=== PATIENT | female | born 1955 | race Caucasian/White ===

== ENCOUNTER → 2018-01-28 10:42 | Outpatient (CLI) | payer OTHER, MEDICAID, SELFPAY ==
--- NOTE | 2018-01-28 | DI.RAD.S_ITS ---
PROCEDURE: XR CHEST 2V INDICATIONS: COUGH TECHNIQUE: 2 views of the chest were acquired. COMPARISON: [facility], , CHEST 2 VIEW, 10/30/2016, 10:32. FINDINGS: Surgical changes and devices: None. Lungs and pleura: No pleural effusions or pneumothorax. Lungs are clear. Mediastinum: Mediastinal contours are normal. Heart size is normal. Bones and chest wall: No suspicious bony abnormalities. Soft tissues appear unremarkable. IMPRESSION: No acute disease. Dictated by: Joshua Bishop M.D. on 01/28/2018 at 13:16 Approved by: Joshua Bishop M.D. on 01/28/2018 at 13:17
== END ==
PROVIDERS: Family Provider Family Medicine; PCP Family Medicine; Visit Provider Family Medicine
DX: R05 Cough (principal)
CPT/HCPCS: 71046

== ENCOUNTER 2018-03-04 12:00 | Outpatient (RCR) | payer OTHER, MEDICAID, SELFPAY ==
--- NOTE | 2018-02-03 17:47 | PT.OIE ---
Current Diagnoses Spinal stenosis, lumbar region with neurogenic claudication (02/03/18) Other intervertebral disc degeneration, lumbar region (02/03/18) Muscle weakness (generalized) (02/03/18) Strain of muscle, fascia and tendon of lower back, subsequent encounter (02/03/18) Provider Visit Care Team Role Provider Type Alek Mejia MD Family Provider Physician Primary Care Provider Specialty: Family Practice Address: [address] [place] [address], [id number] Email: Wilder Lehman MD Attending Provider Physician Specialty: Orthopedic Surgery Address: [address] [place] [address], [id number] Email: [email or web address] Physical [facility] Initial Evaluation PT-OP-A Visit Information Start: 02/03/18 17:04 Freq: Status: Active Protocol: Document 02/03/18 12:45 RCC (Rec: 02/03/18 17:25 RCC [email or web address]) Out-Patient Physical Therapy Visit Information Visit Information Visit Type Initial Evaluation Visit Note PMH: DM type II, neck surgery x2, OA, back pain, neck pain, SOB with activity, current every day smoker, HTN. Visit Start Time 12:00 Visit Stop Time 12:45 Total Visit Minutes 45 Visit Number 1 Number of BEHAVIORAL SPECIALIST Visits 0 Evaluation Information Evaluation Date 02/03/18 PT-OP-B Current Condition Start: 02/03/18 17:04 Freq: Status: Active Protocol: Document 02/03/18 12:45 RCC (Rec: 02/03/18 17:25 RCC [email or web address]) Current Condition History of Current Condition Onset Date December 2016 Current Complaints L buttock and low back pain History of Current Condition Pt is a 62 y/o female presenting to skilled outpatient physical therapy with a c/o ongoing L sided low back and L buttock pain. Onset of injury pt reports was in December of 2016 went she just bent over one day to pick something up and had sharp, shooting pain down the LLE into the lower leg. Pain now is into the buttock and low back, but not extending down past the L knee. 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 Radiographs in 2017 showed osteophytes at L2- 3 and 5 mm listhesis in flexion of the lumbar spine with resolution on extension. MRI of the lumbar spine on 12/22 showed mild central stenosis @ L2-3, mild to moderate central, moderate bilateral foraminal stenosis at L3-4. L4-5 moderate central , moderate bilatearl foraminal narrowing. L5-S1 is open. Pt is referred to therapy for evaluation and treatment, HEP, ROM, and strengthening exercises. Plan is for pt to attempt PT and if necessary, injection performed on the L L4-[address] Lehman. Prior Treatments and Tests lumbar radiograph and MRI Future Testing and Treatments Planned possible L L4-5 injection. Prior Functional Status Baseline Function- Work/School No pain with lifting, work- related tasks. PT-OP-C Subjective Start: 02/03/18 17:04 Freq: Status: Active Protocol: Document 02/03/18 12:45 RCC (Rec: 02/03/18 17:25 RCC [email or web address]) OP-PT Subjective Patient Comments Patient Comments Pt notes that pain is not getting any better over the past couple of months, actually getting more intense and pain in L buttock more severe than low back. She is only working 4 hrs per day compared to 6-8 hrs per day ( normal shift). Patient Reported Progress Worse Patient Questionnaires Oswestry Low Back Index Oswestry Score 32% Oswestry Impairment 20 to 39% Impaired (Score 20- 39) OP-PT Pain Assessment Pain Assessment Grid Paper Pain Assessment Grid Completed Yes Location Left Buttock Pain Location Details 8 Scale Used Numeric (1 - 10) Description Sharp Shooting Stabbing Frequency Frequent PT-OP-D Balance Start: 02/03/18 17:04 Freq: Status: Active Protocol: Document 02/03/18 12:45 RCC (Rec: 02/03/18 17:33 RCC [email or web address]) Balance Tests Single Limb Standing Single Limb- Right 15 sec Single Limb- Left 10 sec with increased sway and fatigue. PT-OP-F Manual Assessment Start: 02/03/18 17:04 Freq: Status: Active Protocol: Document 02/03/18 12:45 RCC (Rec: 02/03/18 17:33 RCC [email or web address]) Manual Assessments Soft Tissue Assessment Soft Tissue Mobility Assessment Tenderness to palpation: ES, multifidi of the L lower lumbar spine, L piriformis, gluteals, IT band. PT-OP-G Mobility & Gait Start: 02/03/18 17:04 Freq: Status: Active Protocol: Document 02/03/18 12:45 RCC (Rec: 02/03/18 17:34 RCC [email or web address]) OP Gait Assessment Comments Gait Comments Antalgic gait with excessive LLE ER throughout gait, decreased step length mildly on the R. PT-OP-H Neuro Start: 02/03/18 17:04 Freq: Status: Active Protocol: Document 02/03/18 12:45 RCC (Rec: 02/03/18 17:33 RCC [email or web address]) Sensation Evaluation Gross Sensation Gross Sensation WNL Deep Tendon Reflex & Clonus Assessment Deep Tendon Reflex Bilateral Achilles Deep Tendon Reflex 2+ Normal Bilateral Patellar Deep Tendon Reflex 2+ Normal Ankle Clonus Bilateral Clonus Assessment Absent PT-OP-K Range of Motion Start: 02/03/18 17:04 Freq: Status: Active Protocol: Document 02/03/18 12:45 RCC (Rec: 02/03/18 17:33 RCC [email or web address]) Lumbar Spine Range of Motion Lumbar Spine Active Degrees Testing Position standing Flexion 70 Extension 14 ROM Limitations Pain Comments Pain down L leg with extension of lumbar spine. 75% lumbar spine side-bending with pain in the L back with SB L. PT-OP-L Special Tests Start: 02/03/18 17:04 Freq: Status: Active Protocol: Document 02/03/18 12:45 RCC (Rec: 02/03/18 17:33 RCC [email or web address]) Special Tests Lumbar Spine Special Tests Vertical Spine Loading Test Results negative Slump Test Results positive bilaterally Manual Traction Test Results negative bilaterally Straight Leg Raise Test Results negative bilaterally PT-OP-M Strength Start: 02/03/18 17:04 Freq: Status: Active Protocol: Document 02/03/18 12:45 RCC (Rec: 02/03/18 17:33 RCC [email or web address]) Hip Strength Hip Manual Muscle Testing Right Flexion (L2) 4+ Good+ Left Flexion (L2) 3+ Fair+ Knee Strength Knee Manual Muscle Testing Right Flexion (S2) 5 Normal Extension (L3) 5 Normal Left Flexion (S2) 4 Good Extension (L3) 4+ Good+ Ankle/Foot Strength Ankle and Foot Manual Muscle Testing Right Dorsiflexion (L4) 5 Normal Left Dorsiflexion (L4) 5 Normal Toe Strength Toe Manual Muscle Testing Right Great Toe Extension 5 Normal Left Great Toe Extension 5 Normal PT-OP-Q Treatments Start: 02/03/18 17:04 Freq: Status: Active Protocol: Document 02/03/18 12:45 RCC (Rec: 02/03/18 17:36 RCC [email or web address]) Therapeutic Exercises Supine Exercises 2 Supine Exercise Name Lower trunk rotation Side bilateral 1 Supine Exercise Name Piriformis stretch Side left Sitting Exercises 1 Sitting Exercise Name HS stretch Side left Comments VC for lumbar spine alignment Self-Care/Home Management Treatment Education Patient Education Body Mechanics Home Exercise Program Posture Other Education HS and piriformis stretch, LTR , education of LLE positioning , posture PT-OP-T Assessment and Plan Start: 02/03/18 17:04 Freq: Status: Active Protocol: Document 02/03/18 12:45 RCC (Rec: 02/03/18 17:46 RCC [email or web address]) Physical Therapy Assessment Rehab Potential Rehabilitation Potential Good Evaluation Complexity Number of Personal Factors/Comorbidities 3 or More Number of Body Systems Impaired 4 or More Clinical Presentation at Evaluation Unstable Impairments Impairments Activity Tolerance Balance Functional Activities Functional Mobility Gait Pain Posture ROM Soft Tissue Mobility Strength Goals Six Impairment Work tolerance (lifting) Residential Goal (LTG) Pt will report return to work for at least 6 hrs with no increased L buttock pain with lifting towels prior to d/c. LTG Duration 10 weeks. Five Impairment LLE alignment in standing and gait Residential Goal (LTG) Neutral LLE alignment in standing and throughout gait ( equal to RLE) prior to d/c. LTG Duration 10 weeks. Four Impairment Pain in L buttock and lumbar spine Short Term Goal (STG) 6/10 STG Duration 5 weeks Local Area Network Administrator Goal (LTG) 3/10 or less LTG Duration 10 weeks Three Impairment Modified Oswestry Score Short Term Goal (STG) <25% STG Duration 5 weeks Local Area Network Administrator Goal (LTG) <20% LTG Duration 10 weeks Two Impairment ROM of lumbar spine Short Term Goal (STG) 20 deg. of lumbar extension without pain STG Duration 5 weeks Residential Goal (LTG) 25 deg of lumbar extension without pain LTG Duration 10 weeks One Impairment L LE weakness Short Term Goal (STG) Hip flexion 4/5 Knee extension 5/5, flexion 4+ /5 *with MMT STG Duration 5 weeks Residential Goal (LTG) Hip flexion, knee extension and flexion to 5/5 with MMT. LTG Duration 10 weeks Assessment Summary Assessment Pt with (+) slump testing bilaterally, with L more severe than the R. Traction does not appear to decerase pt 's symptoms at this time. Tenderness in the L buttock, particularly in the L piriformis also indicating involvement of the sciatic nerve, along with MRI results. Pt stands with LLE in excessive ER, possibly due to compensatory body mechanics to decrease stress on L sciatic nerve. Pt would greatly benefit from skilled physical therapy intervention to progress her LE strength, posture, lumbar spine ROM, decrease pain, and return to work related tasks (standing and lifting) without increased symptoms. Physical Therapy Plan Frequency and Duration Frequency of Treatment 2x/Week Duration of Treatment 10 weeks Plan of Care Start Date 02/03/18 Plan of Care End Date 04/14/18 Therapeutic Interventions Therapeutic Interventions Aquatic Therapy Balance Training Gait Training Home Exercise Program Joint Mobilizations Manual Therapy Neuromuscular Re-education Patient/Caregiver Education Self-Care/Home Management Soft Tissue Mobilization Taping Therapeutic Activities Therapeutic Exercises Modalities Cold Pack/Ice Massage Electric Stimulation Hot Packs Ultrasound Next Visit Focus/Plan Next Note Type Treatment Note Next Visit Plan check prone instability test, core strengthening as tolerated, sciatic nerve glides if able to perform appropriately.
--- NOTE | 2018-02-03 17:47 | PT.OPPOC ---
Current Diagnoses Spinal stenosis, lumbar region with neurogenic claudication (02/03/18) Other intervertebral disc degeneration, lumbar region (02/03/18) Muscle weakness (generalized) (02/03/18) Strain of muscle, fascia and tendon of lower back, subsequent encounter (02/03/18) Provider Visit Care Team Role Provider Type Alek Mejia MD Family Provider Physician Primary Care Provider Specialty: Family Practice Address: [address] [place] [address], [address] Email: Wilder Lehman MD Attending Provider Physician Specialty: Orthopedic Surgery Address: [address] [place] [address], [id number] Email: [email or web address] Plan Of Care PT-OP-T Assessment and Plan Start: 02/03/18 17:04 Freq: Status: Active Protocol: Document 02/03/18 12:45 RCC (Rec: 02/03/18 17:46 RCC [email or web address]) Physical Therapy Assessment Rehab Potential Rehabilitation Potential Good Evaluation Complexity Number of Personal Factors/Comorbidities 3 or More Number of Body Systems Impaired 4 or More Clinical Presentation at Evaluation Unstable Impairments Impairments Activity Tolerance Balance Functional Activities Functional Mobility Gait Pain Posture ROM Soft Tissue Mobility Strength Goals Six Impairment Work tolerance (lifting) Director Of Archives Goal (LTG) Pt will report return to work for at least 6 hrs with no increased L buttock pain with lifting towels prior to d/c. LTG Duration 10 weeks. Five Impairment LLE alignment in standing and gait Halfway Goal (LTG) Neutral LLE alignment in standing and throughout gait ( equal to RLE) prior to d/c. LTG Duration 10 weeks. Four Impairment Pain in L buttock and lumbar spine Short Term Goal (STG) 6/10 STG Duration 5 weeks Halfway Goal (LTG) 3/10 or less LTG Duration 10 weeks Three Impairment Modified Oswestry Score Short Term Goal (STG) <25% STG Duration 5 weeks Director Of Archives Goal (LTG) <20% LTG Duration 10 weeks Two Impairment ROM of lumbar spine Short Term Goal (STG) 20 deg. of lumbar extension without pain STG Duration 5 weeks Director Of Archives Goal (LTG) 25 deg of lumbar extension without pain LTG Duration 10 weeks One Impairment L LE weakness Short Term Goal (STG) Hip flexion 4/5 Knee extension 5/5, flexion 4+ /5 *with MMT STG Duration 5 weeks Director Of Archives Goal (LTG) Hip flexion, knee extension and flexion to 5/5 with MMT. LTG Duration 10 weeks Assessment Summary Assessment Pt with (+) slump testing bilaterally, with L more severe than the R. Traction does not appear to decerase pt 's symptoms at this time. Tenderness in the L buttock, particularly in the L piriformis also indicating involvement of the sciatic nerve, along with MRI results. Pt stands with LLE in excessive ER, possibly due to compensatory body mechanics to decrease stress on L sciatic nerve. Pt would greatly benefit from skilled physical therapy intervention to progress her LE strength, posture, lumbar spine ROM, decrease pain, and return to work related tasks (standing and lifting) without increased symptoms. Physical Therapy Plan Frequency and Duration Frequency of Treatment 2x/Week Duration of Treatment 10 weeks Plan of Care Start Date 02/03/18 Plan of Care End Date 04/14/18 Therapeutic Interventions Therapeutic Interventions Aquatic Therapy Balance Training Gait Training Home Exercise Program Joint Mobilizations Manual Therapy Neuromuscular Re-education Patient/Caregiver Education Self-Care/Home Management Soft Tissue Mobilization Taping Therapeutic Activities Therapeutic Exercises Modalities Cold Pack/Ice Massage Electric Stimulation Hot Packs Ultrasound Next Visit Focus/Plan Next Note Type Treatment Note Next Visit Plan check prone instability test, core strengthening as tolerated, sciatic nerve glides if able to perform appropriately. Plan of Care Dates Plan of Care Start Date 02/03/18 Plan of Care End Date 04/14/18 Please Sign and Return: I have reviewed this Plan of Care and certify that the skilled therapy services above are required to meet the patient?s needs. Physician Signature Date Printed Name and Credentials Clinical Instructor Signature Printed Name and Credentials
--- NOTE | 2018-02-11 12:00 | PT.OTN ---
Current Diagnoses Spinal stenosis, lumbar region with neurogenic claudication (02/11/18) Other intervertebral disc degeneration, lumbar region (02/11/18) Muscle weakness (generalized) (02/11/18) Strain of muscle, fascia and tendon of lower back, subsequent encounter (02/11/18) Physical Therapy Treatment Note PT-OP-A Visit Information Start: 02/03/18 17:04 Freq: Status: Active Protocol: Document 02/11/18 12:00 RCC (Rec: 02/11/18 15:12 RCC [email or web address]) Out-Patient Physical Therapy Visit Information Visit Information Visit Type Treatment Note Visit Start Time 11:15 Visit Stop Time 12:05 Total Visit Minutes 50 Visit Number 2 Number of CONCRETE PRECAST MOULDER Visits 0 Evaluation Information Evaluation Date 02/03/18 PT-OP-B Current Condition Start: 02/03/18 17:04 Freq: Status: Active Protocol: Document 02/03/18 12:45 RCC (Rec: 02/03/18 17:25 RCC [email or web address]) Current Condition History of Current Condition Onset Date December 2016 Current Complaints L buttock and low back pain History of Current Condition Pt is a 62 y/o female presenting to skilled outpatient physical therapy with a c/o ongoing L sided low back and L buttock pain. Onset of injury pt reports was in December of 2016 went she just bent over one day to pick something up and had sharp, shooting pain down the LLE into the lower leg. Pain now is into the buttock and low back, but not extending down past the L knee. 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 Radiographs in 2017 showed osteophytes at L2- 3 and 5 mm listhesis in flexion of the lumbar spine with resolution on extension. MRI of the lumbar spine on 12/22 showed mild central stenosis @ L2-3, mild to moderate central, moderate bilateral foraminal stenosis at L3-4. L4-5 moderate central , moderate bilatearl foraminal narrowing. L5-S1 is open. Pt is referred to therapy for evaluation and treatment, HEP, ROM, and strengthening exercises. Plan is for pt to attempt PT and if necessary, injection performed on the L L4-[address] Lehman. Prior Treatments and Tests lumbar radiograph and MRI Future Testing and Treatments Planned possible L L4-5 injection. Prior Functional Status Baseline Function- Work/School No pain with lifting, work- related tasks. PT-OP-C Subjective Start: 02/03/18 17:04 Freq: Status: Active Protocol: Document 02/11/18 12:00 RCC (Rec: 02/11/18 15:12 RCC [email or web address]) OP-PT Subjective Patient Comments Patient Comments Pt notes that L buttock pain is about the same. She is doing her stretching, still having pain with picking up towels off of the ground. Patient Reported Progress Same PT-OP-D Balance Start: 02/03/18 17:04 Freq: Status: Active Protocol: Document 02/03/18 12:45 RCC (Rec: 02/03/18 17:33 RCC [email or web address]) Balance Tests Single Limb Standing Single Limb- Right 15 sec Single Limb- Left 10 sec with increased sway and fatigue. PT-OP-F Manual Assessment Start: 02/03/18 17:04 Freq: Status: Active Protocol: Document 02/03/18 12:45 RCC (Rec: 02/03/18 17:33 RCC [email or web address]) Manual Assessments Soft Tissue Assessment Soft Tissue Mobility Assessment Tenderness to palpation: ES, multifidi of the L lower lumbar spine, L piriformis, gluteals, IT band. PT-OP-G Mobility & Gait Start: 02/03/18 17:04 Freq: Status: Active Protocol: Document 02/03/18 12:45 RCC (Rec: 02/03/18 17:34 RCC [email or web address]) OP Gait Assessment Comments Gait Comments Antalgic gait with excessive LLE ER throughout gait, decreased step length mildly on the R. PT-OP-H Neuro Start: 02/03/18 17:04 Freq: Status: Active Protocol: Document 02/03/18 12:45 RCC (Rec: 02/03/18 17:33 RCC [email or web address]) Sensation Evaluation Gross Sensation Gross Sensation WNL Deep Tendon Reflex & Clonus Assessment Deep Tendon Reflex Bilateral Achilles Deep Tendon Reflex 2+ Normal Bilateral Patellar Deep Tendon Reflex 2+ Normal Ankle Clonus Bilateral Clonus Assessment Absent PT-OP-K Range of Motion Start: 02/03/18 17:04 Freq: Status: Active Protocol: Document 02/03/18 12:45 RCC (Rec: 02/03/18 17:33 RCC [email or web address]) Lumbar Spine Range of Motion Lumbar Spine Active Degrees Testing Position standing Flexion 70 Extension 14 ROM Limitations Pain Comments Pain down L leg with extension of lumbar spine. 75% lumbar spine side-bending with pain in the L back with SB L. PT-OP-L Special Tests Start: 02/03/18 17:04 Freq: Status: Active Protocol: Document 02/11/18 12:00 RCC (Rec: 02/11/18 15:12 RCC [email or web address]) Special Tests Lumbar Spine Special Tests Prone Instability Test Test Results Positive @ L1, L2, L5 PT-OP-M Strength Start: 02/03/18 17:04 Freq: Status: Active Protocol: Document 02/03/18 12:45 RCC (Rec: 02/03/18 17:33 RCC [email or web address]) Hip Strength Hip Manual Muscle Testing Right Flexion (L2) 4+ Good+ Left Flexion (L2) 3+ Fair+ Knee Strength Knee Manual Muscle Testing Right Flexion (S2) 5 Normal Extension (L3) 5 Normal Left Flexion (S2) 4 Good Extension (L3) 4+ Good+ Ankle/Foot Strength Ankle and Foot Manual Muscle Testing Right Dorsiflexion (L4) 5 Normal Left Dorsiflexion (L4) 5 Normal Toe Strength Toe Manual Muscle Testing Right Great Toe Extension 5 Normal Left Great Toe Extension 5 Normal PT-OP-Q Treatments Start: 02/03/18 17:04 Freq: Status: Active Protocol: Document 02/11/18 12:00 RCC (Rec: 02/11/18 15:12 RCC [email or web address]) Therapeutic Exercises Supine Exercises 3 Supine Exercise Name transverse abdominal activation Side bilateral Comments tactile cuing 2 Supine Exercise Name Lower trunk rotation Side bilateral 1 Supine Exercise Name Piriformis stretch Side left Sidelying Exercises 1 Sidelying Exercise Name clamshells Side bilateral Reps/Minutes 1x12 Other Exercises 1 Other Exercise Name Quadruped alternating LE extension Side bilateral Reps/Minutes 1x5 each Manual Therapy Treatment Soft Tissue Mobilization 2 Body Location lumbar paraspinals Mobilization Type Strumming Intensity/Depth Moderate Body Position Sidelying Comments bilateral; 10 min 1 Body Location piriformis Mobilization Type Strumming Intensity/Depth Moderate Body Position Sidelying Comments bilateral; 9 min Manual Traction Lumbar Details long axis (gentle) Body Position Supine Reps/Duration 2 min. Other Other Manual Treatments prone instability testing- 4 min. PT-OP-R Modalities Start: 02/03/18 17:04 Freq: Status: Active Protocol: Document 02/11/18 12:00 RCC (Rec: 02/11/18 15:12 RCC [email or web address]) Hot Pack/Cold Pack Treatment Hot Pack Location lumbar, buttock Patient Position Supine Treatment Duration (minutes) 10 Patient Tolerance Good Comments conster PT-OP-T Assessment and Plan Start: 02/03/18 17:04 Freq: Status: Active Protocol: Document 02/11/18 12:00 RCC (Rec: 02/11/18 15:12 [facility] [email or web address]) Physical Therapy Assessment Assessment Summary Assessment Pt with (+) prone instability test at multiple levels, indicating that pt would benefit from core stabilization training. Pt tolerated quadruped alternating LE lifts without pain. She requires tactile cuing for transverse abdominal activation, and VC to perform this with other activities. Physical Therapy Plan Frequency and Duration Frequency of Treatment 2x/Week Duration of Treatment 10 weeks Plan of Care Start Date 02/03/18 Plan of Care End Date 04/14/18 Next Visit Focus/Plan Next Note Type Treatment Note Next Visit Plan core stability, sciatic nerve glides in able to perform appropriately.
--- NOTE | 2018-02-16 14:25 | PT.OTN ---
Current Diagnoses Spinal stenosis, lumbar region with neurogenic claudication (02/16/18) Other intervertebral disc degeneration, lumbar region (02/16/18) Muscle weakness (generalized) (02/16/18) Strain of muscle, fascia and tendon of lower back, subsequent encounter (02/16/18) Physical Therapy Treatment Note PT-OP-A Visit Information Start: 02/03/18 17:04 Freq: Status: Active Protocol: Document 02/16/18 13:45 DCW (Rec: 02/16/18 14:25 DCW [id number]) Out-Patient Physical Therapy Visit Information Visit Information Visit Type Treatment Note Visit Start Time 13:45 Visit Stop Time 14:35 Total Visit Minutes 50 Visit Number 3 Number of COREMAKER MACHINE Visits 0 Evaluation Information Evaluation Date 02/03/18 PT-OP-B Current Condition Start: 02/03/18 17:04 Freq: Status: Active Protocol: Document 02/03/18 12:45 RCC (Rec: 02/03/18 17:25 RCC [email or web address]) Current Condition History of Current Condition Onset Date December 2016 Current Complaints L buttock and low back pain History of Current Condition Pt is a 62 y/o female presenting to skilled outpatient physical therapy with a c/o ongoing L sided low back and L buttock pain. Onset of injury pt reports was in December of 2016 went she just bent over one day to pick something up and had sharp, shooting pain down the LLE into the lower leg. Pain now is into the buttock and low back, but not extending down past the L knee. 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 Radiographs in 2017 showed osteophytes at L2- 3 and 5 mm listhesis in flexion of the lumbar spine with resolution on extension. MRI of the lumbar spine on 12/22 showed mild central stenosis @ L2-3, mild to moderate central, moderate bilateral foraminal stenosis at L3-4. L4-5 moderate central , moderate bilatearl foraminal narrowing. L5-S1 is open. Pt is referred to therapy for evaluation and treatment, HEP, ROM, and strengthening exercises. Plan is for pt to attempt PT and if necessary, injection performed on the L L4-[address] Lehman. Prior Treatments and Tests lumbar radiograph and MRI Future Testing and Treatments Planned possible L L4-5 injection. Prior Functional Status Baseline Function- Work/School No pain with lifting, work- related tasks. PT-OP-C Subjective Start: 02/03/18 17:04 Freq: Status: Active Protocol: Document 02/16/18 13:45 DCW (Rec: 02/16/18 14:25 DCW [id number]) OP-PT Subjective Patient Comments Patient Comments Pt reports her back has been a little sore, still mainly when bending forward at work. Patient Reported Progress Same PT-OP-D Balance Start: 02/03/18 17:04 Freq: Status: Active Protocol: Document 02/03/18 12:45 RCC (Rec: 02/03/18 17:33 RCC [email or web address]) Balance Tests Single Limb Standing Single Limb- Right 15 sec Single Limb- Left 10 sec with increased sway and fatigue. PT-OP-F Manual Assessment Start: 02/03/18 17:04 Freq: Status: Active Protocol: Document 02/03/18 12:45 RCC (Rec: 02/03/18 17:33 RCC [email or web address]) Manual Assessments Soft Tissue Assessment Soft Tissue Mobility Assessment Tenderness to palpation: ES, multifidi of the L lower lumbar spine, L piriformis, gluteals, IT band. PT-OP-G Mobility & Gait Start: 02/03/18 17:04 Freq: Status: Active Protocol: Document 02/03/18 12:45 RCC (Rec: 02/03/18 17:34 RCC [email or web address]) OP Gait Assessment Comments Gait Comments Antalgic gait with excessive LLE ER throughout gait, decreased step length mildly on the R. PT-OP-H Neuro Start: 02/03/18 17:04 Freq: Status: Active Protocol: Document 02/03/18 12:45 RCC (Rec: 02/03/18 17:33 RCC [email or web address]) Sensation Evaluation Gross Sensation Gross Sensation WNL Deep Tendon Reflex & Clonus Assessment Deep Tendon Reflex Bilateral Achilles Deep Tendon Reflex 2+ Normal Bilateral Patellar Deep Tendon Reflex 2+ Normal Ankle Clonus Bilateral Clonus Assessment Absent PT-OP-K Range of Motion Start: 02/03/18 17:04 Freq: Status: Active Protocol: Document 02/03/18 12:45 RCC (Rec: 02/03/18 17:33 RCC [email or web address]) Lumbar Spine Range of Motion Lumbar Spine Active Degrees Testing Position standing Flexion 70 Extension 14 ROM Limitations Pain Comments Pain down L leg with extension of lumbar spine. 75% lumbar spine side-bending with pain in the L back with SB L. PT-OP-L Special Tests Start: 02/03/18 17:04 Freq: Status: Active Protocol: Document 02/11/18 12:00 RCC (Rec: 02/11/18 15:12 RCC [email or web address]) Special Tests Lumbar Spine Special Tests Prone Instability Test Test Results Positive @ L1, L2, L5 PT-OP-M Strength Start: 02/03/18 17:04 Freq: Status: Active Protocol: Document 02/03/18 12:45 RCC (Rec: 02/03/18 17:33 RCC [email or web address]) Hip Strength Hip Manual Muscle Testing Right Flexion (L2) 4+ Good+ Left Flexion (L2) 3+ Fair+ Knee Strength Knee Manual Muscle Testing Right Flexion (S2) 5 Normal Extension (L3) 5 Normal Left Flexion (S2) 4 Good Extension (L3) 4+ Good+ Ankle/Foot Strength Ankle and Foot Manual Muscle Testing Right Dorsiflexion (L4) 5 Normal Left Dorsiflexion (L4) 5 Normal Toe Strength Toe Manual Muscle Testing Right Great Toe Extension 5 Normal Left Great Toe Extension 5 Normal PT-OP-Q Treatments Start: 02/03/18 17:04 Freq: Status: Active Protocol: Document 02/16/18 13:45 DCW (Rec: 02/16/18 14:25 DCW [id number]) Gym Equipment Therapeutic Ball 1 Exercise Details Trunk rotation vs lv 2 T-band resistance Ball Size/Color Red - 55 cm Body Position Sitting Therapeutic Exercises Supine Exercises 7 Supine Exercise Name Hamstring stretch Side bilateral 6 Supine Exercise Name PPT /c TrA activation - Air bicycle Side bilateral 5 Supine Exercise Name PPT /c TrA activation - Alternating SLR Side bilateral 4 Supine Exercise Name PPT /c TrA activation - Marching Side bilateral 3 Supine Exercise Name transverse abdominal activation Side bilateral 2 Supine Exercise Name Lower trunk rotation Side bilateral 1 Supine Exercise Name Piriformis stretch Side left Manual Therapy Treatment Soft Tissue Mobilization 2 Body Location lumbar paraspinals Mobilization Type Strumming Intensity/Depth Moderate Body Position Sidelying Comments bilateral; 10 min 1 Body Location piriformis Mobilization Type Strumming Intensity/Depth Moderate Body Position Sidelying Comments bilateral; 9 min Manual Traction Lumbar Details long axis (gentle) Body Position Supine Reps/Duration 2 min. PT-OP-R Modalities Start: 02/03/18 17:04 Freq: Status: Active Protocol: Document 02/16/18 13:45 DCW (Rec: 02/16/18 14:25 DCW [id number]) Hot Pack/Cold Pack Treatment Hot Pack Location lumbar, buttock Patient Position Supine Treatment Duration (minutes) 10 Patient Tolerance Good Comments conster PT-OP-T Assessment and Plan Start: 02/03/18 17:04 Freq: Status: Active Protocol: Document 02/16/18 13:45 DCW (Rec: 02/16/18 14:25 DCW [id number]) Physical Therapy Assessment Impairments Impairments Activity Tolerance Balance Functional Activities Functional Mobility Gait Pain Posture ROM Soft Tissue Mobility Strength Goals Six Impairment Work tolerance (lifting) Snf Goal (LTG) Pt will report return to work for at least 6 hrs with no increased L buttock pain with lifting towels prior to d/c. LTG Duration 10 weeks. Five Impairment LLE alignment in standing and gait Snf Goal (LTG) Neutral LLE alignment in standing and throughout gait ( equal to RLE) prior to d/c. LTG Duration 10 weeks. Four Impairment Pain in L buttock and lumbar spine Short Term Goal (STG) 6/10 STG Duration 5 weeks Contour Sander Goal (LTG) 3/10 or less LTG Duration 10 weeks Three Impairment Modified Oswestry Score Short Term Goal (STG) <25% STG Duration 5 weeks Contour Sander Goal (LTG) <20% LTG Duration 10 weeks Two Impairment ROM of lumbar spine Short Term Goal (STG) 20 deg. of lumbar extension without pain STG Duration 5 weeks Snf Goal (LTG) 25 deg of lumbar extension without pain LTG Duration 10 weeks One Impairment L LE weakness Short Term Goal (STG) Hip flexion 4/5 Knee extension 5/5, flexion 4+ /5 *with MMT STG Duration 5 weeks Contour Sander Goal (LTG) Hip flexion, knee extension and flexion to 5/5 with MMT. LTG Duration 10 weeks Assessment Summary Assessment Pt responded well to increased core strengthening TherEx Physical Therapy Plan Frequency and Duration Frequency of Treatment 2x/Week Duration of Treatment 10 weeks Plan of Care Start Date 02/03/18 Plan of Care End Date 04/14/18 Therapeutic Interventions Therapeutic Interventions Aquatic Therapy Balance Training Gait Training Home Exercise Program Joint Mobilizations Manual Therapy Neuromuscular Re-education Patient/Caregiver Education Self-Care/Home Management Soft Tissue Mobilization Taping Therapeutic Activities Therapeutic Exercises Modalities Cold Pack/Ice Massage Electric Stimulation Hot Packs Ultrasound Next Visit Focus/Plan Next Note Type Treatment Note Next Visit Plan core stability, sciatic nerve glides in able to perform appropriately.
--- NOTE | 2018-02-23 12:00 | PT.OTN ---
Current Diagnoses Spinal stenosis, lumbar region with neurogenic claudication (02/23/18) Other intervertebral disc degeneration, lumbar region (02/23/18) Muscle weakness (generalized) (02/23/18) Strain of muscle, fascia and tendon of lower back, subsequent encounter (02/23/18) Physical Therapy Treatment Note PT-OP-A Visit Information Start: 02/03/18 17:04 Freq: Status: Active Protocol: Document 02/23/18 11:15 DCW (Rec: 02/23/18 12:00 DCW [id number]) Out-Patient Physical Therapy Visit Information Visit Information Visit Type Treatment Note Visit Start Time 11:15 Visit Stop Time 12:05 Total Visit Minutes 50 Visit Number 4 Number of FOOD TECHNOLOGY TEACHER Visits 0 Evaluation Information Evaluation Date 02/03/18 PT-OP-B Current Condition Start: 02/03/18 17:04 Freq: Status: Active Protocol: Document 02/03/18 12:45 RCC (Rec: 02/03/18 17:25 RCC [email or web address]) Current Condition History of Current Condition Onset Date December 2016 Current Complaints L buttock and low back pain History of Current Condition Pt is a 62 y/o female presenting to skilled outpatient physical therapy with a c/o ongoing L sided low back and L buttock pain. Onset of injury pt reports was in December of 2016 went she just bent over one day to pick something up and had sharp, shooting pain down the LLE into the lower leg. Pain now is into the buttock and low back, but not extending down past the L knee. 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 Radiographs in 2017 showed osteophytes at L2- 3 and 5 mm listhesis in flexion of the lumbar spine with resolution on extension. MRI of the lumbar spine on 12/22 showed mild central stenosis @ L2-3, mild to moderate central, moderate bilateral foraminal stenosis at L3-4. L4-5 moderate central , moderate bilatearl foraminal narrowing. L5-S1 is open. Pt is referred to therapy for evaluation and treatment, HEP, ROM, and strengthening exercises. Plan is for pt to attempt PT and if necessary, injection performed on the L L4-[address] Lehman. Prior Treatments and Tests lumbar radiograph and MRI Future Testing and Treatments Planned possible L L4-5 injection. Prior Functional Status Baseline Function- Work/School No pain with lifting, work- related tasks. PT-OP-C Subjective Start: 02/03/18 17:04 Freq: Status: Active Protocol: Document 02/23/18 11:15 DCW (Rec: 02/23/18 12:00 DCW [id number]) OP-PT Subjective Patient Comments Patient Comments Pt reports she was a little sore following her last visit, but that's normally how it is, the more I work it, the more it hurts. PT-OP-D Balance Start: 02/03/18 17:04 Freq: Status: Active Protocol: Document 02/03/18 12:45 RCC (Rec: 02/03/18 17:33 RCC [email or web address]) Balance Tests Single Limb Standing Single Limb- Right 15 sec Single Limb- Left 10 sec with increased sway and fatigue. PT-OP-F Manual Assessment Start: 02/03/18 17:04 Freq: Status: Active Protocol: Document 02/03/18 12:45 RCC (Rec: 02/03/18 17:33 RCC [email or web address]) Manual Assessments Soft Tissue Assessment Soft Tissue Mobility Assessment Tenderness to palpation: ES, multifidi of the L lower lumbar spine, L piriformis, gluteals, IT band. PT-OP-G Mobility & Gait Start: 02/03/18 17:04 Freq: Status: Active Protocol: Document 02/03/18 12:45 RCC (Rec: 02/03/18 17:34 RCC [email or web address]) OP Gait Assessment Comments Gait Comments Antalgic gait with excessive LLE ER throughout gait, decreased step length mildly on the R. PT-OP-H Neuro Start: 02/03/18 17:04 Freq: Status: Active Protocol: Document 02/03/18 12:45 RCC (Rec: 02/03/18 17:33 RCC [email or web address]) Sensation Evaluation Gross Sensation Gross Sensation WNL Deep Tendon Reflex & Clonus Assessment Deep Tendon Reflex Bilateral Achilles Deep Tendon Reflex 2+ Normal Bilateral Patellar Deep Tendon Reflex 2+ Normal Ankle Clonus Bilateral Clonus Assessment Absent PT-OP-K Range of Motion Start: 02/03/18 17:04 Freq: Status: Active Protocol: Document 02/03/18 12:45 RCC (Rec: 02/03/18 17:33 RCC [email or web address]) Lumbar Spine Range of Motion Lumbar Spine Active Degrees Testing Position standing Flexion 70 Extension 14 ROM Limitations Pain Comments Pain down L leg with extension of lumbar spine. 75% lumbar spine side-bending with pain in the L back with SB L. PT-OP-L Special Tests Start: 02/03/18 17:04 Freq: Status: Active Protocol: Document 02/11/18 12:00 RCC (Rec: 02/11/18 15:12 RCC [email or web address]) Special Tests Lumbar Spine Special Tests Prone Instability Test Test Results Positive @ L1, L2, L5 PT-OP-M Strength Start: 02/03/18 17:04 Freq: Status: Active Protocol: Document 02/03/18 12:45 RCC (Rec: 02/03/18 17:33 RCC [email or web address]) Hip Strength Hip Manual Muscle Testing Right Flexion (L2) 4+ Good+ Left Flexion (L2) 3+ Fair+ Knee Strength Knee Manual Muscle Testing Right Flexion (S2) 5 Normal Extension (L3) 5 Normal Left Flexion (S2) 4 Good Extension (L3) 4+ Good+ Ankle/Foot Strength Ankle and Foot Manual Muscle Testing Right Dorsiflexion (L4) 5 Normal Left Dorsiflexion (L4) 5 Normal Toe Strength Toe Manual Muscle Testing Right Great Toe Extension 5 Normal Left Great Toe Extension 5 Normal PT-OP-Q Treatments Start: 02/03/18 17:04 Freq: Status: Active Protocol: Document 02/23/18 11:15 DCW (Rec: 02/23/18 12:00 DCW [id number]) Gym Equipment Therapeutic Ball 1 Exercise Details Trunk rotation vs lv 2 T-band resistance Ball Size/Color Red - 55 cm Body Position Sitting Therapeutic Exercises Supine Exercises 7 Supine Exercise Name Hamstring stretch Side bilateral 6 Supine Exercise Name PPT /c TrA activation - Air bicycle Side bilateral 5 Supine Exercise Name PPT /c TrA activation - Alternating SLR Side bilateral 4 Supine Exercise Name PPT /c TrA activation - Marching Side bilateral 2 Supine Exercise Name Lower trunk rotation Side bilateral 1 Supine Exercise Name Piriformis stretch Side left Manual Therapy Treatment Soft Tissue Mobilization 2 Body Location lumbar paraspinals Mobilization Type Strumming Intensity/Depth Moderate Body Position Sidelying Comments bilateral; 10 min 1 Body Location piriformis Mobilization Type Strumming Intensity/Depth Moderate Body Position Sidelying Comments bilateral; 9 min Manual Traction Lumbar Details long axis (gentle) Body Position Supine Reps/Duration 2 min. PT-OP-R Modalities Start: 02/03/18 17:04 Freq: Status: Active Protocol: Document 02/23/18 11:15 DCW (Rec: 02/23/18 12:00 DCW [id number]) Hot Pack/Cold Pack Treatment Hot Pack Location lumbar, buttock Patient Position Supine Treatment Duration (minutes) 10 Patient Tolerance Good Comments conster PT-OP-T Assessment and Plan Start: 02/03/18 17:04 Freq: Status: Active Protocol: Document 02/23/18 11:15 DCW (Rec: 02/23/18 12:00 DCW [id number]) Physical Therapy Assessment Impairments Impairments Activity Tolerance Balance Functional Activities Functional Mobility Gait Pain Posture ROM Soft Tissue Mobility Strength Goals Six Impairment Work tolerance (lifting) Air Pollution Analyst Goal (LTG) Pt will report return to work for at least 6 hrs with no increased L buttock pain with lifting towels prior to d/c. LTG Duration 10 weeks. Five Impairment LLE alignment in standing and gait Air Pollution Analyst Goal (LTG) Neutral LLE alignment in standing and throughout gait ( equal to RLE) prior to d/c. LTG Duration 10 weeks. Four Impairment Pain in L buttock and lumbar spine Short Term Goal (STG) 6/10 STG Duration 5 weeks Air Pollution Analyst Goal (LTG) 3/10 or less LTG Duration 10 weeks Three Impairment Modified Oswestry Score Short Term Goal (STG) <25% STG Duration 5 weeks Air Pollution Analyst Goal (LTG) <20% LTG Duration 10 weeks Two Impairment ROM of lumbar spine Short Term Goal (STG) 20 deg. of lumbar extension without pain STG Duration 5 weeks Air Pollution Analyst Goal (LTG) 25 deg of lumbar extension without pain LTG Duration 10 weeks One Impairment L LE weakness Short Term Goal (STG) Hip flexion 4/5 Knee extension 5/5, flexion 4+ /5 *with MMT STG Duration 5 weeks Jail Goal (LTG) Hip flexion, knee extension and flexion to 5/5 with MMT. LTG Duration 10 weeks Assessment Summary Assessment Pt complained of mild increase in pain with manual therapy, but felt better following time on hot pack. Physical Therapy Plan Frequency and Duration Frequency of Treatment 2x/Week Duration of Treatment 10 weeks Plan of Care Start Date 02/03/18 Plan of Care End Date 04/14/18 Therapeutic Interventions Therapeutic Interventions Aquatic Therapy Balance Training Gait Training Home Exercise Program Joint Mobilizations Manual Therapy Neuromuscular Re-education Patient/Caregiver Education Self-Care/Home Management Soft Tissue Mobilization Taping Therapeutic Activities Therapeutic Exercises Modalities Cold Pack/Ice Massage Electric Stimulation Hot Packs Ultrasound Next Visit Focus/Plan Next Note Type Treatment Note Next Visit Plan core stability, sciatic nerve glides in able to perform appropriately.
--- NOTE | 2018-02-25 14:46 | PT.OTN ---
Current Diagnoses Spinal stenosis, lumbar region with neurogenic claudication (02/25/18) Other intervertebral disc degeneration, lumbar region (02/25/18) Muscle weakness (generalized) (02/25/18) Strain of muscle, fascia and tendon of lower back, subsequent encounter (02/25/18) Physical Therapy Treatment Note PT-OP-A Visit Information Start: 02/03/18 17:04 Freq: Status: Active Protocol: Document 02/25/18 13:49 SAK (Rec: 02/25/18 14:30 SAK [id number]) Out-Patient Physical Therapy Visit Information Visit Information Visit Type Treatment Note Visit Start Time 13:45 Visit Stop Time 14:30 Total Visit Minutes 55 Visit Number 5 Number of COPYRIGHT MANAGER Visits 0 Evaluation Information Evaluation Date 02/03/18 PT-OP-B Current Condition Start: 02/03/18 17:04 Freq: Status: Active Protocol: Document 02/03/18 12:45 RCC (Rec: 02/03/18 17:25 RCC [email or web address]) Current Condition History of Current Condition Onset Date December 2016 Current Complaints L buttock and low back pain History of Current Condition Pt is a 62 y/o female presenting to skilled outpatient physical therapy with a c/o ongoing L sided low back and L buttock pain. Onset of injury pt reports was in December of 2016 went she just bent over one day to pick something up and had sharp, shooting pain down the LLE into the lower leg. Pain now is into the buttock and low back, but not extending down past the L knee. 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 Radiographs in 2017 showed osteophytes at L2- 3 and 5 mm listhesis in flexion of the lumbar spine with resolution on extension. MRI of the lumbar spine on 12/22 showed mild central stenosis @ L2-3, mild to moderate central, moderate bilateral foraminal stenosis at L3-4. L4-5 moderate central , moderate bilatearl foraminal narrowing. L5-S1 is open. Pt is referred to therapy for evaluation and treatment, HEP, ROM, and strengthening exercises. Plan is for pt to attempt PT and if necessary, injection performed on the L L4-[address] Lehman. Prior Treatments and Tests lumbar radiograph and MRI Future Testing and Treatments Planned possible L L4-5 injection. Prior Functional Status Baseline Function- Work/School No pain with lifting, work- related tasks. PT-OP-C Subjective Start: 02/03/18 17:04 Freq: Status: Active Protocol: Document 02/25/18 14:43 SAK (Rec: 02/25/18 14:46 SAK [id number]) OP-PT Subjective Patient Comments Patient Comments Reports more sore after PT, though does report slight improvement in standing tolerance. one more PT visit , then I will get a shot. PT-OP-D Balance Start: 02/03/18 17:04 Freq: Status: Active Protocol: Document 02/03/18 12:45 RCC (Rec: 02/03/18 17:33 RCC [email or web address]) Balance Tests Single Limb Standing Single Limb- Right 15 sec Single Limb- Left 10 sec with increased sway and fatigue. PT-OP-F Manual Assessment Start: 02/03/18 17:04 Freq: Status: Active Protocol: Document 02/03/18 12:45 RCC (Rec: 02/03/18 17:33 RCC [email or web address]) Manual Assessments Soft Tissue Assessment Soft Tissue Mobility Assessment Tenderness to palpation: ES, multifidi of the L lower lumbar spine, L piriformis, gluteals, IT band. PT-OP-G Mobility & Gait Start: 02/03/18 17:04 Freq: Status: Active Protocol: Document 02/03/18 12:45 RCC (Rec: 02/03/18 17:34 RCC [email or web address]) OP Gait Assessment Comments Gait Comments Antalgic gait with excessive LLE ER throughout gait, decreased step length mildly on the R. PT-OP-H Neuro Start: 02/03/18 17:04 Freq: Status: Active Protocol: Document 02/03/18 12:45 RCC (Rec: 02/03/18 17:33 RCC [email or web address]) Sensation Evaluation Gross Sensation Gross Sensation WNL Deep Tendon Reflex & Clonus Assessment Deep Tendon Reflex Bilateral Achilles Deep Tendon Reflex 2+ Normal Bilateral Patellar Deep Tendon Reflex 2+ Normal Ankle Clonus Bilateral Clonus Assessment Absent PT-OP-K Range of Motion Start: 02/03/18 17:04 Freq: Status: Active Protocol: Document 02/03/18 12:45 RCC (Rec: 02/03/18 17:33 RCC [email or web address]) Lumbar Spine Range of Motion Lumbar Spine Active Degrees Testing Position standing Flexion 70 Extension 14 ROM Limitations Pain Comments Pain down L leg with extension of lumbar spine. 75% lumbar spine side-bending with pain in the L back with SB L. PT-OP-L Special Tests Start: 02/03/18 17:04 Freq: Status: Active Protocol: Document 02/11/18 12:00 RCC (Rec: 02/11/18 15:12 RCC [email or web address]) Special Tests Lumbar Spine Special Tests Prone Instability Test Test Results Positive @ L1, L2, L5 PT-OP-M Strength Start: 02/03/18 17:04 Freq: Status: Active Protocol: Document 02/03/18 12:45 RCC (Rec: 02/03/18 17:33 RCC [email or web address]) Hip Strength Hip Manual Muscle Testing Right Flexion (L2) 4+ Good+ Left Flexion (L2) 3+ Fair+ Knee Strength Knee Manual Muscle Testing Right Flexion (S2) 5 Normal Extension (L3) 5 Normal Left Flexion (S2) 4 Good Extension (L3) 4+ Good+ Ankle/Foot Strength Ankle and Foot Manual Muscle Testing Right Dorsiflexion (L4) 5 Normal Left Dorsiflexion (L4) 5 Normal Toe Strength Toe Manual Muscle Testing Right Great Toe Extension 5 Normal Left Great Toe Extension 5 Normal PT-OP-Q Treatments Start: 02/03/18 17:04 Freq: Status: Active Protocol: Document 02/25/18 13:49 SAK (Rec: 02/25/18 14:30 SAK [id number]) Gym Equipment Therapeutic Ball 1 Exercise Details Trunk rotation vs lv 2 T-band resistance Ball Size/Color green-65 cm Body Position Sitting Therapeutic Exercises Supine Exercises 7 Supine Exercise Name Hamstring stretch Side bilateral 5 Supine Exercise Name PPT /c TrA activation - Alternating SLR Side bilateral 4 Supine Exercise Name PPT /c TrA activation - Marching Side bilateral 3 Supine Exercise Name transverse abdominal activation Side bilateral 1 Supine Exercise Name Piriformis stretch Side left Sidelying Exercises 1 Sidelying Exercise Name clamshells Side bilateral Reps/Minutes 1x12 Sitting Exercises 2 Sitting Exercise Name trunk rotation Resistance L2 TB Standing Exercises 2 Standing Exercise Name wall posture Reps/Minutes 5x 1 Standing Exercise Name row, shld ext Resistance L2 TB Reps/Minutes 10x Comments emphasis on core activation Manual Therapy Treatment Soft Tissue Mobilization 2 Body Location lumbar paraspinals Mobilization Type Strumming Intensity/Depth Moderate Body Position Sidelying Comments bilateral; 8 min 1 Body Location piriformis Mobilization Type Strumming Intensity/Depth Moderate Body Position Sidelying Comments bilateral; 5 min Manual Techniques 1 Type long axis distraction left LE to correct ant rotated innominate Reps/Duration 3 min Self-Care/Home Management Treatment Education Patient Education Body Mechanics Home Exercise Program Posture Other Education core activation prior to movement, especially with work activities PT-OP-R Modalities Start: 02/03/18 17:04 Freq: Status: Active Protocol: Document 02/25/18 14:43 [facility] (Rec: 02/25/18 14:46 [facility] [id number]) Hot Pack/Cold Pack Treatment Hot Pack Location lumbar, buttock Patient Position Supine Treatment Duration (minutes) 15 Patient Tolerance Good Comments conster PT-OP-T Assessment and Plan Start: 02/03/18 17:04 Freq: Status: Active Protocol: Document 02/25/18 14:43 [facility] (Rec: 02/25/18 14:46 [facility] [id number]) Physical Therapy Assessment Impairments Impairments Activity Tolerance Balance Functional Activities Functional Mobility Gait Pain Posture ROM Soft Tissue Mobility Strength Goals Six Impairment Work tolerance (lifting) [employer] Goal (LTG) Pt will report return to work for at least 6 hrs with no increased L buttock pain with lifting towels prior to d/c. LTG Duration 10 weeks. Five Impairment LLE alignment in standing and gait Correction Goal (LTG) Neutral LLE alignment in standing and throughout gait ( equal to RLE) prior to d/c. LTG Duration 10 weeks. Four Impairment Pain in L buttock and lumbar spine Short Term Goal (STG) 6/10 STG Duration 5 weeks Correction Goal (LTG) 3/10 or less LTG Duration 10 weeks Three Impairment Modified Oswestry Score Short Term Goal (STG) <25% STG Duration 5 weeks Correction Goal (LTG) <20% LTG Duration 10 weeks Two Impairment ROM of lumbar spine Short Term Goal (STG) 20 deg. of lumbar extension without pain STG Duration 5 weeks [employer] Goal (LTG) 25 deg of lumbar extension without pain LTG Duration 10 weeks One Impairment L LE weakness Short Term Goal (STG) Hip flexion 4/5 Knee extension 5/5, flexion 4+ /5 *with MMT STG Duration 5 weeks Correction Goal (LTG) Hip flexion, knee extension and flexion to 5/5 with MMT. LTG Duration 10 weeks Assessment Summary Assessment Good correction of pelvic asymmetry with manual treatment. Patient requires cues for core activation with all ther ex and activities Physical Therapy Plan Frequency and Duration Frequency of Treatment 2x/Week Duration of Treatment 10 weeks Plan of Care Start Date 02/03/18 Plan of Care End Date 04/14/18 Therapeutic Interventions Therapeutic Interventions Aquatic Therapy Balance Training Gait Training Home Exercise Program Joint Mobilizations Manual Therapy Neuromuscular Re-education Patient/Caregiver Education Self-Care/Home Management Soft Tissue Mobilization Taping Therapeutic Activities Therapeutic Exercises Modalities Cold Pack/Ice Massage Electric Stimulation Hot Packs Ultrasound Next Visit Focus/Plan Next Note Type Treatment Note Next Visit Plan Progression of ther ex, core stabilization, HEP, manual techniques as indicated.
--- NOTE | 2018-03-04 12:45 | PT.OTN ---
Current Diagnoses Spinal stenosis, lumbar region with neurogenic claudication (03/04/18) Other intervertebral disc degeneration, lumbar region (03/04/18) Muscle weakness (generalized) (03/04/18) Strain of muscle, fascia and tendon of lower back, subsequent encounter (03/04/18) Physical Therapy Treatment Note PT-OP-A Visit Information Start: 02/03/18 17:04 Freq: Status: Active Protocol: Document 03/04/18 12:45 RCC (Rec: 03/04/18 15:56 RCC [email or web address]) Out-Patient Physical Therapy Visit Information Visit Information Visit Type Treatment Note Visit Start Time 12:05 Visit Stop Time 12:45 Total Visit Minutes 40 Visit Number 6 Number of DOCUMENT PREPARATION SPECIALIST Visits 0 Evaluation Information Evaluation Date 02/03/18 PT-OP-B Current Condition Start: 02/03/18 17:04 Freq: Status: Active Protocol: Document 02/03/18 12:45 RCC (Rec: 02/03/18 17:25 RCC [email or web address]) Current Condition History of Current Condition Onset Date December 2016 Current Complaints L buttock and low back pain History of Current Condition Pt is a 62 y/o female presenting to skilled outpatient physical therapy with a c/o ongoing L sided low back and L buttock pain. Onset of injury pt reports was in December of 2016 went she just bent over one day to pick something up and had sharp, shooting pain down the LLE into the lower leg. Pain now is into the buttock and low back, but not extending down past the L knee. 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 Radiographs in 2017 showed osteophytes at L2- 3 and 5 mm listhesis in flexion of the lumbar spine with resolution on extension. MRI of the lumbar spine on 12/22 showed mild central stenosis @ L2-3, mild to moderate central, moderate bilateral foraminal stenosis at L3-4. L4-5 moderate central , moderate bilatearl foraminal narrowing. L5-S1 is open. Pt is referred to therapy for evaluation and treatment, HEP, ROM, and strengthening exercises. Plan is for pt to attempt PT and if necessary, injection performed on the L L4-[address] Lehman. Prior Treatments and Tests lumbar radiograph and MRI Future Testing and Treatments Planned possible L L4-5 injection. Prior Functional Status Baseline Function- Work/School No pain with lifting, work- related tasks. PT-OP-C Subjective Start: 02/03/18 17:04 Freq: Status: Active Protocol: Document 03/04/18 12:45 RCC (Rec: 03/04/18 15:56 RCC [email or web address]) OP-PT Subjective Patient Comments Patient Comments Pt notes that pain has remained about the same. She wants to look into an injection with Dr. Lehman. Patient Questionnaires Oswestry Low Back Index Oswestry Score 32 OP-PT Pain Assessment Location Left Buttock Intensity 8 Scale Used Numeric (1 - 10) PT-OP-D Balance Start: 02/03/18 17:04 Freq: Status: Active Protocol: Document 02/03/18 12:45 RCC (Rec: 02/03/18 17:33 RCC [email or web address]) Balance Tests Single Limb Standing Single Limb- Right 15 sec Single Limb- Left 10 sec with increased sway and fatigue. PT-OP-F Manual Assessment Start: 02/03/18 17:04 Freq: Status: Active Protocol: Document 02/03/18 12:45 RCC (Rec: 02/03/18 17:33 RCC [email or web address]) Manual Assessments Soft Tissue Assessment Soft Tissue Mobility Assessment Tenderness to palpation: ES, multifidi of the L lower lumbar spine, L piriformis, gluteals, IT band. PT-OP-G Mobility & Gait Start: 02/03/18 17:04 Freq: Status: Active Protocol: Document 02/03/18 12:45 RCC (Rec: 02/03/18 17:34 RCC [email or web address]) OP Gait Assessment Comments Gait Comments Antalgic gait with excessive LLE ER throughout gait, decreased step length mildly on the R. PT-OP-H Neuro Start: 02/03/18 17:04 Freq: Status: Active Protocol: Document 02/03/18 12:45 RCC (Rec: 02/03/18 17:33 RCC [email or web address]) Sensation Evaluation Gross Sensation Gross Sensation WNL Deep Tendon Reflex & Clonus Assessment Deep Tendon Reflex Bilateral Achilles Deep Tendon Reflex 2+ Normal Bilateral Patellar Deep Tendon Reflex 2+ Normal Ankle Clonus Bilateral Clonus Assessment Absent PT-OP-K Range of Motion Start: 02/03/18 17:04 Freq: Status: Active Protocol: Document 03/04/18 12:45 RCC (Rec: 03/04/18 15:56 [facility] [email or web address]) Lumbar Spine Range of Motion Lumbar Spine Active Degrees Testing Position standing Flexion 75 Extension 25 Comments no pain with extension. Pain with R SB > than L SB (pain on the L side and buttock). PT-OP-L Special Tests Start: 02/03/18 17:04 Freq: Status: Active Protocol: Document 02/11/18 12:00 RCC (Rec: 02/11/18 15:12 RCC [email or web address]) Special Tests Lumbar Spine Special Tests Prone Instability Test Test Results Positive @ L1, L2, L5 PT-OP-M Strength Start: 02/03/18 17:04 Freq: Status: Active Protocol: Document 03/04/18 12:45 RCC (Rec: 03/04/18 15:56 [facility] [email or web address]) Hip Strength Hip Manual Muscle Testing Right Flexion (L2) 4+ Good+ Left Flexion (L2) 3+ Fair+ Knee Strength Knee Manual Muscle Testing Right Flexion (S2) 5 Normal Extension (L3) 5 Normal Left Flexion (S2) 4 Good Extension (L3) 4+ Good+ PT-OP-Q Treatments Start: 02/03/18 17:04 Freq: Status: Active Protocol: Document 03/04/18 12:45 RCC (Rec: 03/04/18 15:56 [facility] [email or web address]) Manual Therapy Treatment Soft Tissue Mobilization 2 Body Location lumbar paraspinals Mobilization Type Strumming Intensity/Depth Moderate Body Position Sidelying Comments bilateral; 6 min 1 Body Location piriformis Mobilization Type Strumming Intensity/Depth Moderate Body Position Sidelying Comments bilateral; 6 min Manual Techniques 1 Type long axis distraction left LE to correct ant rotated innominate Reps/Duration 2 min Other Other Manual Treatments 6 min- LE MMT, l/s ROM Self-Care/Home Management Treatment Education Patient Education Body Mechanics Joint Protection Pain Management Posture Safety Other Education core stabilization with standing activities, body mechanics with lifting (two- handed vs one-handed, staggered vs. neutral foot positioning), picking things up from the ground. PT-OP-R Modalities Start: 02/03/18 17:04 Freq: Status: Active Protocol: Document 03/04/18 12:45 RCC (Rec: 03/04/18 15:56 [facility] [email or web address]) Hot Pack/Cold Pack Treatment Hot Pack Location lumbar, buttock Patient Position Supine Treatment Duration (minutes) 10 Patient Tolerance Good Comments isael PT-OP-T Assessment and Plan Start: 02/03/18 17:04 Freq: Status: Active Protocol: Document 03/04/18 12:45 RCC (Rec: 03/04/18 15:56 RCC [email or web address]) Physical Therapy Assessment Goals Six Impairment Work tolerance (lifting) Route Relief Driver Goal (LTG) Pt will report return to work for at least 6 hrs with no increased L buttock pain with lifting towels prior to d/c. *working 4-5 hrs 03/04/18 LTG Duration 10 weeks. Five Impairment LLE alignment in standing and gait Route Relief Driver Goal (LTG) Neutral LLE alignment in standing and throughout gait ( equal to RLE) prior to d/c. *some improvement 03/04/18 LTG Duration 10 weeks. Four Impairment Pain in L buttock and lumbar spine Short Term Goal (STG) 6/10 *no change in pain 03/04/18 STG Duration 5 weeks Route Relief Driver Goal (LTG) 3/10 or less LTG Duration 10 weeks Three Impairment Modified Oswestry Score Short Term Goal (STG) <25% *32% on 03/04/18 STG Duration 5 weeks Fdc Goal (LTG) <20% LTG Duration 10 weeks Two Impairment ROM of lumbar spine Short Term Goal (STG) 20 deg. of lumbar extension without pain * achieved 03/04/18 STG Duration 5 weeks Route Relief Driver Goal (LTG) 25 deg of lumbar extension without pain * achieved 03/04/18 LTG Duration 10 weeks One Impairment L LE weakness Short Term Goal (STG) Hip flexion 4/5 Knee extension 5/5, flexion 4+ /5 with MMT * no change in strength STG Duration 5 weeks Fdc Goal (LTG) Hip flexion, knee extension and flexion to 5/5 with MMT. LTG Duration 10 weeks Progress Towards Goals Progress Comments achived: lumbar extension to 25 degrees without pain No changes in work tolerance, pain or strength. Assessment Summary Assessment Pt with improved lumbar spine extension without pain, but still painful with all work related activities. Pt's pain is rated about the same as initial evaluation 1 month ago , and no strength changes as of yet. Pt wants to have another consult from MD before possibly continuing outpatient physical therapy. Physical Therapy Plan Frequency and Duration Frequency of Treatment 2x/Week Duration of Treatment 10 weeks Plan of Care Start Date 02/03/18 Plan of Care End Date 04/14/18 Other Referrals/Consults Referrals/Consults Recommended consult with orthopedic MD. Next Visit Focus/Plan Next Note Type Treatment Note Next Visit Plan progress core stability, STR lumbar spine.
--- NOTE | 2018-07-29 10:23 | PT.OPDS ---
Current Diagnoses Spinal stenosis, lumbar region with neurogenic claudication (03/04/18) Other intervertebral disc degeneration, lumbar region (03/04/18) Muscle weakness (generalized) (03/04/18) Strain of muscle, fascia and tendon of lower back, subsequent encounter (03/04/18) Provider Visit Care Team Role Provider Type Alek Mejia MD Family Provider Physician Primary Care Provider Specialty: Family Practice Address: [address] [place] [address], [id number] Email: Wilder Lehman MD Attending Provider Physician Specialty: Orthopedic Surgery Address: [address] [place] [address], [id number] Email: [email or web address] Visit Number Visit Number 6 Discharge Summary PT-OP-B Current Condition Start: 02/03/18 17:04 Freq: Status: Active Protocol: Document 02/03/18 12:45 RCC (Rec: 02/03/18 17:25 RCC [id number]) Current Condition History of Current Condition Onset Date December 2016 Current Complaints L buttock and low back pain History of Current Condition Pt is a 62 y/o female presenting to skilled outpatient physical therapy with a c/o ongoing L sided low back and L buttock pain. Onset of injury pt reports was in December of 2016 went she just bent over one day to pick something up and had sharp, shooting pain down the LLE into the lower leg. Pain now is into the buttock and low back, but not extending down past the L knee. 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 Radiographs in 2017 showed osteophytes at L2- 3 and 5 mm listhesis in flexion of the lumbar spine with resolution on extension. MRI of the lumbar spine on 12/22 showed mild central stenosis @ L2-3, mild to moderate central, moderate bilateral foraminal stenosis at L3-4. L4-5 moderate central , moderate bilatearl foraminal narrowing. L5-S1 is open. Pt is referred to therapy for evaluation and treatment, HEP, ROM, and strengthening exercises. Plan is for pt to attempt PT and if necessary, injection performed on the L L4-[address] Lehman. Prior Treatments and Tests lumbar radiograph and MRI Future Testing and Treatments Planned possible L L4-5 injection. Prior Functional Status Baseline Function- Work/School No pain with lifting, work- related tasks. PT-OP-C Subjective Start: 02/03/18 17:04 Freq: Status: Active Protocol: Document 03/04/18 12:45 RCC (Rec: 03/04/18 15:56 RCC [email or web address]) OP-PT Subjective Patient Comments Patient Comments Pt notes that pain has remained about the same. She wants to look into an injection with Dr. Lehman. Patient Questionnaires Oswestry Low Back Index Oswestry Score 32 OP-PT Pain Assessment Location Left Buttock Intensity 8 Scale Used Numeric (1 - 10) PT-OP-D Balance Start: 02/03/18 17:04 Freq: Status: Active Protocol: Document 02/03/18 12:45 RCC (Rec: 02/03/18 17:33 RCC [id number]) Balance Tests Single Limb Standing Single Limb- Right 15 sec Single Limb- Left 10 sec with increased sway and fatigue. PT-OP-F Manual Assessment Start: 02/03/18 17:04 Freq: Status: Active Protocol: Document 02/03/18 12:45 RCC (Rec: 02/03/18 17:33 RCC [email or web address]) Manual Assessments Soft Tissue Assessment Soft Tissue Mobility Assessment Tenderness to palpation: ES, multifidi of the L lower lumbar spine, L piriformis, gluteals, IT band. PT-OP-G Mobility & Gait Start: 02/03/18 17:04 Freq: Status: Active Protocol: Document 02/03/18 12:45 RCC (Rec: 02/03/18 17:34 RCC [email or web address]) OP Gait Assessment Comments Gait Comments Antalgic gait with excessive LLE ER throughout gait, decreased step length mildly on the R. PT-OP-H Neuro Start: 02/03/18 17:04 Freq: Status: Active Protocol: Document 02/03/18 12:45 RCC (Rec: 02/03/18 17:33 RCC [id number]) Sensation Evaluation Gross Sensation Gross Sensation WNL Deep Tendon Reflex & Clonus Assessment Deep Tendon Reflex Bilateral Achilles Deep Tendon Reflex 2+ Normal Bilateral Patellar Deep Tendon Reflex 2+ Normal Ankle Clonus Bilateral Clonus Assessment Absent PT-OP-K Range of Motion Start: 02/03/18 17:04 Freq: Status: Active Protocol: Document 03/04/18 12:45 RCC (Rec: 03/04/18 15:56 RCC [email or web address]) Lumbar Spine Range of Motion Lumbar Spine Active Degrees Testing Position standing Flexion 75 Extension 25 Comments no pain with extension. Pain with R SB > than L SB (pain on the L side and buttock). PT-OP-L Special Tests Start: 02/03/18 17:04 Freq: Status: Active Protocol: Document 02/11/18 12:00 RCC (Rec: 02/11/18 15:12 RCC [email or web address]) Special Tests Lumbar Spine Special Tests Prone Instability Test Test Results Positive @ L1, L2, L5 PT-OP-M Strength Start: 02/03/18 17:04 Freq: Status: Active Protocol: Document 03/04/18 12:45 RCC (Rec: 03/04/18 15:56 RCC [email or web address]) Hip Strength Hip Manual Muscle Testing Right Flexion (L2) 4+ Good+ Left Flexion (L2) 3+ Fair+ Knee Strength Knee Manual Muscle Testing Right Flexion (S2) 5 Normal Extension (L3) 5 Normal Left Flexion (S2) 4 Good Extension (L3) 4+ Good+ PT-OP-T Assessment and Plan Start: 02/03/18 17:04 Freq: Status: Active Protocol: Document 07/29/18 10:20 RCC (Rec: 07/29/18 10:23 RCC [email or web address]) Physical Therapy Assessment Assessment Summary Assessment Per discussion with pt on 03/04, she wished to follow up with her PCP before returning to physical therapy. She did not schedule any further PT appointments, and has not attended physical therapy since that discussion on 2017. Pt was still having low back pain limiting her ability to work, she had improvements with lumbar extension ROM but still demonstrated LE weakness . At this time, the pt has not returned to physical therapy and per our discussion, will be d/c at this time due to inability to return/complete the most recent plan of care. Physical Therapy Plan Discharge Physical Therapy Discharge Reasons No Longer Attending PT Discharge Comments did not complete most recent POC.
== END 2018-07-30 13:36 ==
LOC: PHYS 12:00
PROVIDERS: Family Provider Family Medicine; PCP Family Medicine; Visit Provider Orthopaedic Surgery
DX: M48.062 Spinal stenosis, lumbar region with neurogenic claudication (principal); M51.36 Other intervertebral disc degeneration, lumbar region; S39.012D Strain of muscle, fascia and tendon of lower back, subsequent encounter
CPT/HCPCS: 97010; 97110; 97140; 97163; 97535

== ENCOUNTER → 2018-06-11 09:09 | Outpatient (CLI) | payer OTHER, MEDICAID, SELFPAY ==
--- NOTE | 2018-06-11 | DI.CT.S_ITS ---
PROCEDURE: CT SINUS SCREEN WO CON INDICATIONS: CHRONIC SINUSITIS TECHNIQUE: Noncontrast 3.0 mm axial images acquired from the frontal sinuses to the mid-sella, with coronal and sagittal reformats. For radiation dose reduction, the following was used: automated exposure control, adjustment of mA and/or kV according to patient size. COMPARISON: [facility], CT, SINUS SCREEN, 12/03/2009, 9:34. [facility], CT, SINUS SCREEN, 11/05/2010, 10:14. [facility], CT, SINUS SCREEN WO CONTRAST, 12/23/2013, 12:24. FINDINGS: Image quality: Excellent. Maxillary Sinuses: Postoperative changes are seen, with removal of portions of the medial goldman of the maxillary sinuses. Sinuses are clear. Ethmoid Air Cells: No bony remodeling or destruction. Sinuses are clear. Sphenoid Sinuses: No bony remodeling or destruction. Sinuses are clear. Frontal Sinuses: No bony remodeling or destruction. Sinuses are clear. Ostiomeatal Complexes: Removed. Miscellaneous: Visualized intra-orbital contents are normal. No jose d bullosa or paradoxical turbinate curvature. There is minimal rightward nasal septal deviation. IMPRESSION: No active paranasal sinus disease is seen. Prior postoperative change, with bilateral antrectomy. Dictated by: Bret Caceres M.D. on 06/11/2018 at 9:09 Approved by: Bret Caceres M.D. on 06/11/2018 at 9:11
== END ==
PROVIDERS: PCP Family Medicine; Visit Provider Otolaryngology
DX: J32.9 Chronic sinusitis, unspecified (principal)
CPT/HCPCS: 70486

== ENCOUNTER → 2018-07-31 10:07 | Outpatient (CLI) | payer OTHER, SELFPAY ==
[2018-07-31 11:16] LABS: Hemoglobin A1C% w Est Avg Glu 7.3 % (4.0-6.0)
== END ==
PROVIDERS: PCP Orthopaedic Surgery; Visit Provider Orthopaedic Surgery
DX: R73.9 Hyperglycemia, unspecified (principal)
CPT/HCPCS: 36415; 83036

== ENCOUNTER → 2018-10-12 10:01 | Outpatient (CLI) | payer OTHER, SELFPAY ==
--- NOTE | 2018-10-12 11:52 | DIET.PN ---
DIABETES Nutrition Initial Assessment:? ASSESS:??63? yof? referred for type 2 diabetes. 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 States she works a split shift and does not really eat meals. Generally nibbles throughout the work day on bananas, doritos, pepperoni and cheese sticks. Admitted to eating up to 3 bananas per day. Pt scheduled for surgery in 2 weeks. Recommend pt beginning monitoring BG as soon as possible. ? LABS: Per pt report:? a1c: 6.9 (down from 7.1); TC: 221; T; HDL: 47; LDL: 153 ? MEDS:?? metformin 875 BID ? DIET: Per 24-hour recall:? BF burritos, bananas, toast w/ PB, canned soup, microwave dinners, doritos, pepperoni and cheese sticks ? Weight: 127 Ht: 65 BMI: 21.13? Exercise:? 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 Altered Nutrition related labs related to impaired glucose metabolism, lack of previous exposure to accurate nutrition information as evidenced by pt report, dx of diabetes, previous diet high in refined carbohydrates.? INTERVENTION(s): 1. Discussed pathophysiology of diabetes. Reviewed A1c and its correlation to blood glucose numbers. Discussed recommended BG ranges. 2. Discussed importance of self-monitoring, how often, and when to check. Recommended patient get glucometer. 3. Reviewed hyper/hypoglycemia and treatment. 4. Reviewed safe disposal of equipment (strip/lancets/insulin needles). 5. Discussed impact of nutrition/diet on blood sugar control.? Discussed fed versus non-fed state.?? 6. Discussed the effect of carbohydrates/protein/fat on blood sugar control.? Stressed importance of consistent carbohydrate intake at each meal and provided instructions for recommended servings/portions of carbohydrates/protein per meal. Provided pt with educational material. 7. Reviewed carbohydrate counting and measuring carbohydrate content via servings sizes and reading nutrition labels.? Provided handouts.?? 8. Discussed the difference between simple versus complex carbohydrates and the effect of fiber on blood sugar control.? Discussed various methods to increase fiber content in diet. 9. Stressed importance of meal timing and not going >4-5 hours between meals. Encouraged adding protein to each snack to support glucose control. Patient agreeable. 10. Discussed healthy weight and importance of physical activity in controlling BG.? 11. Recommend pt begin monitoring FBG and alternating mealtime 2 hr PP. MONITOR/EVALUATE: Anticipate good compliance.? Nutrition follow-up scheduled for 1 month.
== END ==
PROVIDERS: PCP Orthopaedic Surgery; Visit Provider Family Medicine
DX: E11.9 Type 2 diabetes mellitus without complications (principal)
CPT/HCPCS: 97802

== ENCOUNTER 2018-10-26 06:09 | Day surgery (SDC) | payer OTHER, SELFPAY ==
[2018-10-21 09:22] VITALS: BMI 21.6
[2018-10-26] VITALS (24 sets, daily range): BP systolic 100–146; BP diastolic 54–94; PULSE 84–115; RESP 9–20; TEMP 36.1–36.8; O2SAT 88–100
--- NOTE | 2018-10-26 07:06 | PM.PREOP ---
Pre-operative Note Interval Note History & Physical reviewed/Exam performed by Physician: Yes Changes to H&P: No
[2018-10-26] MEDS: LACTATED RINGERS 1,000 ML 42 ML IV (07:18)
[2018-10-26] MEDS: CEFAZOLIN 2 GM/100 ML FROZ.PIGGY IV ×3 (07:49→23:32)
--- NOTE | 2018-10-26 08:29 | SUR.OPER ---
Prone on spine table, head in foam head support, padded chest and pelvic supports, gel pad at knees, lower legs supported by pillows; nipples, genitalia and toes free of pressure, arms secured on foam padded arm boards at <90 degrees abduction. Tape over blanket at thigh secured to table.
[2018-10-26] MEDS: SODIUM CHLORIDE 0.9% 1,000 ML, GENTAMICIN 80 MG IRR (08:39)
[2018-10-26] MEDS: BUPIVACAINE 0.25% (PF) 8 ML, fentaNYL 100 MCG INJ (08:39)
[2018-10-26] MEDS: VANCOMYCIN 1,000 MG VIAL 1000 MG TOP (08:42)
--- NOTE | 2018-10-26 08:47 | DI.RAD.S_ITS ---
PROCEDURE: XR LUMBAR SPINE 1V INDICATIONS: L3-4, L4-5 LAMINECTOMY TECHNIQUE: Single intraoperative fluoroscopic view of the lumbar spine were acquired. COMPARISON: None. FINDINGS: Intraoperative fluoroscopic images of lower lumbar spine shows surgical instrument placed posteriorly at L4-5 level. IMPRESSION: Fluoroscopy guidance was provided intraoperatively for lower lumbar spine surgical procedure. Dictated by: Doug Carranza M.D. on 10/26/2018 at 9:07 Approved by: Doug Carranaz M.D. on 10/26/2018 at 9:08
--- NOTE | 2018-10-26 09:21 | P.OP_ITS ---
Operative Date/Time/Diagnoses Date of procedure: 10/26/18 Time of procedure: 09:19 Pre-op diagnosis: Lumbar stenosis with radiculopathy Post-op diagnosis: same Procedure & Clinicians Procedure: L2-3 4, L4-5 laminectomy use of microscope placement of epidural Same procedure as scheduled: Yes Indications: 63 year old female with intractable pain from stenosis. They had failed conservative management and requested operative intervention. Risks and benefits of surgery were discussed and appropriate consents were obtained. Surgeon: Wilder Lehman Plumber Supervisor: Estella Hernandez Anesthesia Type: General Operative Notes Findings: none Closure Type: primary Specimen(s): none sent Estimated Blood Loss (mL): 10 Procedure in detail: Patient was brought to the operating room and intubated on the table. They were rolled over on the well-padded prone position on the Juan table. A time-out was performed. Preoperative antibiotics were given. The back was prepped and draped in standard sterile fashion. Using fluoroscopy for localization, a 5cm incision was made in the midline. We used Bovie to dissect through the lumbodorsal fascia and then subperiosteally dissect the paraspinal muscles off the left side. A marker was placed and x-ray was taken to confirm positioning. We then brought in the microscope. A left sided laminectomy was performed at L34 and L45. We carefully depressed the dura and reached across the midline to decompress the opposite side. The neural foramen were cleared out. At the end, we could reach with the ball probe cephalad and caudally across the midline and to the foramen and everything was opened. The wound was irrigated. An epidural catheter was prepared with 8 mL of 0.25% Marcaine and 100 mcg of fentanyl. The dura was carefully depressed and the catheter was advanced 6 cm cephalad underneath remaining lamina without resistance. The fascia was then closed in layers. The epidural catheter was injected without complications. Vancomycin powder was placed in the wound. The superficial and the skin were closed. Sterile dressing was placed. Patient was rolled over extubated brought to recovery room with no complications. Complications: none Condition: stable Disposition: PACU Plan for aftercare: Outpatient with bed overnight. Up with physical therapy.
[2018-10-26] MEDS: ALBUTEROL/IPRATROPIUM 3 ML AMPUL INH (10:08)
[2018-10-26] MEDS: HYDROMORPHONE 2 MG INJ IV ×2 (10:17→10:22)
--- NOTE | 2018-10-26 10:37 | SUR.PHASEI ---
Blood Glucose in PACU 149. Worklist not allowing documentation.
[2018-10-26] MEDS: LACTATED RINGERS 1,000 ML 125 ML IV ×2 (11:25→19:29)
--- NOTE | 2018-10-26 11:34 | PC.NURSE ---
Addendum entered by Nidhi Hart R.N. 10/26/18 15:19: Message left on Dr Alves cellphone at 1500 to call for clarification on patients insulin order. Original Note: Addendum entered by Nidhi Hart R.N. 10/26/18 15:02: Pt awake rates pain 8/10 to lower back, given two 5/325mg along with crackers and soup. Original Note: Addendum entered by Nidhi Hart R.N. 10/26/18 11:37: Patients combivent and ventolin inhalers sent to pharmacy. Original Note: Pt drowsy buut easily arousable, CMS+, dressignt o back CDI. SCD's on RA sats 88% Placed on 2L sats 94%.Denies nausea and shortness of breath. Oriented to room and call light. Bed alarm placed.
[2018-10-26] MEDS: ALBUTEROL/IPRATROPIUM MDI 1 PUFF INH ×3 (14:31→21:19)
[2018-10-26] MEDS: HYDROCODONE/ACET 5/325 TABLET 2 TAB PO ×3 (14:52→23:32)
--- NOTE | 2018-10-26 15:18 | PT.IIE ---
Current Diagnoses Spinal stenosis, lumbar region with neurogenic claudication (10/26/18) Other intervertebral disc degeneration, lumbar region (10/26/18) Surgery Performed Operation Date: 10/26/18 07:45 Actual Procedures p L3-4,L4-5 laminectomies - Wilder Lehman MD Surgical History (Last Updated 10/21/18 @ 09:39 by Mamie Hancock RN) S/P cervical spinal fusion (Acute) Medical History (Last Updated 10/21/18 @ 09:39 by Mamie Hancock RN) DDD (degenerative disc disease) (Acute) H/O: hysterectomy (Acute) Hyperlipidemia (Acute) Insomnia (Acute) Low back pain with sciatica (Acute) Pancreatitis (Acute) Pneumonia (Acute) Sinusitis (Acute) Smoker (Acute) Spinal stenosis (Acute) Physical Therapy Inpatient Evaluation/Re-Eval M1 PT/OT-IP Prior Functional Status Start: 10/26/18 17:12 Freq: NEEDED Status: Active Protocol: Document 10/26/18 15:18 AB (Rec: 10/26/18 17:32 AB [id number]) Medical Review Prior Functional Status Medical History Reviewed Yes Communication able to make needs known Mobility and Gait stated that she is independent with all mobilities and ambulation without AD but usually furniture cruises inside the house initially but able to manage without holding on to anything as the day goes. Social History Household Members other Living Arrangements Apartment/Condo Number of Floors (Floors) Two Floors Number of Stairs To Enter/Railing? pt stays on main level of the house without steps to enter Home Environment High Toilet Additional Social History Comment stated that she has roomates but her roommates goes to work during the day; she has [employer] that checked on her. has one step up into the shower M2 PT-IP Current Condition Start: 10/26/18 17:12 Freq: NEEDED Status: Active Protocol: Document 10/26/18 15:18 AB (Rec: 10/26/18 17:32 AB [id number]) Physical Therapy Current Condition Current Condition Evaluation Date 10/26/18 Treatment Diagnosis s/p L2-3, 3-4, 4-5 laminectomy ; difficulty in walking Onset Date 10/26/18 Precautions Lumbar Precautions Log Roll No Twisting Limit Bending Lifting Restriction of 10 lbs Gait Belt above Incisional Area Other Precautions falls M3 PT-IP Subjective Start: 10/26/18 17:12 Freq: NEEDED Status: Active Protocol: Document 10/26/18 15:18 AB (Rec: 10/26/18 17:32 AB [id number]) Subjective Physical Therapy Visit Type Type Initial Evaluation Visit Start Time 15:18 Visit Stop Time 16:06 Total Visit Minutes 48 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 Physical Therapy Visit Comments Patient Comments pt agreeable to do PT Therapy Pain Assessment Pain When Pain Assessed At Rest Pain Present Pain Present Pain Reported Location Head Intensity 5 Scale Used Numeric (1 - 10) M4 PT-IP Mobility and Gait Start: 10/26/18 17:12 Freq: NEEDED Status: Active Protocol: Document 10/26/18 15:18 AB (Rec: 10/26/18 17:32 AB [id number]) PT-Bed Mobility Assessment Rolling Type of Rolling Log Rolling Level of Assist Standby Assistance Supine to Sit Supine to Sit Standby Assistance 1 Person Assistance Sit to Supine Sit to Supine Standby Assistance 1 Person Assistance PT-Transfer Assessment Sit to and From Stand Sit to and from Stand Minimal Assistance 1 Person Assistance Use of Upper Extremities Equipment Transfer Assistive Device Gait Belt Front Wheeled Walker Orthotic/Prosthetic Devices or Brace: No Transfers Transfer Destination Bedside Commode Transfer Technique Stand Step Pivot Transfer Ability Level of Assist Minimal Assistance Use of Upper Extremities Comments Mobility Comments pt completed stand pivot transfer using FWW bed to bedside commode requiring min A and cues for back precautions and safety. pt was able to maintain standing using fww for support CGA while completing hygiene care. Gait Assessment Gait Gait Assistance Required: Minimum Assistance Distance (Feet) 20 Able to Maintain Weight Bearing Status Yes During Gait Assistive Devices Assistive Device Gait Belt Front Wheeled Walker Orthotic/Prosthetic Devices or Brace: No Gait Deviations General Gait Pattern Antalgic Decreased Stride Length Decreased Feet Clearance Factors Limiting Gait Function Factors Limiting Gait Function Decreased Activity Tolerance Decreased Strength Limited Range of Motion Pain Poor Balance PT-Balance Assessment Sitting Balance and Reactions Static Sitting Balance Ability Good Dynamic Sitting Balance Ability Good Standing Balance and Reactions Static Standing Balance Ability Fair Dynamic Standing Balance Ability Fair Device Used FWW M5 PT-IP Objective Assessments Start: 10/26/18 17:12 Freq: NEEDED Status: Active Protocol: Document 10/26/18 15:18 AB (Rec: 10/26/18 17:32 AB [id number]) Orientation Orientation/Cognition Level of Alertness Alert Orientation Name Place Situation Safety Awareness Understands Safety Issues Gross Range of Motion Lower Extremity ROM Assessment Within Functional Limits Strength Lower Extremity Strength Assessment Right Impaired Knee 3+/5 Coordination Assessment Gross Coordination Gross Coordination WNL Sensation Assessment Sensation Gross Sensation WNL Muscle Tone Muscle Tone WNL Yes M6 PT-IP Treatment Start: 10/26/18 17:12 Freq: NEEDED Status: Active Protocol: Document 10/26/18 15:18 AB (Rec: 10/26/18 17:32 AB [id number]) Physical Therapy Treatment Education Education Provided Precautions Weight Bearing Status Post-Op Packet Safety Other Treatments Other Treatment Performed informed pt regarding use of FWW for home use and stated that she will try to borrow from a friend. given options to borrow from [employer] or purchase one and pt understood . will f/u M7 PT-IP Assessment and Plan Start: 10/26/18 17:12 Freq: NEEDED Status: Active Protocol: Document 10/26/18 15:18 AB (Rec: 10/26/18 17:32 AB [id number]) PT Summary Assessment and Plan Potential Rehabilitation Potential Good Status of Condition at Evaluation Stable Summary Impairments Pain ROM Strength Balance Coordination Sensation Tone Cognition Bed Mobility Transfers Gait Activity Tolerance Assessment Summary pt requiring one person assist with mobility. d/c plan depending on progress but pt does not have any assistance at home. will continue to assess mobility and safety with d/c. Goals Bed Mobility Goal Independent Transfer Goal Independent Front Wheeled Walker Gait Goal Independent Front Wheel Walker Gait Distance 200 Days to Meet Goals 3 Frequency of Treatment Frequency Of Treatment Twice a Day Treatment Plan Physical Therapy Treatment Plan Bed Mobility Training Transfer Training Gait Training Therapeutic Exercise Balance Retraining Post Op Education Discharge Planning Hot or Cold Pack Neuromuscular Re-ed Coordination Retraining Manual Therapy Other Recommendations and Next Treatment ambulation, bed mobility Focus Recommendations To Nursing Amount of Assist Needed 1 Person Assist Discharge Recommendations PT Discharge Recommendations Home with Assistance Home Health SNF Rehab Other Discharge Recommendations SNF vs home with assistance and homehealth PT: depending on progress Equipment Needed for Home Before FWW Discharge
[2018-10-26] MEDS: METFORMIN HCL 500 MG TABLET PO (18:01)
--- NOTE | 2018-10-26 20:20 | PC.NURSE ---
Patient had blood glucose of 240 at about 1700. The insulin order was clarified by the primary RN, but the patient refused insulin injection and instead took metformin 500mg. The patient takes metformin at home. The patient's losartan was not given at primary RN discretion based on decreased blood pressure of 104/65.
[2018-10-26] MEDS: DOCUSATE 100 MG CAPSULE PO (22:35)
[2018-10-26] MEDS: SENNOSIDES 8.6 MG TABLET 17.2 MG PO (22:35)
--- NOTE | 2018-10-27 00:03 | PC.NURSE ---
Addendum entered by Kadi Jeffery R.N. 10/27/18 06:00: Medicated at 0414 with Vicodin for 7/10 pain and now states pain is gone. Has been refusing offer of ice pack. Hoping to discharge later today. Original Note: Patient is alert and oriented. Breath sounds diminished but CTA with RA sat of 93%. HRR. Denies nausea. BT present but denies flatus. Up to bathroom on evening shift and voided x 2 with no problems/concerns. Able to turn self in bed and uses walker with 1 assist when out of bed; denies weakness or unsteadiness. Dressing to back is CDI. Complains of 7/10 pain so medicated with Vicodin but declined ice pack. CMS intact. Wearing bilateral SCD's. Fall risk score is high and bed alarm is activated.
[2018-10-27 04:05] VITALS: BP 115/64; PULSE 82; RESP 24; TEMP 36.7; O2SAT 92
[2018-10-27] MEDS: HYDROCODONE/ACET 5/325 TABLET 2 TAB PO ×3 (04:14→13:43)
[2018-10-27 05:56] LABS: Hemoglobin 11.6 g/dL (12.0-16.0)
[2018-10-27] MEDS: PANTOPRAZOLE 20 MG TABLET PO (05:57)
[2018-10-27] MEDS: ALBUTEROL/IPRATROPIUM MDI 1 PUFF INH ×2 (07:24→11:07)
[2018-10-27 07:28] VITALS: PULSE 78; RESP 16; O2SAT 93
[2018-10-27 08:00] VITALS: BP 113/67; PULSE 88; RESP 16; TEMP 36.8; O2SAT 96
--- NOTE | 2018-10-27 08:07 | PM.PNPO.1 ---
Subjective Date Patient Seen: 10/27/18 Time Patient Seen: 08:07 Interval history: She is very sore, 7/10 pain. All in the back, no leg. Has been up with therapy. Exam Vital Signs (past 8 hours): - 10/27/18 04:05 10/27/18 07:28 Temperature 98.1 F Pulse Rate 82 78 Respiratory Rate 24 16 Blood Pressure 115/64 Pulse Oximetry 92 93 Fraction of Inspired Oxygen 21 Oxygen Delivery Method Room Air Oxygen Flow Rate 0 Const Orientation: alert and oriented x3 Back/Spine/Pelvis Other: CDI. 5/5 motor both lower extremities. Objective Labs Result Diagrams: 10/27/18 05:26 Labs: Laboratory Results - last 24 hr 10/27/18 05:26 Hgb 11.6 L Hct 35.0 L Assessment & Plan Post-op Postoperative Procedures Operation Date: 10/26/18 07:45 Actual Procedures Side Surgeon p L3-4,L4-5 laminectomies Wilder Lehman MD She is having pain control issues and we will try to work on this today. Continue to mobilize with physical therapy. If she settles down and is doing well could possibly go home this afternoon, if not tomorrow. It depends on pain control and how stable and safe she is with mobilization. Quality VTE Deep Vein Thrombosis/Pulmonary Embolism Present on Admission: No
[2018-10-27] MEDS: DOCUSATE 100 MG CAPSULE PO (09:33)
[2018-10-27] MEDS: hydroCHLOROthiazide 25 MG TABLET PO (09:33)
[2018-10-27] MEDS: METFORMIN HCL 500 MG TABLET PO (09:33)
[2018-10-27] MEDS: FLUTICASONE 120 SPRAY/16 GM SPRAY.SUSP NASAL (09:33)
[2018-10-27] MEDS: SODIUM CHLORIDE 0.9% FLUSH 10 ML IV (09:33)
[2018-10-27] MEDS: ONDANSETRON 4 MG/2 ML INJ IV (10:22)
--- NOTE | 2018-10-27 10:28 | OT.IP.EVAL ---
Current Diagnoses Spinal stenosis, lumbar region with neurogenic claudication (10/26/18) Other intervertebral disc degeneration, lumbar region (10/26/18) Surgery Performed Operation Date: 10/26/18 07:45 Actual Procedures p L3-4,L4-5 laminectomies - Wilder Lehman MD Past Medical History (Last Updated 10/21/18 @ 09:39 by Mamie Hancock RN) DDD (degenerative disc disease) (Acute) H/O: hysterectomy (Acute) Hyperlipidemia (Acute) Insomnia (Acute) Low back pain with sciatica (Acute) Pancreatitis (Acute) Pneumonia (Acute) Sinusitis (Acute) Smoker (Acute) Spinal stenosis (Acute) Surgical History (Last Updated 10/21/18 @ 09:39 by Mamie Hancock RN) S/P cervical spinal fusion (Acute) Occupational Therapy Inpatient Evaluation/Re-Eval M1 PT/OT-IP Prior Functional Status Start: 10/27/18 17:52 Freq: NEEDED Status: Active Protocol: Document 10/27/18 10:28 PJRoxy (Rec: 10/27/18 18:03 REECE [id number]) Medical Review Prior Functional Status Medical History Reviewed Yes Diet/Fluid Consistency Regular Communication WNL Mobility and Gait Pt stated that she is independent with all mobilities and ambulation without AD . Activities of Daily Living and IADL's Pt states she is independent with all self care and IADLS, drives. 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 Social History Household Members other Living Arrangements House Number of Floors (Floors) Two Floors Number of Stairs To Enter/Railing? pt stays on main level of the house without steps to enter Home Environment High Toilet Additional Social History Comment stated that she has 3 roommates who work during the day; she has friends and coworkers who can assist PRN during day with shopping, meal prep M2 OT-IP Current Condition Start: 10/27/18 17:52 Freq: Status: Active Protocol: Document 10/27/18 10:28 PJM (Rec: 10/27/18 18:03 PJRoxy [id number]) Occupational Therapy Current Condition Current Condition Evaluation Date 10/27/18 Treatment Diagnosis decreased self care, mobility s/p L3-4, L4-5 lamis Diagnosis Onset Date 10/26/18 Post Operative Precautions Lumbar Precautions Log Roll No Twisting Limit Bending Lifting Restriction of 10 lbs Gait Belt above Incisional Area M3 OT- IP Subjective and Pain Start: 10/27/18 17:52 Freq: Status: Active Protocol: Document 10/27/18 10:28 PJM (Rec: 10/27/18 18:03 PJ [id number]) OT- Subjective Occupational Therapy Visit Type Type Initial Evaluation Visit Start Time 09:59 Visit Stop Time 10:28 Total Visit Minutes 29 Notes Nausea limiting pt participation this session. RN in to administer anti nausea meds at end of session. Occupational Therapy Visit Comments Patient Comments I want to go home later today to see my cat. Patient/Caregiver Goals to go home today and return to work in 8 weeks OT Pain Assessment Pain When Pain Assessed After Treatment Pain Present Pain Present Pain Reported Location Back Intensity 8 Scale Used Numeric (1 - 10) Description Aching Acute Management Techniques Distraction Re-positioning Timing of Activity with Medications M4 OT- IP ADL's Start: 10/27/18 17:52 Freq: Status: Active Protocol: Document 10/27/18 10:28 PJM (Rec: 10/27/18 18:03 PJ [id number]) OT DRG-Oivk-Phzdrhc General Evaluation Self-Feeding Ability Independent Comments OT Self-Feeding Comments poor appetite due to nausea OT ADL-Grooming General Evaluation Grooming Ability Independent Comments OT Grooming Comments provided education re: body mechanics OT ADL-Oral Care General Eval Oral Care Ability Independent Comments Oral Care Comments provided education re: body mechanics OT ADL-Dressing General Eval Upper Body Dressing Ability Independent Lower Body Dressing Ability Independent Comments OT Dressing Comments provided education re: body mechanics and brokerage branch manager provided , pt does not need sock aid or long shoe horn. OT ADL-Toileting General Evaluation Toileting Ability Independent Comments OT Toileting Comments provided education re: body mechanics OT ADL-Bathing Bathing Type Bathing Type Shower Devices Bathing Equipment Long Handled Sponge or [place] Comments OT Bathing Comments provided education re: body mechanics, long bath sponge provided M5 OT- IP IADL's Start: 10/27/18 17:52 Freq: Status: Active Protocol: Document 10/27/18 10:28 PJM (Rec: 10/27/18 18:03 PJ [email or web address]) OT-Instrumental Activities of Daily Living Deficits IADL Deficits Identified Deficits Home Safety Awareness Awareness of Need for Assistance at Home Good Awareness Ability to Problem Solve Emergency Able to Problem Solve Situations Medication Management Medication Management No Deficits Identified Money Management Money Management No Deficits Identified Meal Preparation Meal Preparation Caregiver Provides Assist Meal Preparation Comments roommates and friends to assist PRN Corn Sheller Operator Corn Sheller Operator Caregiver Provides Assist Corn Sheller Operator Comments roommates and friends to assist PRN Driving Driving Caregiver Provides Assist Driving Comments roommates and friends to assist PRN M6 OT- IP Functional Cognition Start: 10/27/18 17:52 Freq: Status: Active Protocol: Document 10/27/18 10:28 PJM (Rec: 10/27/18 18:03 [facility] [id number]) Cognitive Factors Limiting Selfcare Function Cognitive Ability Level of Alertness Alert Patient Orientation Name Age Birthday Month Date Year Day of Week Place Situation Attention Span Ability Capable of Focused Attention Ability to Follow Commands Able to Follow One Step Commands Memory Description No Deficits Noted Safety Awareness No Deficits Noted Problem Solving Ability No deficits Noted Cognitive Comments Cognitive Assessment Comments WNL but distracted by nausea OT- Vision and Hearing OT- Hearing Assessment OT- Hearing Assessment WFL OT- Vision Assessment Visual Acuity WFL M7 OT- IP Mobility and Balance Start: 10/27/18 17:52 Freq: Status: Active Protocol: Document 10/27/18 10:28 PJM (Rec: 10/27/18 18:03 [facility] [id number]) OT- Bed Mobility Assessment Rolling Type of Rolling Roll to Left Level of Assistance Independent Supine to Sit Supine to Sit Assist Independent Sit to Supine Sit to Supine Assist Independent Scooting Scooting to Edge of Bed Independent OT-Transfer Assessment Sit to and From Stand Sit to and from Stand Independent Transfers Transfer Ability Independent Technique Transfer Destination Chair Devices Transfer Assistive Devices Front Wheeled Walker OT- Gait Assessment Gait Gait Assistance Required: Independent Distance (Feet) 6 Comments Gait Ability Comments 3 feet to chair and back to bed due to nausea OT- Balance Assessment Sitting Balance and Reactions Static Sitting Balance Ability Good Dynamic Sitting Balance Ability Good Standing Balance and Reactions Static Standing Balance Ability Good Dynamic Standing Balance Ability Good Comments Other Balance Tests/Deviations/Treatment with FWW : M8 OT- IP Objective Assessments Start: 10/27/18 17:52 Freq: Status: Active Protocol: Document 10/27/18 10:28 PJM (Rec: 10/27/18 18:03 [facility] [id number]) OT Gross Range of Motion Upper Extremity Range of Motion Assessment Within Functional Limits OT Strength Upper Extremity Strength Assessment Within Functional Limits Hand Gambling Floor Supervisor Strength Hand Dominance Right OT- Coordination Assessment Comments Coordination Comments BUE WNL OT-Muscle Tone Assessment Muscle Tone WNL Yes OT Sensation Assessment Comments Summary Comments BUE WNL Edema Edema Absent M9 OT- IP Assessment and Plan Start: 10/27/18 17:52 Freq: Status: Active Protocol: Document 10/27/18 10:28 PJM (Rec: 10/27/18 18:03 PJM [email or web address]) OT Summary Assessment and Plan Potential Rehabilitation Potential Excellent Analytic Complexity at Evaluation Low Summary Progress Towards Goals Goals Met Assessment Summary Low complexity OT assessment and all education completed today re: lumbar spine precautions, posture, body mechanics, adapted ADL techniques. Pt moving well but activity tolerance limited primarily by nausea this session. Pt hopes to discharge later today with assist from roommates and friends, if nausea resolves and she clears P.T. No further OT services needed. Frequency of Treatment Frequency Of Treatment Discharge Discharge Recommendations OT Discharge Recommendations Home with Assistance Home Equipment Needs provided brokerage branch manager and long bath sponge
--- NOTE | 2018-10-27 11:05 | PT.IPTN ---
Current Diagnoses Spinal stenosis, lumbar region with neurogenic claudication (10/26/18) Other intervertebral disc degeneration, lumbar region (10/26/18) Surgery Performed Operation Date: 10/26/18 07:45 Actual Procedures p L3-4,L4-5 laminectomies - Wilder Lehman MD Physical Therapy Treatment Note M2 PT-IP Current Condition Start: 10/26/18 17:12 Freq: NEEDED Status: Active Protocol: Document 10/26/18 15:18 AB (Rec: 10/26/18 17:32 AB [id number]) Physical Therapy Current Condition Current Condition Evaluation Date 10/26/18 Treatment Diagnosis s/p L2-3, 3-4, 4-5 laminectomy ; difficulty in walking Onset Date 10/26/18 Precautions Lumbar Precautions Log Roll No Twisting Limit Bending Lifting Restriction of 10 lbs Gait Belt above Incisional Area Other Precautions falls M3 PT-IP Subjective Start: 10/26/18 17:12 Freq: NEEDED Status: Active Protocol: Document 10/27/18 11:05 GGD (Rec: 10/27/18 12:27 GGD [email or web address]) Subjective Physical Therapy Visit Type Type Treatment Note Visit Start Time 10:40 Visit Stop Time 11:05 Total Visit Minutes 25 Number of STATE APPELLATE CLERK Visits 1 Physical Therapy Visit Comments Patient Comments Pt hopes to go home today. Therapy Pain Assessment Pain When Pain Assessed At Rest Pain Present Pain Present Pain Reported M4 PT-IP Mobility and Gait Start: 10/26/18 17:12 Freq: NEEDED Status: Active Protocol: Document 10/27/18 11:05 GGD (Rec: 10/27/18 12:27 GGD [email or web address]) PT-Bed Mobility Assessment Rolling Type of Rolling Log Rolling Level of Assist Standby Assistance Supine to Sit Supine to Sit Standby Assistance 1 Person Assistance Sit to Supine Sit to Supine Standby Assistance 1 Person Assistance PT-Transfer Assessment Sit to and From Stand Sit to and from Stand Standby Assistance Use of Upper Extremities Equipment Transfer Assistive Device Gait Belt Front Wheeled Walker Orthotic/Prosthetic Devices or Brace: No Transfers Transfer Destination Chair Transfer Ability Level of Assist Contact Guard Assistance Use of Upper Extremities Gait Assessment Gait Gait Assistance Required: Standby Assistance Contact Guard Assist Distance (Feet) 170 Able to Maintain Weight Bearing Status Yes During Gait Assistive Devices Assistive Device None Gait Belt Front Wheeled Walker Orthotic/Prosthetic Devices or Brace: No Gait Deviations General Gait Pattern Antalgic Decreased Stride Length Decreased Feet Clearance Factors Limiting Gait Function Factors Limiting Gait Function Decreased Activity Tolerance Decreased Strength Limited Range of Motion Pain Comments Gait Comments Pt ambulated 40 feet with FWW with SBA and then 130 feet without with CGA. M5 PT-IP Objective Assessments Start: 10/26/18 17:12 Freq: NEEDED Status: Active Protocol: Document 10/26/18 15:18 AB (Rec: 10/26/18 17:32 AB [id number]) Orientation Orientation/Cognition Level of Alertness Alert Orientation Name Place Situation Safety Awareness Understands Safety Issues Gross Range of Motion Lower Extremity ROM Assessment Within Functional Limits Strength Lower Extremity Strength Assessment Right Impaired Knee 3+/5 Coordination Assessment Gross Coordination Gross Coordination WNL Sensation Assessment Sensation Gross Sensation WNL Muscle Tone Muscle Tone WNL Yes M6 PT-IP Treatment Start: 10/26/18 17:12 Freq: NEEDED Status: Active Protocol: Document 10/27/18 11:05 GGD (Rec: 10/27/18 12:27 GGD [email or web address]) Physical Therapy Treatment Education Education Provided Precautions M7 PT-IP Assessment and Plan Start: 10/26/18 17:12 Freq: NEEDED Status: Active Protocol: Document 10/27/18 11:05 GGD (Rec: 10/27/18 12:27 GGD [email or web address]) PT Summary Assessment and Plan Summary Assessment Summary PT improving with mobility and safety. She was able to progress gait without AD. She was sable and had no LOB. She SBA for bed mobility. She safe for home D/C when medically stable. Frequency of Treatment Frequency Of Treatment Twice a Day Treatment Plan Physical Therapy Treatment Plan Bed Mobility Training Transfer Training Gait Training Therapeutic Exercise Balance Retraining Post Op Education Discharge Planning Hot or Cold Pack Neuromuscular Re-ed Coordination Retraining Manual Therapy Recommendations To Nursing Amount of Assist Needed 1 Person Assist Discharge Recommendations PT Discharge Recommendations Home with Assistance
[2018-10-27 11:07] VITALS: PULSE 74; RESP 16; O2SAT 97
[2018-10-27 12:15] VITALS: BP 114/70; PULSE 83; RESP 16; TEMP 36.9; O2SAT 96
--- NOTE | 2018-10-27 12:39 | PC.NURSE ---
Patient pleasant, talkative. VSS. C/o nausea when working with OT this morning, resolved with zofran as ordered and rest. Patient cleared by PT and ready for discharge to home, pending discharge order. Dr. Lehman not in office. Message sent x 2 to ELEONORA Triana, awaiting orders. Dressing CDI to back. +CMS. Pain well managed with norco as ordered. Call light within reach. continue to monitor and anticipate discharge to home later today.
--- NOTE | 2018-10-27 14:07 | PC.NURSE ---
Patient cleared by PT and pain well managed, patient wants to go home tonight. Discharge order to home received. IV dc'd intact. Discharge instrucitons and home care handout reviewed with patient, she states understanding and has no further questions or concerns at this time. Patient states she has follow up appointment already scheduled. Patient awaiting arrival from friend to pick her up and take her home.
== END 2018-10-27 14:26 | disposition home or self-care (01) ==
LOC: OR 06:10 → AC 06:11
PROVIDERS: PCP Orthopaedic Surgery; Visit Provider Orthopaedic Surgery
PROC: (CPT 63048; principal; 2018-10-26 07:45)
DX: M48.062 Spinal stenosis, lumbar region with neurogenic claudication (principal); M51.36 Other intervertebral disc degeneration, lumbar region; I10 Essential (primary) hypertension; E78.5 Hyperlipidemia, unspecified; E11.9 Type 2 diabetes mellitus without complications; J44.9 Chronic obstructive pulmonary disease, unspecified; Z79.84 Long term (current) use of oral hypoglycemic drugs; F17.210 Nicotine dependence, cigarettes, uncomplicated
CPT/HCPCS: 63048; 63047; 36415; 72020; 76000; 82962; 85014; 85018; 94640; 94760; 97116; 97161; 97165; 97530; 97535; J0690; J1100; J1170; J2250; J2405; J3010

== ENCOUNTER → 2021-05-07 09:39 | Outpatient (CLI) | payer OTHER, SELFPAY ==
--- NOTE | 2021-05-07 | DI.CT.S_ITS ---
PROCEDURE: CT SINUS SCREEN WO CON INDICATIONS: Chronic pansinusitis TECHNIQUE: Noncontrast 3.0 mm axial images acquired from the frontal sinuses to the mid-sella, with coronal and sagittal reformats. For radiation dose reduction, the following was used: automated exposure control, adjustment of mA and/or kV according to patient size. COMPARISON: [facility], CT, SINUS SCREEN WO CONTRAST, 12/23/2013, 12:24. [facility], CT, CT SINUS SCREEN WO CON, 06/11/2018, 9:17. FINDINGS: Image quality: Excellent. Maxillary Sinuses: No significant mucosal thickening can be seen. The medial goldman of the maxillary sinuses have been removed. Ethmoid Air Cells: No bony remodeling or destruction. Sinuses are clear. Sphenoid Sinuses: No bony remodeling or destruction. Sinuses are clear. Frontal Sinuses: No bony remodeling or destruction. There is minimal mucosal thickening within the inferomedial frontal sinuses. Ostiomeatal Complexes: Removed. Miscellaneous: Visualized intra-orbital contents are normal. No jose d bullosa or paradoxical turbinate curvature. There is minimal S shaped nasal septal deviation. IMPRESSION: Minimal mucosal thickening is seen within the frontal sinuses. Prior postoperative change, with bilateral antrectomy. Dictated by: Bret Caceres M.D. on 05/07/2021 at 8:56 Approved by: Bret Caceres M.D. on 05/07/2021 at 9:02
== END ==
PROVIDERS: PCP Family Medicine; Referring Provider Otolaryngology; Visit Provider Otolaryngology
DX: J32.4 Chronic pansinusitis (principal)
CPT/HCPCS: 70486

== ENCOUNTER → 2021-07-15 12:02 | Outpatient (CLI) | payer OTHER, SELFPAY ==
--- NOTE | 2021-07-15 12:08 | DI.RAD.S_ITS ---
PROCEDURE: XR RIBS RT MIN 3V W CXR 1V INDICATIONS: RIGHT ANTERIOR RIB PAIN/INJURY TECHNIQUE: 3 views of the right ribs were acquired, along with a single view chest. COMPARISON: [facility], XR CHEST 2V, 01/28/2018, 10:36. FINDINGS: Surgical changes and devices: None. Bones and chest wall: No fractures or dislocations. No suspicious bony lesions. Overlying soft tissues appear unremarkable. Lungs and pleura: No pleural effusions or pneumothorax. Lungs appear clear. Mediastinum: Mediastinal contours appear normal. Heart size is normal. IMPRESSION: No displaced right rib fractures. Dictated by: Hardy Sauceda RRA Interpreted: Soto Joya MD on 07/15/2021 at 12:39 Transcribed by: CHRIS on 07/15/2021 at 12:41 Approved by: Soto Joya M.D. on 07/15/2021 at 13:06
== END ==
PROVIDERS: PCP Family Medicine; Referring Provider Family Medicine; Visit Provider Family Medicine
DX: R07.81 Pleurodynia (principal)
CPT/HCPCS: 71101

== ENCOUNTER → 2022-06-10 08:14 | Outpatient (CLI) | payer OTHER, SELFPAY ==
--- NOTE | 2022-06-10 | DI.MG.S_ITS ---
BILATERAL DIGITAL SCREENING MAMMOGRAM 3D/2D WITH CAD: 06/10/2022 CLINICAL: Routine screening. Comparison is made to exams dated: 11/17/2017 mammogram, 09/27/2013 mammogram, and 09/12/2011 mammogram - [facility]. Both breasts are heterogeneously dense, which may obscure small masses (category c / 51-75% glandular tissue). Current study was also evaluated with a Computer Aided Detection (CAD) system. No significant masses, calcifications, or other findings are seen in either breast. There has been no significant interval change. IMPRESSION: NEGATIVE There is no mammographic evidence of malignancy. A 1 year screening mammogram is recommended. Based on the Tyrer Cuzick model (a risk assessment model) the patient's lifetime risk is 8.0% and her 10 year risk is 3.8%. According to the ACR, ACS, and NCCN guidelines, an annual breast MRI exam along with mammogram is recommended if the patient's lifetime risk is 20% or greater. This exam was interpreted at Station ID: [id number]. NOTE: For mammograms, a report in lay terms will be sent to the patient. Approximately 15% of breast malignancies will not be visualized mammographically. In the management of a palpable breast mass, a negative mammogram must not discourage biopsy of a clinically suspicious lesion. Electronically Signed By: Rudi culp/faustino:06/10/2022 09:05:24 letter sent: Normal Exam ACR BI-RADS Category 1: Negative [id number]
== END ==
PROVIDERS: PCP Family Medicine; Referring Provider Family Medicine; Visit Provider Family Medicine
DX: Z12.31 Encounter for screening mammogram for malignant neoplasm of breast (principal)
CPT/HCPCS: 77063; 77067

== ENCOUNTER → 2022-06-17 09:19 | Outpatient (CLI) | payer OTHER, SELFPAY ==
--- NOTE | 2022-06-17 | DI.RAD.S_ITS ---
PROCEDURE: FL BARIUM SWALLOW W SPEECH INDICATIONS: DYSPHAGIA/GLOBUS SENSATION COMPARISON: None. TECHNIQUE: Examination was conducted in conjunction with speech pathology per standard protocol. In the lateral projection, filming was performed of the patient swallowing. AP projection filming may also be performed with patient swallowing. COMPARISON: FINDINGS: Function: The oral preparatory phase appears normal, with proper containment. Penetration is noted during swallowing of thin liquid and possible nectar. No aspiration is seen. No pathologic vallecular pooling. Morphology: No cricopharyngeal bar is identified. No cervical esophageal webs. No Zenker's diverticulum. No strictures. IMPRESSION: Penetration noted during swallowing of thin liquid and nectar. No aspiration is seen. Please correlate with speech pathology report for additional details. Dictated by: Doug Carranza M.D. on 06/17/2022 at 10:55 Approved by: Doug Carranza M.D. on 06/17/2022 at 10:57
--- NOTE | 2022-06-18 15:32 | ST.SWALLOW ---
Visit Care Team Role Provider Type Tj Palma MD Primary Care Provider Physician Specialty: Family Practice [facility] [place], [address] Email: [email or web address] Aron Angeles MD Attending Provider Physician Referring Provider Specialty: Ear, Nose, Throat Address: [address] [place] [address] [place], [address] Email: [email or web address] Modified Barium Swallow Study MANAGER PAYER Modified Barium Swallow Study Start: 06/18/22 09:35 Freq: Status: Active Protocol: Document 06/18/22 14:57 LNK (Rec: 06/18/22 15:31 LNK [id number]) Modified Barium Swallow Study Total Time Visit Start Time 09:30 Visit Stop Time 10:00 Total Visit Minutes 30 Referral Referring Physician VALERIE Johnson Reason for Referral dysphagia Setting Setting Outpatient Care Patient Information Identification Type Name,Date of Patient History Pt presented for a Modified Barium Swallow Study (MBSS) at the referral of VALERIE Johnson. Pt reports a sense of globus near her sternal notch. This is followed by the hiccups. She reported that she swallows air at times; however, she denies coughing or choking. pt stated she had ACDF ~9 years ago and then again 5 years ago. Subjective Observations Pt was seated in the fluoroscopy chair and provided with the instructions and procedure. Pt agreed to proceed. Patient Positioning Position View Lat-A/P Imaging Lateral View Textures Administered Trials Presented Thin Liquid via Spoon,Thin Liquid via Cup,[place] Liquid via Spoon,[place] Liquid via Cup,Honey Liquid via Spoon, Pudding Thick Liquid via Spoon ,Regular Textures,Barium Tablet Oral Phase Source: MBSIMP (TM) (C) Bolus Specific Scoring Grid Lip Closure No Impairment (WNL) Tongue Control During Bolus Hold No Impairment (WNL) Bolus Prep/Mastication No Impairment (WNL) Bolus Transport/Lingual Motion No Impairment (WNL) A/P Lingual Propulsion Delay Yes Oral Residue No Impairment (WNL) Residue Clearing No Impairment (WNL) Nasal Regurgitation Yes Additional Oral Phase Observations OME was observed to be WNL Pt demonstrated good mastication with rotary chew. Dentition was upper/lower dentures with a good fit. Pharyngeal Phase Source: MBSIMP (TM) (C) Bolus Specific Scoring Grid Delayed Initiation of Pharyngeal Swallow Premature spillage of bolus head to the pyriform sinuses Soft Palate Elevation No Impairment (WNL) Tongue Base Strength/Range of Motion Mild Impairment Residue Along the Tongue Base No Laryngeal Elevation Minimal Impairment Anterior Hyoid Movement Mild Impairment Epiglottic Range of Motion Mild Impairment Vallecular Residue Yes Clearance of Vallecular Residue Mild Impairment Laryngeal Vestibular Closure Mild Impairment Pharyngeal Stripping Wave WFL Posterior Pharyngeal Wall Residue Yes Clearance of Posterior Pharyngeal Wall WFL Residue Upper Esophageal Sphincter Opening WFL Residue in the Pyriform Sinuses No Esophageal Clearance Upright Position Moderate Impairment Pharyngoesophageal Backflow Observed No Additional Pharyngeal Phase Observations Mild tongue base weakness was observed with adequate laryngeal elevation but reduced movement of the hyoid. This negatively impacted the inversion of the epiglottis and the laryngeal seal. Observed penetration into the laryngeal vestibule was noted x6 (PAS=3 - penetration with visible laryngeal residue). The epiglottis did not invert fully (was up or horizontal) for all trials with the exception of the pudding thick barium and the cookie with barium. The bulk of these 2 boluses aided in the epiglottic inversion. When there was some or no inversion penetration into the vestibule occurred with residue remaining in the larynx and the valeculla. A chin tuck was effective in reducing the laryngeal penetration. pharyngeal residue (valeculla, subepiglottic space and posterior pharyngeal wall) was observed to penetrate the larynx with subsequent swallows. A/P View A/P View Observations Esophageal Clearance Upright Position Moderate Impairment Additional Observations After repositioning the pt from sitting in the lateral view to standing in the AP view, esophageal retention from the sternum to the LES was observed. Water aided in the clearing of the esophagus. An 11 mm barium tablet was swallowed with several swallows of water to move the tablet. There was delayed entry into the LES/stomach of 5-10s. The esophageal retention is likely contributing to the pt's sense of globus. A referral to GI is recommended. Esophageal Observations Esophageal Function esophageal dysmotility Clinical Impressions Patient Appropriate for Therapy Yes Recommendations Diet Liquids Order Thin Diet Order Regular Medication Recommendation As Tolerated Aspiration Precautions Recommended Precautions Upright at 90 Degrees, Alternate Liquids/Solids,Small Bites/Sips Treatment Plan Therapy Recommendations Lingual Exercises,Base of Tongue Exercises,Compensatory Strategy Education Recommended Referrals GI Consult Compensatory Strategies Recommendations Sitting Upright (90 deg),Chin Tuck,[place]n Maneuver, Liquids from Cup,Small Bites and Sips,Alternate Liquids/ Solids
--- NOTE | 2022-06-27 14:54 | ST.SWALLOW ---
Visit Care Team Role Provider Type Tj Palma MD Primary Care Provider Physician Specialty: Family Practice [facility]: [facility] [place], [address] Email: [email or web address] Aron Angeles MD Attending Provider Physician Referring Provider Specialty: Ear, Nose, Throat Address: [address] [place] [address] [place], [address] Email: [email or web address] Modified Barium Swallow Study LANGUAGE ASSISTANT Modified Barium Swallow Study Start: 06/18/22 09:35 Freq: Status: Active Protocol: Document 06/17/22 14:57 LNK (Rec: 06/18/22 15:31 LNK [id number]) Modified Barium Swallow Study Total Time Visit Start Time 09:30 Visit Stop Time 10:00 Total Visit Minutes 30 Referral Referring Physician VALERIE Johnson Reason for Referral dysphagia Setting Setting Outpatient Care Patient Information Identification Type Name,Date of Patient History Pt presented for a Modified Barium Swallow Study (MBSS) at the referral of VALERIE Johnson. Pt reports a sense of globus near her sternal notch. This is followed by the hiccups. She reported that she swallows air at times; hoever, she denies coughing or choking. pt stated she had ACDF ~9 years ago and then again 5 years ago. Subjective Observations Pt was seated in the fluoroscopy chair and provided with the instructions and procedure. Pt agreed to proceed. Patient Positioning Position View Lat-A/P Imaging Lateral View Textures Administered Trials Presented Thin Liquid via Spoon,Thin Liquid via Cup,[place] Liquid via Spoon,[place] Liquid via Cup,Honey Liquid via Spoon, Pudding Thick Liquid via Spoon ,Regular Textures,Barium Tablet Oral Phase Source: MBSIMP (TM) (C) Bolus Specific Scoring Grid Lip Closure No Impairment (WNL) Tongue Control During Bolus Hold No Impairment (WNL) Bolus Prep/Mastication No Impairment (WNL) Bolus Transport/Lingual Motion No Impairment (WNL) A/P Lingual Propulsion Delay Yes Oral Residue No Impairment (WNL) Residue Clearing No Impairment (WNL) Nasal Regurgitation Yes Additional Oral Phase Observations OME was observed to be WNL Pt demonstrated good mastication with rotary chew. Dentition was upper/lower dentures with a good fit. Pharyngeal Phase Source: MBSIMP (TM) (C) Bolus Specific Scoring Grid Delayed Initiation of Pharyngeal Swallow Premature spillage of bolus head to the pyriform sinuses Soft Palate Elevation No Impairment (WNL) Tongue Base Strength/Range of Motion Mild Impairment Residue Along the Tongue Base No Laryngeal Elevation Minimal Impairment Anterior Hyoid Movement Mild Impairment Epiglottic Range of Motion Mild Impairment Vallecular Residue Yes Clearance of Vallecular Residue Mild Impairment Laryngeal Vestibular Closure Mild Impairment Pharyngeal Stripping Wave WFL Posterior Pharyngeal Wall Residue Yes Clearance of Posterior Pharyngeal Wall WFL Residue Upper Esophageal Sphincter Opening WFL Residue in the Pyriform Sinuses No Esophageal Clearance Upright Position Moderate Impairment Pharyngoesophageal Backflow Observed No Additional Pharyngeal Phase Observations Mild tongue base weakness was observed with adequatte laryngeal vladimir vation but reduced movement of the hyoid. This negatively impacted the inversion of the epiglottis and the laryngeal seal. Observed penetration into the laryngeal vestibule was noted x6 (PAS=3 - penetration with visible laryngeal residue). The epiglottis did not invert fully (was up or horizontal) for all trials with the exception of the pudding thick barium and the cookie with barium. The bulk of these 2 boluses aided in the epiglottic inversion. When there was some or no inversion penetration into the vestibule occurred with residue remaining in the larynx and the valeculla. A chin tuck was effective in reducing the laryngeal penetration. pharyngeal residue (valeculla, subepiglottic space and posterior pharyngeal wall) was observed to penetrate the larynx with subsequent swallows. A/P View Textures Administered Trials Presented Barium Tablet A/P View Observations Esophageal Clearance Upright Position Moderate Impairment Additional Observations After repositioning the pt from sitting in the lateral view to standing in the AP view, esophageal retention from the sternum to the LES was observed. Water aided in the clearing of the esophagus. An 11 mm barium tablet was swallowed with several swallows of water to move the tablet. There was delayed entry into the LES/stomach of 5-10s. The esophageal retention is likely contributing to the pt's sense of globus. A referral to GI is recommended. Esophageal Observations Esophageal Function esophageal dysmotility Clinical Impressions Patient Appropriate for Therapy Yes Recommendations Diet Liquids Order Thin Diet Order Regular Medication Recommendation As Tolerated Aspiration Precautions Recommended Precautions Upright at 90 Degrees, Alternate Liquids/Solids,Small Bites/Sips Treatment Plan Therapy Recommendations Lingual Exercises,Base of Tongue Exercises,Compensatory Strategy Education Recommended Referrals GI Consult Compensatory Strategies Recommendations Sitting Upright (90 deg),Chin Tuck,Mendelsonn Maneuver, Liquids from Cup,Small Bites and Sips,Alternate Liquids/ Solids
== END ==
PROVIDERS: PCP Family Medicine; Referring Provider Otolaryngology; Visit Provider Otolaryngology
DX: R13.10 Dysphagia, unspecified (principal); R09.89 Other specified symptoms and signs involving the circulatory and respiratory systems; R06.6 Hiccough
CPT/HCPCS: 74230; 92520; 92524; 92611

== ENCOUNTER → 2022-07-07 08:03 | Outpatient (CLI) | payer OTHER, SELFPAY ==
--- NOTE | 2022-07-07 | DI.RAD.S_ITS ---
PROCEDURE: FL UPPER GI SERIES INDICATIONS: DYSPHAGIA COMPARISON: [facility], , UPPER GI AIR CONTRAST WITH KUB, 12/12/2013, 8:43. FINDINGS: KUB: Preprocedural family services specialist film demonstrates a normal bowel gas pattern. No suspicious abdominal calcifications. Visualized solid organ contours appear normal. Bony structures appear unremarkable. Esophagus: Esophageal mucosa is normal on air-contrast views. On single-contrast views, there is overall normal esophageal peristalsis. However, some tertiary waves were noted. No strictures, extrinsic mass effects, or diverticula. There is a small hiatal hernia. There was ines gastroesophageal reflux in the prone position to the level of the thoracic inlet without provocative maneuvers. Stomach: The stomach is normally distensible, with normal rugal fold thickness. No mucosal masses or ulcers. Pylorus and duodenal bulb appear normal in morphology. Duodenal folds are normal in thickness as well. IMPRESSION: 1. Overall normal esophageal peristalsis with some tertiary waves noted. 2. Small hiatal hernia and reflux to the thoracic inlet when in the prone position. Dictated by: Salina Monteiro M.D. on 07/07/2022 at 10:03 Approved by: Salina Monteiro M.D. on 07/07/2022 at 10:05
== END ==
PROVIDERS: PCP Family Medicine; Referring Provider Family Medicine; Visit Provider Family Medicine
DX: K44.9 Diaphragmatic hernia without obstruction or gangrene (principal); K21.9 Gastro-esophageal reflux disease without esophagitis; R13.10 Dysphagia, unspecified
CPT/HCPCS: 74240

== ENCOUNTER 2022-08-19 07:01 | Day surgery (SDC) | payer OTHER, SELFPAY ==
[2022-08-19 07:36] VITALS: BP 123/83; PULSE 107; RESP 16; TEMP 36.8; O2SAT 96
[2022-08-19 07:38] VITALS: BMI 23.9
--- NOTE | 2022-08-19 07:44 | PM.HP.1 ---
History of Present Illness History of Present Illness Date Patient Seen: 08/19/22 Time Patient Seen: 07:45 Chief complaint: Colonoscopy Narrative: The patient presents for colorectal screening. Previous colonoscopy 7 years ago demonstrated benign polyps she was instructed to return within 2 years but was unable to do so. No personal or family history of colon cancer. On further history denies any recent gastrointestinal symptoms. No abdominal pain, loss of appetite, unexplained weight loss, change in bowel habits, constipation, melena, hematochezia, or bright red blood per rectum. Patient History Medical History DDD (degenerative disc disease) Hyperlipidemia Insomnia Low back pain with sciatica Pancreatitis Pneumonia Sinusitis Smoker Spinal stenosis Surgical History H/O: hysterectomy History of eyelid surgery S/P cervical spinal fusion Family & Social History Social History: household members other Tobacco & Substance use: Tobacco type cigarettes Smoking Status Current every day smoker alcohol intake never Substance Use Type does not use Meds Home Medications and Allergies Home Medications Medication Instructions Recorded Confirmed Type losartan 100 mg tablet (Cozaar) 100 mg PO QPM ##0 08/13/12 08/19/22 History metformin 500 mg tablet 500 mg PO BID ##0 08/13/12 10/26/18 History (Glucophage) albuterol sulfate 90 mcg/actuation 2 puff inhalation Q6H PRN 03/14/18 08/19/22 History aerosol inhaler (Ventolin HFA) Shortness Of Breath azelastine 137 mcg (0.1 %) nasal 2 spray intranasal BID PRN chronic 03/14/18 08/19/22 Rx spray aerosol sinusitis #30 mL fluticasone propionate 50 2 spray intranasal DAILY 03/14/18 08/19/22 History mcg/actuation nasal spray,suspension (Allergy Relief (fluticasone)) hydrochlorothiazide 25 mg tablet 25 mg PO QAM 03/14/18 08/19/22 History ipratropium 20 mcg-albuterol 100 1 puff inhalation QID 03/14/18 08/19/22 History mcg/actuation mist for inhalation (Combivent Respimat) omeprazole 20 mg capsule,delayed 20 mg PO DAILY 03/14/18 08/19/22 History release docusate sodium 100 mg capsule 100 mg PO BID PRN constipation #30 10/27/18 08/19/22 Rx caps hydroxyzine pamoate 25 mg capsule 25 mg PO Q4HR PRN spasms #20 caps 10/27/18 08/19/22 Rx Allergies Allergy/AdvReac Type Severity Reaction Status Date / Time peanut Allergy Verified 08/19/22 07:35 Sulfa (Sulfonamide AdvReac Unknown UNKNOWN Verified 08/19/22 07:35 Antibiotics) REACTION [SULFA (SULFONAMIDE PER PT ANTIBIOTICS)] Exam Vital Signs (past 8 hours): - 08/19/22 07:36 Temperature 98.3 F Pulse Rate 107 H Respiratory Rate 16 Blood Pressure 123/83 Pulse Oximetry 96 Oxygen Delivery Method Room Air Oxygen Delivery Method Room Air Narrative Exam Narrative: General adult woman alert oriented no acute distress Abdomen soft nontender nondistended Assessment & Plan Assessment & Plan narrative: The patient requires colorectal screening and colonoscopy is recommended. Technical details were discussed. Risks, benefits, alternatives explained. Risks including but not limited to myocardial infarction, aspiration, bleeding, pain, missed lesion, incomplete examination, need for further radiographic studies, colonic perforation, and need for major abdominal surgery were discussed. All questions were answered to their satisfaction, and they are in agreement with this plan. Time Spent With Patient Critical Care time: I spent a total of [] minutes of critical care time on this patient's care today; this time is exclusive of procedural time.
--- NOTE | 2022-08-19 07:48 | PM.OP.COLON ---
Operative Date/Time/Diagnoses Date of procedure: 08/19/22 Time of procedure: 07:48 Pre-op diagnosis: Personal history of colonic polyps Post-op diagnosis: same Procedure & Clinicians Study performed: Colonoscopy Same procedure as scheduled: Yes Indications: Personal history of colonic polyps Surgeon: Amos Hutson Procedure Notes Procedure in detail: The history and physical was performed/updated and the patient is ASA class is 2. The procedure was discussed in detail with the patient. Potential risks complications including infection, bleeding, missed diagnosis, perforation, need for surgery, and were explained. Their questions were answered and informed consent was obtained. Patient was brought to the procedure room and placed standard monitoring equipment. The patient's vital signs were monitored continuously throughout the entire procedure. Prior to starting time-out was performed. The patient was placed in the left lateral recumbent position. Procedural sedation was administered by anesthesia. Examination began with a thorough inspection of the perianal area there was no evidence of fissures, fistulae, external hemorrhoids or cutaneous malignancy. The colonoscopy scope was then placed into the anal canal and was advanced to the cecum, which was identified by the ileocecal valve, the appendiceal orifice and the confluence of the taenia. The scope was then slowly withdrawn examining colon thoroughly in all directions, irrigating it of any residual stool. FINDINGS 1. Extensive diverticulosis within the left colon 2. No masses or polyps The patient tolerated the procedure well. They will be discharged once criteria are met. The prep was of fair quality. The withdrawl time was 6 minutes. Specimen(s): none sent Impression: Diverticulosis Post-procedure Recommendations: Colonoscopy in 5 years and High fiber diet Disposition: same day surgery
[2022-08-19 07:51] LABS: COVID19 -Nasal RAPID Negative (Negative)
[2022-08-19 07:52] VITALS: BMI 23.9
[2022-08-19 08:24] VITALS: BP 128/72; PULSE 99; RESP 16; TEMP 36.3; O2SAT 97
[2022-08-19 08:29] VITALS: BP 146/76; PULSE 96; RESP 16; O2SAT 98
[2022-08-19 08:36] VITALS: BP 135/72; PULSE 99; RESP 16; TEMP 36.3; O2SAT 98
== END 2022-08-19 08:42 | disposition home or self-care (01) ==
PROVIDERS: PCP Family Medicine; Referring Provider Surgery; Visit Provider Surgery
PROC: 0DJD8ZZ Inspection of Lower Intestinal Tract, Via Natural or Artificial Opening Endoscopic (ICD-10-PCS; CPT 45378; principal; 2022-08-19 07:45)
DX: Z12.11 Encounter for screening for malignant neoplasm of colon (principal); Z86.010 Personal history of colon polyps; Z20.822 Contact with and (suspected) exposure to COVID-19; K57.30 Diverticulosis of large intestine without perforation or abscess without bleeding
CPT/HCPCS: 44388; 87635; C9803; J2704

== ENCOUNTER 2022-09-16 15:21 | Observation (INO) | payer OTHER, SELFPAY ==
[2022-09-16] VITALS (11 sets, daily range): BP systolic 120–179; BP diastolic 69–103; PULSE 84–101; RESP 16–20; TEMP 36.2–36.8; O2SAT 91–97; BMI 23.7
--- NOTE | 2022-09-16 15:38 | DI.CT.S_ITS ---
PROCEDURE: CT HEAD/BRAIN WO CON INDICATIONS: Right-sided weakness TECHNIQUE: Noncontrast 4.5 mm thick angled axial sections acquired from the foramen magnum to the vertex, with coronal and sagittal reformats. For radiation dose reduction, the following was used: automated exposure control, adjustment of mA and/or kV according to patient size. COMPARISON: None. FINDINGS: Image quality: Excellent CSF spaces: Basal cisterns are patent. Lateral ventricles are symmetric. Volume: Vascular calcifications. Periventricular white matter disease is commonly seen with chronic microangiopathy. Volume loss is present. These findings are mild Brain: No intracranial hemorrhage. Edwards-white differentiation is grossly maintained. Craniofacial structures: No displaced fracture. Sinuses are clear. Orbits are intact. IMPRESSION: No acute intracranial abnormality. If there is high concern for infarct, consider MRI. Dictated by: Rudi Coffey M.D. on 09/16/2022 at 16:04 Approved by: Rudi Coffey M.D. on 09/16/2022 at 16:06
--- NOTE | 2022-09-16 16:01 | ED_ITS ---
HPI - Neuro Symptoms/Deficit General Chief Complaint: Neuro Symptoms/Deficit Stated Complaint: high bp, rt sided weakness, sent by MD Time Seen by Provider: 09/16/22 15:35 Source: patient Mode of arrival: Ambulatory Limitations: no limitations History of Present Illness HPI Narrative: 67-year-old female who was sent to the emergency department for evaluation of right-sided weakness and high blood pressure. Patient has a history of high blood pressure. She states she woke up on Thursday morning which was 3 days ago with weakness in her right arm and right leg. She also states she had some coordination issues to her right hand. She would no other associated symptoms. She actually went to work. She feels now that her symptoms have actually improved somewhat but not completely resolved. No headache. No vision changes. No chest pain. No shortness of breath. Not on anticoagulation. She went to her primary doctor today who sent her to the emergency department for concern of CVA/TIA. On Anticoagulants: No Related Data Home Medications Medication Instructions Recorded Confirmed losartan 100 mg tablet (Cozaar) 100 mg PO QPM ##0 08/13/12 08/19/22 metformin 500 mg tablet 500 mg PO BID ##0 08/13/12 10/26/18 (Glucophage) albuterol sulfate 90 mcg/actuation 2 puff inhalation Q6H PRN 03/14/18 08/19/22 aerosol inhaler (Ventolin HFA) Shortness Of Breath fluticasone propionate 50 2 spray intranasal DAILY 03/14/18 08/19/22 mcg/actuation nasal spray,suspension (Allergy Relief (fluticasone)) hydrochlorothiazide 25 mg tablet 25 mg PO QAM 03/14/18 08/19/22 ipratropium 20 mcg-albuterol 100 1 puff inhalation QID 03/14/18 08/19/22 mcg/actuation mist for inhalation (Combivent Respimat) omeprazole 20 mg capsule,delayed 20 mg PO DAILY 03/14/18 08/19/22 release Previous Rx's Medication Instructions Recorded azelastine 137 mcg (0.1 %) nasal 2 spray intranasal BID PRN chronic 03/14/18 spray aerosol sinusitis #30 mL docusate sodium 100 mg capsule 100 mg PO BID PRN constipation #30 10/27/18 caps hydroxyzine pamoate 25 mg capsule 25 mg PO Q4HR PRN spasms #20 caps 10/27/18 Allergies Allergy/AdvReac Type Severity Reaction Status Date / Time Sulfa (Sulfonamide AdvReac Unknown UNKNOWN Verified 09/16/22 15:45 Antibiotics) REACTION [SULFA (SULFONAMIDE PER PT ANTIBIOTICS)] Review of Systems Review of Systems ROS Unobtainable: All systems reviewed & are unremarkable except as noted in HPI and below Hematologic/Lymphatic On Anticoagulants: No Patient History Medical History DDD (degenerative disc disease) Hyperlipidemia Insomnia Low back pain with sciatica Pancreatitis Pneumonia Sinusitis Smoker Spinal stenosis Surgical History H/O: hysterectomy History of eyelid surgery S/P cervical spinal fusion Social History household members: other Smoking Status: Current every day smoker Tobacco: How many years used: 37 alcohol intake: former Smoking Status: Current every day smoker Substance Use Type: does not use Exam Initial Vital Signs Initial Vital Signs: Vital Signs Temperature 98.2 F 09/16/22 15:26 Pulse Rate 96 H 09/16/22 15:26 Respiratory Rate 16 09/16/22 15:26 Blood Pressure 179/103 H 09/16/22 15:26 Pulse Oximetry 97 09/16/22 15:26 Oxygen Delivery Method 09/16/22 15:26 Const General: cooperative, comfortable and No ill appearing HENMT Head: normal to inspection and normocephalic Face and sinus: normal facial exam Mouth: oral mucosae normal Eyes General: Yes appearance normal, both eyes and all related structures Pupils: PERRL EOM: EOM intact bilaterally Resp Effort & Inspection: normal respiratory effort Auscultation: clear to auscultation bilaterally Cardio Rate: regular rate Rhythm: regular rhythm GI Inspection: normal to inspection Skin General: no rashes or lesions noted Neuro General: patient alert, patient awake, patient oriented x3 and moves all extremities Cranial Nerves: CN's II-XI intact bilaterally Cognition: normal cognition Speech: speech normal Gait: normal gait Extrem General: normal to inspection and capillary refill normal Psych Appearance: grossly normal and well kempt Scores GCS [place] coma scale eye opening: Spontaneous [place] coma scale verbal response: Orientated [place] coma scale motor response: Obey commands [place] coma scale total score: 15 NIH Stroke Scale Level of Conciousness: Alert, keenly responsive Ask month/age: Answers both questions correctly. Open/close eyes, close hand: Performs both tasks correctly Best gaze horizontal: Normal Visual casey: No visual loss Facial palsy: Normal symetrical movement Left arm drift: No drift for full 10 sec Right arm drift: No drift for full 10 sec Left leg drift: No drift for full 5 sec Right leg drift: No drift for full 5 sec Limb ataxia: Absent Sensory on face/arms/legs: Normal, no sensory loss Best language: No aphasia, normal Dysarthria: Normal Extinction or inattention: No abnormality Total NIH Stroke scale score: 0 Course Orders Ordered: ED Orders 09/16/22 15:38 CT head/brain wo con Stat EKG-12 Lead Stat 09/16/22 15:55 Complete Blood Count AUTO DIFF Stat Comprehensive Metabolic Panel Stat Lipase Stat Magnesium Stat Troponin & CK Cardiac Panel Stat 09/16/22 16:20 MR stroke Stat 09/16/22 19:01 US carotid doppler BI Stat 09/17/22 07:00 US carotid doppler BI Urgent Discontinued Medications Diazepam (Diazepam 5 Mg Tablet) 5 mg PO NOW ONE Stop: 09/16/22 16:33 Last Admin: 09/16/22 16:45 Dose: 5 mg Documented By: ALEKSANDR Vital Signs Vital signs: Vital Signs - 8 hr 09/16/22 15:26 09/16/22 15:34 09/16/22 15:35 Temperature 98.2 F Pulse Rate 96 H 95 H Respiratory Rate 16 Blood Pressure 179/103 H Pulse Oximetry 97 91 97 Oxygen Delivery Method Room Air Room Air 09/16/22 15:35 09/16/22 16:00 09/16/22 16:30 Temperature Pulse Rate 94 H 101 H Respiratory Rate 19 Blood Pressure 179/103 H Pulse Oximetry 95 96 Oxygen Delivery Method 09/16/22 16:51 09/16/22 16:51 09/16/22 17:00 Temperature Pulse Rate 89 Respiratory Rate 20 Blood Pressure 140/93 H 120/79 Pulse Oximetry 95 Oxygen Delivery Method 09/16/22 17:00 Temperature Pulse Rate 87 Respiratory Rate 16 Blood Pressure Pulse Oximetry 94 Oxygen Delivery Method MDM - Neuro Symptoms/Deficit Differential Diagnosis Differential diagnosis: Likely carpal tunnel syndrome, convulsions, subarachnoid hemorrhage, peripheral neuropathy, cerebrovascular accident and transient cereb ral ischemia Condition is:: Well Controlled Chronic Condition is having:: Mild excerbation (Hypertension) Lab Data 09/16/22 15:55 09/16/22 15:55 Labs: Lab Results 09/16/22 09/16/22 09/16/22 Range/Units 15:55 15:55 15:55 WBC 10.2 (4.5-11.0) X10^3/uL RBC 4.72 (4.0-5.2) X10^6/uL Hgb 13.7 (12.0-16.0) g/dL Hct 40.5 (36-46) % MCV 85.9 (80-100) fL MCH 29.0 (26-34) PG MCHC 33.8 (30-36) % RDW 14.7 (11.6-14.8) % Plt Count 610 H (150-400) X10^3/uL Neut % (Auto) 57.2 (50-75) % Lymph % (Auto) 28.5 (25-40) % [place] % (Auto) 8.1 (3-14) % Eos % (Auto) 5.1 H (2-4) % Baso % (Auto) 1.1 (0-2) % Neut # (Auto) 5800 (0713-3357) /uL Lymph # (Auto) 2900 (8122-7343) /uL [place] # (Auto) 800 (0-900) /uL Eos # (Auto) 500 H (0-450) /uL Baso # (Auto) 100 (0-100) /uL Sodium 135 L (137-145) mmol/L Potassium 3.9 (3.4-5.1) mmol/L Chloride 98 (98-107) mmol/L Carbon Dioxide 30 (22-32) mmol/L BUN 13 (7-17) mg/dL Creatinine 0.80 (0.52-1.04) mg/dL Estimated GFR > 60 (>60) mL/min BUN/Creatinine Ratio 16.3 (6-22) Glucose 130 H (80-110) mg/dL Calcium 9.0 (8.4-10.2) mg/dL Magnesium 1.7 (1.6-2.3) mg/dL Total Bilirubin 0.2 (0.2-1.3) mg/dL AST 22 (14-36) IU/L ALT 17 (<35) IU/L Alkaline Phosphatase 68 (38-126) U/L Total Creatine Kinase 62 (30-135) U/L CK-MB (CK-2) TNP CK-MB (CK-2) Rel Index TNP Troponin I < 0.012 (0.01-0.034) ng/mL Total Protein 7.7 (6.3-8.2) g/dL Albumin 4.6 (3.5-5.0) g/dL Globulin 3.1 (1.7-4.1) g/dL Albumin/Globulin Ratio 1.5 (1.0-2.8) Lipase 39 (23-300) U/L Imaging Data CT scan - head: Radiologist's Impression: [address] [address] [address] Scan Report Signed Patient: Elenita Alford MR#: [id number] : 1955 Acct:[id number] Age/Sex: 67 / F Date of Service: 09/16/22 Loc: ED Accession Number: [id number] ?? Procedure: CT head/brain wo con Ordering Provider: Alek Mistry D.O. PROCEDURE:? CT HEAD/BRAIN WO CON ? INDICATIONS:? Right-sided weakness ? TECHNIQUE:? Noncontrast 4.5 mm thick angled axial sections acquired from the foramen magnum to the vertex, with coronal and sagittal reformats.? For radiation dose reduction, the following was used:? automated exposure control, adjustment of mA and/or kV according to patient size.? ? COMPARISON:? None. ? FINDINGS:? Image quality: Excellent ? CSF spaces: Basal cisterns are patent. Lateral ventricles are symmetric. Volume:? Vascular calcifications. Periventricular white matter disease is commonly seen with chronic microangiopathy. Volume loss is present. These findings are mild ? Brain: No intracranial hemorrhage. Edwards-white differentiation is grossly maintained. ? Craniofacial structures: No displaced fracture. Sinuses are clear. Orbits are intact. ? IMPRESSION:? No acute intracranial abnormality.? If there is high concern for infarct, consider MRI. ? ? Dictated by: Rudi Coffey M.D. on 09/16/2022 at 16:04 ? ? Approved by: Rudi Coffey M.D. on 09/16/2022 at 16:06?? Brain MRI: Radiologist's Impression: [address] [address] Magnetic Resonance Report Signed Patient: Elenita Alford MR#: [id number] : 1955 Acct:[id number] Age/Sex: 67 / F Date of Service: 09/16/22 Loc: ED Accession Number: [id number] ?? Procedure: MR stroke Ordering Provider: Alek Mistry D.O. PROCEDURE:? MR STROKE Pre- and post-contrast brain MRI, non-contrast brain MR angiogram, pre- and postcontrast neck MR angiogram ? INDICATIONS:? Right sided weakness started 3 days ago ? TECHNIQUE:? Brain:? Noncontrast axial T1 spin echo, axial T2 fast spin echo, sagittal and axial FLAIR, coronal T2 fast spin echo, axial gradient echo, axial diffusion and ADC through the brain.? After the administration of contrast, axial 3D VIBE of the cranial vasculature and brain.? Brain MRA:? Non-contrast 3-D time of flight MR angiogram, with multiple euqoycl-bovbwzeaq-dwtimypnyp (MIP) reformats performed.? Neck MRA:? Axial and sagittal TruFISP through the neck.? Coronal dynamic MR angiogram during administration of contrast in the arterial and venous phases, with 3- dimenstional qhjkxhl-rvfzadgeq-qjxnkhwsyo (MIP) reformats constructed from subtraction images.? ? COMPARISON:? [facility], CT, CT HEAD/BRAIN WO CON, 09/16/2022, 15:44. ? FINDINGS:? Image quality:? Excellent.? ? BRAIN:? CSF spaces:? Ventricles are normal in size and shape.? Basal cisterns are patent.? No extra-axial fluid collections.? Brain:? There is a small focus of restricted diffusion in left thalamus, consistent with acute lacunar infarct.? No intracranial bleeds or mass effects.? Edwards-white matter interface is normal.? Mild cerebral volume loss and periventricular white matter chronic small vessel ischemic changes.? Brainstem appears normal.? Normal intravascular flow voids are present.? No abnormal intracranial enhancement.? Skull and face:? Calvarial marrow signal is normal.? Orbits appear normal.? Sinuses:? Sinuses and mastoids are clear.? ? BRAIN MR ANGIOGRAM:? Anterior circulation:? Intracranial internal carotid arteries are normal in size and enhancement.? The flow within the paired anterior cerebral arteries is normal and symmetric.? The flow within the middle cerebral arteries is normal and symmetric.? The anterior communicating artery is seen.? No stenoses, occlusions, or aneurysms.? Posterior circulation:? The visualized portions of the vertebral arteries demonstrate normal caliber, and join to form a normal appearing basilar artery.? The flow within the posterior cerebral arteries is normal and symmetric.? No stenoses, occlusions, or aneurysms.? ? NECK MR ANGIOGRAM:? Carotids:? Great vessels demonstrate a conventional anatomy as they arise from the aortic arch.? The origins of the common carotid arteries appear patent.? The calibers and courses of both common carotid arteries are normal.? The bifurcation regions appear patent bilaterally.? Mild stenosis at the carotid bifurcations bilaterally.? The internal carotid arteries demonstrate normal course and caliber.? Posterior circulation:? The origins of the vertebral arteries appear patent.? More superior portions of both vertebral arteries demonstrate normal course and caliber, and join to form a normal appearing basilar artery.? Miscellaneous:? Subclavian arteries appear patent.? Pre-contrast images through the neck show no soft tissue abnormalities.? ? IMPRESSION:? ? BRAIN MRI:? ? 1. Acute lacunar infarct involving the left thalamus. ? 2. Mild cerebral volume loss and chronic microvascular ischemic changes. ? ? BRAIN MR ANGIOGRAM:? ? No occlusion or hemodynamic significant stenosis in anterior or posterior circulations. ? NECK MR ANGIOGRAM:? ? No occlusion or hemodynamic significant stenosis in cervical carotid arteries or vertebral arteries bilaterally. ? ? ? Dictated by: Placido Pretty M.D. on 09/16/2022 at 18:06 ? ? Approved by: Placido Pretty M.D. on 09/16/2022 at 18:13?? ECG Data Attestation: I personally reviewed and interpreted this ECG as follows: Interpretation: Sinus rhythm Ventricular rate 95 Normal axis Normal QRS Normal QTC No ST T wave changes MDM Narrative Medical decision making narrative: Patient technically has an NIH score of 0 however she does seem to have more discomfort do cjlxmx-up-krmh with her right hand compared to her left. The strength in her lower extremity seems to be equal. She can hold her right hand up for the appropriate amount of time and is equal to the left however testing her wrist strength in her biceps strength she does seem to be somewhat weaker on the right compared to the left. Her head CT is unremarkable. The MRI does show what appears to be an acute left-sided lacunar infarct. Her symptoms started 3 days ago. She is not a candidate for tPA nor interventional. Patient was hypertensive upon arrival. This improved without specific intervention here in the ER. I did discuss all this with the patient. We did discuss the importance of being admitted to the hospital for further evaluation to include cardiac monitoring and echocardiogram. Patient agreed. Discussed the case with Dr. Perdue on-call for the patient's primary doctor who will admit for further evaluation and treatment. Discharge Plan Departure Patient Disposition: Admitted As Inpatient Clinical Impression: CVA (cerebral vascular accident), Hypertension
[2022-09-16 16:05] LABS: Add Manual Diff / Slide Review NO; Basophils Absolute Auto 100 /uL (0-100); Basophils Percent Auto 1.1 % (0-2); Eosinophils Absolute Auto 500 /uL (0-450); Eosinophils Percent Auto 5.1 % (2-4); Hematocrit 40.5 % (36-46); Hemoglobin 13.7 g/dL (12.0-16.0); Lymphocytes Absolute Auto 2900 /uL (1100-4500); Lymphocytes Percent Auto 28.5 % (25-40); Mean Corpuscular HGB Conc 33.8 % (30-36); Mean Corpuscular Volume 85.9 fL (80-100); Monocytes Absolute Auto 800 /uL (0-900); Monocytes Percent Auto 8.1 % (3-14); Neutrophils Absolute Auto 5800 /uL (1500-7000); Neutrophils Percent Auto 57.2 % (50-75); Platelet Count 610 X10^3/uL (150-400); Red Blood Cell Count 4.72 X10^6/uL (4.0-5.2); Red Cell Distribution Width 14.7 % (11.6-14.8); White Blood Cell Count 10.2 X10^3/uL (4.5-11.0)
--- NOTE | 2022-09-16 16:20 | DI.MRI.S_ITS ---
PROCEDURE: MR STROKE Pre- and post-contrast brain MRI, non-contrast brain MR angiogram, pre- and postcontrast neck MR angiogram INDICATIONS: Right sided weakness started 3 days ago TECHNIQUE: Brain: Noncontrast axial T1 spin echo, axial T2 fast spin echo, sagittal and axial FLAIR, coronal T2 fast spin echo, axial gradient echo, axial diffusion and ADC through the brain. After the administration of contrast, axial 3D VIBE of the cranial vasculature and brain. Brain MRA: Non-contrast 3-D time of flight MR angiogram, with multiple evksgls-elxhwsswa-uaaqzysnlg (MIP) reformats performed. Neck MRA: Axial and sagittal TruFISP through the neck. Coronal dynamic MR angiogram during administration of contrast in the arterial and venous phases, with 3-dimenstional dtxdmng-lwujliaqm-qayxpxgzqf (MIP) reformats constructed from subtraction images. COMPARISON: [facility], CT, CT HEAD/BRAIN WO CON, 09/16/2022, 15:44. FINDINGS: Image quality: Excellent. BRAIN: CSF spaces: Ventricles are normal in size and shape. Basal cisterns are patent. No extra-axial fluid collections. Brain: There is a small focus of restricted diffusion in left thalamus, consistent with acute lacunar infarct. No intracranial bleeds or mass effects. Edwards-white matter interface is normal. Mild cerebral volume loss and periventricular white matter chronic small vessel ischemic changes. Brainstem appears normal. Normal intravascular flow voids are present. No abnormal intracranial enhancement. Skull and face: Calvarial marrow signal is normal. Orbits appear normal. Sinuses: Sinuses and mastoids are clear. BRAIN MR ANGIOGRAM: Anterior circulation: Intracranial internal carotid arteries are normal in size and enhancement. The flow within the paired anterior cerebral arteries is normal and symmetric. The flow within the middle cerebral arteries is normal and symmetric. The anterior communicating artery is seen. No stenoses, occlusions, or aneurysms. Posterior circulation: The visualized portions of the vertebral arteries demonstrate normal caliber, and join to form a normal appearing basilar artery. The flow within the posterior cerebral arteries is normal and symmetric. No stenoses, occlusions, or aneurysms. NECK MR ANGIOGRAM: Carotids: Great vessels demonstrate a conventional anatomy as they arise from the aortic arch. The origins of the common carotid arteries appear patent. The calibers and courses of both common carotid arteries are normal. The bifurcation regions appear patent bilaterally. Mild stenosis at the carotid bifurcations bilaterally. The internal carotid arteries demonstrate normal course and caliber. Posterior circulation: The origins of the vertebral arteries appear patent. More superior portions of both vertebral arteries demonstrate normal course and caliber, and join to form a normal appearing basilar artery. Miscellaneous: Subclavian arteries appear patent. Pre-contrast images through the neck show no soft tissue abnormalities. IMPRESSION: BRAIN MRI: 1. Acute lacunar infarct involving the left thalamus. 2. Mild cerebral volume loss and chronic microvascular ischemic changes. BRAIN MR ANGIOGRAM: No occlusion or hemodynamic significant stenosis in anterior or posterior circulations. NECK MR ANGIOGRAM: No occlusion or hemodynamic significant stenosis in cervical carotid arteries or vertebral arteries bilaterally. Dictated by: Placido Pretty M.D. on 09/16/2022 at 18:06 Approved by: Placido Pretty M.D. on 09/16/2022 at 18:13
[2022-09-16 16:21] LABS: Alanine Aminotransferase 17 IU/L (<35); Albumin 4.6 g/dL (3.5-5.0); Albumin Globulin Ratio 1.5 (1.0-2.8); Alkaline Phosphatase 68 U/L (38-126); Aspartate Aminotransferase 22 IU/L (14-36); BUN Creatinine Ratio 16.3 (6-22); Bilirubin Total 0.2 mg/dL (0.2-1.3); Blood Urea Nitrogen 13 mg/dL (7-17); Carbon Dioxide 30 mmol/L (22-32); Chloride 98 mmol/L (98-107); Estimated Glomerular Filt Rate > 60 mL/min (>60); Globulin 3.1 g/dL (1.7-4.1); Glucose 130 mg/dL (80-110); HEMOLYSIS < 15 (0-50); Lipase 39 U/L (23-300); Potassium 3.9 mmol/L (3.4-5.1); Sodium 135 mmol/L (137-145); Total Protein 7.7 g/dL (6.3-8.2)
[2022-09-16 16:22] LABS: Creatine Kinase 62 U/L (30-135); Magnesium 1.7 mg/dL (1.6-2.3)
[2022-09-16 16:33] LABS: Troponin I < 0.012 ng/mL (0.01-0.034)
[2022-09-16] MEDS: diazePAM 5 MG TABLET PO (16:45)
[2022-09-16 20:21] LABS: COVID19 -Nasal RAPID Negative (Negative)
[2022-09-16] MEDS: ATORVASTATIN 20 MG TABLET PO (21:44)
[2022-09-16] MEDS: METFORMIN HCL 500 MG TABLET 1000 MG PO (21:44)
[2022-09-17] VITALS (10 sets, daily range): BP systolic 127–171; BP diastolic 68–96; PULSE 82–100; RESP 16–21; TEMP 36.1–36.6; O2SAT 91–94
[2022-09-17] MEDS: PANTOPRAZOLE DR 40 MG TABLET PO (07:00)
--- NOTE | 2022-09-17 07:00 | DI.US.S_ITS ---
PROCEDURE: US CAROTID DOPPLER BI INDICATIONS: CEREBRAL VASCULAR ACCIDENT TECHNIQUE: Color and pulse Doppler interrogation was performed of both carotid systems, with image documentation and velocity measurements. COMPARISON: [facility], MR, MR STROKE, 09/16/2022, 16:43. [facility], CT, CT HEAD/BRAIN WO CON, 09/16/2022, 15:44. FINDINGS: Stenosis calculations are based on SRU (Society of Radiologists in Ultrasound) criteria. Right side: Brachial blood pressure: 161/91 mm Hg. Common carotid artery peak systolic velocity: 95 cm/sec. Internal carotid artery peak systolic velocity: 83 cm/sec. Internal carotid artery end diastolic velocity: 27 cm/sec. External carotid artery peak systolic velocity: 137 cm/sec. ICA/CCA peak systolic ratio: 0.9 Edwards scale imaging description: Minimal plaque at the bifurcation Percent internal carotid artery stenosis: Less than 50% . Vertebral artery: Flow direction is antegrade. Left side: Brachial blood pressure: 149/82 mm Hg. Common carotid artery peak systolic velocity: 120 cm/sec. Internal carotid artery peak systolic velocity: 81 cm/sec. Internal carotid artery end diastolic velocity: 28 cm/sec. External carotid artery peak systolic velocity: 120 cm/sec. ICA/CCA peak systolic ratio: 0.7 . Edwards scale imaging description: Minimal plaque at the bifurcation Percent internal carotid artery stenosis: Less than 50% . Vertebral artery: Flow direction is antegrade. IMPRESSION: Less than 50% stenosis of the internal carotid arteries bilaterally. Dictated by: Nafisa Amaro M.D. on 09/17/2022 at 18:17 Approved by: Nafisa Amaro M.D. on 09/17/2022 at 18:18
--- NOTE | 2022-09-17 07:00 | DI.ECHO.S_ITS ---
[facility]---------+ [facility] +---------+ : : [address] : : : : [id number] : : : : Phone: [phone] Echocardiogram Report + + :Name: VIET ORTIZ Study Date: 09/17/2022 Height: 63 in : :[facility] ReadingLocation: Weight: 125 lb : : Gender: Female BSA: 1.6 m2 : :: 1955 Age: 67 yrs BP: 152/68 mmHg: :Reason For Study: CVA : :Ordering Physician: THO, : :BUTCH Gomes Performed By: Linda George : :Referring: BUTCH NETTLES : + + Interpretation Summary The ejection fraction is estimated to be 65-70%. Diastolic parameters suggest probable normal left ventricular diastolic function and normal filling pressures. The right ventricle is normal in size and function. Injection of contrast documented no interatrial shunt. No significant valvular abnormalities. Unable to estimate PASP. Procedure: A two-dimensional transthoracic echocardiogram with color flow and Doppler was performed. The study quality was technically adequate. There is no prior echocardiogram noted for this patient. A saline contrast injection was performed to assess for cardiac shunting. The injection was performed through an intravenous line in the right arm. The patient was in sinus rhythm with heart rates between 85-100 bpm during the exam. Left Ventricle: The left ventricle is normal in size and wall thickness. The ejection fraction is estimated to be 65-70%. Diastolic parameters suggest probable normal left ventricular diastolic function and normal filling pressures. Right Ventricle: The right ventricle is normal in size and function. Atria: The left atrial size is normal. Right atrial size is normal. There is no Doppler evidence for an interatrial shunt. Injection of contrast documented no interatrial shunt. Mitral Valve: The mitral valve is normal in structure and function. There is no mitral regurgitation noted. Aortic Valve: The aortic valve is not well visualized. The aortic valve opens well. There is no aortic valve stenosis. No aortic regurgitation is present. Tricuspid Valve: The tricuspid valve is normal in structure and function. There is trace tricuspid regurgitation. Pulmonary artery pressures cannot be estimated because of the lack of a measurable TR jet velocity. Pulmonic Valve: The pulmonic valve is not well seen, but is grossly normal. There is no pulmonic valvular regurgitation. Great Vessels: The aortic root is normal size. The dimensions of the ascending aorta are normal. The IVC is of normal diameter and collapses greater than 50% with a sniff. This suggests a low right atrial pressure of 3 mm Hg. Pericardium/ Pleura There is no pericardial effusion. There is no pleural effusion. MMode/2D Measurements & Calculations LVIDd: 4.1 cm LVOT diam: 1.8 cm LVIDs: 2.5 cm Ao root diam: 3.1 cm FS: 37.8 % asc Aorta Diam: 3.1 cm IVSd: 0.64 cm Ao Arch Diam (Prox Trans): 2.6 cm LVPWd: 0.69 cm LV muller. diameter/BSA (cm/m^2): 2.6 LV sys. diameter/BSA (cm/m^2): 1.6 LA A2 area: 14.5 cm2 RA long axis: 4.4 cm LA A4 area: 12.0 cm2 RA area: 10.9 cm2 LA length (vol): 4.2 cm RA vol: 23.3 ml LA vol: 35.2 ml RA : 14.7 ml/m2 LA vol index: 22.2 ml/m2 IVC diam: 1.1 cm RVD1 (basal): 3.2 cm TAPSE: 2.2 cm Doppler Measurements & Calculations Ao V2 max: 103.9 cm/sec LVOT Max Javier: 105.8 cm/sec Ao V2 mean: 75.7 cm/sec LV V1 max P.5 mmHg Ao max P.3 mmHg LV V1 VTI: 18.6 cm Ao mean P.5 mmHg YANICK(I,D): 2.3 cm2 Ao V2 VTI: 20.5 cm YANICK(V,D): 2.6 cm2 sev ratio: 0.91 YANICK indexed to BSA (cm^2/m^2): 1.5 MV E max javier: 77.4 cm/sec PA V2 max: 101.8 cm/sec MV A max javier: 95.3 cm/sec PA V2 mean: 73.6 cm/sec MV E/A: 0.81 PA mean P.4 mmHg Med Peak E' Javier: 8.6 cm/sec PA pr(Accel): 44.7 mmHg E/E' med: 9.0 Lat Peak E' Javier: 8.4 cm/sec E/E' lat: 9.2 E/e' average: 9.1 MV dec time: 0.22 sec [facility] 47.2 ml Reading Physician:10:51 AM
[2022-09-17] MEDS: SODIUM CHLORIDE 0.9% FLUSH 10 ML IV ×2 (08:41→21:02)
[2022-09-17] MEDS: hydroCHLOROthiazide 25 MG TABLET PO (08:45)
[2022-09-17] MEDS: ENOXAPARIN 40 MG/0.4 ML SYRINGE SUBCUT (08:45)
[2022-09-17] MEDS: ASPIRIN EC 81 MG TABLET PO (08:45)
[2022-09-17] MEDS: METFORMIN HCL 500 MG TABLET 1000 MG PO ×2 (08:57→16:52)
--- NOTE | 2022-09-17 09:45 | P.HP_ITS ---
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 Seen in PCP sent on to ER yesterday found on MRI to have acute lacunar embolic stroke feeling a bit better today RH feels less clumsy has not worked with PT yet today hasn't tried to get up but has been able to walk around and drive ok. appetite and sleep ok. Today will work with PT get echo and carotids look for discharge plan to emerge Patient History Medical History DDD (degenerative disc disease) Hyperlipidemia Insomnia Low back pain with sciatica Pancreatitis Pneumonia Sinusitis Smoker Spinal stenosis Surgical History H/O: hysterectomy History of eyelid surgery S/P cervical spinal fusion Family & Social History Social History: household members other Prior Living Arrangements Apartment/Condo Safety & Behavioral: Feels Safe in Current Yes Environment Been Physically Hurt or No Threatened By a Person Tobacco & Substance use: Tobacco type cigarettes Smoking Status Current every day smoker alcohol intake former Substance Use Type does not use Meds Home Medications and Allergies Home Medications Medication Instructions Recorded Confirmed Type losartan 100 mg tablet (Cozaar) 100 mg PO QPM ##0 08/13/12 09/16/22 History albuterol sulfate 90 mcg/actuation 2 puff inhalation Q6H PRN 03/14/18 09/16/22 History aerosol inhaler (Ventolin HFA) Shortness Of Breath hydrochlorothiazide 25 mg tablet 25 mg PO QAM 03/14/18 09/16/22 History docusate sodium 100 mg capsule 100 mg PO BID PRN constipation #30 10/27/18 09/16/22 Rx caps fluticasone 100 mcg-salmeterol 50 1 inh inhalation BID 09/16/22 09/16/22 History mcg/dose blistr powdr for inhalation (Wixela Inhub) hydroxyzine HCl 50 mg tablet 50 mg PO DAILY 09/16/22 09/16/22 History ipratropium bromide 42 mcg (0.06 1 spray intranasal DAILY 09/16/22 09/16/22 History %) nasal spray metformin 1,000 mg tablet 1,000 mg PO BID 09/16/22 09/16/22 History montelukast 10 mg tablet 10 mg PO DAILY 09/16/22 09/16/22 History pantoprazole 40 mg tablet,delayed 40 mg PO BID 09/16/22 09/16/22 History release Allergies Allergy/AdvReac Type Severity Reaction Status Date / Time Sulfa (Sulfonamide AdvReac Unknown UNKNOWN Verified 09/16/22 15:45 Antibiotics) REACTION [SULFA (SULFONAMIDE PER PT ANTIBIOTICS)] Review of Systems Review of Systems Narrative: all systems reviewed and negative except as otherwise documented in HPI Exam Vital Signs (past 8 hours): - 09/17/22 04:00 09/17/22 08:00 Temperature 97.8 F 97.8 F Pulse Rate 85 100 H Respiratory Rate 21 17 Blood Pressure 152/68 H 170/96 H Pulse Oximetry 92 91 Oxygen Flow Rate 0 0 Oxygen Delivery Method Room Air Oxygen Flow Rate 0 Narrative Exam Narrative: cheerful alert laying in bed Const Nutritional Appearance: well nourished [facility] Head: normocephalic and atraumatic Eyes General: appearance normal, both eyes and all related structures Resp Other: scattered wheezing moving air well Cardio Other: regular rate and rhythm S1/S2 GI Other: soft nontender nondistended normal bowel sounds Neuro General: patient alert, patient awake, patient oriented x3 and moves all extremities Other: RUE and RLE decreased dexterity, strength 5/5 Psych Speech and Movement: speech and movement normal Objective Labs 09/16/22 15:55 09/16/22 15:55 Labs: Laboratory Results - last 24 hr 09/16/22 09/16/22 09/16/22 15:55 15:55 15:55 WBC 10.2 RBC 4.72 Hgb 13.7 Hct 40.5 MCV 85.9 MCH 29.0 MCHC 33.8 RDW 14.7 Plt Count 610 H Neut % (Auto) 57.2 Lymph % (Auto) 28.5 [place] % (Auto) 8.1 Eos % (Auto) 5.1 H Baso % (Auto) 1.1 Neut # (Auto) 5800 Lymph # (Auto) 2900 [place] # (Auto) 800 Eos # (Auto) 500 H Baso # (Auto) 100 Sodium 135 L Potassium 3.9 Chloride 98 Carbon Dioxide 30 BUN 13 Creatinine 0.80 Estimated GFR > 60 BUN/Creatinine Ratio 16.3 Glucose 130 H Calcium 9.0 Magnesium 1.7 Total Bilirubin 0.2 AST 22 ALT 17 Alkaline Phosphatase 68 Total Creatine Kinase 62 CK-MB (CK-2) TNP CK-MB (CK-2) Rel Index TNP Troponin I < 0.012 Total Protein 7.7 Albumin 4.6 Globulin 3.1 Albumin/Globulin Ratio 1.5 Lipase 39 SARS-CoV-2 (PCR) 09/16/22 19:44 WBC RBC Hgb Hct MCV MCH MCHC RDW Plt Count Neut % (Auto) Lymph % (Auto) [place] % (Auto) Eos % (Auto) Baso % (Auto) Neut # (Auto) Lymph # (Auto) [place] # (Auto) Eos # (Auto) Baso # (Auto) Sodium Potassium Chloride Carbon Dioxide BUN Creatinine Estimated GFR BUN/Creatinine Ratio Glucose Calcium Magnesium Total Bilirubin AST ALT Alkaline Phosphatase Total Creatine Kinase CK-MB (CK-2) CK-MB (CK-2) Rel Index Troponin I Total Protein Albumin Globulin Albumin/Globulin Ratio Lipase SARS-CoV-2 (PCR) Negative Assessment & Plan Assessment & Plan narrative: #acute lacunar left thalamic infarct New R sided clumsiness c/w imaging findings. echo and carotid dopplers ordered. Hypertension continue home losartan 100 hctz 25 hydroxyzine at bedtime #NIDDM stable continue metformin with fingersticks and ssi #COPD #hx of smoking stable continue home meds prn nicotine patch #Hyperlipidemia increase to 20mg rosuvastatin with 81mg asa code: full dispo: pending PT/OT eval and stroke w/u MDM: Laura [phone] DVT: lovenox Time spent: 40 min today Time Spent With Patient Critical Care time: I spent a total of [] minutes of critical care time on this patient's care today; this time is exclusive of procedural time. Quality VTE Deep Vein Thrombosis/Pulmonary Embolism Present on Admission: No
--- NOTE | 2022-09-17 10:38 | ST.IPCSEOM ---
Visit Care Team Role Provider Type Alek Mistry DO Emergency Provider Physician Specialty: Emergency Medicine Address: [address] [place] [address], [address] Email: [email or web address] Tj Palma MD Attending Provider Physician Primary Care Provider Referring Provider Specialty: Family Practice Address: [facility] [place], [address] Email: [email or web address] Juan Alberto Perdue MD Admit Provider Physician Other Providers Specialty: Internal Medicine Address: [address] [place] [address], [address], [place], [address] Email: [email or web address] Past Medical History (Last Reviewed 09/16/22 @ 19:09 by lAek Mistry DO) DDD (degenerative disc disease) (Medical) Hyperlipidemia (Medical) Insomnia (Medical) Low back pain with sciatica (Medical) Pancreatitis (Medical) Pneumonia (Medical) Sinusitis (Medical) Smoker (Social Hx) Spinal stenosis (Medical) Speech-Language Pathology Swallow Evaluation TECHNICAL PROFESSIONAL Clinical Swallow Evaluation Start: 09/17/22 10:01 Freq: Status: Active Protocol: Document 09/17/22 10:01 CARLO (Rec: 09/17/22 10:32 ZS [id number]) Clinical Swallow Evaluation Session Time Visit Start Time 09:00 Visit Stop Time 09:30 Total Visit Minutes 30 Visit Information Visit Number Initial Evaluation Setting Assessment Location Acute Care Visit Type Note Type Initial evaluation Next Note Type Next Note Type Treatment Note Patient Information Identification Type Name History Per H&P: 67-year-old female who was sent to the emergency department for evaluation of right-sided weakness and high blood pressure. Patient has a history of high blood pressure. She states she woke up on Thursday morning which was 3 days ago with weakness in her right arm and right leg . She also states she had some coordination issues to her right hand. She would no other associated symptoms. She actually went to work. She feels now that her symptoms have actually improved somewhat but not completely resolved. MRI indicated an acute lacunar infarct of left thalamus. Pt had a modified barium swallow study on 06/27/22. At [facility], pt indicated she had ACDF surgery ~9 years ago and again 5 years ago. She had upper and lower dentures for the MBS. Results of the MBS showed penetration into the laryngeal vestibule x6 (PAS=3 - penetration with visible laryngeal residue) and the epiglottis did not invert fully (was up or horizontal) for all trials with the exception of the pudding thick barium and the cookie with barium. The bulk of these 2 boluses aided in the epiglottic inversion. Additionally, pt exhibited base of tongue weakness and laryngeal residue following swallows. Chin tucks were found to be effective in reducing the laryngeal penetration. Esophageal portion of swallow was screened and later evaluated on 07/07/22 with GI. Results of GI assessment found a small hiatal hernia and reflux. Pt reported she has another evaluation involving a scope ( was unclear what was being scoped, only that it was related to swallowing) on 10/08. Subjective Observations Pt was reclined in bed placing lunch order when TECHNICAL PROFESSIONAL arrived. Pt ordered food effectively and stated she only has her top dentures available here and cannot chew hard things like hard cooked vegetables. She answered questions appropriately while ordering. Reported by Patient Current Diet Regular,Thin liquids Baseline Feeding Method Independent in self-feeding Objective Assessment Mental Status Alert,Responsive,Cooperative Oral Integrity WFL Dentition Missing teeth,Dentures or partials present,Upper dentures/partials Lip Function Mild impairment Observation of Lips at Rest Symmetrical Pucker Within normal limits Lip Retraction Reduced range of motion Alternating Pucker/Lip Retraction Reduced range of motion Tongue Function Within normal limits Observations of Tongue at Rest Within normal limits Tongue Protrusion Within normal limits Tongue Retraction Within normal limits Tongue Lateralization Within normal limits Jaw Function Mild impairment Observations of Jaw at Rest Within normal limits Jaw Opening Reduced strength Jaw Closing Reduced strength Hard/Soft Palate Function Within normal limits Observations of Hard/Soft Palate Within normal limits Nasality Within normal limits Phonation Harsh,Strained/Strangled Respiratory Sufficiency Within normal limits Comment Pt presented with a harsh, strained vocal quality consistent with status as current daily smoker. Pt repored she has upper dentures but no lower dentures at this time. Structures were symmetrical at rest and in motion, though reduced strength noted in jaw and reduced ROM noted in lip retraction. Pt exhibited excellent tongue strength and ROM. Jaw ROM was WNL and strength was mildly reduced with opening and closing. Labial strength was WNL and pucker was WNL, however, smile had mildly reduced ROM. Structures appear WFL for the purposes of speech and swallowing. Food and Liquid Trials Position During Assessment Upright (90 degrees),In bed Liquids Trialed Thin Administration Type Cup single sip,Straw,Self- feeding Oral Impairment Within normal limits Oral Phase Comments No anterior loss of bolus. No residue observed following swallow. Pharyngeal Impairment Within normal limits Pharyngeal Phase Comments No overt signs or symptoms of aspiration noted, however unable to rule out silent aspiration with clinical swallow assessment and pt has a history of penetration observed on MBS completed on 06/27/22. Fatigue/Endurance Endurance WNL Findings Comment The pt presents with no overt signs or symptoms of aspiration, however, results of MBS completed on 06/27/22 indicate moderate pharygoesophageal dysphagia and recommendations included lingual and base of tongue exercises as well as compensatory strategy education. Recommend speech therapy to provide exercises and education regarding swallow safety and compensatory strategies to improve swallow safety. Impact on Safety and Functioning Risk for aspiration Recommendations Instrumental Assessment No Swallowing Treatment Yes Recommended Solids Regular Recommended Liquids Thin Safety Precautions/Swallowing Feed only when alert,Reduce Recommendations distractions,Remain upright ( 90 degrees) during all oral intake,Upright position at least 30 minutes after meals, Small bites and sips when eating,Slow rate; swallow between bites Medication Recommendations As Tolerated Discharge Recommendations Home Education Patient/Caregiver Education Described results of evaluation,Patient expressed understanding of evaluation, Patient expressed agreement with goals & treatment plans, Patient requires further education/training Goals Short-term Goals 1. The pt will perform safe swallow strategies with oral intake independently to reduce risk of aspiration. 2. The pt will perform exercises to increase strength , coordination, and ROM of swallow musculature independently to reduce risk of aspiration and increase comfort with oral intake. Long-term Goals The pt will safely tolerate least restrictive diet to meet her nutrition and hydration needs.
--- NOTE | 2022-09-17 10:39 | CM.DANOTE ---
Patient is a 67 yo female who was admitted on 09/16/22 for CVA vs TIA. Pt has [facility] for insurance and her PCP is Dr. Tj Palma. EMR was reviewed. Per MD, pt with high bp and rt side weakness and admitted for workup to r/o CVA vs TIA. Per imaging, shows infarct and to have further tests and PT/OT/ST prior to discharge. Per ST, pt has no swallow or speech needs at this time. PT/OT ordered and pending. SW met bedside with pt and explained role and pt confirms she lives in [place] alone but in a 4-plex with friendly supportive neighbors and denies any local family but has good friend support. Pt states she is independent with ADL's, still works and drives, and does not use DME for ambulation. Pt confirms that she has DPOA pwk at home but has not completed yet and plans to likely have her friend/boss and her out of town niece. Pt declined DPOA pwk here at the hospital and wants to wait until she is home. SW discussed the purpose and benefit of formal DPOA and pt acknowledged understanding. Pt states she feels like most of her symptoms have resolved but appreciative of PT/OT eval today to determine any deficits or recommendations. Pt preference is home when stable and does not anticipate any needs and states if needed her friend could provide transport but she also has her vehicle in the parking lot. Pt denies any hx of HH or SNF. Plan: SW to follow for PT/OT eval to confirm safe plan of home when medically stable and r/o and HH needs. STEVE Black Discharge Planning/Care Management CM Discharge Assessment Start: 09/17/22 10:35 Freq: Status: Active Protocol: Document 09/17/22 10:36 BF (Rec: 09/17/22 10:39 BF [id number]) Discharge Planning Assessment Assigned Ship Construction Teacher STEVE Mancia DPOA/Assigned Designee Name none, has pwk but still needs to fill out Advance Directives? Yes Advance Directives on File No: states full code History Provided By Patient,Medical Record Has Patient been admitted in last 30 No days? Prior Living Arrangements Apartment/Condo Household Members none Type of transporation used prior to Drives own vehicle admit Independent with ADL's Yes Is patient alert and oriented? Yes Caregiver for Another No Barriers to Discharge No Discharge Plan Home Transportation Arrangement Likely neighbor or friend to transport, has vehicle in parking lot Referrals Initiated None needed Additional Comment Pending PT/OT eval and recommendations Whiteboard Updated in Patient Room with Yes name and ext. # of Ship Construction Teacher Review Status In Process Please Provide Date Initial DC 09/17/22 Assessment Was Performed Next Review Type Continued Stay Review
--- NOTE | 2022-09-17 11:07 | OT.IP.TRT ---
Occupational Therapy Treatment Note M2 OT-IP Current Condition Start: 09/17/22 14:10 Freq: Status: Active Protocol: Document 09/17/22 10:23 [facility] (Rec: 09/17/22 14:37 [facility] [id number]) Occupational Therapy Current Condition Current Condition Evaluation Date 09/17/22 Treatment Diagnosis Acute lacunar infarct involving left thalamus Diagnosis Onset Date 09/16/22 M3 OT- IP Subjective and Pain Start: 09/17/22 14:10 Freq: Status: Active Protocol: Document 09/17/22 10:23 [facility] (Rec: 09/17/22 14:37 [facility] [id number]) OT- Subjective Occupational Therapy Visit Type Type Initial Evaluation Visit Start Time 10:23 Visit Stop Time 11:07 Total Visit Minutes 44 Occupational Therapy Visit Comments Patient Comments Pt agreed to get up. Patient/Caregiver Goals TO go home. OT Pain Assessment Pain When Pain Assessed At Rest Pain Present Pain Present Pain Reported Location Head Intensity 6 Scale Used Numeric (0 - 10) M4 OT- IP ADL's Start: 09/17/22 14:10 Freq: Status: Active Protocol: Document 09/17/22 10:23 [facility] (Rec: 09/17/22 14:37 [facility] [id number]) OT [id number] Comments OT Self-Feeding Comments NOt at meal time. OT ADL-Grooming General Evaluation Grooming Ability Independent Comments OT Grooming Comments Pt able to do while standing at the sink. OT ADL-Oral Care General Eval Oral Care Ability Independent Comments Oral Care Comments Pt able to do while standing at the sink. OT ADL-Dressing General Eval Lower Body Dressing Ability Independent Comments OT Dressing Comments Pt able to ede/doff her socks and put on tie shoes. OT ADL-Toileting Comments OT Toileting Comments Pt states has been using the toilet on her own. OT ADL-Bathing Comments OT Bathing Comments To try shower tomorrow, pt would benefit from a shower chair. M5 OT- IP IADL's Start: 09/17/22 14:10 Freq: Status: Active Protocol: Document 09/17/22 10:23 [facility] (Rec: 09/17/22 14:37 [facility] [id number]) OT-Instrumental Activities of Daily Living Home Safety Awareness Ability to Problem Solve Emergency Able to Problem Solve Situations Home Safety Comments Pt may need assist for IADL needs due to decreased dynamic balance at this time. Medication Management Medication Management Comments Pt states does her own. Money Management Money Management Comments Concerns for completeness and pt having difficulty with calculations today. Pt would benefit from assist. Meal Preparation Meal Preparation Comments Pt would benefit from assist. Wood Casket Maker Wood Casket Maker Comments Pt would benefit from assist. Driving Driving Comments At this time best to talk to her physician regarding driving. M6 OT- IP Functional Cognition Start: 09/17/22 14:10 Freq: Status: Active Protocol: Document 09/17/22 10:23 [facility] (Rec: 09/17/22 14:37 [facility] [id number]) Cognitive Factors Limiting Selfcare Function Cognitive Ability Level of Alertness Alert Patient Orientation Name,Place,Situation Attention Span Ability Capable of Focused Attention, Capable of Sustained Attention Ability to Follow Commands Able to Follow One Step Commands Memory Description Working Impaired Problem Solving Ability Needs Assist to Identify Solutions Cognitive Comments Cognitive Assessment Comments Pt scored 30% for her age for [place] Making Part B which implies mild impairments for task switching, speed of processing, executive functioning, visual attention, and mental flexibility. Pt having difficulty to convert time of 1 minute and 24 seconds into seconds. Suggested pt have assist for finances and be best to practice executive functioning skills. OT- Vision and Hearing OT- Hearing Assessment OT- Hearing Assessment WFL OT- Vision Assessment Visual Attentiveness WFL Occular Pursuits WFL Visual Convergence WFL Visual Nash WFL M7 OT- IP Mobility and Balance Start: 09/17/22 14:10 Freq: Status: Active Protocol: Document 09/17/22 10:23 [facility] (Rec: 09/17/22 14:37 [facility] [id number]) OT- Bed Mobility Assessment Supine to Sit Supine to Sit Assist Independent Sit to Supine Sit to Supine Assist Independent OT-Transfer Assessment Sit to and From Stand Sit to and from Stand Standby Assistance Transfers Transfer Ability Standby Assistance Technique Transfer Destination Bed,Chair Transfer Technique Stand Step Pivot Devices Transfer Assistive Devices None,Gait Belt Comments Mobility Comments Pt SBA without a device and having some LOB and leaning to the right at times. Pt able to get down to the floor with needing a hand on the bench to help get down and up from with close SBA. OT- Balance Assessment Sitting Balance and Reactions Static Sitting Balance Ability Normal Dynamic Sitting Balance Ability Normal Standing Balance and Reactions Static Standing Balance Ability Good Dynamic Standing Balance Ability Fair M8 OT- IP Objective Assessments Start: 09/17/22 14:10 Freq: Status: Active Protocol: Document 09/17/22 10:23 [facility] (Rec: 09/17/22 14:37 [facility] [id number]) OT Gross Range of Motion Upper Extremity Range of Motion Assessment Within Functional Limits OT Strength Comments Strength Comments Right hand slight decreased strength 4/5 OT- Coordination Assessment Upper Extremity Finger to Nose Test Within Functional Limits Finger Tapping Test Right UE Impaired Comments Coordination Comments Slightly increased time for RUE. Rughth hand 33 seconds 9 hole peg test which scored pt below 10% for her age and left hand at 90% at 21 seconds. Pt states her right thumb has been swollen and having cracked skin also affecting her ability to picker items. OT-Muscle Tone Assessment Muscle Tone WNL Yes OT Sensation Assessment Comments Summary Comments Intact for light touch M9 OT- IP Assessment and Plan Start: 09/17/22 14:10 Freq: Status: Active Protocol: Document 09/17/22 10:23 [facility] (Rec: 09/17/22 14:37 [facility] [id number]) OT Summary Assessment and Plan Potential Rehabilitation Potential Good Analytic Complexity at Evaluation Moderate Summary OT Impairments Strength,Balance,Coordination, Functional Cognition, Functional Mobility,Bathing Progress Towards Goals Progressing Toward Goals Assessment Summary Pt MOD complexity and main barriers are steps, decreased coordination and high level cognitive functioning at this time. Pt would benefit from assist at home with finance and IADl needs, but pt lives alone. Pt will also benefit form outpt therapy services to work on her dynamic balance, coordination with right hand and executive functioning especially with math calculations. Goals Bathing Goal Independent Toilet Transfer Goal Independent Shower Transfer Goal Independent OT-Other Goals Pt to be independent to work on FMS activities on her own. Days to Meet Goals 1 Frequency of Treatment Frequency Of Treatment Once a Day Treatment Plan OT Treatment Plan ADL Training,Functional Cognition Training,Functional Mobility,Patient/Family Education,Discharge Planning Other Treatment Recommendations and Next shower, FMS Treatment Focus Discharge Recommendations OT Discharge Recommendations Home with Assistance, Outpatient PT Home Equipment Needs shower chair Transportation Needs at Discharge Private Vehicle
[2022-09-17] MEDS: ACETAMINOPHEN 325 MG TABLET 650 MG PO (11:15)
--- NOTE | 2022-09-17 11:20 | PT.IIE ---
Surgical History (Last Reviewed 08/19/22 @ 07:45 by Amos Hutson MD) H/O: hysterectomy History of eyelid surgery S/P cervical spinal fusion Medical History (Last Reviewed 09/16/22 @ 19:09 by Alek Mistry DO) DDD (degenerative disc disease) Hyperlipidemia Insomnia Low back pain with sciatica Pancreatitis Pneumonia Sinusitis Smoker Spinal stenosis Physical Therapy Inpatient Evaluation/Re-Eval M1 PT/OT-IP Prior Functional Status Start: 09/17/22 12:47 Freq: NEEDED Status: Active Protocol: Document 09/17/22 11:20 AB (Rec: 09/17/22 13:02 AB [id number]) Medical Review Prior Functional Status Medical History Reviewed Yes Communication able to make needs known Mobility and Gait pt stated that she is independent with all mobilities and ambulation without AD Social History Household Members none Living Arrangements Apartment/Condo Number of Floors (Floors) Two Floors Number of Stairs To Enter/Railing? 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 PT-IP Current Condition Start: 09/17/22 12:47 Freq: NEEDED Status: Active Protocol: Document 09/17/22 11:20 AB (Rec: 09/17/22 13:02 AB [id number]) Physical Therapy Current Condition Current Condition Evaluation Date 09/17/22 Treatment Diagnosis L CVA; difficulty in walking Onset Date 09/16/22 M3 PT-IP Subjective Start: 09/17/22 12:47 Freq: NEEDED Status: Active Protocol: Document 09/17/22 11:20 AB (Rec: 09/17/22 13:02 AB [id number]) Subjective Physical Therapy Visit Type Type Initial Evaluation Visit Start Time 11:20 Visit Stop Time 11:37 Total Visit Minutes 17 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 Physical Therapy Visit Comments Patient Comments agreeable to do PT Therapy Pain Assessment Pain When Pain Assessed At Rest Pain Present Pain Present Pain Reported Location Head Intensity 5 Scale Used Numeric (0 - 10) Pain Management Techniques Distraction,Modification of Treatment,Re-positioning, Timing of Activity with Medications M4 PT-IP Mobility and Gait Start: 09/17/22 12:47 Freq: NEEDED Status: Active Protocol: Document 09/17/22 11:20 AB (Rec: 09/17/22 13:02 AB [id number]) PT-Bed Mobility Assessment Supine to Sit Supine to Sit Independent Sit to Supine Sit to Supine Independent PT-Transfer Assessment Sit to and From Stand Sit to and from Stand Standby Assistance,Use of Upper Extremities Equipment Transfer Assistive Device None,Gait Belt Orthotic/Prosthetic Devices or Brace: No Comments Mobility Comments pt supine in bed. c/o 12/24 headache and nurse just gave pt medication. BP: 145/81. pt agreed to do PT. completed bed mobility mod I. able to sit on EOB SBA. completed sit to stand SBA and ambulated in room without AD SBA. presents with unsteady gait but without LOB. pt has difficutly walking a straight path. cued to slow down and increase awareness of body positioning. pt ambulated in the hallway without AD SBA. completed up /down steps using L rail ascending and repeated again using R rail ascending. pt repeated x 3 sets. pt ambulated back to her room SBA . standing balance assessment: able to stand with NBOS with eyes open: steady; with eyes closed: unsteady but did not lose balance; with perturbations, steady, able to do a 360 turn without LOB and continuous. pt requested to go back to bed . positioned in bed. call light and table placed within reach. Gait Assessment Gait Gait Assistance Required: Standby Assistance Distance (Feet) 150 Able to Maintain Weight Bearing Status Yes During Gait Assistive Devices Assistive Device None,Gait Belt Orthotic/Prosthetic Devices or Brace: No Gait Deviations General Gait Pattern Ataxic,Decreased Stride Length ,Decreased Feet Clearance Factors Limiting Gait Function Factors Limiting Gait Function Decreased Activity Tolerance, Decreased Strength,Poor Balance,Poor Safety Awareness Stair Climbing Assessment Evaluation Level of Assist On Stairs Standby Assistance Devices Stair Climbing Assistive Devices Right Railing Technique/Endurance Stair Climbing Technique Step to Step Number of Steps Climbed 3 Query Text: Stair Climbing Set # Repetitions (reps) 3 PT-Balance Assessment Sitting Balance and Reactions Static Sitting Balance Ability Normal Dynamic Sitting Balance Ability Normal Standing Balance and Reactions Static Standing Balance Ability Good Dynamic Standing Balance Ability Fair Device Used without AD M5 PT-IP Objective Assessments Start: 09/17/22 12:47 Freq: NEEDED Status: Active Protocol: Document 09/17/22 11:20 AB (Rec: 09/17/22 13:02 AB [id number]) Orientation Orientation/Cognition Level of Alertness Alert Orientation Name,Place,Situation Language Function Ability No Deficits Noted Safety Awareness Decreased Safety Awareness Memory Description No Deficits Noted Gross Range of Motion Lower Extremity ROM Assessment Within Functional Limits Strength Lower Extremity Strength Assessment Within Functional Limits Muscle Tone Muscle Tone WNL Yes M6 PT-IP Treatment Start: 09/17/22 12:47 Freq: NEEDED Status: Active Protocol: Document 09/17/22 11:20 AB (Rec: 09/17/22 13:02 AB [id number]) Physical Therapy Treatment Education Education Provided Safety M7 PT-IP Assessment and Plan Start: 09/17/22 12:47 Freq: NEEDED Status: Active Protocol: Document 09/17/22 11:20 AB (Rec: 09/17/22 13:02 AB [id number]) PT Summary Assessment and Plan Potential Rehabilitation Potential Good Status of Condition at Evaluation Stable Summary Impairments Pain,ROM,Strength,Balance, Coordination,Cognition,Bed Mobility,Transfers,Gait, Activity Tolerance Assessment Summary pt requiring SBA with mobility without AD and presents with unsteady gait but without LOB. pt can be impulsive. pt will benefit from standing balance training and will need outpt PT to improve balance, strength. will continue to assess progress. Goals Transfer Goal Independent Gait Goal Independent Gait Distance 200 Other Goals up/down 6 step L rail +6 steps R rail ascending mod I Days to Meet Goals 5 Frequency of Treatment Frequency Of Treatment Once a Day Treatment Plan Physical Therapy Treatment Plan Bed Mobility Training,Transfer Training,Gait Training, Therapeutic Exercise,Balance Retraining,Discharge Planning, Hot or Cold Pack,Neuromuscular Re-ed,Coordination Retraining Recommendations To Nursing Amount of Assist Needed Standby Assistance Discharge Recommendations PT Discharge Recommendations Home with Assistance, Outpatient PT Transportation Needs at Discharge Private Vehicle
[2022-09-17] MEDS: LOSARTAN 50 MG TABLET 100 MG PO (16:51)
[2022-09-17] MEDS: HYDROCODONE/ACET 5/325 TABLET 1 TAB PO (21:01)
[2022-09-17] MEDS: ATORVASTATIN 20 MG TABLET 40 MG PO (21:58)
[2022-09-18 02:46] VITALS: BP 139/94; PULSE 86; RESP 18; TEMP 36.2; O2SAT 93
[2022-09-18] MEDS: HYDROCODONE/ACET 5/325 TABLET 1 TAB PO (02:47)
[2022-09-18 06:00] VITALS: BP 164/89; PULSE 98; RESP 19; TEMP 36.1; O2SAT 91
[2022-09-18] MEDS: PANTOPRAZOLE DR 40 MG TABLET PO (06:22)
[2022-09-18 07:00] VITALS: O2SAT 96
[2022-09-18] MEDS: ENOXAPARIN 40 MG/0.4 ML SYRINGE SUBCUT (08:37)
[2022-09-18] MEDS: hydroCHLOROthiazide 25 MG TABLET PO (08:38)
[2022-09-18] MEDS: ASPIRIN EC 81 MG TABLET PO (08:38)
[2022-09-18] MEDS: SODIUM CHLORIDE 0.9% FLUSH 10 ML IV (08:40)
--- NOTE | 2022-09-18 09:00 | OT.IP.TRT ---
Occupational Therapy Treatment Note M2 OT-IP Current Condition Start: 09/17/22 14:10 Freq: Status: Active Protocol: Document 09/17/22 10:23 [facility] (Rec: 09/17/22 14:37 [facility] [id number]) Occupational Therapy Current Condition Current Condition Evaluation Date 09/17/22 Treatment Diagnosis Acute lacunar infarct involving left thalamus Diagnosis Onset Date 09/16/22 M3 OT- IP Subjective and Pain Start: 09/17/22 14:10 Freq: Status: Active Protocol: Document 09/18/22 09:24 [facility] (Rec: 09/18/22 09:34 [facility] [id number]) OT- Subjective Occupational Therapy Visit Type Type Treatment Note Visit Start Time 08:48 Visit Stop Time 09:00 Total Visit Minutes 12 Occupational Therapy Visit Comments Patient Comments Pt agreed to get up and states feeling much better now. Patient/Caregiver Goals TO go home. OT Pain Assessment Pain When Pain Assessed At Rest Pain Present Pain Present Denied Pain M4 OT- IP ADL's Start: 09/17/22 14:10 Freq: Status: Active Protocol: Document 09/18/22 09:24 [facility] (Rec: 09/18/22 09:34 [facility] [id number]) OT [id number] Comments OT Self-Feeding Comments NOt at meal time. OT ADL-Grooming General Evaluation Grooming Ability Independent OT ADL-Oral Care Comments Oral Care Comments not performed OT ADL-Dressing Comments OT Dressing Comments not performed OT ADL-Toileting Comments OT Toileting Comments Pt states has been using the toilet on her own. OT ADL-Bathing Comments OT Bathing Comments Pt insisting on showering at home. M5 OT- IP IADL's Start: 09/17/22 14:10 Freq: Status: Active Protocol: Document 09/17/22 10:23 [facility] (Rec: 09/17/22 14:37 [facility] [id number]) OT-Instrumental Activities of Daily Living Home Safety Awareness Ability to Problem Solve Emergency Able to Problem Solve Situations Home Safety Comments Pt may need assist for IADL needs due to decreased dynamic balance at this time. Medication Management Medication Management Comments Pt states does her own. Money Management Money Management Comments Concerns for completeness and pt having difficulty with calculations today. Pt would benefit from assist. Meal Preparation Meal Preparation Comments Pt would benefit from assist. Captain Cannery Tender Captain Cannery Tender Comments Pt would benefit from assist. Driving Driving Comments At this time best to talk to her physician regarding driving. M6 OT- IP Functional Cognition Start: 09/17/22 14:10 Freq: Status: Active Protocol: Document 09/18/22 09:24 [facility] (Rec: 09/18/22 09:34 [facility] [id number]) Cognitive Factors Limiting Selfcare Function Cognitive Ability Ability to Follow Commands Able to Follow Multi-Step Commands Memory Description No Deficits Noted Cognitive Comments Cognitive Assessment Comments Pt much improved with her thinking and now able to do mental math on her own compared to yesterday pt having difficulty to figure out conversion of 1 minute and 24 sec to seconds even when able to write it down on paper. M7 OT- IP Mobility and Balance Start: 09/17/22 14:10 Freq: Status: Active Protocol: Document 09/18/22 09:24 [facility] (Rec: 09/18/22 09:34 [facility] [id number]) OT- Bed Mobility Assessment Supine to Sit Supine to Sit Assist Independent Sit to Supine Sit to Supine Assist Independent OT-Transfer Assessment Sit to and From Stand Sit to and from Stand Independent Transfers Transfer Ability Independent Comments Mobility Comments Pt independent mobility in the room. OT- Balance Assessment Sitting Balance and Reactions Static Sitting Balance Ability Normal Dynamic Sitting Balance Ability Normal Standing Balance and Reactions Static Standing Balance Ability Normal Dynamic Standing Balance Ability Good Comments Other Balance Tests/Deviations/Treatment Pt able to pickle pumper items on : the floor with good balance and able to pickle pumper the trash can and move it up on the bench to simulate IADL needs at home. Pt is much steadier on her feet today and no leaning noted. OT-Muscle Tone Assessment Muscle Tone WNL Yes OT Sensation Assessment Comments Summary Comments Intact for light touch M9 OT- IP Assessment and Plan Start: 09/17/22 14:10 Freq: Status: Active Protocol: Document 09/18/22 09:24 [facility] (Rec: 09/18/22 09:34 [facility] [id number]) OT Summary Assessment and Plan Potential Rehabilitation Potential Excellent Analytic Complexity at Evaluation Moderate Summary OT Impairments Strength,Balance,Coordination, Functional Cognition, Functional Mobility,Bathing Progress Towards Goals Progressing Toward Goals Assessment Summary Pt much improved with her FMS and right hand improved from below 10% for her age to 50% and now able to pickle pumper coins with her right hand. Pt also much steadier on her feet and no leaning noted and independent in the room and now able to pickle pumper items off the floor without holding on to surfaces to assist with her balance. Today pt able to do mental math on her own. Pt states good understanding to be practicing FMS skills and cognitive needs. Pt is well aware to ask her assist from her friends as needed. Pt looking to go home today. Frequency of Treatment Frequency Of Treatment Discharge Discharge Recommendations OT Discharge Recommendations Home with Assistance Other Discharge Recommendations Assist from friends Transportation Needs at Discharge Private Vehicle
[2022-09-18 09:18] VITALS: BP 138/94; PULSE 105; RESP 20; TEMP 36.8; O2SAT 95
--- NOTE | 2022-09-18 09:44 | P.DS_ITS ---
History of Present Illness History of Present Illness Date Patient Seen: 09/18/22 Time Patient Seen: 08:50 Date of Onset of Symptoms: 09/18/22 Chief complaint: high bp, rt sided weakness, sent by MD Narrative: Feeling better today reports improved use of RH able to walk now with just slight foot drag feels ready to go home. appetite and elimination all normal. Discharge Providers Provider Date of admission: 09/16/22 19:24 Discharge Date: 09/18/22 Primary care physician: Tj Palma MD Consults: 09/16/22 20:33 Consult to Discharge Planning Routine Comment: Consult to Occupational Therapy Evaluate & Treat Comment: Physician Instructions: Evaluate and treat Consult to Physical Therapy Evaluate & Treat Comment: Physician Instructions: Evaluate and Treat Consult to Speech Therapy Evaluate & Treat Comment: Physician Instructions: Evaluate and treat Discharge provider: Tj Palma MD Summary Hospital Course Discharge Diagnosis: #acute lacunar left thalamic infarct #Hypertension #NIDDM #COPD #hx of smoking #Hyperlipidemia Hospital Course: Ms. Alford was admitted for stroke workup with a lacunar infarct seen on imaging. Her echo and carotids were unconcerning she worked with PT and OT and was sufficiently recovered to baseline by [facility] she is ready to go home. strongly advised to take a week off work and consider a reduced schedule. Of paramount importance is quitting smoking. Status at Discharge Cognitive/behavioral status at discharge: at baseline, oriented Functional status at discharge: independent ambulation Overall status at discharge: patient is progressing back to baseline Time Spent with Patient Time spent discussing smoking cessation with patient: 3 to 10 minutes Exam Vital Signs (past 8 hours): - 09/18/22 02:46 09/18/22 06:00 09/18/22 09:18 Temperature 97.2 F L 96.9 F L 98.3 F Pulse Rate 86 98 H 105 H Respiratory Rate 18 19 20 Blood Pressure 139/94 H 164/89 H 138/94 H Pulse Oximetry 93 91 95 Oxygen Flow Rate 0 0 0 Oxygen Delivery Method Room Air Oxygen Flow Rate 0 Narrative Exam Narrative: pleasant elder sitting on side of bed asking to go home Const General: comfortable and well developed [facility] Head: normocephalic and atraumatic Eyes General: appearance normal, both eyes and all related structures Resp Other: moving air well scattered wheezes on auscultation Cardio Other: regular rate and rhythm, S1/s2 GI Other: soft nontender nondistended Neuro General: patient alert, patient awake, patient oriented x3 and moves all extremities Other: slight R foot drag on walking but appears stable. fine motor control of RH appears to approach that of LH. Pt reports intact sensation. Psych Appearance: grossly normal Mental Status: mental status grossly normal Speech and Movement: speech and movement normal Objective Labs 09/16/22 15:55 09/16/22 15:55 PFSH Medical History DDD (degenerative disc disease) Hyperlipidemia Insomnia Low back pain with sciatica Pancreatitis Pneumonia Sinusitis Smoker Spinal stenosis Surgical History H/O: hysterectomy History of eyelid surgery S/P cervical spinal fusion Social History household members: none Smoking Status: Current every day smoker Tobacco: How many years used: 37 alcohol intake: former Discharge Assessment & Plan Assessment and Plan Assessment: #acute lacunar left thalamic infarct New R sided clumsiness c/w imaging findings has been improving. echo and carotid dopplers do not show need for intervention. will increase statin add asa 81 and f/u as outpt with PCP. stop smoking. Hypertension continue home losartan 100 hctz 25 hydroxyzine at bedtime #NIDDM stable continue metformin with fingersticks and ssi #COPD #hx of smoking stable continue home meds prn nicotine patch has not smoked while she's been here has also not needed her inhaler extensive conversation today about how this is a warning shot and she would be well advised to take heed. #Hyperlipidemia increase to 20mg rosuvastatin with 81mg asa code: full dispo: pending PT/OT eval and stroke w/u MDM: Laura [phone] DVT: lovenox Time spent: 45 min today Discharge Plan Discharge Plan Patient Disposition: Home Health Service Provider Discharge Comment: One week off work at least - until she sees PCP Discharge orders & Medications Prescriptions: New rosuvastatin 20 mg tablet 20 mg PO DAILY Qty: 30 0RF aspirin 81 mg tablet,chewable 81 mg PO DAILY Qty: 30 0RF Continued hydrochlorothiazide 25 mg tablet 25 mg PO QAM albuterol sulfate [Ventolin HFA] 90 mcg/actuation HFA aerosol inhaler 2 puff INHALATION Q6H PRN (Reason: Shortness Of Breath) losartan [Cozaar] 100 MG tablet 100 mg PO QPM Qty: 0 docusate sodium 100 mg Capsule 100 mg PO BID PRN (Reason: constipation) Qty: 30 0RF fluticasone propion-salmeterol [Wixela Inhub] 100-50 mcg/dose blister with device 1 inh INHALATION BID pantoprazole 40 mg tablet,delayed release (DR/EC) 40 mg PO BID montelukast 10 mg tablet 10 mg PO DAILY metformin 1,000 mg tablet 1,000 mg PO BID ipratropium bromide 42 mcg (0.06 %) spray,non-aerosol 1 spray INTRANASAL DAILY hydroxyzine HCl 50 mg tablet 50 mg PO DAILY Follow up/Referrals: Tj Palma MD [Primary Care Provider] - Diet/Activity/Treatments Diet: Diet as Tolerated Visit Report/Discharge Packet Stand Alone Forms: Patient Portal/API, Stroke Signs & Symptoms Discharge Data Primary Care Provider: Tj Palma Attending Provider: Tj Palma Quality VTE Deep Vein Thrombosis/Pulmonary Embolism Present on Admission: No
--- NOTE | 2022-09-18 10:17 | PC.NURSE ---
Pt sitting in chair, Passed PT Dsg to left knee CDI Med for discomfort prior to PT HL intact/patent. Awaiting D/c orders. Call light w/in reach, pt calls appropriately for needs
--- NOTE | 2022-09-18 12:33 | PC.NURSE ---
Pt A/O independent in room Denies discomfort Tele SR per ICU staff. Orders for Discharge. HL discontinued. Home instructions given w/understanding Pt escorted to vehicle by staff in stable status.
--- NOTE | 2022-09-18 12:54 | ST.IPDYTX ---
Visit Care Team Role Provider Type Alek Mistry DO Emergency Provider Physician Specialty: Emergency Medicine Address: [address] [place] [address], [id number] Email: [email or web address] Tj Palma MD Attending Provider Physician Primary Care Provider Referring Provider Specialty: Family Practice Address: [facility], [place], [address] Email: 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 ENGINEER Dysphagia Treatment [employer] L[employer]ING ENGINEER Clinical Instructor Line Start: 09/18/22 12:46 Freq: Status: Active Protocol: Document 09/18/22 12:53 (Rec: 09/18/22 12:54 [id number]) Clinical Instructor Signature Clinical Instructor Clinical Instructor Yes [employer]ING ENGINEER Dysphagia Treatment Start: 09/18/22 12:46 Freq: Status: Active Protocol: Document 09/18/22 12:46 (Rec: 09/18/22 12:52 [id number]) Dysphagia Treatment Session Time Visit Start Time 10:45 Visit Stop Time 11:05 Total Visit Minutes 20 Setting Assessment Location Acute Care Visit Type Note Type Treatment Note Patient Information Subjective Observations Date of Onset of Symptoms: Chief complaint: high bp, rt sided weakness, sent by Narrative: RH clumsiness and R foot drag since Thursday 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 Seen in PCP sent on to ER yesterday found on MRI to have acute lacunar embolic stroke feeling a bit better today RH feels less clumsy has not worked with PT yet today hasn' t tried to get up but has been able to walk around and drive ok. appetite and sleep ok. Today will work with PT get echo and carotids look for discharge plan to emerge Treatment Treatment Activities Education and demonstrated provided regarding base of tongue exercises to support swallow function and to decrease the risk of aspiration during swallow. Reviewed risk of aspiration given MBSS results. Recommend outpatient swallow therapy. Assessment Patient Response to Treatment Good Aspiration Precautions Additional Precautions Recommend chin-tuck with all swallows and tongue base exercises 3-5x a day. Treatment Plan Placement Recommendation after Discharge Home Appropriate for Continued Therapy No Follow Up Plan Outpatient swallow therapy recommended.
--- NOTE | 2022-09-18 15:36 | CM.DPNOTE ---
DC Note Dr Palma discharging patient today and recommends HH services According to therapies, patient likely will not qualify Met w/patient to review DCP; patient anticipates driving herself home today it's only two blocks away and denies need for HH services at this time. Patient anticipates returning to work in another week Plan: DC home via pov, cleared by therapies for this plan, close outpatient f/u recommended JW
== END 2022-09-18 11:40 | disposition home health service (06) ==
LOC: ED 18:44 → AC 09-17 06:41
PROVIDERS: Admitting Provider Internal Medicine; Emergency Provider Emergency Medicine; PCP Family Medicine; Referring Provider Family Medicine; Visit Provider Family Medicine
DX: I63.81 Other cerebral infarction due to occlusion or stenosis of small artery (principal); I10 Essential (primary) hypertension; R29.700 NIHSS score 0; E11.9 Type 2 diabetes mellitus without complications; Z79.84 Long term (current) use of oral hypoglycemic drugs; J44.9 Chronic obstructive pulmonary disease, unspecified; E78.5 Hyperlipidemia, unspecified; F17.210 Nicotine dependence, cigarettes, uncomplicated; Z20.822 Contact with and (suspected) exposure to COVID-19
CPT/HCPCS: 36415; 70450; 70548; 70553; 80053; 82550; 82962; 83690; 83735; 84484; 85025; 87635; 92526; 92610; 93005; 93306; 93880; 96372; 97161; 97530; 99284; C9803; G0378; A9579; J1650

== ENCOUNTER 2023-02-23 07:47 | Emergency (ER) | payer OTHER, SELFPAY ==
[2022-09-16 19:34] VITALS: BMI 23.7
[2023-02-23 07:52] VITALS: BP 172/81; PULSE 97; RESP 18; TEMP 36.9; O2SAT 97; BMI 23.9
--- NOTE | 2023-02-23 08:06 | ED.BACK ---
HPI - Back Pain/Injury General Chief Complaint: Back Pain/Injury Stated Complaint: pain LT side /fingers & leg numb T-7 Time Seen by Provider: 02/23/23 08:06 Source: patient Mode of arrival: Ambulatory Limitations: no limitations History of Present Illness HPI Narrative: 67-year-old female with history of prior left thalamic infarct, hypertension, diabetes type 2, GERD, esophageal strictures with complaint of left flank, back pain radiating down her leg. Patient also notes that the pain radiates to her abdomen in the front on the left as well. She states she is had chronic back issues. She has had back surgery in the past for sciatica. Patient states states pain does radiate down her leg. She has some numbness and tingling in her leg she also noticed a little bit of tingling in her left hand states it has been going on for a couple weeks. She states pain also seems to radiate from flank around her fat which is atypical. No fevers or chills. She is had nausea, no vomiting. States pain was gradually increasing over time. No acute exacerbating factors falls or other injuries. She states she does work in his pretty active at work. No loss of bowel or bladder control. No diarrhea or constipation. She is increased pain with movement, standing and lifting her left leg in particular. No weakness appreciated. Patient has taken a leave at home but no other pain medications. States she is had prior back surgery she would esophageal dilation in October 2022 and is scheduled for hernia repair for hiatal hernia and March. Allergic to sulfa, uses tobacco, no alcohol or illicit. Dr. Palma is her PCP. Related Data Home Medications Medication Instructions Recorded Confirmed losartan 100 mg tablet (Cozaar) 100 mg PO QPM ##0 08/13/12 09/16/22 albuterol sulfate 90 mcg/actuation 2 puff inhalation Q6H PRN 03/14/18 09/16/22 aerosol inhaler (Ventolin HFA) Shortness Of Breath hydrochlorothiazide 25 mg tablet 25 mg PO QAM 03/14/18 09/16/22 fluticasone 100 mcg-salmeterol 50 1 inh inhalation BID 09/16/22 09/16/22 mcg/dose blistr powdr for inhalation (Wixela Inhub) hydroxyzine HCl 50 mg tablet 50 mg PO DAILY 09/16/22 09/16/22 ipratropium bromide 42 mcg (0.06 1 spray intranasal DAILY 09/16/22 09/16/22 %) nasal spray metformin 1,000 mg tablet 1,000 mg PO BID 09/16/22 09/16/22 montelukast 10 mg tablet 10 mg PO DAILY 09/16/22 09/16/22 pantoprazole 40 mg tablet,delayed 40 mg PO BID 09/16/22 09/16/22 release Previous Rx's Medication Instructions Recorded docusate sodium 100 mg capsule 100 mg PO BID PRN constipation #30 10/27/18 caps aspirin 81 mg chewable tablet 81 mg PO DAILY #30 tabs 09/17/22 rosuvastatin 20 mg tablet 20 mg PO DAILY #30 tabs 09/17/22 cyclobenzaprine 10 mg tablet 10 mg PO TID PRN muscle spasm #10 02/23/23 tabs oxycodone 5 mg tablet 5 mg PO Q6H PRN pain #10 tabs 02/23/23 Allergies Allergy/AdvReac Type Severity Reaction Status Date / Time Sulfa (Sulfonamide AdvReac Unknown UNKNOWN Verified 02/23/23 07:57 Antibiotics) REACTION [SULFA (SULFONAMIDE PER PT ANTIBIOTICS)] Review of Systems Review of Systems ROS Unobtainable: All systems reviewed & are unremarkable except as noted in HPI and below Patient History Medical History DDD (degenerative disc disease) Hyperlipidemia Insomnia Low back pain with sciatica Pancreatitis Pneumonia Sinusitis Smoker Spinal stenosis Surgical History H/O: hysterectomy History of eyelid surgery S/P cervical spinal fusion Social History household members: none Smoking Status: Current every day smoker Tobacco: How many years used: 37 alcohol intake: former Smoking Status: Current every day smoker Substance Use Type: does not use Exam Narrative Exam Narrative: GENERAL: Alert and oriented x three, well-nourished female in mild distress. HEENT: Head normocephalic, atraumatic, EOMI, pupils reactive, face symmetric, moist mucous membranes NECK: Supple, full range of motion CARDIOVASCULAR: Regular rate and rhythm without murmurs, rubs or gallops. RESPIRATORY: Breath sounds equal bilaterally, no wheezes rales or rhonchi. ABDOMEN: Soft, positive for left lower quadrant tenderness. Normoactive bowel sounds all 4 quadrants. No guarding or rebound, rigidity, no mass : Positive for left flank/CVA tenderness, no right CVA tenderness. BACK: No cervical, thoracic or lumbar vertebral point tenderness. Patient has normal range of motion. Increased pain with left leg raise. Patient also has increased pain with sitting forward and leaning back. Patient's gait is [antalgic/normal]. Rectal exam is deferred. Muscle strength is 5/5 in lower extremities, DTRs are 2/4 and lower extremities. Dorsalis pedis and tibialis pulses are 2+ and lower extremities. Sensation is intact in the lower extremities. EXTREMITIES: Normal range of motion, no clubbing or edema. Neurovascularly intact NEUROLOGICAL: Cranial nerves II through XII grossly intact. Moving all extremities SKIN: Warm, dry, no petechiae, no rashes or lesions, no vesicles, erythema or other changes on the abdominal, back or flank region. Initial Vital Signs Initial Vital Signs: Vital Signs Temperature 98.5 F 02/23/23 07:52 Pulse Rate 97 H 02/23/23 07:52 Respiratory Rate 18 02/23/23 07:52 Blood Pressure 172/81 H 02/23/23 07:52 Pulse Oximetry 97 02/23/23 07:52 Oxygen Delivery Method Room Air 02/23/23 07:52 Course Orders Ordered: Discontinued Medications Ketorolac Tromethamine (Ketorolac 30 Mg/Ml Vial) 15 mg IV NOW ONE Stop: 02/23/23 08:24 Last Admin: 02/23/23 08:59 Dose: 15 mg Documented By: LUIS Vital Signs Vital signs: Vital Signs - 8 hr 02/23/23 07:52 Temperature 98.5 F Pulse Rate 97 H Respiratory Rate 18 Blood Pressure 172/81 H Pulse Oximetry 97 Oxygen Delivery Method Room Air MDM - Back Pain/Injury Lab Data 02/23/23 08:40 02/23/23 08:40 Labs: Lab Results 02/23/23 02/23/23 Range/Units 08:40 08:40 WBC 10.8 (4.5-11.0) X10^3/uL RBC 4.75 (4.0-5.2) X10^6/uL Hgb 13.7 (12.0-16.0) g/dL Hct 40.6 (36-46) % MCV 85.5 (80-100) fL MCH 28.9 (26-34) PG MCHC 33.8 (30-36) % RDW 15.3 H (11.6-14.8) % Plt Count 599 H (150-400) X10^3/uL Neut % (Auto) 68.3 (50-75) % Lymph % (Auto) 17.9 L (25-40) % Alexander % (Auto) 6.6 (3-14) % Eos % (Auto) 5.9 H (2-4) % Baso % (Auto) 1.3 (0-2) % Neut # (Auto) 7400 H (5536-4493) /uL Lymph # (Auto) 1900 (8918-6533) /uL Alexander # (Auto) 700 (0-900) /uL Eos # (Auto) 600 H (0-450) /uL Baso # (Auto) 100 (0-100) /uL Sodium 136 L (137-145) mmol/L Potassium 4.2 (3.4-5.1) mmol/L Chloride 99 (98-107) mmol/L Carbon Dioxide 30 (22-32) mmol/L BUN 14 (7-17) mg/dL Creatinine 0.80 (0.52-1.04) mg/dL Estimated GFR > 60 (>60) mL/min BUN/Creatinine Ratio 17.5 (6-22) Glucose 191 H (80-110) mg/dL Calcium 9.2 (8.4-10.2) mg/dL Total Bilirubin 0.3 (0.2-1.3) mg/dL AST 26 (14-36) IU/L ALT 21 (<35) IU/L Alkaline Phosphatase 79 (38-126) U/L Total Protein 7.8 (6.3-8.2) g/dL Albumin 4.7 (3.5-5.0) g/dL Globulin 3.1 (1.7-4.1) g/dL Albumin/Globulin Ratio 1.5 (1.0-2.8) Lipase 35 (23-300) U/L Urine Dip Bedside Urine Glucose Negative Bedside Urine Bilirubin - Negative Bedside Urine Ketone - Negative Urine Specific [place] 1.01 Bedside Urine Occult Blood - Negative Bedside Urine pH 6.0 Bedside Urine Protein - Negative Bedside Urine Urobilinogen - Negative Bedside Urine Nitrite - Negative Bedside Urine Leukocytes - Negative Esterase Imaging Data CT scan - abdomen/pelvis: Radiologist's Impression: Close Abdomen/Pelvis CT (Signed) Nafisa Amaro - 02/23/23 Launch?Image [address] [address] [address] Scan Report Signed Patient: Elenita Alford MR#: [id number] : 1955 Acct:[id number] Age/Sex: 67 / F Date of Service: 02/23/23 Loc: ED Accession Number: [id number] ?? Procedure: CT abdomen pelvis w con Ordering Provider: Filomena Ellis D.O. PROCEDURE:? CT ABDOMEN PELVIS W CON ? INDICATIONS:? Left flank/abd pain w/ pal, LLL back radiates to leg ? TECHNIQUE:? After the administration of oral and IV contrast, axial sections were acquired from the lung bases to the pubic symphysis.? Coronal and sagittal reformats were performed.? For radiation dose reduction, the following was used:? automated exposure control, adjustment of mA and/or kV according to patient size. ? COMPARISON:? [facility], CT, ABDOMEN/PELVIS WITH CONTRAST, 04/04/2014, 12:17. ? FINDINGS:? Image quality:? Excellent.? ? Lung bases:? Unremarkable.? ? Heart:? No significant findings. ? ? ABDOMEN: Liver:? Liver measures 17.3 cm with steatosis. Gallbladder:? Unremarkable.? ? Biliary ducts:? Unremarkable.? ? Pancreas:? Unremarkable.? ? Spleen:? Unremarkable.? ? Adrenal Glands:? Unremarkable.? ? Kidneys and Ureters:? Simple right renal cyst.? No interval change. ? Stomach and Bowel:? Stomach, small bowel loops, and colon are unremarkable.? Diverticula are present without associated inflammatory change. Peritoneum:? No abnormal intraperitoneal fluid.? No free air.? ? Ventral Wall: ? Fat containing ventral hernia.? Abdominal Nodes:? No retroperitoneal or mesenteric adenopathy by size criteria.? Vessels:? Aorta and inferior vena cava are normal in size.? ? PELVIS: Pelvic Organs:? Unremarkable.? ? Bladder:? Unremarkable.? ? Pelvic Nodes: No enlarged lymph nodes.? Miscellaneous: No inguinal hernias are seen. ? ? ? Bones:? Unremarkable.? IMPRESSION:? ? Hepatomegaly with steatosis. ? Diverticulosis. ? ? Dictated by: Nafisa Amaro M.D. on 02/23/2023 at 9:27 ? ? Approved by: Nafisa Amaro M.D. on 02/23/2023 at 9:39?? MDM Narrative Medical decision making narrative: This is a 67-year-old female with lower back pain radiating down similar to her prior sciatica but bit worse. Patient does note she is some pain in her flank and wrapping around her abdomen as well in his tender a little bit on touch. Because of this patient had labs as well as CT abdomen pelvis to evaluate for the back more fully as well as intra-abdominal organs patient does not have any acute changes, no other red flag symptoms and felt appropriate for discharge home. Did have some improvement with pain management discussed return precautions. Patient has seen Dr. Lehman in the past for her prior back surgery and we discussed that he currently words [facility] as she would like to continue to follow with him. Discharge Plan Departure Patient Disposition: Home Clinical Impression: Back pain of lumbar region with sciatica Instructions: DI for Back Pain With Sciatica Activity Restrictions/Additional Instructions: Follow-up with your physician for recheck. You may take Tylenol up to a 1000 mg every 6 hours and/or ibuprofen up to 600 mg every 6 hours. You may take oxycodone 1-2 tablets every 6 hours as needed. This medication can make you sleepy do not drive, perform hazardous activities or make any major decisions while taking it. This medication will make you constipated please take a stool softener once to twice daily until stools are soft and regular. You may take muscle relaxer, 1 tablet every 8 hours as needed. This medication can make you sleepy do not drive, perform hazardous activities or make any major decisions while taking it. Prescription sent to [facility]. Please return for new or worsening symptoms, new weakness, numbness, loss of sensation, loss of bowel or bladder control, inability to lift or move your leg, fevers, persistent vomiting, black or bloody stools or other new or concerning changes Prescriptions: New oxycodone 5 mg tablet 5 mg PO Q6H PRN (Reason: pain) Qty: 10 0RF cyclobenzaprine 10 mg tablet 10 mg PO TID PRN (Reason: muscle spasm) Qty: 10 0RF No Action hydrochlorothiazide 25 mg tablet 25 mg PO QAM albuterol sulfate [Ventolin HFA] 90 mcg/actuation HFA aerosol inhaler 2 puff INHALATION Q6H PRN (Reason: Shortness Of Breath) losartan [Cozaar] 100 MG tablet 100 mg PO QPM Qty: 0 docusate sodium 100 mg Capsule 100 mg PO BID PRN (Reason: constipation) Qty: 30 0RF fluticasone propion-salmeterol [Wixela Inhub] 100-50 mcg/dose blister with device 1 inh INHALATION BID pantoprazole 40 mg tablet,delayed release (DR/EC) 40 mg PO BID montelukast 10 mg tablet 10 mg PO DAILY metformin 1,000 mg tablet 1,000 mg PO BID ipratropium bromide 42 mcg (0.06 %) spray,non-aerosol 1 spray INTRANASAL DAILY hydroxyzine HCl 50 mg tablet 50 mg PO DAILY rosuvastatin 20 mg tablet 20 mg PO DAILY Qty: 30 0RF aspirin 81 mg tablet,chewable 81 mg PO DAILY Qty: 30 0RF Referrals: Tj Palma MD [Primary Care Provider] - Wilder Lehman MD [Physician] - Stand Alone Forms: Patient Portal/API, Work Release Note
--- NOTE | 2023-02-23 08:23 | DI.CT.S_ITS ---
PROCEDURE: CT ABDOMEN PELVIS W CON INDICATIONS: Left flank/abd pain w/ pal, LLL back radiates to leg TECHNIQUE: After the administration of oral and IV contrast, axial sections were acquired from the lung bases to the pubic symphysis. Coronal and sagittal reformats were performed. For radiation dose reduction, the following was used: automated exposure control, adjustment of mA and/or kV according to patient size. COMPARISON: [facility], CT, ABDOMEN/PELVIS WITH CONTRAST, 04/04/2014, 12:17. FINDINGS: Image quality: Excellent. Lung bases: Unremarkable. Heart: No significant findings. ABDOMEN: Liver: Liver measures 17.3 cm with steatosis. Gallbladder: Unremarkable. Biliary ducts: Unremarkable. Pancreas: Unremarkable. Spleen: Unremarkable. Adrenal Glands: Unremarkable. Kidneys and Ureters: Simple right renal cyst. No interval change. Stomach and Bowel: Stomach, small bowel loops, and colon are unremarkable. Diverticula are present without associated inflammatory change. Peritoneum: No abnormal intraperitoneal fluid. No free air. Ventral Wall: Fat containing ventral hernia. Abdominal Nodes: No retroperitoneal or mesenteric adenopathy by size criteria. Vessels: Aorta and inferior vena cava are normal in size. PELVIS: Pelvic Organs: Unremarkable. Bladder: Unremarkable. Pelvic Nodes: No enlarged lymph nodes. Miscellaneous: No inguinal hernias are seen. Bones: Unremarkable. IMPRESSION: Hepatomegaly with steatosis. Diverticulosis. Dictated by: Nafisa Amaro M.D. on 02/23/2023 at 9:27 Approved by: Nafisa Amaro M.D. on 02/23/2023 at 9:39
[2023-02-23 08:59] LABS: Add Manual Diff / Slide Review NO; Basophils Absolute Auto 100 /uL (0-100); Basophils Percent Auto 1.3 % (0-2); Eosinophils Absolute Auto 600 /uL (0-450); Eosinophils Percent Auto 5.9 % (2-4); Hematocrit 40.6 % (36-46); Hemoglobin 13.7 g/dL (12.0-16.0); Lymphocytes Absolute Auto 1900 /uL (1100-4500); Lymphocytes Percent Auto 17.9 % (25-40); Mean Corpuscular HGB Conc 33.8 % (30-36); Mean Corpuscular Hemoglobin 28.9 PG (26-34); Mean Corpuscular Volume 85.5 fL (80-100); Monocytes Absolute Auto 700 /uL (0-900); Monocytes Percent Auto 6.6 % (3-14); Neutrophils Absolute Auto 7400 /uL (1500-7000); Neutrophils Percent Auto 68.3 % (50-75); Platelet Count 599 X10^3/uL (150-400); Red Blood Cell Count 4.75 X10^6/uL (4.0-5.2); Red Cell Distribution Width 15.3 % (11.6-14.8); White Blood Cell Count 10.8 X10^3/uL (4.5-11.0)
[2023-02-23] MEDS: KETOROLAC 30 MG/ML VIAL 15 MG IV (08:59)
[2023-02-23 09:08] LABS: Alanine Aminotransferase 21 IU/L (<35); Albumin 4.7 g/dL (3.5-5.0); Albumin Globulin Ratio 1.5 (1.0-2.8); Alkaline Phosphatase 79 U/L (38-126); Aspartate Aminotransferase 26 IU/L (14-36); BUN Creatinine Ratio 17.5 (6-22); Bilirubin Total 0.3 mg/dL (0.2-1.3); Blood Urea Nitrogen 14 mg/dL (7-17); Calcium 9.2 mg/dL (8.4-10.2); Carbon Dioxide 30 mmol/L (22-32); Chloride 99 mmol/L (98-107); Estimated Glomerular Filt Rate > 60 mL/min (>60); Globulin 3.1 g/dL (1.7-4.1); Glucose 191 mg/dL (80-110); HEMOLYSIS < 15 (0-50); Lipase 35 U/L (23-300); Potassium 4.2 mmol/L (3.4-5.1); Sodium 136 mmol/L (137-145); Total Protein 7.8 g/dL (6.3-8.2)
== END 2023-02-23 10:05 | disposition home or self-care (01) ==
PROVIDERS: Emergency Provider Emergency Medicine; PCP Family Medicine
DX: M54.42 Lumbago with sciatica, left side (principal)
CPT/HCPCS: 36415; 74177; 80053; 81003; 83690; 85025; 96374; 99284; J1885; Q9967

== ENCOUNTER → 2023-08-24 09:33 | Outpatient (CLI) | payer OTHER, SELFPAY ==
[2022-09-16 19:34] VITALS: BMI 23.7
--- NOTE | 2023-08-24 | DI.RAD.S_ITS ---
PROCEDURE: XR CHEST 2V INDICATIONS: ACUTE COUGH TECHNIQUE: 2 views of the chest were acquired. COMPARISON: [facility], CR, XR CHEST 2V, 01/28/2018, 10:36. FINDINGS: Surgical changes and devices: None. Lungs and pleura: Lungs are clear. No pleural effusions or pneumothorax. Mediastinum: Mediastinal contours are normal. Heart size is normal. Bones and chest wall: No suspicious bony abnormalities. Soft tissues appear unremarkable. IMPRESSION: No acute pulmonary process. Dictated by: Nafisa Amaro M.D. on 08/24/2023 at 22:32 Approved by: Nafisa Amaro M.D. on 08/24/2023 at 22:32
== END ==
PROVIDERS: PCP Family Medicine; Referring Provider Family Medicine; Visit Provider Family Medicine
DX: R05.1 Acute cough (principal)
CPT/HCPCS: 71046

== ENCOUNTER → 2023-08-24 09:43 | Outpatient (ROUT) | payer OTHER, SELFPAY ==
[2022-09-16 19:34] VITALS: BMI 23.7
[2023-08-24 10:37] LABS: Influenza A - CEPHEID Flu A NEGATIVE (NEGATIVE); Influenza B - CEPHEID Flu B NEGATIVE (NEGATIVE); Respiratory Syncytial Virus Negative (Negative)
[2023-08-24 10:38] LABS: COVID-19 CEPHEID 4-PLEX PCR Negative (Negative)
== END ==
PROVIDERS: PCP Family Medicine; Visit Provider Family Medicine
DX: R05.1 Acute cough (principal); R52 Pain, unspecified
CPT/HCPCS: 0241U; 71046

== ENCOUNTER → 2023-10-26 08:33 | Outpatient (CLI) | payer OTHER, SELFPAY ==
[2022-09-16 19:34] VITALS: BMI 23.7
--- NOTE | 2023-10-26 08:35 | DI.RAD.S_ITS ---
PROCEDURE: XR CHEST 2V INDICATIONS: Shortness of breath TECHNIQUE: 2 views of the chest were acquired. COMPARISON: [facility], , XR CHEST 2V, 08/24/2023, 9:45. [facility], , XR CHEST 2V, 01/28/2018, 10:36. FINDINGS: Surgical changes and devices: None. Lungs and pleura: Lungs appear clear. No pleural effusions or pneumothorax. Mediastinum: Mediastinal contours are normal. Heart size is normal. Bones and chest wall: No suspicious bony abnormalities. Soft tissues appear unremarkable. IMPRESSION: No acute cardiopulmonary abnormality is seen. Patient may benefit from CT of the chest. Dictated by: Shyam Ovalle M.D. on 10/26/2023 at 8:47 Approved by: Shyam Ovalle M.D. on 10/26/2023 at 8:50
== END ==
PROVIDERS: PCP Family Medicine; Referring Provider Registered Nurse; Visit Provider Registered Nurse
DX: R06.02 Shortness of breath (principal)
CPT/HCPCS: 71046

== ENCOUNTER → 2024-02-07 13:41 | Outpatient (CLI) | payer OTHER, SELFPAY ==
[2022-09-16 19:34] VITALS: BMI 23.7
[2024-02-07 14:29] LABS: Influenza A - CEPHEID Flu A NEGATIVE (NEGATIVE); Influenza B - CEPHEID Flu B NEGATIVE (NEGATIVE); Respiratory Syncytial Virus Negative (Negative)
[2024-02-07 14:34] LABS: COVID-19 CEPHEID 4-PLEX PCR Negative (Negative)
== END ==
PROVIDERS: PCP Family Medicine; Visit Provider Nurse Practitioner Family
DX: R05.9 Cough, unspecified (principal)
CPT/HCPCS: 0241U

== ENCOUNTER → 2024-02-07 14:13 | Outpatient (CLI) | payer OTHER, SELFPAY ==
[2022-09-16 19:34] VITALS: BMI 23.7
--- NOTE | 2024-02-07 14:15 | DI.RAD.S_ITS ---
PROCEDURE: XR CHEST 2V INDICATIONS: Cough TECHNIQUE: 2 views of the chest were acquired. COMPARISON: [facility], CR, XR CHEST 2V, 10/26/2023, 8:34. FINDINGS: Surgical changes and devices: None. Lungs and pleura: Lungs are clear. No pleural effusions or pneumothorax. The lung volumes are large and the diaphragms are flattened suggesting emphysema. Mediastinum: Mediastinal contours are normal. Heart size is normal. Bones and chest wall: No suspicious bony abnormalities. Soft tissues appear unremarkable. IMPRESSION: No acute cardiopulmonary abnormality is seen. Emphysematous change. Dictated by: Salina Monteiro M.D. on 02/07/2024 at 15:33 Approved by: Salina Monteiro M.D. on 02/07/2024 at 15:34
== END ==
LOC: DI 14:14
PROVIDERS: PCP Family Medicine; Referring Provider Nurse Practitioner Family; Visit Provider Nurse Practitioner Family
DX: R05.9 Cough, unspecified (principal)
CPT/HCPCS: 0241U; 71046

== ENCOUNTER 2024-02-09 08:04 | Inpatient (IN) | payer OTHER, SELFPAY ==
[2022-09-16 19:34] VITALS: BMI 23.7
[2024-02-09] VITALS (17 sets, daily range): BP systolic 125–203; BP diastolic 71–103; PULSE 97–121; RESP 20–30; TEMP 36.8–36.9; O2SAT 85–95; BMI 22.6; BMI 21.9
--- NOTE | 2024-02-09 08:16 | DI.RAD.S_ITS ---
PROCEDURE: XR CHEST 1V INDICATIONS: Shortness of breath TECHNIQUE: One view of the chest was acquired. COMPARISON: [facility], CR, XR CHEST 2V, 02/07/2024, 14:24. [facility], CR, XR CHEST 2V, 10/26/2023, 8:34. FINDINGS: Surgical changes and devices: None. Lungs and pleura: Mild blunting and opacity of the left costophrenic angle. Right is grossly clear. Mediastinum: Mediastinal contours appear normal. Heart size is normal. Bones and chest wall: No suspicious bony lesions. Overlying soft tissues appear unremarkable. IMPRESSION: Mild blunting of the left costophrenic angle with associated opacity, may represent small effusion with adjacent atelectasis or consolidation. Dictated by: Saul Ruiz M.D. on 02/09/2024 at 8:32 Approved by: Saul Ruiz M.D. on 02/09/2024 at 8:33
--- NOTE | 2024-02-09 08:16 | EKG_ITS ---
[address] [address] Test Date: 2024-02-09 Pat Name: Elenita Alford Department: [facility] Room: Gender: Female [employer]: [facility] : 1955 Requested By: Order Number: [id number] Reading MD: Fritz Jeffrey Measurements Intervals [place] Rate: 109 P: 86 PA: 126 QRS: 70 QRSD: 64 T: 67 QT: 326 QTc: 439 Interpretive Statements Sinus tachycardia Low voltage QRS Electronically Signed On 02-10-2024 19:42:14 PDT by Fritz Jeffrey
--- NOTE | 2024-02-09 08:27 | ED.SOB ---
HPI - SOB/Dyspnea General Chief Complaint: Shortness of Breath/Dyspnea Stated Complaint: sob, fever, cough Time Seen by Provider: 02/09/24 08:10 History of Present Illness HPI Narrative: Patient is a 68-year-old female history of tobacco abuse hypertension hyperlipidemia, diabetes presenting fever cough. She was seen and evaluated at the walk-in clinic on 02/07/2024 during that visit she had a temp of a 100.3? and was 92% on room air she has had cough for 5 days she had a chest x-ray which was negative and a COVID flu RSV panel which was also negative. She was given prednisone 50 mg for 4 days along with albuterol and Benzonatate. She reports that she is now coughing up green stuff she still does not feel well she was short of breath exertion and has some chest tightness. She is found to be 88% on room air here Related Data Home Medications Medication Instructions Recorded Confirmed albuterol sulfate 90 mcg/actuation 2 puff inhalation Q6H PRN 03/14/18 02/09/24 aerosol inhaler (Ventolin HFA) Shortness Of Breath hydroxyzine HCl 50 mg tablet 50 mg PO BEDTIME 09/16/22 02/09/24 montelukast 10 mg tablet 10 mg PO BEDTIME 09/16/22 02/09/24 amlodipine 5 mg tablet 5 mg PO BEDTIME 02/09/24 02/09/24 cetirizine 5 mg tablet 5 mg PO DAILY 02/09/24 02/09/24 escitalopram oxalate 5 mg tablet 5 mg PO DAILY 02/09/24 02/09/24 ipratropium 20 mcg-albuterol 100 1 puff inhalation 3XD 02/09/24 02/09/24 mcg/actuation mist for inhalation (Combivent Respimat) losartan 100 1 tab PO DAILY 02/09/24 02/09/24 mg-hydrochlorothiazide 25 mg tablet metformin 500 mg tablet,extended 1,000 mg PO BID 02/09/24 02/09/24 release 24 hr omeprazole 20 mg capsule,delayed 20 mg PO DAILY 02/09/24 02/09/24 release Previous Rx's Medication Instructions Recorded aspirin 81 mg chewable tablet 81 mg PO DAILY #30 tabs 09/17/22 rosuvastatin 20 mg tablet 20 mg PO DAILY #30 tabs 09/17/22 albuterol sulfate 2.5 mg/3 mL 2.5 mg (3 mL) inhalation QID PRN 02/07/24 (0.083 %) solution for nebulization shortness of breath or wheezing #75 mL prednisone 50 mg tablet 50 mg PO DAILY #4 tabs 02/07/24 Allergies Allergy/AdvReac Type Severity Reaction Status Date / Time Sulfa (Sulfonamide AdvReac Unknown UNKNOWN Verified 02/07/24 13:12 Antibiotics) REACTION [SULFA (SULFONAMIDE PER PT ANTIBIOTICS)] Patient History Medical History DDD (degenerative disc disease) Spinal stenosis Pancreatitis Hyperlipidemia Low back pain with sciatica Smoker Sinusitis Pneumonia Insomnia Surgical History History of eyelid surgery S/P cervical spinal fusion H/O: hysterectomy Social History household members: none Smoking Status: Current every day smoker Tobacco: How many years used: 37 alcohol intake: former Smoking Status: Current every day smoker Substance Use Type: does not use Exam Initial Vital Signs Initial Vital Signs: Vital Signs Temperature 98.4 F 02/09/24 08:05 Pulse Rate 121 H 02/09/24 08:05 Respiratory Rate 30 H 02/09/24 08:05 Blood Pressure 203/86 H 02/09/24 08:05 Pulse Oximetry 85 L 02/09/24 08:05 Oxygen Delivery Method Room Air 02/09/24 08:05 GENERAL: Alert pleasant 68-year-old female and in [no acute] distress. HEENT: Head atraumatic,EOMI, pupils reactive, face symmetric, [moist] mucous membranes CARDIOVASCULAR: Regular rate and rhythm without murmurs, rubs or gallops. RESPIRATORY: Decreased breath sounds bilaterally no significant respiratory distress speaks in full sentences ABDOMEN: Soft, nontender. Normoactive bowel sounds all 4 quadrants. No guarding or rebound. EXTREMITIES: Normal range of motion, no clubbing or edema. Neurovascularly intact NEUROLOGICAL: Alert and oriented x4.Normal gait and speech. Cranial nerves II through XII grossly intact. SKIN: Warm, dry, no laceration, no petechiae, no rashes or lesions. Course Orders Ordered: ED Orders 02/09/24 08:15 Complete Blood Count AUTO DIFF Stat Comprehensive Metabolic Panel Stat DD [D Dimer] Stat Lactate (Lactic Acid) Stat NT-proBNP (BNP-Adult 18+) Stat Procalcitonin Stat Prothrombin Time INR Stat Troponin I Stat 02/09/24 08:16 XR chest 1V Stat EKG-12 Lead Stat 02/09/24 08:22 Respiratory Panel (Film Array) Stat 02/09/24 08:40 Blood Culture Stat Acetaminophen (Acetaminophen 325 Mg Tablet) 650 mg PO Q6H PRN PRN Reason: Fever/Mild Pain (1-3) Al Hydrox/Mg Hydrox/Simethicone (Mag Hydrox/Alum/Simeth 30 Ml Udc) 30 ml PO Q6HR PRN PRN Reason: Dyspepsia Albuterol (Albuterol 2.5 Mg/3 Ml Neb (Adult)) 2.5 mg INH Q6H PRN PRN Reason: Shortness Of Breath Albuterol/Ipratropium (Albuterol/Ipratropium 3 Ml Ampul) 3 ml INH [id number] JUANA Albuterol/Ipratropium (Albuterol/Ipratropium 3 Ml Ampul) 3 ml INH Q2H PRN PRN Reason: Shortness Of Breath Amlodipine Besylate (Amlodipine 5 Mg Tablet) 5 mg PO BEDTIME [facility] Aspirin (Aspirin 81 Mg Chew Tab) 81 mg PO DAILY [facility] Atorvastatin Calcium (Atorvastatin 20 Mg Tablet) 40 mg PO DAILY [facility] Enoxaparin Sodium (Enoxaparin 40 Mg/0.4 Ml Syringe) 40 mg SUBCUT DAILY [facility] Escitalopram Oxalate (Escitalopram 10 Mg Tablet) 5 mg PO DAILY [facility] Hydrochlorothiazide (Hydrochlorothiazide 25 Mg Tablet) 25 mg PO DAILY [facility] Hydroxyzine HCl (Hydroxyzine Hcl 25 Mg Tablet) 50 mg PO BEDTIME [facility] Azithromycin 500 mg/ Dextrose 250 mls @ 250 mls/hr IV Q24H JUANA Stop: 02/12/24 09:59 Ceftriaxone Sodium 2,000 mg/ (Sodium Chloride) 100 mls @ 200 mls/hr IV Q24H JUANA Stop: 02/14/24 08:59 Dextrose (D10w) 100 mls @ 999 mls/hr IV PRN PRN PRN Reason: Hypoglycemia Sodium Chloride (Normal Saline 0.9%) 1,000 mls @ 100 mls/hr IV CONT JUANA Last Admin: 02/09/24 14:03 Dose: 100 mls/hr Documented By: OBI Insulin Human Lispro (Insulin Lispro 100 Unit/Ml 3ml Vial) 0 unit SUBCUT ACHS JUANA; Protocol Loratadine (Loratadine 10 Mg Tablet) 10 mg PO DAILY [facility] Losartan Potassium (Losartan 50 Mg Tablet) 100 mg PO DAILY [facility] Magnesium Hydroxide (Magnesium Hydroxide 30 Ml Udc) 30 ml PO DAILY PRN PRN Reason: Constipation Metformin HCl (Metformin Xr 500 Mg Tablet) 1,000 mg PO BID [facility] Methylprednisolone (Methylprednisolone 125 Mg/2 Ml Vial) 60 mg IV Q8H JUANA Stop: 02/14/24 13:38 Last Admin: 02/09/24 14:03 Dose: 60 mg Documented By: OBI Montelukast Sodium (Montelukast 10 Mg Tablet) 10 mg PO BEDTIME JUANA Naloxone HCl (Naloxone 0.4 Mg/Ml Vial) 0.2 mg IV Q2MIN PRN PRN Reason: Opiate Reversal Pantoprazole Sodium (Pantoprazole Dr 20 Mg Tablet) 20 mg PO 0600 [facility] Prednisone (Prednisone 20 Mg Tablet) 50 mg PO DAILY [facility] Promethazine HCl (Promethazine 12.5 Mg Supp) 12.5 mg SC Q6HR PRN PRN Reason: Nausea And Vomiting Discontinued Medications Albuterol (Albuterol 2.5 Mg/3 Ml Neb (Adult)) 2.5 mg INH QID PRN PRN Reason: shortness of breath or wheezing Albuterol/Ipratropium (Albuterol/Ipratropium 3 Ml Ampul) 3 ml INH NOW ONE Stop: 02/09/24 08:27 Last Admin: 02/09/24 08:31 Dose: 3 ml Documented By: SAT Ceftriaxone Sodium 2,000 mg/ (Sodium Chloride) 100 mls @ 200 mls/hr IV NOW ONE Stop: 02/09/24 08:46 Last Infusion: 02/09/24 09:34 Dose: Infused Documented By: Admin: 02/09/24 09:02 Dose: 200 mls/hr Documented By: Azithromycin 500 mg/ Dextrose 250 mls @ 250 mls/hr IV NOW ONE Stop: 02/09/24 08:46 Last Admin: 02/09/24 09:38 Dose: 250 mls/hr Documented By: MPO Sodium Chloride (Normal Saline 0.9%) 1,000 mls @ 1,000 mls/hr IV BOLUS ONE Stop: 02/09/24 10:29 Last Infusion: 02/09/24 10:41 Dose: Infused Documented By: Admin: 02/09/24 09:37 Dose: 1,000 mls/hr Documented By: LUIS Methylprednisolone (Methylprednisolone 125 Mg/2 Ml Vial) 125 mg IV NOW ONE Stop: 02/09/24 08:27 Last Admin: 02/09/24 08:33 Dose: 125 mg Documented By: LUIS Vital Signs Vital signs: Vital Signs - 8 hr 02/09/24 08:05 02/09/24 08:07 02/09/24 08:10 Temperature 98.4 F Pulse Rate 121 H 120 H Respiratory Rate 30 H Blood Pressure 203/86 H Pulse Oximetry 85 L 95 93 Oxygen Delivery Method Room Air Nasal Cannula Oxygen Flow Rate 2 02/09/24 08:25 02/09/24 08:30 02/09/24 08:31 Temperature Pulse Rate 107 H 109 H Respiratory Rate 26 H Blood Pressure Pulse Oximetry 93 91 Oxygen Delivery Method Nasal Cannula Oxygen Flow Rate 1 1 02/09/24 08:31 02/09/24 08:35 02/09/24 08:59 Temperature Pulse Rate 106 H Respiratory Rate 30 H Blood Pressure 133/103 H Pulse Oximetry 94 92 Oxygen Delivery Method Nasal Cannula Nasal Cannula Oxygen Flow Rate 0.5 2 02/09/24 09:00 02/09/24 09:30 02/09/24 10:00 Temperature Pulse Rate 100 H 101 H 101 H Respiratory Rate 22 22 22 Blood Pressure 136/78 145/74 H 153/84 H Pulse Oximetry 93 92 95 Oxygen Delivery Method Oxygen Flow Rate MDM - SOB/Dyspnea Lab Data 02/09/24 08:15 02/09/24 08:15 Labs: Lab Results 02/09/24 02/09/24 02/09/24 Range/Units 08:15 08:22 10:10 WBC 22.7 H (4.5-11.0) X10^3/uL RBC 4.55 (4.0-5.2) X10^6/uL Hgb 12.4 (12.0-16.0) g/dL Hct 37.6 (36-46) % MCV 82.5 (80-100) fL MCH 27.2 (26-34) PG MCHC 32.9 (30-36) % RDW 16.2 H (11.6-14.8) % Plt Count 863 H (150-400) X10^3/uL Neut % (Auto) 81.5 H (50-75) % Lymph % (Auto) 7.6 L (25-40) % [place] % (Auto) 10.4 (3-14) % Eos % (Auto) 0.1 L (2-4) % Baso % (Auto) 0.4 (0-2) % Neut # (Auto) 61979 H (4227-1710) /uL Lymph # (Auto) 1700 (5098-5793) /uL [place] # (Auto) 2400 H (0-900) /uL Eos # (Auto) 0 (0-450) /uL Baso # (Auto) 100 (0-100) /uL Platelet Estimate Increased on smear Plt Morphology Comment RBC Morphology Normal morphology PT 11.7 (9.4-12.5) SECONDS INR 1.0 (0.9-1.3) D-Dimer 434 (<500) ng/ml Sodium 140 (137-145) mmol/L Potassium 3.5 (3.4-5.1) mmol/L Chloride 99 (98-107) mmol/L Carbon Dioxide 29 (22-32) mmol/L BUN 31 H (7-17) mg/dL Creatinine 0.90 (0.52-1.04) mg/dL Estimated GFR > 60 (>60) mL/min BUN/Creatinine Ratio 34.4 H (6-22) Glucose 195 H (80-110) mg/dL Lactate 2.4 H 1.6 (0.7-2.1) mmol/L Calcium 9.6 (8.4-10.2) mg/dL Total Bilirubin 0.5 (0.2-1.3) mg/dL AST 27 (14-36) IU/L ALT 16 (<35) IU/L Alkaline Phosphatase 96 (38-126) U/L Troponin I < 0.012 (0.01-0.034) ng/mL NT-Pro-B Natriuret Pep 592 H (<125) pg/mL Total Protein 8.3 H (6.3-8.2) g/dL Albumin 4.7 (3.5-5.0) g/dL Globulin 3.6 (1.7-4.1) g/dL Albumin/Globulin Ratio 1.3 (1.0-2.8) Procalcitonin 0.198 (<0.5) ng/mL Chlamy pneumoniae PCR Not detected (Not Detect) Adenovirus (PCR) Not detected (Not Detect) B.parapertussis DNA PCR Not detected (Not Detecte) Coronavirus OC43 (PCR) Not detected (Not Detect) Coronavirus HKU1 (PCR) Not detected (Not Detect) Coronavirus 229E (PCR) Not detected (Not Detect) SARS-CoV-2 (PCR) Not detected (Not Detecte) Coronavirus NL63 (PCR) Not detected (Not Detect) Human Metapneumovir PCR Not detected (Not Detect) Influenza Type A (PCR) Not detected (Not Detect) Influenza Type B (PCR) Not detected (Not Detect) M. pneumoniae (PCR) Not detected (Not Detect) Parainfluenza 1 (PCR) Not detected (Not Detect) Parainfluenza 2 (PCR) Not detected (Not Detect) Parainfluenza 3 (PCR) Not detected (Not Detect) Parainfluenza 4 (PCR) Not detected (Not Detect) RSV (PCR) Not detected (Not Detect) Entero/Rhino (PCR) Not detected (Not Detect) Imaging Data Chest x-ray: Radiologist's Impression: PROCEDURE: XR CHEST 1V INDICATIONS: Shortness of breath TECHNIQUE: One view of the chest was acquired. COMPARISON: [facility], , XR CHEST 2V, 02/07/2024, 14:24. [facility], XR CHEST 2V, 10/26/2023, 8:34. FINDINGS: Surgical changes and devices: None. Lungs and pleura: Mild blunting and opacity of the left costophrenic angle. Right is grossly clear. Mediastinum: Mediastinal contours appear normal. Heart size is normal. Bones and chest wall: No suspicious bony lesions. Overlying soft tissues appear unremarkable. IMPRESSION: Mild blunting of the left costophrenic angle with associated opacity, may represent small effusion with adjacent atelectasis or consolidation. Dictated by: Saul Ruiz M.D. on 02/09/2024 at 8:32 ECG Data Attestation: I personally reviewed and interpreted this ECG as follows: Interpretation: Sinus rhythm rate 109 SC interval 126 QRS 64 QTC 439 no ischemic changes MDM Narrative Medical decision making narrative: Patient 68-year-old female she has a current smoker history of COPD presenting today with cough and upper respiratory illness. She is found to be 88% on room air. She is given DuoNeb treatment which does seem to help but she still is requiring 2 L oxygen. Blood work has been reviewed she does have leukocytosis of 22 but is also currently on prednisone, lactate 2.4, procalcitonin 0.198, BNP 592, troponin negative, creatinine 0.90 D-dimer 434 Chest x-ray reviewed mild blunting of left costophrenic angle effusion atelectasis or consolidation Respiratory panel negative EKG has been reviewed sinus tachycardia without ischemia Differential diagnosis includes acute coronary syndrome pulmonary embolism congestive heart failure COPD exacerbation pneumonia At this time patient likely has pneumonia leukocytosis of 22 despite prednisone she has an elevated lactate and possible consolidation on her chest x-ray. She is still hypoxic requiring 1-2 L of oxygen. She has been given IV fluids, Rocephin and azithromycin along with Solu-Medrol and albuterol. She has improved but due to ongoing oxygen requirement needs to be admitted to the hospital. Dr. Simon updated on patient's symptoms test results and accepts patient Critical Care Time Critical Care Time Critical Care Time: Yes Total Critical Care Time: 32 Attestation: The high probability of a clinically significant, sudden or life threatening deterioration of the [cardiovascular] system(s) required my full and direct attention, intervention and personal management. The aggregate critical care time was 32 minutes. This time is in addition to time spent performing reported procedures but includes the following: [x] Data Review and interpretation [x] Patient assessment and monitoring of vital signs [x] Documentation [x] Medication orders and management Discharge Plan Departure Patient Disposition: Admitted As Inpatient Clinical Impression: Pneumonia, COPD (chronic obstructive pulmonary disease), Hypoxic respiratory failure Admit Date/Time: 02/09/24 10:23 Admit Provider: Raj Simon
[2024-02-09 08:30] LABS: Add Manual Diff / Slide Review NO; Basophils Absolute Auto 100 /uL (0-100); Basophils Percent Auto 0.4 % (0-2); Eosinophils Absolute Auto 0 /uL (0-450); Eosinophils Percent Auto 0.1 % (2-4); Hematocrit 37.6 % (36-46); Hemoglobin 12.4 g/dL (12.0-16.0); Lymphocytes Absolute Auto 1700 /uL (1100-4500); Lymphocytes Percent Auto 7.6 % (25-40); Mean Corpuscular HGB Conc 32.9 % (30-36); Mean Corpuscular Hemoglobin 27.2 PG (26-34); Mean Corpuscular Volume 82.5 fL (80-100); Monocytes Absolute Auto 2400 /uL (0-900); Monocytes Percent Auto 10.4 % (3-14); Neutrophils Absolute Auto 18500 /uL (1500-7000); Neutrophils Percent Auto 81.5 % (50-75); Platelet Count 863 X10^3/uL (150-400); Red Blood Cell Count 4.55 X10^6/uL (4.0-5.2); Red Cell Distribution Width 16.2 % (11.6-14.8); White Blood Cell Count 22.7 X10^3/uL (4.5-11.0)
[2024-02-09] MEDS: ALBUTEROL/IPRATROPIUM 3 ML AMPUL INH ×3 (08:31→18:59)
[2024-02-09] MEDS: methylPREDNISolone 125 MG/2 ML VIAL IV (08:33)
[2024-02-09 08:40] LABS: Prothrombin Time 11.7 SECONDS (9.4-12.5)
[2024-02-09 08:44] LABS: Alanine Aminotransferase 16 IU/L (<35); Albumin 4.7 g/dL (3.5-5.0); Albumin Globulin Ratio 1.3 (1.0-2.8); Alkaline Phosphatase 96 U/L (38-126); Aspartate Aminotransferase 27 IU/L (14-36); BUN Creatinine Ratio 34.4 (6-22); Bilirubin Total 0.5 mg/dL (0.2-1.3); Blood Urea Nitrogen 31 mg/dL (7-17); Calcium 9.6 mg/dL (8.4-10.2); Carbon Dioxide 29 mmol/L (22-32); Chloride 99 mmol/L (98-107); Estimated Glomerular Filt Rate > 60 mL/min (>60); Globulin 3.6 g/dL (1.7-4.1); Glucose 195 mg/dL (80-110); HEMOLYSIS < 15 (0-50); Lactate (Lactic Acid) 2.4 mmol/L (0.7-2.1); Potassium 3.5 mmol/L (3.4-5.1); Sodium 140 mmol/L (137-145); Total Protein 8.3 g/dL (6.3-8.2)
[2024-02-09 08:52] LABS: RBC Morphology Normal Morphology
[2024-02-09 08:53] LABS: Platelet Estimate Increased on smear
[2024-02-09 08:56] LABS: D Dimer 434 ng/ml (<500); NT-proBNP (BNP-Adult 18+) 592 pg/mL (<125); Troponin I < 0.012 ng/mL (0.01-0.034)
[2024-02-09 09:02] LABS: Procalcitonin 0.198 ng/mL (<0.5)
[2024-02-09] MEDS: cefTRIAXone 2,000 MG in SODIUM CHLORIDE 0.9% 100 ML 200 MG IV (09:02)
[2024-02-09 09:21] LABS: Adenovirus Not Detected (Not Detect); B. parapertussis Not Detected (Not Detecte); Bordetella pertussis Not Detected (Not Detect); Chlamydophila pneumoniae Not Detected (Not Detect); Coronavirus 229E Not Detected (Not Detect); Coronavirus HKU1 Not Detected (Not Detect); Coronavirus NL 63 Not Detected (Not Detect); Coronavirus OC43 Not Detected (Not Detect); Human Metapneumovirus Not Detected (Not Detect); Human Rhinovirus/Enterovirus Not Detected (Not Detect); Influenza A Not Detected (Not Detect); Influenza B Not Detected (Not Detect); Mycoplasma pneumoniae Not Detected (Not Detect); Parainfluenza Virus 1 Not Detected (Not Detect); Parainfluenza Virus 2 Not Detected (Not Detect); Parainfluenza Virus 3 Not Detected (Not Detect); Parainfluenza Virus 4 Not Detected (Not Detect); Respiratory Syncytial Virus Not Detected (Not Detect); SARS- CoV-2 Not Detected (Not Detecte)
[2024-02-09] MEDS: SODIUM CHLORIDE 0.9% 1,000 ML 1000 ML IV (09:37)
[2024-02-09] MEDS: AZITHROMYCIN 500 MG in DEXTROSE 5% IN WATER 250 ML 250 MG IV (09:38)
--- NOTE | 2024-02-09 09:53 | PC.NURSE ---
Pt sitting up in bed. A&Ox4. States that she feels best while she is sitting up. States if she lays flat she becomes SOB Intermittent rattling cough. Lung sounds diminished and bilateral crackles. Pt remains on 2L NC with o2 sat of 95%. RR 27 but pt states that she feels better after duoneb.
[2024-02-09 10:00] LABS: Reflexed Lactate in 2 Hours Y
[2024-02-09 10:43] LABS: Lactate 2HR (Lactic Acid Rflx) 1.6 mmol/L (0.7-2.1)
--- NOTE | 2024-02-09 12:15 | PC.NURSE ---
Received from OR. VSS. O2 sat on RA is 93-94%. Has not voided since 0500. Bladder scanned for 669, was able to void 350 on the bedpan. Cant get pt up since she still is unable to move legs post spinal.
[2024-02-09] MEDS: methylPREDNISolone 125 MG/2 ML VIAL 60 MG IV ×2 (14:03→21:16)
[2024-02-09] MEDS: SODIUM CHLORIDE 0.9% 1,000 ML 100 ML IV ×2 (14:03→23:57)
[2024-02-09] MEDS: INSULIN LISPRO 100 UNIT/ML 3ML VIAL SUBCUT ×2 (17:31→21:15)
--- NOTE | 2024-02-09 17:59 | PM.HP.1 ---
History of Present Illness History of Present Illness Date Patient Seen: 02/09/24 Time Patient Seen: 17:59 Date of Onset of Symptoms: 02/05/24 Chief complaint: sob, fever, cough Narrative: Patient is a 68-year-old female with history of long-time smoking still smoking who presents with shortness of breath. Apparently Thursday she started feeling ill. Thursday started with cough sore throat myalgias fever. Increasingly short of breath. Went to the urgent care on Thursday who put her on no antibiotics but did put her on albuterol and prednisone. Patient felt no better and was feeling worse. More short of breath. Cough has been intermittently productive with green sputum. No chest pain. No orthopnea no PND no edema. Has no other major changes. No urinary changes bowel changes. [facility] Medical History DDD (degenerative disc disease) Spinal stenosis Pancreatitis Hyperlipidemia Low back pain with sciatica Smoker Sinusitis Pneumonia Insomnia Surgical History History of eyelid surgery S/P cervical spinal fusion H/O: hysterectomy Social History household members: none Smoking Status: Current every day smoker Tobacco: How many years used: 37 alcohol intake: former Meds Home Medications and Allergies Home Medications Medication Instructions Recorded Confirmed Type albuterol sulfate 90 mcg/actuation 2 puff inhalation Q6H PRN 03/14/18 02/09/24 History aerosol inhaler (Ventolin HFA) Shortness Of Breath hydroxyzine HCl 50 mg tablet 50 mg PO BEDTIME 09/16/22 02/09/24 History montelukast 10 mg tablet 10 mg PO BEDTIME 09/16/22 02/09/24 History aspirin 81 mg chewable tablet 81 mg PO DAILY #30 tabs 09/17/22 02/09/24 Rx rosuvastatin 20 mg tablet 20 mg PO DAILY #30 tabs 09/17/22 02/09/24 Rx albuterol sulfate 2.5 mg/3 mL 2.5 mg (3 mL) inhalation QID PRN 02/07/24 02/09/24 Rx (0.083 %) solution for nebulization shortness of breath or wheezing #75 mL prednisone 50 mg tablet 50 mg PO DAILY #4 tabs 02/07/24 02/09/24 Rx amlodipine 5 mg tablet 5 mg PO BEDTIME 02/09/24 02/09/24 History cetirizine 5 mg tablet 5 mg PO DAILY 02/09/24 02/09/24 History escitalopram oxalate 5 mg tablet 5 mg PO DAILY 02/09/24 02/09/24 History ipratropium 20 mcg-albuterol 100 1 puff inhalation 3XD 02/09/24 02/09/24 History mcg/actuation mist for inhalation (Combivent Respimat) losartan 100 1 tab PO DAILY 02/09/24 02/09/24 History mg-hydrochlorothiazide 25 mg tablet metformin 500 mg tablet,extended 1,000 mg PO BID 02/09/24 02/09/24 History release 24 hr omeprazole 20 mg capsule,delayed 20 mg PO DAILY 02/09/24 02/09/24 History release Allergies Allergy/AdvReac Type Severity Reaction Status Date / Time Sulfa (Sulfonamide AdvReac Unknown UNKNOWN Verified 02/07/24 13:12 Antibiotics) REACTION [SULFA (SULFONAMIDE PER PT ANTIBIOTICS)] Review of Systems Review of Systems Narrative: Negative except above Exam Vital Signs (past 8 hours): - 02/09/24 10:00 02/09/24 10:30 02/09/24 10:31 Temperature Pulse Rate 101 H 97 H Respiratory Rate 22 24 Blood Pressure 153/84 H 162/71 H Pulse Oximetry 95 92 Oxygen Delivery Method Oxygen Flow Rate Fraction of Inspired Oxygen 02/09/24 10:31 02/09/24 10:50 02/09/24 15:28 Temperature 98.3 F Pulse Rate 98 H 101 H Respiratory Rate 27 H 28 H Blood Pressure 151/83 H Pulse Oximetry 93 93 91 Oxygen Delivery Method Nasal Cannula Oxygen Flow Rate 2 2 Fraction of Inspired Oxygen 28 Fraction of Inspired Oxygen 28 SaO2/FiO2 Ratio 325 Oxygen Delivery Method Nasal Cannula Oxygen Flow Rate 2 Narrative Exam Narrative: Alert female looking older than her stated age in mild respiratory distress. Mucous membranes moist neck supple without adenopathy JVD or bruits lungs with decreased breath sounds no rhonchi or crackles heart is regular rate and rhythm without murmurs clicks rubs or gallops somewhat distant abdomen is soft positive bowel sounds nontender extremities without edema neurologic exam is nonfocal. Awake alert and appropriate Objective Labs 02/09/24 08:15 02/09/24 08:15 Labs: Laboratory Results - last 24 hr 02/09/24 02/09/24 02/09/24 08:15 08:22 10:10 WBC 22.7 H RBC 4.55 Hgb 12.4 Hct 37.6 MCV 82.5 MCH 27.2 MCHC 32.9 RDW 16.2 H Plt Count 863 H Neut % (Auto) 81.5 H Lymph % (Auto) 7.6 L [place] % (Auto) 10.4 Eos % (Auto) 0.1 L Baso % (Auto) 0.4 Neut # (Auto) 18164 H Lymph # (Auto) 1700 [place] # (Auto) 2400 H Eos # (Auto) 0 Baso # (Auto) 100 Platelet Estimate Increased on smear Plt Morphology Comment RBC Morphology Normal morphology PT 11.7 INR 1.0 D-Dimer 434 Sodium 140 Potassium 3.5 Chloride 99 Carbon Dioxide 29 BUN 31 H Creatinine 0.90 Estimated GFR > 60 BUN/Creatinine Ratio 34.4 H Glucose 195 H Lactate 2.4 H 1.6 Calcium 9.6 Total Bilirubin 0.5 AST 27 ALT 16 Alkaline Phosphatase 96 Troponin I < 0.012 NT-Pro-B Natriuret Pep 592 H Total Protein 8.3 H Albumin 4.7 Globulin 3.6 Albumin/Globulin Ratio 1.3 Procalcitonin 0.198 Chlamy pneumoniae PCR Not detected Adenovirus (PCR) Not detected B.parapertussis DNA PCR Not detected Coronavirus OC43 (PCR) Not detected Coronavirus HKU1 (PCR) Not detected Coronavirus 229E (PCR) Not detected SARS-CoV-2 (PCR) Not detected Coronavirus NL63 (PCR) Not detected Human Metapneumovir PCR Not detected Influenza Type A (PCR) Not detected Influenza Type B (PCR) Not detected M. pneumoniae (PCR) Not detected Parainfluenza 1 (PCR) Not detected Parainfluenza 2 (PCR) Not detected Parainfluenza 3 (PCR) Not detected Parainfluenza 4 (PCR) Not detected RSV (PCR) Not detected Entero/Rhino (PCR) Not detected Assessment & Plan Assessment & Plan narrative: Acute on chronic respiratory failure. My guess is this is a COPD exacerbation with possible pneumonia given her chest x-ray failing outpatient therapy clearly. Doing better now that she is on oxygen. We will treat her COPD and her probable pneumonia community-acquired and will re-evaluate in a.m.. My guess is this will take several days to respond. COPD exacerbation. Patient pretty significantly short of breath I think she has pretty severe disease she has multiple years of 2 packs a day smoking she probably needs workup as an outpatient or jack prizer but will see how things go. Hopefully she will not need long-term oxygen. Will aggressively treat with IV steroids Rocephin Zithromax for antibiotic control and usual respiratory meds respiratory therapy consult and follow. Pneumonia. Chest x-rays positive is kind of a soft call but given her symptoms probably is pneumonia. Will see what happens once we hydrate her. Will treat with Rocephin and Zithromax follow-up blood cultures. Elevated white count maybe from steroids will have to see. Dehydration. Mild. Will lightly treat through the course of the next 24 hours and see how she does. Re-evaluate a.m.. Type 2 diabetes on metformin will continue. Due to steroids will put on sliding scale and check sugars more frequently. History of hypertension. Stable. Will follow. Continue usual meds. History of cigarette is. Will hold nicotine for now but will give it to her if she would desire Code status full. DVT prophylaxis will treat with Lovenox. Disposition my guess is she will be here a few days she is quite ill. Certainly not capable of doing this at home. Given her O2 requirement will be a slow process would be my guess but will see how it goes. Quality VTE Deep Vein Thrombosis/Pulmonary Embolism Present on Admission: No
[2024-02-09] MEDS: CODEINE/GUAIFENESIN LIQUID 5ML UDC 10 ML PO (19:31)
[2024-02-09] MEDS: hydrOXYzine HCL 25 MG TABLET 50 MG PO (21:14)
[2024-02-09] MEDS: MONTELUKAST 10 MG TABLET PO (21:14)
[2024-02-09] MEDS: METFORMIN XR 500 MG TABLET 1000 MG PO (21:14)
[2024-02-09] MEDS: AMLODIPINE 5 MG TABLET PO (21:14)
[2024-02-10] VITALS (9 sets, daily range): BP systolic 109–130; BP diastolic 59–72; PULSE 74–102; RESP 18–20; TEMP 36.5–37; O2SAT 89–96
[2024-02-10] MEDS: CODEINE/GUAIFENESIN LIQUID 5ML UDC 10 ML PO ×4 (01:17→21:45)
[2024-02-10] MEDS: ALBUTEROL 2.5 MG/3 ML NEB (ADULT) INH (02:27)
[2024-02-10] MEDS: PANTOPRAZOLE DR 20 MG TABLET PO (05:30)
[2024-02-10] MEDS: methylPREDNISolone 125 MG/2 ML VIAL 60 MG IV ×3 (05:30→21:48)
[2024-02-10 06:47] LABS: Add Manual Diff / Slide Review NO; Basophils Absolute Auto 0 /uL (0-100); Basophils Percent Auto 0.3 % (0-2); Eosinophils Absolute Auto 0 /uL (0-450); Hematocrit 33.5 % (36-46); Hemoglobin 11.1 g/dL (12.0-16.0); Lymphocytes Absolute Auto 800 /uL (1100-4500); Mean Corpuscular HGB Conc 33.1 % (30-36); Mean Corpuscular Hemoglobin 27.5 PG (26-34); Monocytes Absolute Auto 900 /uL (0-900); Monocytes Percent Auto 5.6 % (3-14); Neutrophils Absolute Auto 13800 /uL (1500-7000); Neutrophils Percent Auto 89.1 % (50-75); Platelet Count 692 X10^3/uL (150-400); Red Blood Cell Count 4.03 X10^6/uL (4.0-5.2); Red Cell Distribution Width 16.3 % (11.6-14.8); White Blood Cell Count 15.5 X10^3/uL (4.5-11.0)
[2024-02-10 07:06] LABS: Alanine Aminotransferase 14 IU/L (<35); Albumin 3.7 g/dL (3.5-5.0); Albumin Globulin Ratio 1.3 (1.0-2.8); Alkaline Phosphatase 81 U/L (38-126); Aspartate Aminotransferase 21 IU/L (14-36); BUN Creatinine Ratio 34.3 (6-22); Bilirubin Total 0.3 mg/dL (0.2-1.3); Blood Urea Nitrogen 24 mg/dL (7-17); Calcium 8.6 mg/dL (8.4-10.2); Carbon Dioxide 31 mmol/L (22-32); Chloride 107 mmol/L (98-107); Estimated Glomerular Filt Rate > 60 mL/min (>60); Globulin 2.8 g/dL (1.7-4.1); Glucose 223 mg/dL (80-110); HEMOLYSIS < 15 (0-50); Potassium 4.8 mmol/L (3.4-5.1); Sodium 142 mmol/L (137-145); Total Protein 6.5 g/dL (6.3-8.2)
[2024-02-10] MEDS: ALBUTEROL/IPRATROPIUM 3 ML AMPUL INH ×4 (08:29→19:16)
[2024-02-10] MEDS: ENOXAPARIN 40 MG/0.4 ML SYRINGE SUBCUT (08:41)
[2024-02-10] MEDS: METFORMIN XR 500 MG TABLET 1000 MG PO ×2 (08:41→21:33)
[2024-02-10] MEDS: hydroCHLOROthiazide 25 MG TABLET PO (08:42)
[2024-02-10] MEDS: ESCITALOPRAM 10 MG TABLET 5 MG PO (08:42)
[2024-02-10] MEDS: LOSARTAN 50 MG TABLET 100 MG PO (08:42)
[2024-02-10] MEDS: ASPIRIN 81 MG CHEW TAB PO (08:42)
[2024-02-10] MEDS: cefTRIAXone 2,000 MG in SODIUM CHLORIDE 0.9% 100 ML 200 MG IV (08:43)
[2024-02-10] MEDS: predniSONE 20 MG TABLET 50 MG PO (08:43)
[2024-02-10] MEDS: ATORVASTATIN 20 MG TABLET 40 MG PO (08:43)
[2024-02-10] MEDS: LORATADINE 10 MG TABLET PO (08:43)
[2024-02-10] MEDS: INSULIN LISPRO 100 UNIT/ML 3ML VIAL SUBCUT ×4 (08:44→21:34)
[2024-02-10] MEDS: SODIUM CHLORIDE 0.9% 1,000 ML 100 ML IV ×2 (09:01→21:51)
[2024-02-10] MEDS: AZITHROMYCIN 500 MG in DEXTROSE 5% IN WATER 250 ML 250 MG IV (10:28)
[2024-02-10] MEDS: BENZOCAINE/MENTHOL 1 LOZ PKT 1 EACH PO ×4 (10:34→21:45)
--- NOTE | 2024-02-10 10:39 | DIET.CONS ---
Dietary Consultation Note Admission Date: 02/09/2024 10:23 Assessment: 68 y F presented with SOB. Nutrition consulted for decreased appetite. Met with pt at bedside. Reports appetite had been decreased since last until admitted to hospital yesterday, with minimal ability to consume usual intake and <50% of estimated energy intake per recall. Before then, has had adequate appetite and intake, but reports need for convenient foods and difficulty to find something for lunch while working. Appetite since admission has been normal. Was provided sandwich by during visit. Reports she got a BG testing kit because her A1c increased. No A1c noted in chart. Diet recall (usual before this past week): -pb on toast -banana and chips at work -TV dinner Nutrition focused physical exam: -Mild muscle loss temporalis, clavicle region, interosseous -Mild subcutaneous loss orbital, buccal, and triceps Ht: 160.02 cm Wt: 56.2 kg BMI: 21.9 UBW: 59.591 kg 1 month ago per pt, 6% loss in 1 month, severe Last BM: 02/09/24 (02/09/24 11:40) MNA: 10 Levon Score: 21 Diet: 02/09/24 Dinner Carbohydrate Consistent Diet Diet Modifications: Carbohydrate level: Large (4 CHO) Bedtime snack: Yes Reflex DM orders: No Food Texture: Level 7 - Regular Liquid Consistency: Level 0 - Thin Nutrition Percent Meal Consumed 100% 02/09/24 18:00 Labs: RBC 4.03 X10^6/uL (4.0-5.2) 02/10/24 06:26 Hgb 11.1 g/dL (12.0-16.0) L 02/10/24 06:26 Hct 33.5 % (36-46) L 02/10/24 06:26 Creatinine 0.70 mg/dL (0.52-1.04) 02/10/24 06:26 Lactate 1.6 mmol/L (0.7-2.1) 02/09/24 10:10 NT-Pro-B Natriuret Pep 592 pg/mL (<125) H 02/09/24 08:15 Nutrition Diagnosis: Moderate Acute Protein Calorie Malnutrition r/t inadequate oral intake as evidenced by mild muscle loss (temporalis, deltoid, trapezius, pectoralis, interosseous), mild subcutaneous fat loss (buccal, orbital, triceps), <50% estimated energy needs for 7 days per diet recall, 6% weight loss in 1 month Interventions: -ONS 1x/d -Increased energy protein intake daily -Discussed ways to incorporate adequate protein source for lunch EER: 2047-6601 kcals/kg (25-30 kcals/kg per BMI) 70 g protein (1.25 g/kg per malnutrition) Monitoring/Evaluations: po intakes, ons tolerance Electronically Signed by: Yoko Hernandez 02/10/24 10:39 Clinical Dietitian [address] [address]
--- NOTE | 2024-02-10 10:40 | PM.PN.1 ---
Subjective Subjective Date Patient Seen: 02/10/24 Time Patient Seen: 09:50 Interval history: CC: Pneumonia/ COPD exacerbation Feeling much more expediter service order this morning I was in a bad way yesterday! now able to eat drink speak full sentences on some O2 via NC. Still has cough but labs are improving. One more day on antibiotics. encourage IS use, feed ad eron. Exam Vital Signs (past 8 hours): - 02/10/24 08:32 02/10/24 08:42 Pulse Rate 94 H Blood Pressure 125/72 Pulse Oximetry 91 Oxygen Delivery Method Nasal Cannula Oxygen Flow Rate 2 Fraction of Inspired Oxygen 28 Fraction of Inspired Oxygen 28 SaO2/FiO2 Ratio 325 Oxygen Delivery Method Nasal Cannula Oxygen Flow Rate 2 Narrative Exam Narrative: sitting up in bed talking with dietitian Const Other: thin elder Resp Other: moving air ok bilaterally with junky rhonchi prominent not much wheeze Cardio Other: regular rate, S1/s2 GI Other: good swallow, active bowel sounds Objective Labs 02/10/24 06:26 02/10/24 06:26 Labs: Laboratory Results - last 24 hr 02/09/24 02/10/24 10:10 06:26 WBC 15.5 H RBC 4.03 Hgb 11.1 L Hct 33.5 L MCV 83.0 MCH 27.5 MCHC 33.1 RDW 16.3 H Plt Count 692 H Neut % (Auto) 89.1 H Lymph % (Auto) 5.0 L [place] % (Auto) 5.6 Eos % (Auto) 0.0 L Baso % (Auto) 0.3 Neut # (Auto) 52579 H Lymph # (Auto) 800 L [place] # (Auto) 900 Eos # (Auto) 0 Baso # (Auto) 0 Sodium 142 Potassium 4.8 D Chloride 107 Carbon Dioxide 31 BUN 24 H Creatinine 0.70 Estimated GFR > 60 BUN/Creatinine Ratio 34.3 H Glucose 223 H Lactate 1.6 Calcium 8.6 Total Bilirubin 0.3 AST 21 ALT 14 Alkaline Phosphatase 81 Total Protein 6.5 Albumin 3.7 Globulin 2.8 Albumin/Globulin Ratio 1.3 PFSH Medical History DDD (degenerative disc disease) Spinal stenosis Pancreatitis Hyperlipidemia Low back pain with sciatica Smoker Sinusitis Pneumonia Insomnia Surgical History History of eyelid surgery S/P cervical spinal fusion H/O: hysterectomy Social History household members: none Smoking Status: Current every day smoker Tobacco: How many years used: 37 alcohol intake: former Assessment & Plan Assessment & Plan narrative: #Acute on chronic respiratory failure #COPD exacerbation #Pneumonia #Leukocytosis Improving clinically but still needing some oxygen still has elevated WBCs which are coming down. Continue IV steroids Rocephin Zithromax with respiratory meds. Encourage incentive spirometer use. cough drops prn #Dehydration mild, continue IVF #NIDDM2 continue home metformin with SSI #Hypertension Stable on usual meds. #Nicotine dependence Nicotine patch available as desired PCP: Louie Code: full Disposition: WBCs still high, maybe transition to orals tomorrow and home. DVT: Lovenox Quality VTE Deep Vein Thrombosis/Pulmonary Embolism Present on Admission: No
--- NOTE | 2024-02-10 13:16 | CM.DANOTE ---
Brief DCP Assessment note Pt is a 68yo F here with COPD exacerbation/pneumonia. Getting IV abx. PCP Louie Santoser Amando COTTON and self pay BALANCE ENGINEER reviewed EMR. Per chart review, one more day of antibiotics before discharging home. Per chart, works at the [employer] in [place] and lives alone in town. Per RN, pt ambulating indep in room, could potentially now require home O2, but likely has no DCP needs. P:f/u for work excuse note if needed. likely home (tomorrow)/when medically stable. No identified barriers to safe dc home identified at this time. Cm team will continue to follow as needed. STEVE Samson Discharge Planning/Care Management CM Discharge Assessment Start: 02/10/24 13:13 Freq: Status: Active Protocol: Document 02/10/24 13:13 (Rec: 02/10/24 13:16 [id number]) Discharge Planning Assessment Assigned Computer Lab Assistant STEVE Hedrick DPOA/Assigned Designee Name Laura Cespedes Contact Information [phone] Advance Directives? No Advance Directives on File No: states full code History Provided By Patient,Medical Record Prior Living Arrangements House Household Members none Type of transporation used prior to Drives own vehicle admit Independent with ADL's Yes Is patient alert and oriented? Yes Discharge Plan Home Whiteboard Updated in Patient Room with No name and ext. # of Computer Lab Assistant Review Status In Process Next Review Type Continued Stay Review
[2024-02-10] MEDS: hydrOXYzine HCL 25 MG TABLET 50 MG PO (21:33)
[2024-02-10] MEDS: MONTELUKAST 10 MG TABLET PO (21:33)
[2024-02-10] MEDS: AMLODIPINE 5 MG TABLET PO (21:34)
[2024-02-11] VITALS (9 sets, daily range): BP systolic 137–146; BP diastolic 81–83; PULSE 97–106; RESP 18–24; TEMP 36.3–36.8; O2SAT 90–94
[2024-02-11] MEDS: ALBUTEROL/IPRATROPIUM 3 ML AMPUL INH ×5 (05:33→19:14)
[2024-02-11] MEDS: CODEINE/GUAIFENESIN LIQUID 5ML UDC 10 ML PO ×3 (05:38→21:07)
[2024-02-11] MEDS: BENZOCAINE/MENTHOL 1 LOZ PKT 1 EACH PO ×4 (05:38→21:12)
[2024-02-11] MEDS: PANTOPRAZOLE DR 20 MG TABLET PO (05:42)
[2024-02-11] MEDS: methylPREDNISolone 125 MG/2 ML VIAL 60 MG IV ×2 (05:42→13:12)
[2024-02-11 06:22] LABS: Add Manual Diff / Slide Review NO; Basophils Absolute Auto 0 /uL (0-100); Basophils Percent Auto 0.1 % (0-2); Eosinophils Absolute Auto 0 /uL (0-450); Hematocrit 32.5 % (36-46); Hemoglobin 10.9 g/dL (12.0-16.0); Lymphocytes Absolute Auto 1100 /uL (1100-4500); Lymphocytes Percent Auto 5.5 % (25-40); Mean Corpuscular HGB Conc 33.5 % (30-36); Mean Corpuscular Hemoglobin 27.6 PG (26-34); Mean Corpuscular Volume 82.5 fL (80-100); Monocytes Absolute Auto 1100 /uL (0-900); Monocytes Percent Auto 5.6 % (3-14); Neutrophils Absolute Auto 18100 /uL (1500-7000); Neutrophils Percent Auto 88.8 % (50-75); Platelet Count 752 X10^3/uL (150-400); Red Blood Cell Count 3.94 X10^6/uL (4.0-5.2); Red Cell Distribution Width 16.2 % (11.6-14.8); White Blood Cell Count 20.4 X10^3/uL (4.5-11.0)
[2024-02-11 06:32] LABS: Alanine Aminotransferase 20 IU/L (<35); Albumin 3.5 g/dL (3.5-5.0); Albumin Globulin Ratio 1.3 (1.0-2.8); Alkaline Phosphatase 66 U/L (38-126); Aspartate Aminotransferase 28 IU/L (14-36); BUN Creatinine Ratio 44.8 (6-22); Bilirubin Total 0.4 mg/dL (0.2-1.3); Blood Urea Nitrogen 30 mg/dL (7-17); Calcium 8.3 mg/dL (8.4-10.2); Carbon Dioxide 26 mmol/L (22-32); Chloride 106 mmol/L (98-107); Estimated Glomerular Filt Rate > 60 mL/min (>60); Globulin 2.8 g/dL (1.7-4.1); Glucose 208 mg/dL (80-110); HEMOLYSIS 50 (0-50); Potassium 4.2 mmol/L (3.4-5.1); Sodium 138 mmol/L (137-145); Total Protein 6.3 g/dL (6.3-8.2)
[2024-02-11 06:50] LABS: Platelet Estimate Increased on smear; RBC Morphology Normal Morphology
[2024-02-11] MEDS: INSULIN LISPRO 100 UNIT/ML 3ML VIAL SUBCUT ×4 (08:05→21:11)
[2024-02-11] MEDS: ENOXAPARIN 40 MG/0.4 ML SYRINGE SUBCUT (08:11)
[2024-02-11] MEDS: METFORMIN XR 500 MG TABLET 1000 MG PO ×2 (08:16→21:12)
[2024-02-11] MEDS: predniSONE 20 MG TABLET 50 MG PO (08:17)
[2024-02-11] MEDS: ESCITALOPRAM 10 MG TABLET 5 MG PO (08:19)
[2024-02-11] MEDS: hydroCHLOROthiazide 25 MG TABLET PO (08:20)
[2024-02-11] MEDS: LORATADINE 10 MG TABLET PO (08:21)
[2024-02-11] MEDS: LOSARTAN 50 MG TABLET 100 MG PO (08:21)
[2024-02-11] MEDS: ASPIRIN 81 MG CHEW TAB PO (08:22)
[2024-02-11] MEDS: cefTRIAXone 2,000 MG in SODIUM CHLORIDE 0.9% 100 ML 200 MG IV (08:22)
[2024-02-11] MEDS: ATORVASTATIN 20 MG TABLET 40 MG PO (08:22)
[2024-02-11] MEDS: AZITHROMYCIN 500 MG in DEXTROSE 5% IN WATER 250 ML 250 MG IV (09:42)
--- NOTE | 2024-02-11 10:51 | DI.RAD.S_ITS ---
PROCEDURE: XR CHEST 1V INDICATIONS: increasing WBcs TECHNIQUE: One view of the chest was acquired. COMPARISON: [facility], CR, XR CHEST 1V, 02/09/2024, 8:15. FINDINGS: Surgical changes and devices: None. Lungs and pleura: Hyperinflation and chronic interstitial changes. Blunting of the left costophrenic angle is new from the prior exam. Atherosclerotic vascular calcification noted in the aortic arch. Mediastinum: Mediastinal contours appear normal. Heart size is normal. Bones and chest wall: No suspicious bony lesions. Overlying soft tissues appear unremarkable. IMPRESSION: Small left pleural effusion. Hyperinflation and chronic interstitial changes Approved by: Angelo Grimes M.D. on 02/11/2024 at 12:28
[2024-02-11 11:05] LABS: Appearance Urine UA CLEAR; Bilirubin Urine UA NEGATIVE (NEGATIVE); Color Urine UA YELLOW; Glucose Urine UA NEGATIVE (Negative); Ketones Urine UA NEGATIVE (NEGATIVE); Leukocyte Esterase Urine UA NEGATIVE (NEGATIVE); Nitrite Urine UA NEGATIVE (Negative); Occult Blood Urine UA NEGATIVE (Negative); Protein Urine UA NEGATIVE (Negative); Specific Gravity Urine UA 1.025 (1.000-1.035); Urobilinogen Urine UA 0.2 E.U./dL (0.2)
[2024-02-11 11:09] LABS: pH Urine UA 5.5 (4.5-8.0)
[2024-02-11 11:10] LABS: Urine Volume 10mL (spun)
[2024-02-11 11:12] LABS: Amorphous Sediment Urine 1+; Bacteria Urine Few (2-10); Culture Indicated Urine Specimen Cultured; Mucus Urine 1+ (Negative); RBC Urine 0-1/HPF (0-5/HPF); Squamous Epithelial Cell Urine None Seen (0-5/HPF); WBC Urine 1-5/HPF (0-5/HPF)
[2024-02-11 12:47] LABS: Adenovirus Not Detected (Not Detect); B. parapertussis Not Detected (Not Detecte); Bordetella pertussis Not Detected (Not Detect); Chlamydophila pneumoniae Not Detected (Not Detect); Coronavirus 229E Not Detected (Not Detect); Coronavirus HKU1 Not Detected (Not Detect); Coronavirus NL 63 Not Detected (Not Detect); Coronavirus OC43 Not Detected (Not Detect); Human Metapneumovirus Not Detected (Not Detect); Human Rhinovirus/Enterovirus Not Detected (Not Detect); Influenza A Not Detected (Not Detect); Influenza B Not Detected (Not Detect); Mycoplasma pneumoniae Not Detected (Not Detect); Parainfluenza Virus 1 Not Detected (Not Detect); Parainfluenza Virus 2 Not Detected (Not Detect); Parainfluenza Virus 3 Not Detected (Not Detect); Parainfluenza Virus 4 Not Detected (Not Detect); Respiratory Syncytial Virus Not Detected (Not Detect); SARS- CoV-2 Not Detected (Not Detecte)
--- NOTE | 2024-02-11 13:50 | CM.DPC ---
DCP Cont. Reviewed EMR and team rounds for status updates. Pt is still on 1-liter of O2, will need a home O2 eval prior to d/c. D/C anticipated for Thursday, may need a work excuse letter at d/c.
--- NOTE | 2024-02-11 17:16 | P.PN_ITS ---
Subjective Subjective Date Patient Seen: 02/11/24 Time Patient Seen: 09:00 Interval history: CC: COPD/pneumonia Feeling worse today with elevated WBCs spiking back up despite 36 hours of IVF and abx zithro and rocephin. She doesn't feel MARKEDLY worse and she is still only supplementing minimal oxygen however agrees this is a step back. appetite is ok not great. energy levels decreased. Increased dry cough denies fever. Exam Vital Signs (past 8 hours): - 02/11/24 10:59 02/11/24 15:53 02/11/24 16:40 Temperature 97.4 F L Pulse Rate 105 H 97 H 101 H Respiratory Rate 22 20 18 Blood Pressure 137/81 Pulse Oximetry 90 L 90 L 94 Oxygen Delivery Method Nasal Cannula Nasal Cannula Oxygen Flow Rate 1 1 Fraction of Inspired Oxygen 24 SaO2/FiO2 Ratio 375 Oxygen Delivery Method Nasal Cannula Oxygen Flow Rate 1 Narrative Exam Narrative: tired looking elder laying in bed with picked over breakfast Resp Other: junky lungs bilaterally, a bit muffled on LLL area Cardio Other: regular rate s1/s2 GI Other: soft nontender nondistended active bowel sounds Extrem Other: no pedal edema Objective Labs 02/11/24 06:05 02/11/24 06:05 Labs: Laboratory Results - last 24 hr 02/11/24 02/11/24 02/11/24 06:05 10:23 11:15 WBC 20.4 H RBC 3.94 L Hgb 10.9 L Hct 32.5 L MCV 82.5 MCH 27.6 MCHC 33.5 RDW 16.2 H Plt Count 752 H Neut % (Auto) 88.8 H Lymph % (Auto) 5.5 L [place] % (Auto) 5.6 Eos % (Auto) 0.0 L Baso % (Auto) 0.1 Neut # (Auto) 24973 H Lymph # (Auto) 1100 [place] # (Auto) 1100 H Eos # (Auto) 0 Baso # (Auto) 0 Platelet Estimate Increased on smear RBC Morphology Normal morphology Sodium 138 Potassium 4.2 Chloride 106 Carbon Dioxide 26 BUN 30 H Creatinine 0.67 Estimated GFR > 60 BUN/Creatinine Ratio 44.8 H Glucose 208 H Calcium 8.3 L Total Bilirubin 0.4 AST 28 ALT 20 Alkaline Phosphatase 66 Total Protein 6.3 Albumin 3.5 Globulin 2.8 Albumin/Globulin Ratio 1.3 Urine Color Yellow Urine Appearance Clear Urine pH 5.5 Ur Specific [place] 1.025 Urine Protein Negative Urine Glucose (UA) Negative Urine Ketones Negative Urine Occult Blood Negative Urine Nitrate Negative Urine Bilirubin Negative Urine Urobilinogen 0.2 Ur Leukocyte Esterase Negative Urine RBC 0-1/hpf Urine WBC 1-5/hpf Ur Squamous Epith Cells None seen Amorphous Sediment 1+ Urine Bacteria Few (2-10) H Urine Mucus 1+ H Ur Culture Indicated? Specimen cultured Vol Urine Centrifuged 10ml (spun) Chlamy pneumoniae PCR Not detected Adenovirus (PCR) Not detected B.parapertussis DNA PCR Not detected Coronavirus OC43 (PCR) Not detected Coronavirus HKU1 (PCR) Not detected Coronavirus 229E (PCR) Not detected SARS-CoV-2 (PCR) Not detected Coronavirus NL63 (PCR) Not detected Human Metapneumovir PCR Not detected Influenza Type A (PCR) Not detected Influenza Type B (PCR) Not detected M. pneumoniae (PCR) Not detected Parainfluenza 1 (PCR) Not detected Parainfluenza 2 (PCR) Not detected Parainfluenza 3 (PCR) Not detected Parainfluenza 4 (PCR) Not detected RSV (PCR) Not detected Entero/Rhino (PCR) Not detected PFSH Medical History DDD (degenerative disc disease) Spinal stenosis Pancreatitis Hyperlipidemia Low back pain with sciatica Smoker Sinusitis Pneumonia Insomnia Surgical History History of eyelid surgery S/P cervical spinal fusion H/O: hysterectomy Social History household members: none Smoking Status: Current every day smoker Tobacco: How many years used: 37 alcohol intake: former Assessment & Plan Assessment & Plan narrative: #Acute on chronic respiratory failure #COPD exacerbation #Pneumonia #Leukocytosis WBC spike today is concerning I am getting CXR UA MRSA and respiratory panel. CXR shows new pulmonary effusion will stop IVF. viral panel unremarkable. MRSA/UA pending. Continue IV steroids Rocephin Zithromax with respiratory meds. Encourage incentive spirometer use. Plan is if MRSA add vanco - if cultures suggest may do moreno instead. If improving then send home on orals. #Dehydration mild, improved with IVF encouraged PO intake. #NIDDM2 continue home metformin with SSI #Hypertension Stable on usual meds. #Nicotine dependence Nicotine patch available as desired PCP: Louie Code: full Disposition: WBCs still high, maybe transition to orals tomorrow and home. DVT: Lovenox Quality VTE Deep Vein Thrombosis/Pulmonary Embolism Present on Admission: No
[2024-02-11 19:09] LABS: MRSA (Nasal) PCR NOT DETECTED (Not Detect)
[2024-02-11] MEDS: methylPREDNISolone 125 MG/2 ML VIAL 30 MG IV (21:09)
[2024-02-11] MEDS: AMLODIPINE 5 MG TABLET PO (21:12)
[2024-02-11] MEDS: hydrOXYzine HCL 25 MG TABLET 50 MG PO (21:12)
[2024-02-11] MEDS: MONTELUKAST 10 MG TABLET PO (21:12)
[2024-02-11] MEDS: SODIUM CHLORIDE 0.9% FLUSH 10 ML IV (21:13)
[2024-02-12] VITALS (8 sets, daily range): BP systolic 146–163; BP diastolic 81–85; PULSE 91–103; RESP 16–19; TEMP 36.4–36.6; O2SAT 91–95
[2024-02-12] MEDS: PANTOPRAZOLE DR 20 MG TABLET PO (05:42)
[2024-02-12] MEDS: methylPREDNISolone 125 MG/2 ML VIAL 30 MG IV ×3 (05:42→22:07)
[2024-02-12 05:51] LABS: Add Manual Diff / Slide Review NO; Basophils Absolute Auto 0 /uL (0-100); Basophils Percent Auto 0.2 % (0-2); Eosinophils Absolute Auto 0 /uL (0-450); Eosinophils Percent Auto 0.1 % (2-4); Hematocrit 32.3 % (36-46); Hemoglobin 10.8 g/dL (12.0-16.0); Lymphocytes Absolute Auto 1200 /uL (1100-4500); Lymphocytes Percent Auto 5.1 % (25-40); Mean Corpuscular HGB Conc 33.6 % (30-36); Mean Corpuscular Hemoglobin 27.6 PG (26-34); Mean Corpuscular Volume 82.2 fL (80-100); Monocytes Absolute Auto 1200 /uL (0-900); Monocytes Percent Auto 5.1 % (3-14); Neutrophils Absolute Auto 20200 /uL (1500-7000); Neutrophils Percent Auto 89.5 % (50-75); Platelet Count 794 X10^3/uL (150-400); Red Blood Cell Count 3.93 X10^6/uL (4.0-5.2); Red Cell Distribution Width 15.9 % (11.6-14.8); White Blood Cell Count 22.6 X10^3/uL (4.5-11.0)
[2024-02-12 06:05] LABS: Alanine Aminotransferase 23 IU/L (<35); Albumin 3.4 g/dL (3.5-5.0); Albumin Globulin Ratio 1.4 (1.0-2.8); Alkaline Phosphatase 68 U/L (38-126); Aspartate Aminotransferase 23 IU/L (14-36); BUN Creatinine Ratio 47.9 (6-22); Bilirubin Total 0.3 mg/dL (0.2-1.3); Blood Urea Nitrogen 35 mg/dL (7-17); Calcium 8.4 mg/dL (8.4-10.2); Carbon Dioxide 25 mmol/L (22-32); Chloride 105 mmol/L (98-107); Estimated Glomerular Filt Rate > 60 mL/min (>60); Globulin 2.5 g/dL (1.7-4.1); Glucose 184 mg/dL (80-110); HEMOLYSIS < 15 (0-50); Potassium 3.7 mmol/L (3.4-5.1); Sodium 136 mmol/L (137-145); Total Protein 5.9 g/dL (6.3-8.2)
[2024-02-12 06:16] LABS: Anisocytosis 1+; Burr Cells 1+; Platelet Estimate Increased on smear
[2024-02-12] MEDS: INSULIN LISPRO 100 UNIT/ML 3ML VIAL SUBCUT ×2 (08:30→17:00)
[2024-02-12] MEDS: LOSARTAN 50 MG TABLET 100 MG PO (08:44)
[2024-02-12] MEDS: LORATADINE 10 MG TABLET PO (08:45)
[2024-02-12] MEDS: ASPIRIN 81 MG CHEW TAB PO (08:45)
[2024-02-12] MEDS: cefTRIAXone 2,000 MG in SODIUM CHLORIDE 0.9% 100 ML 200 MG IV (08:46)
[2024-02-12] MEDS: ATORVASTATIN 20 MG TABLET 40 MG PO (08:46)
[2024-02-12] MEDS: ENOXAPARIN 40 MG/0.4 ML SYRINGE SUBCUT (08:46)
[2024-02-12] MEDS: hydroCHLOROthiazide 25 MG TABLET PO (08:46)
[2024-02-12] MEDS: ESCITALOPRAM 10 MG TABLET 5 MG PO (08:56)
[2024-02-12] MEDS: METFORMIN XR 500 MG TABLET 1000 MG PO ×2 (08:57→22:06)
[2024-02-12] MEDS: ALBUTEROL/IPRATROPIUM 3 ML AMPUL INH ×3 (09:19→17:52)
[2024-02-12] MEDS: CODEINE/GUAIFENESIN LIQUID 5ML UDC 10 ML PO ×2 (09:55→22:10)
--- NOTE | 2024-02-12 11:49 | P.PN_ITS ---
Subjective Subjective Date Patient Seen: 02/12/24 Time Patient Seen: 09:00 Interval history: CC: breathing WBCs continue to rise she is still not feeling herself appetite is ok breathing on 1-2L via NC cough is a bit improved. Reviewed results from yesterday showing no obvious infectious source except possibly urine. Goal is clinical improvement, WBCs under 20. Exam Vital Signs (past 8 hours): - 02/12/24 07:00 02/12/24 08:44 02/12/24 09:00 Temperature 97.9 F Pulse Rate 103 H Respiratory Rate 19 Blood Pressure 146/83 H 163/85 H Pulse Oximetry 95 91 Oxygen Delivery Method Nasal Cannula Oxygen Flow Rate 2 2 02/12/24 09:19 Temperature Pulse Rate 98 H Respiratory Rate 16 Blood Pressure Pulse Oximetry 92 Oxygen Delivery Method Nasal Cannula Oxygen Flow Rate 1 Fraction of Inspired Oxygen 24 SaO2/FiO2 Ratio 375 Oxygen Delivery Method Nasal Cannula Oxygen Flow Rate 1 Narrative Exam Narrative: alert elder laying in bed Resp Other: moving air pretty well actually the junky rhonchi are significantly improved still needing 1-2L via NC. Cardio Other: regular rate, s1/s2, no pedal edema GI Other: soft nontender active bowel sounds Objective Labs 02/12/24 05:28 02/12/24 05:28 Labs: Laboratory Results - last 24 hr 02/11/24 02/11/24 02/12/24 11:15 17:30 05:28 WBC 22.6 H RBC 3.93 L Hgb 10.8 L Hct 32.3 L MCV 82.2 MCH 27.6 MCHC 33.6 RDW 15.9 H Plt Count 794 H Neut % (Auto) 89.5 H Lymph % (Auto) 5.1 L [place] % (Auto) 5.1 Eos % (Auto) 0.1 L Baso % (Auto) 0.2 Neut # (Auto) 06672 H Lymph # (Auto) 1200 [place] # (Auto) 1200 H Eos # (Auto) 0 Baso # (Auto) 0 Platelet Estimate Increased on smear RBC Morphology See below Anisocytosis 1+ H Negar Cells 1+ H Sodium 136 L Potassium 3.7 Chloride 105 Carbon Dioxide 25 BUN 35 H Creatinine 0.73 Estimated GFR > 60 BUN/Creatinine Ratio 47.9 H Glucose 184 H Calcium 8.4 Total Bilirubin 0.3 AST 23 ALT 23 Alkaline Phosphatase 68 Total Protein 5.9 L Albumin 3.4 L Globulin 2.5 Albumin/Globulin Ratio 1.4 Nasal Screen MRSA (PCR) Not detected Chlamy pneumoniae PCR Not detected Adenovirus (PCR) Not detected B.parapertussis DNA PCR Not detected Coronavirus OC43 (PCR) Not detected Coronavirus HKU1 (PCR) Not detected Coronavirus 229E (PCR) Not detected SARS-CoV-2 (PCR) Not detected Coronavirus NL63 (PCR) Not detected Human Metapneumovir PCR Not detected Influenza Type A (PCR) Not detected Influenza Type B (PCR) Not detected M. pneumoniae (PCR) Not detected Parainfluenza 1 (PCR) Not detected Parainfluenza 2 (PCR) Not detected Parainfluenza 3 (PCR) Not detected Parainfluenza 4 (PCR) Not detected RSV (PCR) Not detected Entero/Rhino (PCR) Not detected PFSH Medical History DDD (degenerative disc disease) Spinal stenosis Pancreatitis Hyperlipidemia Low back pain with sciatica Smoker Sinusitis Pneumonia Insomnia Surgical History History of eyelid surgery S/P cervical spinal fusion H/O: hysterectomy Social History household members: none Smoking Status: Current every day smoker Tobacco: How many years used: 37 alcohol intake: former Assessment & Plan Assessment & Plan narrative: #Acute on chronic respiratory failure #COPD exacerbation #Pneumonia #Leukocytosis WBC spike continues to rise without much clinical improvement without obvious source except pulm and urinary. Will start cipro in addition to prior slate - encourage IS use - monitor, cultures pending. she agrees she is still wiped out not in any shape to go back to work. #Dehydration mild, improved with IVF, encourage PO intake. #NIDDM2 continue home metformin with SSI #Hypertension Stable on usual meds. #Nicotine dependence Nicotine patch available as desired PCP: Louie Code: full Disposition: WBCs still rising, maybe transition to orals tomorrow and home. DVT: Lovenox Quality VTE Deep Vein Thrombosis/Pulmonary Embolism Present on Admission: No
[2024-02-12] MEDS: CIPROFLOXACIN 400 MG/200 ML PIGGYBACK 200 MG IV ×2 (13:29→22:29)
[2024-02-12] MEDS: MONTELUKAST 10 MG TABLET PO (22:07)
[2024-02-12] MEDS: AMLODIPINE 5 MG TABLET PO (22:07)
[2024-02-12] MEDS: hydrOXYzine HCL 25 MG TABLET 50 MG PO (22:07)
[2024-02-12] MEDS: SODIUM CHLORIDE 0.9% FLUSH 10 ML IV (22:08)
[2024-02-12] MEDS: BENZOCAINE/MENTHOL 1 LOZ PKT 1 EACH PO (22:23)
[2024-02-13] VITALS (8 sets, daily range): BP systolic 103–148; BP diastolic 56–80; PULSE 90–100; RESP 14–20; TEMP 36.4–36.6; O2SAT 91–98
[2024-02-13] MEDS: methylPREDNISolone 125 MG/2 ML VIAL 30 MG IV (05:11)
[2024-02-13] MEDS: PANTOPRAZOLE DR 20 MG TABLET PO (05:12)
[2024-02-13 06:20] LABS: Add Manual Diff / Slide Review NO; Basophils Absolute Auto 0 /uL (0-100); Basophils Percent Auto 0.1 % (0-2); Eosinophils Absolute Auto 0 /uL (0-450); Eosinophils Percent Auto 0.1 % (2-4); Hematocrit 36.8 % (36-46); Hemoglobin 12.3 g/dL (12.0-16.0); Lymphocytes Absolute Auto 1100 /uL (1100-4500); Lymphocytes Percent Auto 4.7 % (25-40); Mean Corpuscular HGB Conc 33.5 % (30-36); Mean Corpuscular Hemoglobin 27.3 PG (26-34); Mean Corpuscular Volume 81.5 fL (80-100); Monocytes Absolute Auto 700 /uL (0-900); Monocytes Percent Auto 3.3 % (3-14); Neutrophils Absolute Auto 20900 /uL (1500-7000); Neutrophils Percent Auto 91.8 % (50-75); Red Blood Cell Count 4.51 X10^6/uL (4.0-5.2); Red Cell Distribution Width 16.2 % (11.6-14.8); White Blood Cell Count 22.7 X10^3/uL (4.5-11.0)
[2024-02-13 06:22] LABS: Platelet Count 939 X10^3/uL (150-400)
[2024-02-13 06:33] LABS: Alanine Aminotransferase 25 IU/L (<35); Albumin 3.6 g/dL (3.5-5.0); Albumin Globulin Ratio 1.3 (1.0-2.8); Alkaline Phosphatase 73 U/L (38-126); Aspartate Aminotransferase 29 IU/L (14-36); BUN Creatinine Ratio 47.6 (6-22); Bilirubin Total 0.5 mg/dL (0.2-1.3); Blood Urea Nitrogen 30 mg/dL (7-17); Calcium 8.3 mg/dL (8.4-10.2); Carbon Dioxide 31 mmol/L (22-32); Chloride 99 mmol/L (98-107); Estimated Glomerular Filt Rate > 60 mL/min (>60); Globulin 2.7 g/dL (1.7-4.1); Glucose 270 mg/dL (80-110); HEMOLYSIS < 15 (0-50); Potassium 4.2 mmol/L (3.4-5.1); Sodium 135 mmol/L (137-145); Total Protein 6.3 g/dL (6.3-8.2)
[2024-02-13 06:46] LABS: Anisocytosis 1+; Platelet Estimate Increased on smear
[2024-02-13] MEDS: ALBUTEROL/IPRATROPIUM 3 ML AMPUL INH ×4 (07:33→18:22)
[2024-02-13] MEDS: INSULIN LISPRO 100 UNIT/ML 3ML VIAL SUBCUT ×3 (08:22→16:57)
[2024-02-13] MEDS: ATORVASTATIN 20 MG TABLET 40 MG PO (08:23)
[2024-02-13] MEDS: ESCITALOPRAM 10 MG TABLET 5 MG PO (08:23)
[2024-02-13] MEDS: ASPIRIN 81 MG CHEW TAB PO (08:23)
[2024-02-13] MEDS: LORATADINE 10 MG TABLET PO (08:24)
[2024-02-13] MEDS: METFORMIN XR 500 MG TABLET 1000 MG PO ×2 (08:24→20:34)
[2024-02-13] MEDS: hydroCHLOROthiazide 25 MG TABLET PO (08:24)
[2024-02-13] MEDS: LOSARTAN 50 MG TABLET 100 MG PO (08:24)
[2024-02-13] MEDS: cefTRIAXone 2,000 MG in SODIUM CHLORIDE 0.9% 100 ML 200 MG IV (08:25)
[2024-02-13] MEDS: ENOXAPARIN 40 MG/0.4 ML SYRINGE SUBCUT (08:37)
[2024-02-13] MEDS: CODEINE/GUAIFENESIN LIQUID 5ML UDC 10 ML PO ×2 (08:40→20:34)
--- NOTE | 2024-02-13 10:34 | P.PN_ITS ---
Subjective Subjective Date Patient Seen: 02/13/24 Time Patient Seen: 10:34 Interval history: 68-year-old female admitted with presumed COPD exacerbation with acute hypoxic respiratory failure. To this point has required continue low-level oxygen replacement therapy. Feeling somewhat better than upon admission but not bouncing back anywhere near as quickly as in the past Concern yesterday about white count bouncing up, although patient does remain on parental corticosteroids. Patient has been afebrile since 02/07/2024. All cultures are negative. Had ciprofloxacin added to her regimen yesterday which now is Rocephin plus Cipro Patient was self says while she feels better than admission just feels globally weak and wishes she would get better faster. No new symptoms. No GI symptoms no abdominal symptoms no chest pain palpitations cough is if anything diminished. No headache Oxygen remains at 1 liter/minute mostly for comfort. Her O2 saturations have been acceptable and she gets up to the bathroom etcetera without the oxygen does not really appear to need it but uses it again for comfort more than anything else Exam Vital Signs (past 8 hours): - 02/13/24 07:00 02/13/24 07:33 02/13/24 08:00 Temperature 97.8 F Pulse Rate 96 H 100 H Respiratory Rate 16 16 Blood Pressure 103/56 L Pulse Oximetry 91 94 98 Oxygen Delivery Method Nasal Cannula Nasal Cannula Oxygen Flow Rate 1 1 Fraction of Inspired Oxygen 24 SaO2/FiO2 Ratio 375 Oxygen Delivery Method Nasal Cannula Oxygen Flow Rate 1 Objective Labs 02/13/24 06:08 02/13/24 06:08 Labs: Laboratory Results - last 24 hr 02/13/24 06:08 WBC 22.7 H RBC 4.51 Hgb 12.3 Hct 36.8 MCV 81.5 MCH 27.3 MCHC 33.5 RDW 16.2 H Plt Count 939 H* Neut % (Auto) 91.8 H Lymph % (Auto) 4.7 L [place] % (Auto) 3.3 Eos % (Auto) 0.1 L Baso % (Auto) 0.1 Neut # (Auto) 68775 H Lymph # (Auto) 1100 [place] # (Auto) 700 Eos # (Auto) 0 Baso # (Auto) 0 Platelet Estimate Increased on smear RBC Morphology See below Anisocytosis 1+ H Sodium 135 L Potassium 4.2 Chloride 99 Carbon Dioxide 31 BUN 30 H Creatinine 0.63 Estimated GFR > 60 BUN/Creatinine Ratio 47.6 H Glucose 270 H Calcium 8.3 L Total Bilirubin 0.5 AST 29 ALT 25 Alkaline Phosphatase 73 Total Protein 6.3 Albumin 3.6 Globulin 2.7 Albumin/Globulin Ratio 1.3 PFSH Medical History DDD (degenerative disc disease) Spinal stenosis Pancreatitis Hyperlipidemia Low back pain with sciatica Smoker Sinusitis Pneumonia Insomnia Surgical History History of eyelid surgery S/P cervical spinal fusion H/O: hysterectomy Social History household members: none Smoking Status: Current every day smoker Tobacco: How many years used: 37 alcohol intake: former Assessment & Plan Assessment & Plan narrative: 1. COPD exacerbation-patient improved but not approaching baseline is rapidly his previous. Concerns over white blood cell count elevation without other clinical evidence of untreated infection. Plain chest x-rays have been unremarkable if fails to improve consider CT imaging of her lungs as well. Overall however I believe she merely needs continued time on corticosteroid therapy with the nebulized bronchodilators etcetera. Does seem to be improved just very slow to approach baseline. She was on pretty low-dose parental steroids I am going to bump that up slightly see if that boost will get her ?over the hump ?so that she more rapidly approaching baseline we can discharge her in the next 24-48 hours. No reason to make any changes in antibiotic therapy. The only thing she was not really covered for would be atypical organisms such as mycoplasma or ureaplasma 2. Diabetes-continue with current medications. Continues on insulin as needed. Barely adequate control blood sugar, likely secondary to corticosteroid therapy. Consider increasing insulin coverage dosing. 3. Hypertension-stable for now Quality VTE Deep Vein Thrombosis/Pulmonary Embolism Present on Admission: No [facility] PROFEE Charge codes Subsequent inpatient/observation care: 20431
[2024-02-13] MEDS: CIPROFLOXACIN 400 MG/200 ML PIGGYBACK 200 MG IV (12:26)
--- NOTE | 2024-02-13 13:55 | PT.IIE ---
Current Diagnoses Pneumonia, unspecified organism (02/09/24) Surgical History (Last Reviewed 02/09/24 @ 18:02 by Raj Simon MD) H/O: hysterectomy History of eyelid surgery S/P cervical spinal fusion Medical History (Last Reviewed 02/09/24 @ 08:30 by Cassia Pineda DO) DDD (degenerative disc disease) Hyperlipidemia Insomnia Low back pain with sciatica Pancreatitis Pneumonia Sinusitis Smoker Spinal stenosis Physical Therapy Inpatient Evaluation/Re-Eval M1 PT/OT-IP Prior Functional Status Start: 02/13/24 16:00 Freq: NEEDED Status: Active Protocol: Document 02/13/24 13:55 AB (Rec: 02/13/24 16:16 AB [id number]) Medical Review Prior Functional Status Medical History Reviewed Yes Communication able to make needs known Mobility and Gait pt stated that she was modified independent with all mobilities and ambulation without AD Social History Household Members none Living Arrangements House Number of Floors (Floors) One Floor Number of Stairs To Enter/Railing? 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 PT-IP Current Condition Start: 02/13/24 16:00 Freq: NEEDED Status: Active Protocol: Document 02/13/24 13:55 AB (Rec: 02/13/24 16:16 AB [id number]) Physical Therapy Current Condition Current Condition Evaluation Date 02/13/24 Treatment Diagnosis PNA; COPD; difficulty in walking Onset Date 02/09/24 M3 PT-IP Subjective Start: 02/13/24 16:00 Freq: NEEDED Status: Active Protocol: Document 02/13/24 13:55 AB (Rec: 02/13/24 16:16 AB [id number]) Subjective Physical Therapy Visit Type Type Initial Evaluation Visit Start Time 13:55 Visit Stop Time 14:50 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 of HEAD ANIMAL 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 Visits 0 Physical Therapy Visit Comments Patient Comments agreeable to do PT Therapy Pain Assessment Pain Present Pain Present Denied Pain M4 PT-IP Mobility and Gait Start: 02/13/24 16:00 Freq: NEEDED Status: Active Protocol: Document 02/13/24 13:55 AB (Rec: 02/13/24 16:16 AB [id number]) PT-Bed Mobility Assessment Supine to Sit Supine to Sit Standby Assistance PT-Transfer Assessment Sit to and From Stand Sit to and from Stand Standby Assistance,1 Person Assistance,Use of Upper Extremities Equipment Transfer Assistive Device None,Gait Belt Orthotic/Prosthetic Devices or Brace: No Transfers Transfer Destination Chair,Toilet Transfer Technique ambulated Transfer Ability Level of Assist Standby Assistance Comments Mobility Comments pt supine in bed and agreeable to do PT. obtained PLOF and home set up from pt. O2 sat with 1L/min O2: 88-90%. pt stated that she needs to use the toilet. completed supine to sit SBA. able to sit on EOB SBA. sit to stand SBA and ambulated without AD SBA to the toilet. pt can be impulsive. pt completed toileting needs SBA. ambulated back out and sat on EOB. (+) SOB. O2 sat decreased to 86%. cued pt for PLB. O2 sat increased to ~ 88 % but needs ~ 1 min to recover . pt agreed to ambulate in the hallway. completed ambulation without AD SBA ~ 75 ft and cues for PLB in between walking. O2 sat with 1L/min O2 varies: 86-90% but mostly 88-89% during ambulation. pt sat back on the chair. agreed to stay seated on the chair. positioned and with call light and table within reach. O2 sat at end of PT session: 92% Gait Assessment Gait Gait Assistance Required: Standby Assistance Distance (Feet) 75 Able to Maintain Weight Bearing Status Yes During Gait Assistive Devices Assistive Device None,Gait Belt Orthotic/Prosthetic Devices or Brace: No Gait Deviations General Gait Pattern Decreased Stride Length, Decreased Feet Clearance Factors Limiting Gait Function Factors Limiting Gait Function Decreased Activity Tolerance, Decreased Strength,Respiratory Distress PT-Balance Assessment Sitting Balance and Reactions Static Sitting Balance Ability Normal Dynamic Sitting Balance Ability Good Standing Balance and Reactions Static Standing Balance Ability Good Dynamic Standing Balance Ability Good Device Used without AD M5 PT-IP Objective Assessments Start: 02/13/24 16:00 Freq: NEEDED Status: Active Protocol: Document 02/13/24 13:55 AB (Rec: 02/13/24 16:16 AB [id number]) Orientation Orientation/Cognition Level of Alertness Alert Orientation Name,Place,Situation Language Function Ability No Deficits Noted Safety Awareness Decreased Safety Awareness Memory Description No Deficits Noted Gross Range of Motion Lower Extremity ROM Assessment Within Functional Limits Strength Lower Extremity Strength Assessment Within Functional Limits Coordination Assessment Gross Coordination Gross Coordination WNL Muscle Tone Muscle Tone WNL Yes M6 PT-IP Treatment Start: 02/13/24 16:00 Freq: NEEDED Status: Active Protocol: Document 02/13/24 13:55 AB (Rec: 02/13/24 16:16 AB [id number]) Physical Therapy Treatment Education Education Provided Safety M7 PT-IP Assessment and Plan Start: 02/13/24 16:00 Freq: NEEDED Status: Active Protocol: Document 02/13/24 13:55 AB (Rec: 02/13/24 16:16 AB [id number]) PT Summary Assessment and Plan Potential Rehabilitation Potential Fair Status of Condition at Evaluation Evolving Summary Impairments Strength,Balance,Coordination, Cognition,Bed Mobility, Transfers,Gait,Activity Tolerance Assessment Summary pt is a 68 y/o F who is admitted for PNA and COPD. pt requiring only SBA with mobility without AD but presents with decrease activity tolerance with O2 sat decrease to ~ 86% with activities with 1L/min O2 supplement. pt lives alone and has steps to maneuver at home. pt to continue PT here in the hospital to improve overall strength, activity tolerance and mobility independence. pt will also complete stair climbing training prior to d/c home. will continue to assess progress. Goals Bed Mobility Goal Independent Transfer Goal Independent Gait Goal Independent Gait Distance 300 Other Goals pt to be able to maintain O2 sat ~ 88% or above with activities without O2 supplement up/down 1 flight of steps B rails mod I up/down 1 step without AD mod I Days to Meet Goals 10 Frequency of Treatment Frequency Of Treatment Once a Day Treatment Plan Physical Therapy Treatment Plan Bed Mobility Training,Transfer Training,Gait Training, Therapeutic Exercise,Balance Retraining,Discharge Planning, Neuromuscular Re-ed, Coordination Retraining,Manual Therapy Precautions Other Precautions O2 sat Recommendations To Nursing Amount of Assist Needed Standby Assistance Discharge Recommendations PT Discharge Recommendations Home,Outpatient PT Other Discharge Recommendations outpt cardiopulmonary rehab Transportation Needs at Discharge Private Vehicle
--- NOTE | 2024-02-13 14:42 | CM.DPC ---
DCP Cont: Dr. Perdue has seen patient today, confirmed that she is still currently on 1 liter of oxygen, improving, but not quite at baseline, continuing with sterioid treatment. Patient is independent, works at [employer]. P: DCP to continue to follow for any needs, likely to go home when medically stable. Rosemarie Roa RN/Assistant Professor Of Forestry
[2024-02-13] MEDS: AMLODIPINE 5 MG TABLET PO (20:33)
[2024-02-13] MEDS: hydrOXYzine HCL 25 MG TABLET 50 MG PO (20:34)
[2024-02-13] MEDS: MONTELUKAST 10 MG TABLET PO (20:34)
[2024-02-13] MEDS: SODIUM CHLORIDE 0.9% FLUSH 10 ML IV (20:37)
[2024-02-14] VITALS (8 sets, daily range): BP systolic 131–148; BP diastolic 78–80; PULSE 91–116; RESP 16–17; TEMP 36.5–36.6; O2SAT 87–95
[2024-02-14] MEDS: CIPROFLOXACIN 400 MG/200 ML PIGGYBACK 200 MG IV (00:45)
[2024-02-14] MEDS: PANTOPRAZOLE DR 20 MG TABLET PO (06:39)
[2024-02-14] MEDS: ALBUTEROL/IPRATROPIUM 3 ML AMPUL INH ×4 (08:09→20:18)
[2024-02-14] MEDS: METFORMIN XR 500 MG TABLET 1000 MG PO ×2 (08:40→20:52)
[2024-02-14] MEDS: ESCITALOPRAM 10 MG TABLET 5 MG PO (08:40)
[2024-02-14] MEDS: ENOXAPARIN 40 MG/0.4 ML SYRINGE SUBCUT (08:41)
[2024-02-14] MEDS: LORATADINE 10 MG TABLET PO (08:41)
[2024-02-14] MEDS: ATORVASTATIN 20 MG TABLET 40 MG PO (08:41)
[2024-02-14] MEDS: hydroCHLOROthiazide 25 MG TABLET PO (08:41)
[2024-02-14] MEDS: ASPIRIN 81 MG CHEW TAB PO (08:41)
[2024-02-14] MEDS: LOSARTAN 50 MG TABLET 100 MG PO (08:41)
[2024-02-14] MEDS: SODIUM CHLORIDE 0.9% FLUSH 10 ML IV ×2 (08:42→20:52)
--- NOTE | 2024-02-14 10:41 | PM.DS.1 ---
History of Present Illness History of Present Illness Date Patient Seen: 02/14/24 Time Patient Seen: 10:41 Chief complaint: sob, fever, cough Narrative: Patient is a 68-year-old female with history of long-time smoking still smoking who presents with shortness of breath. Apparently Thursday she started feeling ill. Thursday started with cough sore throat myalgias fever. Increasingly short of breath. Went to the urgent care on Thursday who put her on no antibiotics but did put her on albuterol and prednisone. Patient felt no better and was feeling worse. More short of breath. Cough has been intermittently productive with green sputum. No chest pain. No orthopnea no PND no edema. Has no other major changes. No urinary changes bowel changes. {from Dr. Simon's H&P 02/09/24} Discharge Providers Provider Date of admission: 02/09/24 10:23 Discharge Date: 02/14/24 Primary care physician: Tj Palma MD Consults: 02/09/24 11:46 Consult to Dietitian, Adult Routine Comment: Reason For Exam: decreased appetite 02/13/24 11:14 Consult to Physical Therapy Evaluate & Treat Comment: weakness Physician Instructions: Evaluate and Treat Discharge provider: Juan Alberto Perdue MD Summary Hospital Course Discharge Diagnosis: 1. COPD exacerbation 2. Acute hypoxic respiratory failure, resolved 3. Diabetes type 2 4. Leukocytosis of uncertain etiology 5. Hypertension 6. GERD 7. Community-acquired pneumonia Hospital Course: Patient was admitted to the hospital as above. She was treated with parental corticosteroids as well as nebulized medications for her COPD exacerbation. There was no clear evidence of pneumonia on her chest x-ray although she did have a mild leukocytosis. Respiratory panels were negative and subsequent cultures were all negative. Patient did persists with leukocytosis she was placed on parental antibiotics which were then expanded however clinically patient continued to improve although quite slowly. She remained afebrile for the duration of her hospitalization By the 13 of February she was felt to be improved and ready for discharge. Patient's oxygen saturation at time of discharge ranged from 89-91%. She had not qualify for oxygen replacement therapy therefore despite the fact subjectively it does make her feel better. We discussed this is some length She will continue on a course of oral antibiotic therapy to ensure complete resolution of any lingering infection. Levofloxacin in his chosen for it is activity against atypical organisms as well as the usual organisms for community-acquired pneumonia Patient will need close follow-up with her PCP to ensure complete resolution and to continue a corticosteroid taper which was initiated at discharge (for her COPD exacerbation) Exam Vital Signs (past 8 hours): - 02/14/24 07:00 02/14/24 07:00 02/14/24 08:41 Temperature 97.7 F Pulse Rate 93 H 93 H Respiratory Rate 17 Blood Pressure 131/80 131/80 Pulse Oximetry 90 L Oxygen Delivery Method Nasal Cannula Oxygen Flow Rate 1 Fraction of Inspired Oxygen 24 SaO2/FiO2 Ratio 375 Oxygen Delivery Method Nasal Cannula Oxygen Flow Rate 1 Objective Labs 02/13/24 06:08 02/13/24 06:08 PFSH Medical History DDD (degenerative disc disease) Spinal stenosis Pancreatitis Hyperlipidemia Low back pain with sciatica Smoker Sinusitis Pneumonia Insomnia Surgical History History of eyelid surgery S/P cervical spinal fusion H/O: hysterectomy Social History household members: none Smoking Status: Current every day smoker Tobacco: How many years used: 37 alcohol intake: former Discharge Assessment & Plan Assessment and Plan Plan of Treatment: Continue another 5 days of oral antibiotic therapy with levofloxacin Continue prednisone 40 mg daily until seen by PCP than anticipate tapering to 0 Continue off oxygen replacement therapy with instructions to monitor physical activity and breathlessness with resting as necessary as she quickly does rebound her oxygen saturation on the rare occasion it does decline Close follow up with PCP for above issues. Discharge Plan Discharge Plan Patient Disposition: Home Discharge orders & Medications Prescriptions: New levofloxacin 500 mg tablet 500 mg PO DAILY 5 Days Qty: 5 0RF prednisone 20 mg tablet 40 mg PO DAILY Qty: 60 0RF Rx Instructions: take 2 tabs daily for 1 week, then per physician Continued albuterol sulfate 2.5 mg /3 mL (0.083 %) solution for nebulization 2.5 mg inhalation QID PRN (Reason: shortness of breath or wheezing) Qty: 75 0RF albuterol sulfate [Ventolin HFA] 90 mcg/actuation HFA aerosol inhaler 2 puff INHALATION Q6H PRN (Reason: Shortness Of Breath) montelukast 10 mg tablet 10 mg PO BEDTIME hydroxyzine HCl 50 mg tablet 50 mg PO BEDTIME rosuvastatin 20 mg tablet 20 mg PO DAILY Qty: 30 0RF aspirin 81 mg tablet,chewable 81 mg PO DAILY Qty: 30 0RF cetirizine 5 mg Tablet 5 mg PO DAILY amlodipine 5 mg tablet 5 mg PO BEDTIME losartan-hydrochlorothiazide 100-25 mg tablet 1 tab PO DAILY omeprazole 20 mg capsule,delayed release(DR/EC) 20 mg PO DAILY metformin 500 mg tablet extended release 24 hr 1,000 mg PO BID escitalopram oxalate 5 mg tablet 5 mg PO DAILY Patient Comments: Patient has not started yet Combivent Respimat 20-100 mcg/actuation mist 1 puff inhalation 3XD Discontinued prednisone 50 mg tablet 50 mg PO DAILY Qty: 4 0RF Follow up/Referrals: Tj Palma MD [Primary Care Provider] - 1 Week Discharge Health Status Multidrug resistant organism: No MDRO Diet/Activity/Treatments Diet: Diet as Tolerated and Carb-consistent/Diabetic Oxygen: none Visit Report/Discharge Packet Stand Alone Forms: Patient Portal/API, Stroke Signs & Symptoms Discharge Data Primary Care Provider: Tj Palma Quality VTE Deep Vein Thrombosis/Pulmonary Embolism Present on Admission: No IH PROFEE Charge Codes Discharge inpatient/observation: [id number]
--- NOTE | 2024-02-14 11:26 | CM.DPC ---
DCP Cont. Reviewed EMR and team rounds for status updates. Pt has been medically cleared for home d/c, she will be driving herself home this afternoon. No further DCP needs identified at this time.
--- NOTE | 2024-02-14 12:00 | PM.PN.1 ---
Subjective Subjective Date Patient Seen: 02/14/24 Time Patient Seen: 10:30 Interval history: Patient seen felt to be improved. She was up sitting in a chair with more physical activity yesterday. Still felt winded with activity but felt like she recovered when resting. Oxygen saturation numbers initially felt to be stable 91% but after I attempted to discharge patient numbers were rechecked and she was consistently only 80 4-86% with activity and took quite a long time to get back to 88+% with rest. No new symptoms or problems Remains afebrile Exam Vital Signs (past 8 hours): - 02/14/24 07:00 02/14/24 07:00 02/14/24 08:41 Temperature 97.7 F Pulse Rate 93 H 93 H Respiratory Rate 17 Blood Pressure 131/80 131/80 Pulse Oximetry 90 L Oxygen Delivery Method Nasal Cannula Oxygen Flow Rate 1 02/14/24 10:48 Temperature Pulse Rate 105 H Respiratory Rate 16 Blood Pressure Pulse Oximetry 89 L Oxygen Delivery Method Room Air Oxygen Flow Rate 0 Fraction of Inspired Oxygen 24 SaO2/FiO2 Ratio 375 Oxygen Delivery Method Room Air Oxygen Flow Rate 0 Objective Labs 02/13/24 06:08 02/13/24 06:08 [facility] Medical History DDD (degenerative disc disease) Spinal stenosis Pancreatitis Hyperlipidemia Low back pain with sciatica Smoker Sinusitis Pneumonia Insomnia Surgical History History of eyelid surgery S/P cervical spinal fusion H/O: hysterectomy Social History household members: none Smoking Status: Current every day smoker Tobacco: How many years used: 37 alcohol intake: former Assessment & Plan Assessment & Plan narrative: 1. COPD exacerbation-patient improved to the point where I thought she can probably be discharged but she remained somewhat hypoxic. Therefore I think another 24 hours in the hospital while we in part arrange for home oxygen therapy but also continue with parental steroids and the nebulizer treatments etcetera makes sense. Hopefully she can be discharged tomorrow either off oxygen or with home oxygen set up and ready to go, basically following the plan in the discharge summary I dictated today (prior to learning that she was hypoxic) 2. Diabetes-continue with current medications. Continues on insulin as needed. Somewhat improved blood sugar control. 3. Hypertension-stable for now, no changes Quality VTE Deep Vein Thrombosis/Pulmonary Embolism Present on Admission: No
[2024-02-14] MEDS: levoFLOXacin 250 MG TABLET 500 MG PO (12:35)
[2024-02-14] MEDS: INSULIN LISPRO 100 UNIT/ML 3ML VIAL SUBCUT ×2 (12:35→17:25)
--- NOTE | 2024-02-14 12:42 | PT.IPTN ---
Addendum entered and electronically signed by Evelyn Skinner PT 02/14/24 12:43: PT provides direct superv to SPT during treatment Original Note: Current Diagnoses Pneumonia, unspecified organism (02/09/24) Physical Therapy Treatment Note M2 PT-IP Current Condition Start: 02/13/24 16:00 Freq: NEEDED Status: Active Protocol: Document 02/13/24 13:55 AB (Rec: 02/13/24 16:16 AB [id number]) Physical Therapy Current Condition Current Condition Evaluation Date 02/13/24 Treatment Diagnosis PNA; COPD; difficulty in walking Onset Date 02/09/24 M3 PT-IP Subjective Start: 02/13/24 16:00 Freq: NEEDED Status: Active Protocol: Document 02/14/24 11:50 JG (Rec: 02/14/24 12:42 JG [id number]) Subjective Physical Therapy Visit Type Type Treatment Note Visit Start Time 11:50 Visit Stop Time 12:14 Number of LAND AGENT Visits 0 Physical Therapy Visit Comments Patient Comments Agreeable to PT Therapy Pain Assessment Pain Present Pain Present Denied Pain M4 PT-IP Mobility and Gait Start: 02/13/24 16:00 Freq: NEEDED Status: Active Protocol: Document 02/14/24 11:50 JG (Rec: 02/14/24 12:42 JG [id number]) PT-Bed Mobility Assessment Scooting Scooting to Edge of Bed Independent PT-Transfer Assessment Sit to and From Stand Sit to and from Stand Independent Equipment Transfer Assistive Device Gait Belt Orthotic/Prosthetic Devices or Brace: No Transfers Transfer Destination Chair Transfer Technique Ambulation Transfer Ability Level of Assist Independent Comments Mobility Comments Pt sitting EOB upon PT arrival . Pt seated for 4 hours on room air: O2 87% HR 112. Nsg put pt on 1.5 L O2 90% HR 114. After gait/stair training on 2.0 L O2 87-89% HR 127 Gait Assessment Gait Gait Assistance Required: Independent,Standby Assistance Distance (Feet) 75 Able to Maintain Weight Bearing Status Yes During Gait Assistive Devices Assistive Device Gait Belt Orthotic/Prosthetic Devices or Brace: No Gait Deviations General Gait Pattern Decreased Feet Clearance Factors Limiting Gait Function Factors Limiting Gait Function Decreased Activity Tolerance, Respiratory Distress Comments Gait Comments Pt was impulsive with movements and was able to ambulate without AD. See above for O2 levels after gait. PT asks pt to pull O2 tank in case she gets one for home. She is SBA to mod I with gait Stair Climbing Assessment Evaluation Level of Assist On Stairs Standby Assistance Devices Stair Climbing Assistive Devices Left Railing,Right Railing Technique/Endurance Stair Climbing Direction Ascend and Descend Stair Climbing Technique Step Over Step Number of Steps Climbed 3 Stair Climbing Set # Repetitions (reps) 1 Comments Stair Climbing Comments Pt left O2 on base of stairs when performing stair training PT-Balance Assessment Sitting Balance and Reactions Static Sitting Balance Ability Normal Dynamic Sitting Balance Ability Normal Standing Balance and Reactions Static Standing Balance Ability Good Dynamic Standing Balance Ability Good Device Used without AD M5 PT-IP Objective Assessments Start: 02/13/24 16:00 Freq: NEEDED Status: Active Protocol: Document 02/13/24 13:55 AB (Rec: 02/13/24 16:16 AB [id number]) Orientation Orientation/Cognition Level of Alertness Alert Orientation Name,Place,Situation Language Function Ability No Deficits Noted Safety Awareness Decreased Safety Awareness Memory Description No Deficits Noted Gross Range of Motion Lower Extremity ROM Assessment Within Functional Limits Strength Lower Extremity Strength Assessment Within Functional Limits Coordination Assessment Gross Coordination Gross Coordination WNL Muscle Tone Muscle Tone WNL Yes M6 PT-IP Treatment Start: 02/13/24 16:00 Freq: NEEDED Status: Active Protocol: Document 02/14/24 11:50 JG (Rec: 02/14/24 12:42 JG [id number]) Physical Therapy Treatment Other Treatments Other Treatment Performed Education about possible need for O2 at home and precautions if she d/cs home with O2 and con't to smoke M7 PT-IP Assessment and Plan Start: 02/13/24 16:00 Freq: NEEDED Status: Active Protocol: Document 02/14/24 11:50 JG (Rec: 02/14/24 12:42 JG [id number]) PT Summary Assessment and Plan Potential Rehabilitation Potential Fair Status of Condition at Evaluation Evolving Summary Impairments Balance,Activity Tolerance Progress Towards Goals Progressing Toward Goals Assessment Summary Pt is performing transfers and mobility I and is SBA for gait and stair training. Pt tends not to wait for instruction before moving. Nsg re-dons O2 d/t low O2 sats on RA upon arrival. Sats are 87- 89% on 2L with gait. Recommend RT consult for walking O2 assessment. No further acute PT needs and recommend up with nsg superv with O2 donned. Goals Bed Mobility Goal Independent Transfer Goal Independent Gait Goal Independent Gait Distance 100 Other Goals up/down 1 flight of steps B rails mod I up/down 1 step without AD mod I Days to Meet Goals 2 Frequency of Treatment Frequency Of Treatment Discharge Treatment Plan Physical Therapy Treatment Plan Bed Mobility Training,Transfer Training,Gait Training, Therapeutic Exercise,Balance Retraining,Discharge Planning, Neuromuscular Re-ed, Coordination Retraining,Manual Therapy Precautions Other Precautions O2 Sat Weight Bearing Status Weight Bearing Status Weight Bear as Tolerated Recommendations To Nursing Amount of Assist Needed Standby Assistance Discharge Recommendations PT Discharge Recommendations Home Transportation Needs at Discharge Private Vehicle
[2024-02-14] MEDS: CODEINE/GUAIFENESIN LIQUID 5ML UDC 10 ML PO ×2 (12:43→21:00)
[2024-02-14] MEDS: BENZOCAINE/MENTHOL 1 LOZ PKT 1 EACH PO (12:43)
--- NOTE | 2024-02-14 15:00 | CM.DPC ---
DCP Cont. Update-Pt is not going to d/c today, O2 was too low. Anticipate d/c on Thursday, 02/14.
[2024-02-14] MEDS: MONTELUKAST 10 MG TABLET PO (20:52)
[2024-02-14] MEDS: hydrOXYzine HCL 25 MG TABLET 50 MG PO (20:52)
[2024-02-14] MEDS: AMLODIPINE 5 MG TABLET PO (20:52)
[2024-02-15] MEDS: PANTOPRAZOLE DR 20 MG TABLET PO (05:18)
[2024-02-15 07:00] VITALS: O2SAT 94
[2024-02-15 07:10] VITALS: PULSE 89; RESP 18; O2SAT 89
[2024-02-15] MEDS: ALBUTEROL/IPRATROPIUM 3 ML AMPUL INH ×2 (07:10→11:04)
[2024-02-15 08:00] VITALS: BP 140/89; PULSE 91; RESP 18; TEMP 36.5; O2SAT 94
[2024-02-15 08:47] VITALS: BP 140/89; PULSE 91
[2024-02-15] MEDS: METFORMIN XR 500 MG TABLET 1000 MG PO (08:47)
[2024-02-15] MEDS: ASPIRIN 81 MG CHEW TAB PO (08:47)
[2024-02-15] MEDS: ATORVASTATIN 20 MG TABLET 40 MG PO (08:47)
[2024-02-15] MEDS: ESCITALOPRAM 10 MG TABLET 5 MG PO (08:47)
[2024-02-15] MEDS: levoFLOXacin 250 MG TABLET 500 MG PO (08:47)
[2024-02-15] MEDS: LOSARTAN 50 MG TABLET 100 MG PO (08:47)
[2024-02-15] MEDS: ENOXAPARIN 40 MG/0.4 ML SYRINGE SUBCUT (08:48)
[2024-02-15] MEDS: hydroCHLOROthiazide 25 MG TABLET PO (08:48)
[2024-02-15] MEDS: LORATADINE 10 MG TABLET PO (08:48)
[2024-02-15] MEDS: SODIUM CHLORIDE 0.9% FLUSH 10 ML IV (08:49)
--- NOTE | 2024-02-15 09:09 | PM.DS.1 ---
History of Present Illness History of Present Illness Date Patient Seen: 02/15/24 Time Patient Seen: 09:09 Chief complaint: sob, fever, cough Narrative: CC: breathing difficulty Feeling a little perkier today but still needing some O2 via NC for activity, reports breathing feels ok no pain normal bowel activity. She feels ready to go home with home O2. Recommend stay home from work at least 2 weeks with close f/up with PCP. Discharge Providers Provider Date of admission: 02/09/24 10:23 Discharge Date: 02/15/24 Primary care physician: Tj Palma MD Consults: 02/09/24 11:46 Consult to Dietitian, Adult Routine Comment: Reason For Exam: decreased appetite 02/13/24 11:14 Consult to Physical Therapy Evaluate & Treat Comment: weakness Physician Instructions: Evaluate and Treat Discharge provider: Tj Palma MD Summary Hospital Course Discharge Diagnosis: #COPD exacerbation #Acute hypoxic respiratory failure, resolved #Diabetes type 2 #Leukocytosis of uncertain etiology #Hypertension #GERD #Community-acquired pneumonia Hospital Course: Patient was admitted to the hospital with several days of worsening breathing and general appearance of COPD exacerbation. She was treated with parental corticosteroids as well as nebulized medications for her COPD exacerbation. There was no clear evidence of pneumonia on her chest x-ray although she did have a mild leukocytosis. Respiratory panels were negative and subsequent cultures were all negative. With new findings of worsening leukocytosis she was placed on parental antibiotics which were then expanded however clinically patient continued to improve although quite slowly. She remained afebrile for the duration of her hospitalization and generally required O2 via NC for activity without which she would desat from ~90% down to low 80s. Arrangements were mad eto discharge home on home O2 to f/up with PCP as well as oral antibiotics and a prednisone taper. Status at Discharge Cognitive/behavioral status at discharge: at baseline, oriented Functional status at discharge: independent ambulation Overall status at discharge: patient is progressing back to baseline Exam Vital Signs (past 8 hours): - 02/15/24 07:10 02/15/24 08:00 02/15/24 08:47 Temperature 97.7 F Pulse Rate 89 91 H 91 H Respiratory Rate 18 18 Blood Pressure 140/89 140/89 Pulse Oximetry 89 L 94 Oxygen Delivery Method Nasal Cannula Oxygen Flow Rate 2 2 Fraction of Inspired Oxygen 28 Fraction of Inspired Oxygen 28 SaO2/FiO2 Ratio 317 Oxygen Delivery Method Nasal Cannula Oxygen Flow Rate 2 Narrative Exam Narrative: sitting up in bed chatting with nurse Resp Other: moving air well minimal wheezing on auscultation lungs actually sound pretty good for her Cardio Other: regular rate s1/s2 GI Other: soft nontender active bowel sounds Neuro Other: aaox3, chirpy and alert Extrem Other: no pedal edema Objective Labs 02/13/24 06:08 02/13/24 06:08 PFS Medical History DDD (degenerative disc disease) Spinal stenosis Pancreatitis Hyperlipidemia Low back pain with sciatica Smoker Sinusitis Pneumonia Insomnia Surgical History History of eyelid surgery S/P cervical spinal fusion H/O: hysterectomy Social History household members: none Smoking Status: Current every day smoker Tobacco: How many years used: 37 alcohol intake: former Discharge Assessment & Plan Assessment and Plan Assessment: #COPD exacerbation #Acute hypoxic respiratory failure, resolving #Leukocytosis #Thrombocytosis #Community-acquired pneumonia Initially presented with COPD exacerbation was found to have LLL pneumonia treated with antibiotics; she improved initially then had WBC and platelet spikes with normal cultures and unremarkable imaging. At this time I would agree any bacterial infection has been adequately treated with azithromycin rocephin and cipro with discharge PO script and prednisone taper I do suspect some type of viral superinfection which may be driving some of her laboratory derangements although viral swabs are negative so far She does have a persistent propensity to desaturate on any exertion so we have set up home oxygen with goal of recuperation at home She is feeling well at rest appetite is so-so. #Essential hypertension #GERD #NIDDM2 stable on home meds, continue on discharge. Dispo: home with home O2 to f/up with PCP ideally thursday PCP: Louie code: full diet: as tolerated Plan of Treatment: Continue another 5 days of oral antibiotic therapy with levofloxacin Continue prednisone 40 mg daily until seen by PCP than anticipate tapering to 0 Continue off oxygen replacement therapy with instructions to monitor physical activity and breathlessness with resting as necessary as she quickly does rebound her oxygen saturation on the rare occasion it does decline Close follow up with PCP for above issues. Discharge Plan Discharge Plan Patient Disposition: Home Discharge orders & Medications Prescriptions: New levofloxacin 500 mg tablet 500 mg PO DAILY 5 Days Qty: 5 0RF prednisone 20 mg tablet 40 mg PO DAILY Qty: 60 0RF Rx Instructions: take 2 tabs daily for 1 week, then per physician Continued albuterol sulfate 2.5 mg /3 mL (0.083 %) solution for nebulization 2.5 mg inhalation QID PRN (Reason: shortness of breath or wheezing) Qty: 75 0RF albuterol sulfate [Ventolin HFA] 90 mcg/actuation HFA aerosol inhaler 2 puff INHALATION Q6H PRN (Reason: Shortness Of Breath) montelukast 10 mg tablet 10 mg PO BEDTIME hydroxyzine HCl 50 mg tablet 50 mg PO BEDTIME rosuvastatin 20 mg tablet 20 mg PO DAILY Qty: 30 0RF aspirin 81 mg tablet,chewable 81 mg PO DAILY Qty: 30 0RF cetirizine 5 mg Tablet 5 mg PO DAILY amlodipine 5 mg tablet 5 mg PO BEDTIME losartan-hydrochlorothiazide 100-25 mg tablet 1 tab PO DAILY omeprazole 20 mg capsule,delayed release(DR/EC) 20 mg PO DAILY metformin 500 mg tablet extended release 24 hr 1,000 mg PO BID escitalopram oxalate 5 mg tablet 5 mg PO DAILY Patient Comments: Patient has not started yet Combivent Respimat 20-100 mcg/actuation mist 1 puff inhalation 3XD Discontinued prednisone 50 mg tablet 50 mg PO DAILY Qty: 4 0RF Follow up/Referrals: Tj Palma MD [Primary Care Provider] - 1 Week Discharge Health Status Multidrug resistant organism: No MDRO Diet/Activity/Treatments Diet: Diet as Tolerated and Carb-consistent/Diabetic Oxygen: none Visit Report/Discharge Packet Instructions: DI for Pneumonia -- Adult, DI for Shortness of Breath Stand Alone Forms: Patient Portal/API, Stroke Signs & Symptoms Discharge Data Primary Care Provider: Tj Palma Quality VTE Deep Vein Thrombosis/Pulmonary Embolism Present on Admission: No
--- NOTE | 2024-02-15 10:31 | CM.DPC ---
DCP Continued Reviewed EMR and team rounds for pt?s medical status. Per Dr. Palma, pt will be medically cleared for discharge, will need home O2 for transport home as well as oxygen delivered at home. DCP spoke with [facility] and confirmed that home eval was completed over the weekend and pt will have portable O2 ready at discharge. DCP discussed this with RN Brinda who remains on standby for discharge. DCP entered room, introduced self and role. Pt endorsed preference to discharge home in private vehicle and wishes to drive herself home. Pt reports she is ready to discharge as soon as possible. Plan: Anticipating dc home, pt to transport self home with home O2 from RT. Home O2 to be delivered via [employer]. CM Team will continue to follow for coordination of discharge plans. ANDRE Henson
[2024-02-15 11:04] VITALS: PULSE 107; RESP 16; O2SAT 93
--- NOTE | 2024-02-15 11:52 | PC.NURSE ---
IV removed. Discussed home O2, worsening symptoms, medications, and follow up with primary care physician. All questions answered. Home O2 at bedside and ready to go. patient wheeled out to private vehicle via wheelchair by nursing unit clerk.
== END 2024-02-15 11:40 | disposition home or self-care (01) | DRG 193 ==
LOC: ED 09:59 → AC 10:23
PROVIDERS: Admitting Provider Family Medicine; Emergency Provider Emergency Medicine; PCP Family Medicine; Referring Provider Emergency Medicine; Visit Provider Family Medicine
DX: J18.9 Pneumonia, unspecified organism (principal); J96.21 Acute and chronic respiratory failure with hypoxia; J44.1 Chronic obstructive pulmonary disease with (acute) exacerbation; E86.0 Dehydration; E11.9 Type 2 diabetes mellitus without complications; I10 Essential (primary) hypertension; K21.9 Gastro-esophageal reflux disease without esophagitis; E78.5 Hyperlipidemia, unspecified; F17.210 Nicotine dependence, cigarettes, uncomplicated; Z79.84 Long term (current) use of oral hypoglycemic drugs
CPT/HCPCS: 36415; 71045; 80053; 81001; 82962; 83605; 83880; 84145; 84484; 85025; 85379; 85610; 87040; 87086; 87633; 87797; 93005; 94618; 94640; 94760; 96365; 96375; 97116; 97162; 97530; 97535; 99285; 99291; 99406; A9270; J0696; J0744; J1650; J1815; J2919; J7613

== ENCOUNTER → 2024-04-13 07:37 | Outpatient (CLI) | payer OTHER, SELFPAY ==
[2024-02-09 11:40] VITALS: BMI 21.9
--- NOTE | 2024-04-13 07:41 | DI.US.S_ITS ---
PROCEDURE: US PERIPH VENOUS LOW EXTREM LT INDICATIONS: PAIN AND SWELLING IN LEFT LOWER LEG TECHNIQUE: Real-time imaging, as well as color and pulse Doppler interrogation, were performed of the lower extremity deep veins from the inguinal ligament to the popliteal fossa, with documentation of the visualized calf veins. COMPARISON: None. FINDINGS: The common femoral, femoral, popliteal, and the visualized calf veins are normally compressible, and free of intraluminal thrombus. Color and pulse Doppler demonstrate normal phasic intraluminal flow. There is normal augmentation response to distal compression maneuver. IMPRESSION: No findings of LEFT lower extremity deep venous thrombosis. Dictated by: Toan Coffman M.D. on 04/13/2024 at 13:14 Approved by: Toan Coffman M.D. on 04/13/2024 at 13:16
== END ==
PROVIDERS: PCP Family Medicine; Referring Provider Family Medicine; Visit Provider Family Medicine
DX: M79.89 Other specified soft tissue disorders (principal); M79.662 Pain in left lower leg
CPT/HCPCS: 93971

== ENCOUNTER → 2024-04-20 12:15 | Outpatient (CLI) | payer OTHER, SELFPAY ==
[2024-02-09 11:40] VITALS: BMI 21.9
--- NOTE | 2024-04-20 12:18 | DI.RAD.S_ITS ---
PROCEDURE: XR ANKLE LT MIN 3V INDICATIONS: lower leg pain/ankel pain and chest distress TECHNIQUE: 3 views of the ankle were acquired. COMPARISON: [facility], CR, XR TIBIA FIBULA LT 2V, 04/20/2024, 12:19. FINDINGS: Bones: No fractures or dislocations. Ankle mortise is normally aligned. No suspicious bony lesions. Calcaneal spur. Soft tissues: No tibiotalar joint effusion. Achilles tendon appears normal. IMPRESSION: No visualized acute fracture or dislocation. However, if clinical concern and/or pain persist, short interval imaging followup in 7-10 days is recommended, as occult injury cannot be definitively excluded. Dictated by: Nafisa Amaro M.D. on 04/20/2024 at 16:00 Approved by: Nafisa Amaro M.D. on 04/20/2024 at 16:00
--- NOTE | 2024-04-20 12:18 | DI.RAD.S_ITS ---
PROCEDURE: XR CHEST 2V INDICATIONS: lower leg pain/ankel pain and chest distress TECHNIQUE: 2 views of the chest were acquired. COMPARISON: [facility], CR, XR CHEST 1V, 02/11/2024, 10:56. FINDINGS: Surgical changes and devices: None. Lungs and pleura: Minimal blunting of the costophrenic angles bilaterally. Mediastinum: Mediastinal contours are normal. Heart size is normal. Bones and chest wall: No suspicious bony abnormalities. Soft tissues appear unremarkable. IMPRESSION: Minimal costophrenic angle blunting suggestive scarring versus minimal effusions. Dictated by: Nafisa Amaro M.D. on 04/20/2024 at 16:00 Approved by: Nafisa Amaro M.D. on 04/20/2024 at 16:00
--- NOTE | 2024-04-20 12:19 | DI.RAD.S_ITS ---
PROCEDURE: XR TIBIA FIBULA LT 2V INDICATIONS: lower leg pain/ankel pain and chest distress TECHNIQUE: 2 views of the tibia and fibula were acquired. COMPARISON: [facility], CR, XR ANKLE LT MIN 3V, 04/20/2024, 12:19. FINDINGS: Bones: No fractures or dislocations. No suspicious bony lesions. Soft tissues: No suspicious soft tissue calcifications or masses. IMPRESSION: No visualized acute fracture or dislocation. However, if clinical concern and/or pain persist, short interval imaging followup in 7-10 days is recommended, as occult injury cannot be definitively excluded. Dictated by: Nafisa Amaro M.D. on 04/20/2024 at 15:59 Approved by: Nafisa Amaro M.D. on 04/20/2024 at 15:59
== END ==
PROVIDERS: PCP Family Medicine; Referring Provider Family Medicine; Visit Provider Family Medicine
DX: M79.662 Pain in left lower leg (principal); M79.89 Other specified soft tissue disorders; S93.402A Sprain of unspecified ligament of left ankle, initial encounter; R06.03 Acute respiratory distress
CPT/HCPCS: 71046; 73590; 73610

== ENCOUNTER → 2024-07-26 15:17 | Outpatient (CLI) | payer OTHER, SELFPAY ==
[2024-02-09 11:40] VITALS: BMI 21.9
--- NOTE | 2024-07-26 15:17 | DI.MRI.S_ITS ---
PROCEDURE: MR ANKLE LT WO CON INDICATIONS: Chronic ankle pain/ swelling of Lt LE TECHNIQUE: Noncontrast sagittal T1 spin echo and T2 fast spin echo with fat saturation, axial proton density fast spin echo and T2 fast spin echo with fat saturation, coronal T1 spin echo and T2 fast spin echo with fat saturation through the ankle/hindfoot. COMPARISON: None. FINDINGS: Image quality: Excellent. Bones and joints: There is diffuse soft tissue edema surrounding distal lower leg extending to hindfoot and midfoot. No discrete drainable fluid collection. Mild to moderate midfoot and hindfoot joint osteoarthritis is seen with joint space narrowing and subchondral sclerosis. There is no marrow edema. No acute fracture or dislocation. No osteochondral injuries of talar dome. No significant joint effusion or intra-articular loose bodies. Likely intraosseous cyst formation involving 3rd metatarsal base is seen. Medial structures: The posterior tibialis tendon is thickened at the level of mid to distal talus and talonavicular joint with small amount of fluid distending tendon sheath. The deltoid ligament flexor digitorum longus, and flexor hallucis longus tendons are intact. The posterior tibial neurovascular bundle appears normal within the tarsal tunnel, without extrinsic mass effect. The deltoid ligament and spring ligament are thickened with intrasubstance T2 hyperintense signal. Lateral structures: The anterior talofibular, calcaneofibular, and posterior talofibular ligaments appear intact. More superiorly, the anterior and posterior tibiofibular ligaments appear intact, as is the intermalleolar ligament. The tibiofibular syndesmosis is normal in width at 2 mm or less. The peroneus longus and brevis tendons demonstrate normal location and morphology. No signal abnormality is seen within the sinus tarsi. Anterior structures: The tibialis anterior, extensor hallucis longus, and extensor digitorum longus tendons appear intact. The dorsal talonavicular ligament appears intact. Posterior and plantar structures: Achilles tendon is intact. Medial and lateral bands of the plantar fascia are of normal thickness. No abductor digiti quinti muscle atrophy to suggest Manzano neuropathy. IMPRESSION: 1. Wsja-re-mzgygtze midfoot and hindfoot joint osteoarthritis. No marrow edema. No fracture or dislocation. Suggestion of lobulated intraosseous cyst formation in 3rd metatarsal base. No osteochondral injuries of talar dome. Diffuse soft tissue swelling and edema surrounding distal lower leg extending to midfoot and hindfoot. No drainable fluid collection. 2. Low to moderate grade tenosynovitis involving posterior tibialis tendon at the level of mid to distal talus and talonavicular joint. 3. Low to moderate grade medial ankle ligament sprain/intrasubstance partial-thickness tear. Lateral ankle ligaments are intact. 4. Achilles tendon is intact. No abnormality is seen in plantar fascia. Dictated by: Doug Carranza M.D. on 07/26/2024 at 17:47 Approved by: Doug Carranza M.D. on 07/26/2024 at 17:51
== END ==
PROVIDERS: PCP Family Medicine; Referring Provider Orthopaedic Surgery Foot and Ankle Surgery; Visit Provider Orthopaedic Surgery Foot and Ankle Surgery
DX: M19.072 Primary osteoarthritis, left ankle and foot (principal); S93.492A Sprain of other ligament of left ankle, initial encounter; M79.89 Other specified soft tissue disorders; M65.972 Unspecified synovitis and tenosynovitis, left ankle and foot; X58.XXXA Exposure to other specified factors, initial encounter
CPT/HCPCS: 73721

== ENCOUNTER → 2024-08-02 07:13 | Outpatient (CLI) | payer OTHER, SELFPAY ==
[2024-02-09 11:40] VITALS: BMI 21.9
--- NOTE | 2024-08-02 07:14 | DI.US.S_ITS ---
PROCEDURE: US PERIP VENOUS LOW EXTREM LT INDICATIONS: EDEMA TECHNIQUE: Real-time imaging, as well as color and pulse Doppler interrogation, were performed of the lower extremity deep veins from the inguinal ligament to the popliteal fossa, with documentation of the visualized calf veins. COMPARISON: [facility], , [facility] VENOUS LOW EXTREM LT, 04/13/2024, 7:54. FINDINGS: The common femoral, femoral, popliteal, and the visualized calf veins are normally compressible, and free of intraluminal thrombus. Color and pulse Doppler demonstrate normal phasic intraluminal flow. There is normal augmentation response to distal compression maneuver. IMPRESSION: No findings of lower extremity deep venous thrombosis. Dictated by: Saul Ruiz M.D. on 08/02/2024 at 9:48 Approved by: Saul Ruiz M.D. on 08/02/2024 at 9:48
== END ==
PROVIDERS: PCP Family Medicine; Referring Provider Orthopaedic Surgery Foot and Ankle Surgery; Visit Provider Orthopaedic Surgery Foot and Ankle Surgery
DX: M79.89 Other specified soft tissue disorders (principal)
CPT/HCPCS: 93971

== ENCOUNTER → 2024-09-09 10:22 | Outpatient (CLI) | payer OTHER, SELFPAY ==
[2024-02-09 11:40] VITALS: BMI 21.9
--- NOTE | 2024-09-09 10:25 | DI.RAD.S_ITS ---
PROCEDURE: XR LUMBAR SPINE 2-3V INDICATIONS: BACK PAIN TECHNIQUE: 3 views of the lumbar spine were acquired. COMPARISON: CT, CT ABDOMEN PELVIS W CON, 02/23/2023, 8:32. FINDINGS: Bones: 5 [id number] vertebrae are present. There is normal bony alignment. No vertebral body compression fractures. No suspicious bony lesions. 3 mm retrolisthesis L2-L3 and 2 mm spondylolisthesis L4-L5. Multilevel disc height loss with endplate sclerosis and spurring. Mild L4-L5 and moderate L5-S1 facet joint arthropathy. Bones are osteopenic. Soft tissues: Overlying bowel gas pattern is normal. No suspicious soft tissue calcifications. Vascular calcifications indicate atherosclerosis. IMPRESSION: Multilevel lumbar spine spondylosis. Dictated by: Hardy Sauceda [facility] Interpreted: Nafisa Amaro MD on 09/10/2024 at 7:53 Transcribed by: FERNANDO on 09/10/2024 at 7:55 Approved by: Nafisa Amaro M.D. on 09/11/2024 at 16:21
--- NOTE | 2024-09-09 10:25 | DI.RAD.S_ITS ---
PROCEDURE: XR PELVIS 1-2V INDICATIONS: BACK PAIN TECHNIQUE: 1 view(s) of the pelvis acquired. COMPARISON: [facility], CR, XR LUMBAR SPINE 2-3V, 09/09/2024, 10:30. CT, CT ABDOMEN PELVIS W CON, 02/23/2023, 8:32. FINDINGS: Bones: No fractures or dislocations. No suspicious bony lesions. Mild symmetric axial hip joint space narrowing with mild periarticular osteophyte formation. Degenerative disc and facet disease involves the inferior lumbar spine. Soft tissues: Visualized bowel gas pattern is normal. No suspicious soft tissue calcifications. Surgical clip projected over the mid pelvis. IMPRESSION: Mild symmetric hip joint degeneration. Dictated by: Hardy Sauceda [facility] Interpreted: Nafisa Amaro MD on 09/10/2024 at 7:55 Approved by: Nafisa Amaro M.D. on 09/11/2024 at 16:21
== END ==
PROVIDERS: PCP Family Medicine; Referring Provider Family Medicine; Visit Provider Family Medicine
DX: M54.50 Low back pain, unspecified (principal); M16.0 Bilateral primary osteoarthritis of hip; M47.816 Spondylosis without myelopathy or radiculopathy, lumbar region
CPT/HCPCS: 72100; 72170

== ENCOUNTER 2024-10-04 09:58 | Inpatient (IN) | payer OTHER, SELFPAY ==
[2024-02-09 11:40] VITALS: BMI 21.9
[2024-10-04] VITALS (20 sets, daily range): BP systolic 114–182; BP diastolic 63–85; PULSE 96–122; RESP 19–44; TEMP 36–38.3; O2SAT 88–97; BMI 27.4
--- NOTE | 2024-10-04 10:14 | DI.RAD.S_ITS ---
PROCEDURE: XR CHEST 1V INDICATIONS: suspected sepsis TECHNIQUE: One view of the chest was acquired. COMPARISON: [facility], CR, XR CHEST 2V, 04/20/2024, 12:19. [facility], CR, XR CHEST 1V, 02/11/2024, 10:56. FINDINGS: Surgical changes and devices: None. Lungs and pleura: Lungs are clear. No pleural effusions or pneumothorax. Mediastinum: Mediastinal contours appear normal. Heart size is normal. Bones and chest wall: No suspicious bony lesions. Overlying soft tissues appear unremarkable. IMPRESSION: No acute cardiopulmonary abnormality is seen. Dictated by: Saul Ruiz M.D. on 10/04/2024 at 11:00 Approved by: Saul Ruiz M.D. on 10/04/2024 at 11:00
--- NOTE | 2024-10-04 10:22 | EKG_ITS ---
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
[2024-10-04] MEDS: ALBUTEROL/IPRATROPIUM 3 ML AMPUL INH ×5 (10:31→18:51)
[2024-10-04] MEDS: SODIUM CHLORIDE 0.9% 1,000 ML 1000 ML IV ×2 (10:38→12:35)
[2024-10-04 10:40] LABS: Add Manual Diff / Slide Review NO; Basophils Absolute Auto 100 /uL (0-100); Basophils Percent Auto 0.9 % (0-2); Eosinophils Absolute Auto 0 /uL (0-450); Eosinophils Percent Auto 0.5 % (2-4); Hematocrit 42.1 % (36-46); Hemoglobin 13.9 g/dL (12.0-16.0); Lymphocytes Absolute Auto 800 /uL (1100-4500); Lymphocytes Percent Auto 9.1 % (25-40); Mean Corpuscular Hemoglobin 26.5 PG (26-34); Mean Corpuscular Volume 80.1 fL (80-100); Monocytes Absolute Auto 1700 /uL (0-900); Monocytes Percent Auto 19.7 % (3-14); Neutrophils Absolute Auto 6000 /uL (1500-7000); Neutrophils Percent Auto 69.8 % (50-75); Platelet Count 557 X10^3/uL (150-400); Red Blood Cell Count 5.25 X10^6/uL (4.0-5.2); Red Cell Distribution Width 18.9 % (11.6-14.8); White Blood Cell Count 8.7 X10^3/uL (4.5-11.0)
[2024-10-04 10:52] LABS: Alanine Aminotransferase 32 IU/L (<35); Albumin 4.9 g/dL (3.5-5.0); Albumin Globulin Ratio 1.7 (1.0-2.8); Alkaline Phosphatase 79 U/L (38-126); Aspartate Aminotransferase 50 IU/L (14-36); BUN Creatinine Ratio 18.9 (6-22); Bilirubin Total 0.6 mg/dL (0.2-1.3); Blood Urea Nitrogen 18 mg/dL (7-17); Calcium 9.2 mg/dL (8.4-10.2); Carbon Dioxide 26 mmol/L (22-32); Chloride 93 mmol/L (98-107); Estimated Glomerular Filt Rate > 60 mL/min (>60); Globulin 2.9 g/dL (1.7-4.1); Glucose 142 mg/dL (80-110); HEMOLYSIS < 15 (0-50); Lipase 34 U/L (23-300); Potassium 4.1 mmol/L (3.4-5.1); Sodium 133 mmol/L (137-145); Total Protein 7.8 g/dL (6.3-8.2)
[2024-10-04 10:53] LABS: INR 1.1 (0.9-1.3); Lactate (Lactic Acid) 0.9 mmol/L (0.7-2.1); Prothrombin Time 12.6 SECONDS (9.4-12.5)
[2024-10-04 10:56] LABS: PTT Partial Thromboplastin Tim 33 SECONDS (25.1-36.5)
--- NOTE | 2024-10-04 10:59 | ED_ITS ---
HPI - SOB/Dyspnea General Chief Complaint: Shortness of Breath/Dyspnea Stated Complaint: Per Patient, May have COVID, Flu or Stroke Time Seen by Provider: 10/04/24 10:18 Source: patient Mode of arrival: Wheelchair Limitations: no limitations History of Present Illness HPI Narrative: Patient is a 69-year-old female history of COPD, type 2 diabetes presenting today with increasing shortness of breath. Reports that she was on prednisone and doxycycline she was seen by primary care earlier she reports no significant improvement. She was found to be in [id number] respiratory distress. Now requiring 1-2 L of oxygen. She appears to be grunting but patient reports that she had been grunting for a number of weeks. He was no real chest pain she has not had any fever. She reports that she was recently treated with doxycycline and prednisone. Does not seem to be working. Related Data Home Medications Medication Instructions Recorded Confirmed albuterol sulfate 90 mcg/actuation 2 puff inhalation Q6H PRN 03/14/18 02/09/24 aerosol inhaler (Ventolin HFA) Shortness Of Breath hydroxyzine HCl 50 mg tablet 50 mg PO BEDTIME 09/16/22 02/09/24 montelukast 10 mg tablet 10 mg PO BEDTIME 09/16/22 02/09/24 amlodipine 5 mg tablet 5 mg PO BEDTIME 02/09/24 02/09/24 cetirizine 5 mg tablet 5 mg PO DAILY 02/09/24 02/09/24 escitalopram oxalate 5 mg tablet 5 mg PO DAILY 02/09/24 02/09/24 ipratropium 20 mcg-albuterol 100 1 puff inhalation 3XD 02/09/24 02/09/24 mcg/actuation mist for inhalation (Combivent Respimat) losartan 100 1 tab PO DAILY 02/09/24 02/09/24 mg-hydrochlorothiazide 25 mg tablet metformin 500 mg tablet,extended 1,000 mg PO BID 02/09/24 02/09/24 release 24 hr omeprazole 20 mg capsule,delayed 20 mg PO DAILY 02/09/24 02/09/24 release Previous Rx's Medication Instructions Recorded aspirin 81 mg chewable tablet 81 mg PO DAILY #30 tabs 09/17/22 rosuvastatin 20 mg tablet 20 mg PO DAILY #30 tabs 09/17/22 albuterol sulfate 2.5 mg/3 mL 2.5 mg (3 mL) inhalation QID PRN 02/07/24 (0.083 %) solution for nebulization shortness of breath or wheezing #75 mL prednisone 20 mg tablet 40 mg (2 x 20 mg) PO DAILY #60 tabs 02/14/24 Allergies Allergy/AdvReac Type Severity Reaction Status Date / Time Sulfa (Sulfonamide AdvReac Unknown UNKNOWN Verified 02/07/24 13:12 Antibiotics) REACTION [SULFA (SULFONAMIDE PER PT ANTIBIOTICS)] Patient History Medical History DDD (degenerative disc disease) Spinal stenosis Pancreatitis Hyperlipidemia Low back pain with sciatica Smoker Sinusitis Pneumonia Insomnia Surgical History History of eyelid surgery S/P cervical spinal fusion H/O: hysterectomy Social History household members: none Smoking Status: Former smoker Tobacco: How many years used: 37 alcohol intake: former Smoking Status: Former smoker Exam Initial Vital Signs Initial Vital Signs: Vital Signs Temperature 100.9 F H 10/04/24 10:06 Pulse Rate 122 H 10/04/24 10:06 Respiratory Rate 30 H 10/04/24 10:06 Blood Pressure 135/71 10/04/24 10:06 Pulse Oximetry 90 L 10/04/24 10:06 Oxygen Delivery Method Room Air 10/04/24 10:06 GENERAL: Alert 69-year-old female appears older than stated age and in no acute distress. HEENT: Head atraumatic,EOMI, pupils reactive, face symmetric, moist mucous membranes CARDIOVASCULAR: Regular rate and rhythm without murmurs, rubs or gallops. RESPIRATORY: Decreased breath sounds bilaterally moderate respiratory distress conversational dyspnea grunting noted no cyanosis ABDOMEN: Soft, nontender. Normoactive bowel sounds all 4 quadrants. No guarding or rebound. EXTREMITIES: Normal range of motion, no clubbing or edema. Neurovascularly intact NEUROLOGICAL: Alert and oriented x4.Normal gait and speech. Cranial nerves II through XII grossly intact. SKIN: Warm, dry, no laceration, no petechiae, no rashes or lesions. Course Orders Ordered: ED Orders 10/04/24 10:14 XR chest 1V Stat EKG-12 Lead Stat RT Consult Eval and Treat NOW 10/04/24 10:28 BNP [NT-proBNP (BNP-Adult 18+)] Stat Complete Blood Count AUTO DIFF Stat Comprehensive Metabolic Panel Stat Lactate (Lactic Acid) Stat Lipase Stat PTT Partial Thromboplastin Audie Stat Procalcitonin Stat Prothrombin Time INR Stat 10/04/24 10:35 Blood Culture Stat 10/04/24 12:54 Troponin & CK Cardiac Panel Stat Acetaminophen (Acetaminophen 325 Mg Tablet) 650 mg PO Q6H PRN PRN Reason: Fever/Mild Pain (1-3) Al Hydrox/Mg Hydrox/Simethicone (Mag Hydrox/Alum/Simeth 30 Ml Udc) 30 ml PO Q6HR PRN PRN Reason: Dyspepsia Albuterol (Albuterol 2.5 Mg/3 Ml Neb (Adult)) 2.5 mg INH [id number] PRN PRN Reason: Shortness Of Breath Albuterol/Ipratropium (Albuterol/Ipratropium 3 Ml Ampul) 3 ml INH [id number] JUANA Last Admin: 10/04/24 18:51 Dose: 3 ml Documented By: MIKO Amlodipine Besylate (Amlodipine 5 Mg Tablet) 5 mg PO BEDTIME JUANA Aspirin (Aspirin 81 Mg Chew Tab) 81 mg PO DAILY JUANA Atorvastatin Calcium (Atorvastatin 20 Mg Tablet) 40 mg PO DAILY JUANA Budesonide (Budesonide 0.5 Mg/2 Ml Neb) 0.5 mg INH RTBID JUANA Dextrose (Dextrose 50 % In Water 25 Gm/50 Ml Syringe) 12.5 gm IV PRN PRN PRN Reason: Hypoglycemia Enoxaparin Sodium (Enoxaparin 40 Mg/0.4 Ml Syringe) 40 mg SUBCUT DAILY [facility] Escitalopram Oxalate (Escitalopram 10 Mg Tablet) 5 mg PO DAILY JUANA Hydrochlorothiazide (Hydrochlorothiazide 25 Mg Tablet) 25 mg PO DAILY [facility] Hydroxyzine HCl (Hydroxyzine Hcl 25 Mg Tablet) 50 mg PO BEDTIME PRN PRN Reason: sleep Ceftriaxone Sodium 2,000 mg/ (Sodium Chloride) 100 mls @ 200 mls/hr IV Q24H JUANA Doxycycline Hyclate 100 mg/ (Sodium Chloride) 100 mls @ 100 mls/hr IV Q12H [facility] Insulin Human Lispro (Insulin Lispro 100 Unit/Ml 3ml Vial) 0 unit SUBCUT ACHS JUANA; Protocol Losartan Potassium (Losartan 50 Mg Tablet) 100 mg PO DAILY [facility] Magnesium Hydroxide (Magnesium Hydroxide 30 Ml Udc) 30 ml PO DAILY PRN PRN Reason: Constipation Methylprednisolone (Methylprednisolone 125 Mg/2 Ml Vial) 60 mg IV Q6HR [facility] Last Admin: 10/04/24 18:43 Dose: 60 mg Documented By: ZOILA Montelukast Sodium (Montelukast 10 Mg Tablet) 10 mg PO BEDTIME JUANA Naloxone HCl (Naloxone 0.4 Mg/Ml Vial) 0.2 mg IV Q2MIN PRN PRN Reason: Opiate Reversal Ondansetron HCl (Ondansetron 4 Mg Odt) 4 mg SL NOW PRN PRN Reason: Nausea And Vomiting Ondansetron HCl (Ondansetron 4 Mg Odt) 4 mg PO Q8HR PRN PRN Reason: Nausea And Vomiting Pantoprazole Sodium (Pantoprazole Dr 20 Mg Tablet) 20 mg PO 0600 [facility] Discontinued Medications Albuterol (Albuterol 2.5 Mg/3 Ml Neb (Adult)) 10 mg INH NOW ONE Stop: 10/04/24 12:38 Last Admin: 10/04/24 12:42 Dose: 10 mg Documented By: MIKO Albuterol (Albuterol 2.5 Mg/3 Ml Neb (Adult)) 2.5 mg INH [id number] PRN PRN Reason: Shortness Of Breath Or Wheezing Albuterol/Ipratropium (Albuterol/Ipratropium 3 Ml Ampul) 3 ml INH NOW ONE Stop: 10/04/24 10:27 Last Admin: 10/04/24 10:31 Dose: 3 ml Documented By: MIKO Albuterol/Ipratropium (Albuterol/Ipratropium 3 Ml Ampul) 3 ml INH Q20M JUANA Stop: 10/04/24 11:41 Last Admin: 10/04/24 11:39 Dose: 3 ml Documented By: Admin: 10/04/24 11:15 Dose: 3 ml Documented By: Admin: 10/04/24 10:54 Dose: 3 ml Documented By: MIKO Sodium Chloride (Normal Saline 0.9%) 1,000 mls @ 1,000 mls/hr IV BOLUS ONE Stop: 10/04/24 11:13 Last Infusion: 10/04/24 11:53 Dose: Infused Documented By: Admin: 10/04/24 10:38 Dose: 1,000 mls/hr Documented By: MPO Ceftriaxone Sodium 1,000 mg/ (Sodium Chloride) 100 mls @ 200 mls/hr IV NOW ONE Stop: 10/04/24 11:30 Last Infusion: 10/04/24 12:35 Dose: Infused Documented By: Admin: 10/04/24 11:48 Dose: 200 mls/hr Documented By: MPO Azithromycin 500 mg/ Dextrose 250 mls @ 250 mls/hr IV NOW ONE Stop: 10/04/24 11:30 Last Infusion: 10/04/24 13:34 Dose: Infused Documented By: Admin: 10/04/24 12:34 Dose: 250 mls/hr Documented By: MPO Sodium Chloride (Normal Saline 0.9%) 1,000 mls @ 1,000 mls/hr IV BOLUS ONE Stop: 10/04/24 13:24 Last Infusion: 10/04/24 13:35 Dose: Infused Documented By: Admin: 10/04/24 12:35 Dose: 1,000 mls/hr Documented By: MPO Azithromycin 500 mg/ Dextrose 250 mls @ 250 mls/hr IV Q24H JUANA Dextrose (D10w) 100 mls @ 999 mls/hr IV PRN PRN PRN Reason: Hypoglycemia Insulin Human Lispro (Insulin Lispro 100 Unit/Ml 3ml Vial) 0 unit SUBCUT ACHS JUANA; Protocol Metformin HCl (Metformin Xr 500 Mg Tablet) 1,000 mg PO BID JUANA Methylprednisolone (Methylprednisolone 125 Mg/2 Ml Vial) 125 mg IV NOW ONE Stop: 10/04/24 11:29 Last Admin: 10/04/24 11:47 Dose: 125 mg Documented By: MPO Non-Formulary Medication (Ipratropium-Albuterol [Combivent Respimat]) 1 puff INHALATION 3XD JUANA Ondansetron HCl (Ondansetron 4 Mg/2 Ml Inj) 4 mg IV NOW PRN PRN Reason: Nausea And Vomiting Last Admin: 10/04/24 11:48 Dose: 4 mg Documented By: MPO Vital Signs Vital signs: Vital Signs - 8 hr 10/04/24 10:58 10/04/24 11:00 10/04/24 11:00 Pulse Rate 113 H Respiratory Rate 44 H Blood Pressure 182/77 H Pulse Oximetry 91 90 L Oxygen Delivery Method Nasal Cannula Oxygen Flow Rate 1 10/04/24 11:30 10/04/24 11:30 10/04/24 12:00 Pulse Rate 116 H 120 H Respiratory Rate 30 H 20 Blood Pressure 131/76 Pulse Oximetry 91 92 Oxygen Delivery Method Nasal Cannula Oxygen Flow Rate 2 10/04/24 12:01 10/04/24 12:01 10/04/24 12:30 Pulse Rate 119 H Respiratory Rate 24 Blood Pressure 121/76 124/71 Pulse Oximetry 93 Oxygen Delivery Method Nasal Cannula Oxygen Flow Rate 2 10/04/24 12:30 10/04/24 13:00 10/04/24 13:00 Pulse Rate 113 H 114 H Respiratory Rate 20 23 Blood Pressure 133/69 Pulse Oximetry 94 96 Oxygen Delivery Method Nasal Cannula Oxygen Flow Rate 2 10/04/24 13:30 10/04/24 13:30 10/04/24 14:00 Pulse Rate 118 H 114 H Respiratory Rate 20 Blood Pressure 114/69 Pulse Oximetry 94 Oxygen Delivery Method Nasal Cannula Oxygen Flow Rate 2 10/04/24 14:01 10/04/24 14:01 Pulse Rate 115 H Respiratory Rate 23 Blood Pressure 135/63 Pulse Oximetry Oxygen Delivery Method Oxygen Flow Rate MDM - SOB/Dyspnea Lab Data 10/04/24 10:28 10/04/24 10:28 Labs: Lab Results 10/04/24 10/04/24 10/04/24 Range/Units 10:28 12:07 12:54 WBC 8.7 (4.5-11.0) X10^3/uL RBC 5.25 H (4.0-5.2) X10^6/uL Hgb 13.9 (12.0-16.0) g/dL Hct 42.1 (36-46) % MCV 80.1 (80-100) fL MCH 26.5 (26-34) PG MCHC 33.0 (30-36) % RDW 18.9 H (11.6-14.8) % Plt Count 557 H (150-400) X10^3/uL Neut % (Auto) 69.8 (50-75) % Lymph % (Auto) 9.1 L (25-40) % Dickson % (Auto) 19.7 H (3-14) % Eos % (Auto) 0.5 L (2-4) % Baso % (Auto) 0.9 (0-2) % Neut # (Auto) 6000 (9763-5765) /uL Lymph # (Auto) 800 L (9809-8154) /uL Dickson # (Auto) 1700 H (0-900) /uL Eos # (Auto) 0 (0-450) /uL Baso # (Auto) 100 (0-100) /uL PT 12.6 H (9.4-12.5) SECONDS INR 1.1 (0.9-1.3) APTT 33 (25.1-36.5) SECONDS ABG Sample Site Right radial ABG pH 7.39 (7.35-7.45) ABG pCO2 40.5 (35-45) mmHg ABG pO2 61 L (80-100) mmHg ABG HCO3 25 (23-27) mmol/L ABG Total CO2 24 (23-27) mmol/L ABG O2 Saturation 91 L (95-100) % ABG Base Excess -0.3 (-2-3) mmol/L Jaya Test Positive O2 Delivery Device Cannula Sodium 133 L (137-145) mmol/L Potassium 4.1 (3.4-5.1) mmol/L Chloride 93 L (98-107) mmol/L Carbon Dioxide 26 (22-32) mmol/L BUN 18 H (7-17) mg/dL Creatinine 0.95 (0.52-1.04) mg/dL Estimated GFR > 60 (>60) mL/min BUN/Creatinine Ratio 18.9 (6-22) Glucose 142 H (80-110) mg/dL Lactate 0.9 (0.7-2.1) mmol/L Calcium 9.2 (8.4-10.2) mg/dL Total Bilirubin 0.6 (0.2-1.3) mg/dL AST 50 H (14-36) IU/L ALT 32 (<35) IU/L Alkaline Phosphatase 79 (38-126) U/L Total Creatine Kinase 47 (30-135) U/L Troponin I < 0.012 (0.01-0.034) ng/mL NT-Pro-B Natriuret Pep 390 H (<125) pg/mL Total Protein 7.8 (6.3-8.2) g/dL Albumin 4.9 (3.5-5.0) g/dL Globulin 2.9 (1.7-4.1) g/dL Albumin/Globulin Ratio 1.7 (1.0-2.8) Lipase 34 (23-300) U/L Procalcitonin 0.195 (<0.5) ng/mL Urine Dip Bedside Urine Glucose Negative Bedside Urine Bilirubin - Negative Bedside Urine Ketone +/- 5 Urine Specific [place] 1.010 Bedside Urine Occult Blood - Negative Bedside Urine pH 6.0 Bedside Urine Protein - Negative Bedside Urine Urobilinogen - Negative Bedside Urine Nitrite - Negative Bedside Urine Leukocytes - Negative Esterase Imaging Data Chest x-ray: Radiologist's Impression: PROCEDURE: XR CHEST 1V INDICATIONS: suspected sepsis TECHNIQUE: One view of the chest was acquired. COMPARISON: [facility], CR, XR CHEST 2V, 04/20/2024, 12:19. [facility], CR, XR CHEST 1V, 02/11/2024, 10:56. FINDINGS: Surgical changes and devices: None. Lungs and pleura: Lungs are clear. No pleural effusions or pneumothorax. Mediastinum: Mediastinal contours appear normal. Heart size is normal. Bones and chest wall: No suspicious bony lesions. Overlying soft tissues appear unremarkable. IMPRESSION: No acute cardiopulmonary abnormality is seen. Dictated by: Saul Ruiz M.D. on 10/04/2024 at 11:00 ECG Data Attestation: I personally reviewed and interpreted this ECG as follows: Interpretation: Sinus tachycardia rate 118 MD interval 126 QRS [address] changes MDM Narrative Medical decision making narrative: MDM CC: Shortness of breath Complicating co-morbidities: COPD Medical records reviewed: Differential considered: COPD CHF pneumonia respiratory illness acute coronary syndrome Exam documented above, pertinent findings include: 69-year-old female in [id number] respiratory distress no peripheral edema Lab Test results independently reviewed as above. Pertinent findings: WBC 8.7 hemoglobin 13.9 hematocrit 42 point platelets 557 Sodium 133 potassium 4.1 chloride 93 carbon dioxide 26 BUN 18 creatinine 0.9 Lactate 0.9 ABG shows PaO2 91 and PaO2 40 pH 7.39--no evidence of retained Troponin negative, BNP 390 Independently reviewed EKG as above Sinus tachycardia no ischemia Imaging studies independently reviewed: Chest x-ray no acute cardiopulmonary process Consultations: Dr. Simon updated on patient's symptoms test results accepts patient Treatments: DuoNeb albuterol Solu-Medrol Re-evaluations: Patient re-evaluated after DuoNeb requiring more albuterol she was breathing better but still grunting. O2 decreasing to 80 89% 1 L Discussion: Patient 69-year-old female history of COPD presenting today with low-grade temp of 100.9? tachycardia and hypoxia certainly concerning for sepsis and infection. We are currently out of influenza and respiratory testing. X- ray is negative for pneumonia. She was no leukocytosis or elevated lactate. She did receive a bit of breathing treatments here in the ED. She was no evidence of hypercapnia no need for real BiPAP. She was still requiring 1-2 L of oxygen ABG was obtained well patient on O2. She says a little bit of grunting but no significant conversational dyspnea. Discharge Plan Departure Patient Disposition: Admitted As Inpatient Clinical Impression: COPD (chronic obstructive pulmonary disease), Hypoxia Admit Date/Time: 10/04/24 14:34 Admit Provider: Raj Simon
[2024-10-04 11:02] LABS: NT-proBNP (BNP-Adult 18+) 390 pg/mL (<125)
--- NOTE | 2024-10-04 11:06 | PC.NURSE ---
Addendum entered by Serenity Hernandez R.N. 10/04/24 13:59: Pt up to [facility]. States that she feels a little bit better after 4th neb tx. o2 sat 94% on 2L NC. RR 24. Able to speak in full sentences at this time. Addendum entered by Serenity Hernandez R.N. 10/04/24 12:36: Pt o2 sat improved to 95%. Pt remains on 2L NC. HR 110. Pt grunting and pursed lip breathing. Dr Pineda aware. Rt at bedside. Addendum entered by Serenity Hernandez R.N. 10/04/24 11:54: Pt o2 sat between 88-89% on 2L after receiving 3 neb tx. RR 28. Pt remains tachy with HR 123. Pt grunting and pursed lip breathing. Still having difficulty speaking in full sentences and experiencing SOB. Skin pink, warm and dry. Lung sounds diminished and tight. RT at bedside. Dr Pineda notified of pt status and verbal order for ABG. Pt a&ox4. Original Note: pt arrived to ED because she has been feeling sick x2 weeks. Saw PCP approximately 1 week ago and was dx with viral illness. Hx of COPD and recurrent PNA with last admission in January. Pt states that last night she became very SOB, dizzy and weak and had difficulty getting to the bathroom due to SOB. Pt sitting in tripod position. Pursed lip breathing and grunting. RR 30. O2 sat 90% on RA. Febrile during triage at 100.9, oral. RT called to bedside for eval & treat. Dr Pineda at bedside during triage. Pt a&ox4.
[2024-10-04 11:10] LABS: Procalcitonin 0.195 ng/mL (<0.5)
[2024-10-04] MEDS: methylPREDNISolone 125 MG/2 ML VIAL IV (11:47)
[2024-10-04] MEDS: cefTRIAXone 1,000 MG in SODIUM CHLORIDE 0.9% 100 ML 200 MG IV (11:48)
[2024-10-04] MEDS: ONDANSETRON 4 MG/2 ML INJ IV (11:48)
[2024-10-04 12:14] LABS: Allen Test for ABG Passed? Positive; Base Excess ABG -0.3 mmol/L (-2-3); Blood Gas Collection Site Right Radial; Delivery System Cannula; HCO3 ABG 25 mmol/L (23-27); Oxygen Saturation ABG 91 % (95-100); PCO2 ABG 40.5 mmHg (35-45); PO2 ABG 61 mmHg (80-100); TCO2 ABG 24 mmol/L (23-27); pH ABG 7.39 (7.35-7.45)
[2024-10-04] MEDS: AZITHROMYCIN 500 MG in DEXTROSE 5% IN WATER 250 ML 250 MG IV (12:34)
[2024-10-04] MEDS: ALBUTEROL 2.5 MG/3 ML NEB (ADULT) 10 MG INH (12:42)
[2024-10-04 13:12] LABS: Creatine Kinase 47 U/L (30-135)
[2024-10-04 13:25] LABS: Troponin I < 0.012 ng/mL (0.01-0.034)
--- NOTE | 2024-10-04 17:23 | P.HP_ITS ---
History of Present Illness History of Present Illness Date Patient Seen: 10/04/24 Time Patient Seen: 17:24 Chief complaint: Per Patient, May have COVID, Flu or Stroke Narrative: Patient is a 69 year female whom I am covering in [facility]. With history of COPD and longstanding smoking who recently quit who presents for weakness and falls. Apparently she was slowly having issues over the last month where she has been increasingly short of breath but over the last 24 hours she became weak and more short of breath. Cough was worse. Just felt all over sick. Some nausea. No vomiting. No diarrhea. She has had no urinary changes or other complaint. She has had no chest pain. Has had fever she does not know how high. Otherwise has no other significant new changes. Patient has had history of COPD exacerbation. Multiple in the past. She does not feel like her cough has been significantly productive but just started a really bad over the last 24 hours. Extremely short of breath. No other changes. Patient denies any diarrhea or people sick around her that she knows of. Lives alone. ON LICENSE OF [facility] Medical History DDD (degenerative disc disease) Spinal stenosis Pancreatitis Hyperlipidemia Low back pain with sciatica Smoker Sinusitis Pneumonia Insomnia Surgical History History of eyelid surgery S/P cervical spinal fusion H/O: hysterectomy Social History household members: none Smoking Status: Former smoker Tobacco: How many years used: 37 alcohol intake: former Meds Home Medications and Allergies Home Medications Medication Instructions Recorded Confirmed Type albuterol sulfate 90 mcg/actuation 2 puff inhalation Q6H PRN 03/14/18 02/09/24 History aerosol inhaler (Ventolin HFA) Shortness Of Breath hydroxyzine HCl 50 mg tablet 50 mg PO BEDTIME 09/16/22 02/09/24 History montelukast 10 mg tablet 10 mg PO BEDTIME 09/16/22 02/09/24 History aspirin 81 mg chewable tablet 81 mg PO DAILY #30 tabs 09/17/22 02/09/24 Rx rosuvastatin 20 mg tablet 20 mg PO DAILY #30 tabs 09/17/22 02/09/24 Rx albuterol sulfate 2.5 mg/3 mL 2.5 mg (3 mL) inhalation QID PRN 02/07/24 02/09/24 Rx (0.083 %) solution for nebulization shortness of breath or wheezing #75 mL amlodipine 5 mg tablet 5 mg PO BEDTIME 02/09/24 02/09/24 History cetirizine 5 mg tablet 5 mg PO DAILY 02/09/24 02/09/24 History escitalopram oxalate 5 mg tablet 5 mg PO DAILY 02/09/24 02/09/24 History ipratropium 20 mcg-albuterol 100 1 puff inhalation 3XD 02/09/24 02/09/24 History mcg/actuation mist for inhalation (Combivent Respimat) losartan 100 1 tab PO DAILY 02/09/24 02/09/24 History mg-hydrochlorothiazide 25 mg tablet metformin 500 mg tablet,extended 1,000 mg PO BID 02/09/24 02/09/24 History release 24 hr omeprazole 20 mg capsule,delayed 20 mg PO DAILY 02/09/24 02/09/24 History release prednisone 20 mg tablet 40 mg (2 x 20 mg) PO DAILY #60 tabs 02/14/24 Rx Allergies Allergy/AdvReac Type Severity Reaction Status Date / Time Sulfa (Sulfonamide AdvReac Unknown UNKNOWN Verified 02/07/24 13:12 Antibiotics) REACTION [SULFA (SULFONAMIDE PER PT ANTIBIOTICS)] Review of Systems Review of Systems Narrative: All negative except above Exam Vital Signs (past 8 hours): - 10/04/24 10:06 10/04/24 10:25 10/04/24 10:26 Temperature 100.9 F H Pulse Rate 122 H 121 H Respiratory Rate 30 H 26 H Blood Pressure 135/71 146/85 H Pulse Oximetry 90 L 90 L Oxygen Delivery Method Room Air Nasal Cannula Oxygen Flow Rate 1 10/04/24 10:26 10/04/24 10:30 10/04/24 10:31 Temperature Pulse Rate 120 H 122 H Respiratory Rate 26 H 30 H Blood Pressure 126/83 Pulse Oximetry 91 90 L Oxygen Delivery Method Oxygen Flow Rate 10/04/24 10:31 10/04/24 10:35 10/04/24 10:58 Temperature Pulse Rate 121 H 120 H Respiratory Rate 35 H 28 H Blood Pressure Pulse Oximetry 90 L 88 L 91 Oxygen Delivery Method Room Air Nasal Cannula Oxygen Flow Rate 1 10/04/24 11:00 10/04/24 11:00 10/04/24 11:30 Temperature Pulse Rate 113 H Respiratory Rate 44 H Blood Pressure 182/77 H 131/76 Pulse Oximetry 90 L Oxygen Delivery Method Oxygen Flow Rate 10/04/24 11:30 10/04/24 12:00 10/04/24 12:01 Temperature Pulse Rate 116 H 120 H 119 H Respiratory Rate 30 H 20 24 Blood Pressure Pulse Oximetry 91 92 93 Oxygen Delivery Method Nasal Cannula Nasal Cannula Oxygen Flow Rate 2 2 10/04/24 12:01 10/04/24 12:30 10/04/24 12:30 Temperature Pulse Rate 113 H Respiratory Rate 20 Blood Pressure 121/76 124/71 Pulse Oximetry 94 Oxygen Delivery Method Oxygen Flow Rate 10/04/24 13:00 10/04/24 13:00 10/04/24 13:30 Temperature Pulse Rate 114 H Respiratory Rate 23 Blood Pressure 133/69 114/69 Pulse Oximetry 96 Oxygen Delivery Method Nasal Cannula Nasal Cannula Oxygen Flow Rate 2 2 10/04/24 13:30 10/04/24 14:00 10/04/24 14:01 Temperature Pulse Rate 118 H 114 H Respiratory Rate 20 Blood Pressure 135/63 Pulse Oximetry 94 Oxygen Delivery Method Oxygen Flow Rate 10/04/24 14:01 10/04/24 14:56 Temperature 99.5 F Pulse Rate 115 H Respiratory Rate 23 Blood Pressure Pulse Oximetry Oxygen Delivery Method Oxygen Flow Rate Oxygen Delivery Method Nasal Cannula Oxygen Flow Rate 2 Narrative Exam Narrative: Alert elderly female older than her stated age in appearance diaphoretic. Mucous membranes are moist neck supple without adenopathy lungs with decreased breath sounds throughout slightly worse bilateral bases with wheeze to mid chest. No retractions. Heart is regular rate and rhythm although distant. Abdomen is soft positive bowel sounds nontender. No hepatosplenomegaly or masses extremities without cyanosis clubbing edema. Neurologic exam is nonfocal Objective Labs 10/04/24 10:28 10/04/24 10:28 Labs: Laboratory Results - last 24 hr 10/04/24 10/04/24 10/04/24 10:28 12:07 12:54 WBC 8.7 RBC 5.25 H Hgb 13.9 Hct 42.1 MCV 80.1 MCH 26.5 MCHC 33.0 RDW 18.9 H Plt Count 557 H Neut % (Auto) 69.8 Lymph % (Auto) 9.1 L [place] % (Auto) 19.7 H Eos % (Auto) 0.5 L Baso % (Auto) 0.9 Neut # (Auto) 6000 Lymph # (Auto) 800 L [place] # (Auto) 1700 H Eos # (Auto) 0 Baso # (Auto) 100 PT 12.6 H INR 1.1 APTT 33 ABG Sample Site Right radial ABG pH 7.39 ABG pCO2 40.5 ABG pO2 61 L ABG HCO3 25 ABG Total CO2 24 ABG O2 Saturation 91 L ABG Base Excess -0.3 Jaya Test Positive O2 Delivery Device Cannula Sodium 133 L Potassium 4.1 Chloride 93 L Carbon Dioxide 26 BUN 18 H Creatinine 0.95 Estimated GFR > 60 BUN/Creatinine Ratio 18.9 Glucose 142 H Lactate 0.9 Calcium 9.2 Total Bilirubin 0.6 AST 50 H ALT 32 Alkaline Phosphatase 79 Total Creatine Kinase 47 Troponin I < 0.012 NT-Pro-B Natriuret Pep 390 H Total Protein 7.8 Albumin 4.9 Globulin 2.9 Albumin/Globulin Ratio 1.7 Lipase 34 Procalcitonin 0.195 Assessment & Plan Assessment & Plan narrative: Acute on chronic respiratory failure. Patient with history of COPD. Probably infected although chest x-ray shows no definitive source. Could potentially be viral but it is less likely given her minimal exposure to people. Living alone. Patient with moderate O2 need which she usually does not require. Will treat with antibiotics, steroids, albuterol nebs and re-evaluate in a.m.. Continue oxygen support as needed. I suspect it will be a few days to turn around. Will cover with azithromycin and Rocephin. For presumed community-acquired pneumonia. COPD exacerbation. Patient did quit smoking which we congratulated her for. IV steroids nebulization continue usual inhalers and follow. Probable early pneumonia. IV antibiotics Rocephin and Zithromax. Will follow. Did not have white count. Could be early so it is hard to tell. May need to repeat x-ray after few days in the hospital depending on how she does. Type 2 diabetes. Elevated blood count will place on usual meds plus sliding scale. Will obtain hemoglobin A1c and re-evaluate. It appears as if she may need more aggressive therapy. States that her blood sugars have been elevated for some time. History of hypertension. Stable at this time. Will continue her usual medicines. History of cigarette use discontinued in February of last year. Support given Code status full. DVT prophylaxis will treat with Lovenox Disposition. I anticipate multiple day stay and slow turn around depending on how she responds. Discussed with the patient. Time-Based Coding :: [TOTAL MINUTES] spent with patient and on the chart (including review of chart, obtaining history, exam, reviewing outside data, placing orders, documenting exam and treatment plan, and counseling patient) on [DATE].
[2024-10-04] MEDS: methylPREDNISolone 125 MG/2 ML VIAL 60 MG IV (18:43)
--- NOTE | 2024-10-04 19:50 | PC.NURSE ---
Patient arrived from ED this afternoon. She is A&Ox4, VSS on 2-5 L NC to Oxymask. MD Madrid arrived this evening to evaluate patient. She is able to use BSC. She is diaphoretic this evening while sleeping and mouth breathing and swithced from NC to oxymask. She has a poor appetite this evening but BG 261. Patient reports having multiple falls at home. She acknowledges calling to get up out of bed for assistance. Continuous monitoring.
[2024-10-04] MEDS: BUDESONIDE 0.5 MG/2 ML NEB INH (20:51)
[2024-10-04] MEDS: AMLODIPINE 5 MG TABLET PO (20:51)
[2024-10-04] MEDS: INSULIN LISPRO 100 UNIT/ML 3ML VIAL SUBCUT (20:51)
[2024-10-04] MEDS: hydrOXYzine HCL 25 MG TABLET 50 MG PO (20:52)
[2024-10-04] MEDS: MONTELUKAST 10 MG TABLET PO (20:52)
[2024-10-05] MEDS: methylPREDNISolone 125 MG/2 ML VIAL 60 MG IV ×4 (01:28→18:13)
[2024-10-05] MEDS: PANTOPRAZOLE DR 20 MG TABLET PO (05:34)
[2024-10-05 05:59] LABS: Add Manual Diff / Slide Review NO; Basophils Absolute Auto 0 /uL (0-100); Basophils Percent Auto 0.6 % (0-2); Eosinophils Absolute Auto 0 /uL (0-450); Hematocrit 39.8 % (36-46); Hemoglobin 13.1 g/dL (12.0-16.0); Lymphocytes Absolute Auto 500 /uL (1100-4500); Lymphocytes Percent Auto 6.5 % (25-40); Mean Corpuscular HGB Conc 32.9 % (30-36); Mean Corpuscular Hemoglobin 26.3 PG (26-34); Mean Corpuscular Volume 80.1 fL (80-100); Monocytes Absolute Auto 300 /uL (0-900); Neutrophils Absolute Auto 7000 /uL (1500-7000); Neutrophils Percent Auto 88.9 % (50-75); Platelet Count 485 X10^3/uL (150-400); Red Blood Cell Count 4.97 X10^6/uL (4.0-5.2); Red Cell Distribution Width 19.5 % (11.6-14.8); White Blood Cell Count 7.9 X10^3/uL (4.5-11.0)
[2024-10-05 06:08] LABS: Hemoglobin A1C% w Est Avg Glu 7.5 % (4.0-6.0)
[2024-10-05 06:24] LABS: Alanine Aminotransferase 28 IU/L (<35); Albumin Globulin Ratio 1.5 (1.0-2.8); Alkaline Phosphatase 64 U/L (38-126); Aspartate Aminotransferase 39 IU/L (14-36); BUN Creatinine Ratio 30.3 (6-22); Bilirubin Total 0.3 mg/dL (0.2-1.3); Blood Urea Nitrogen 20 mg/dL (7-17); Calcium 8.9 mg/dL (8.4-10.2); Carbon Dioxide 28 mmol/L (22-32); Chloride 103 mmol/L (98-107); Estimated Glomerular Filt Rate > 60 mL/min (>60); Globulin 2.7 g/dL (1.7-4.1); Glucose 262 mg/dL (80-110); HEMOLYSIS < 15 (0-50); Sodium 139 mmol/L (137-145); Total Protein 6.7 g/dL (6.3-8.2)
--- NOTE | 2024-10-05 06:48 | PC.NURSE ---
Pt pale and nauseated throughout shift, medicated with zofran (see MAR). Pt up and ambulating standby with FWW to bathroom, pain 3/10 at max. Morning labs called with critical value of H/H of 6.0/18.3 (down from 8.1/25.0 immediately post-op) Charge Nurse Selene Workman and provider Dr. Olmedo made aware. Type and Screen ordered, blood consent signed and in chart, and 1 u PRBC ordered.
[2024-10-05 07:00] VITALS: BP 140/75; PULSE 101; RESP 22; TEMP 36.4; O2SAT 93
[2024-10-05] MEDS: BUDESONIDE 0.5 MG/2 ML NEB INH ×2 (07:27→18:57)
[2024-10-05] MEDS: ALBUTEROL/IPRATROPIUM 3 ML AMPUL INH ×4 (07:27→18:57)
[2024-10-05 07:30] VITALS: PULSE 97; RESP 18; O2SAT 94
[2024-10-05] MEDS: hydroCHLOROthiazide 25 MG TABLET PO (09:00)
[2024-10-05] MEDS: DOXYCYCLINE 100 MG in SODIUM CHLORIDE 0.9% 100 ML IV (09:01)
[2024-10-05] MEDS: INSULIN LISPRO 100 UNIT/ML 3ML VIAL SUBCUT ×4 (09:06→20:53)
--- NOTE | 2024-10-05 09:09 | CM.DANOTE ---
Initial DCP Assessment Note Pt is a 69 yo female, resident of [place], presents with increasing SOB, quit smoking 7 mo ago, admitted for continued work up and management of hypoxia, resp failure, possible early PNA. PCP: Tj Palma Payer: [employer] [facility] Reviewed chart, pt discussed w/dr Palma. Patient lives independently in [place], alone, works. Patient is at cognitive and functional baseline. No barriers identified at this time to patient's safe discharge home, close outpatient f/u recommended. CM team will plan to follow clinical course closely in case any DC needs or concerns arise. STEVE Swanson Discharge Planning/Care Management CM Discharge Assessment Start: 10/05/24 09:03 Freq: Status: Active Protocol: Document 10/05/24 09:03 PARDEEP (Rec: 10/05/24 09:09 PARDEEP [id number]) Discharge Planning Assessment Assigned Financial Services Agent STEVE Fraga DPOA/Assigned Designee Name Laura garcia Contact Information [phone] Advance Directives? No Advance Directives on File No: states full code History Provided By Patient,Medical Record Prior Living Arrangements House Household Members none Type of transporation used prior to Drives own vehicle admit Independent with ADL's Yes Is patient alert and oriented? Yes Patient/Family Preference OP PT Therapy Barriers to Discharge No Discharge Plan Home Transportation Arrangement Likely neighbor or friend to transport Referrals Initiated None needed
[2024-10-05] MEDS: ASPIRIN 81 MG CHEW TAB PO (09:12)
[2024-10-05] MEDS: LOSARTAN 50 MG TABLET 100 MG PO (09:12)
[2024-10-05] MEDS: ATORVASTATIN 20 MG TABLET 40 MG PO (09:13)
[2024-10-05] MEDS: ENOXAPARIN 40 MG/0.4 ML SYRINGE SUBCUT (09:13)
[2024-10-05 11:54] LABS: Adenovirus Not Detected (Not Detect); B. parapertussis Not Detected (Not Detecte); Bordetella pertussis Not Detected (Not Detect); Chlamydophila pneumoniae Not Detected (Not Detect); Coronavirus 229E Not Detected (Not Detect); Coronavirus HKU1 Not Detected (Not Detect); Coronavirus NL 63 Not Detected (Not Detect); Coronavirus OC43 Not Detected (Not Detect); Human Metapneumovirus Not Detected (Not Detect); Human Rhinovirus/Enterovirus Not Detected (Not Detect); Influenza A H1-2009 Detected (Not Detect); Influenza B Not Detected (Not Detect); Mycoplasma pneumoniae Not Detected (Not Detect); Parainfluenza Virus 1 Not Detected (Not Detect); Parainfluenza Virus 2 Not Detected (Not Detect); Parainfluenza Virus 3 Not Detected (Not Detect); Parainfluenza Virus 4 Not Detected (Not Detect); Respiratory Syncytial Virus Not Detected (Not Detect); SARS- CoV-2 Not Detected (Not Detecte)
[2024-10-05] MEDS: cefTRIAXone 2,000 MG in SODIUM CHLORIDE 0.9% 100 ML 200 MG IV (13:00)
[2024-10-05] MEDS: OSELTAMIVIR 75 MG CAPSULE PO ×2 (14:11→20:53)
[2024-10-05 15:06] VITALS: PULSE 106; RESP 16; O2SAT 95
--- NOTE | 2024-10-05 17:52 | PM.PN.1 ---
Subjective Subjective Date Patient Seen: 10/05/24 Time Patient Seen: 09:00 Interval history: CC: short of breath acutely ill since Thursday out of the blue with new shortness of breath fatigue feeling like crap etc. Still on 3L via NC. Feeling ok but not great today. Flu swab was positive we are treating with tamiflu. Exam Vital Signs (past 8 hours): - 10/05/24 15:06 Pulse Rate 106 H Respiratory Rate 16 Pulse Oximetry 95 Oxygen Delivery Method Nasal Cannula Oxygen Flow Rate 2 Fraction of Inspired Oxygen 36 SaO2/FiO2 Ratio 258 Oxygen Delivery Method Nasal Cannula Oxygen Flow Rate 2 Narrative Exam Narrative: alert sitting up in bed Resp Other: moving air well lungs are grossly clear to auscultation bilaterally requiring 3L via NC Cardio Other: elevated rate normal S1/S2 no pedal edema GI Other: sof tnontender active bowel sounds Neuro Other: aaox3 moving all limbs equally Objective Labs 10/05/24 04:30 10/05/24 04:30 Labs: Laboratory Results - last 24 hr 10/05/24 10/05/24 04:30 09:29 WBC 7.9 RBC 4.97 Hgb 13.1 Hct 39.8 MCV 80.1 MCH 26.3 MCHC 32.9 RDW 19.5 H Plt Count 485 H Neut % (Auto) 88.9 H Lymph % (Auto) 6.5 L [place] % (Auto) 4.0 Eos % (Auto) 0.0 L Baso % (Auto) 0.6 Neut # (Auto) 7000 Lymph # (Auto) 500 L [place] # (Auto) 300 Eos # (Auto) 0 Baso # (Auto) 0 Sodium 139 Potassium 4.0 Chloride 103 Carbon Dioxide 28 BUN 20 H Creatinine 0.66 Estimated GFR > 60 BUN/Creatinine Ratio 30.3 H Glucose 262 H D Hemoglobin A1c 7.5 H Calcium 8.9 Total Bilirubin 0.3 AST 39 H ALT 28 Alkaline Phosphatase 64 Total Protein 6.7 Albumin 4.0 Globulin 2.7 Albumin/Globulin Ratio 1.5 Chlamy pneumoniae PCR Not detected Adenovirus (PCR) Not detected B. pertussis DNA (PCR) Not detected B.parapertussis DNA PCR Not detected Coronavirus OC43 (PCR) Not detected Coronavirus HKU1 (PCR) Not detected Coronavirus 229E (PCR) Not detected SARS-CoV-2 (PCR) Not detected Coronavirus NL63 (PCR) Not detected Human Metapneumovir PCR Not detected Influ A (H1N1 Seas) PCR Detected H Influenza Type B (PCR) Not detected M. pneumoniae (PCR) Not detected Parainfluenza 1 (PCR) Not detected Parainfluenza 2 (PCR) Not detected Parainfluenza 3 (PCR) Not detected Parainfluenza 4 (PCR) Not detected RSV (PCR) Not detected Entero/Rhino (PCR) Not detected PFSH Medical History DDD (degenerative disc disease) Spinal stenosis Pancreatitis Hyperlipidemia Low back pain with sciatica Smoker Sinusitis Pneumonia Insomnia Surgical History History of eyelid surgery S/P cervical spinal fusion H/O: hysterectomy Social History household members: none Smoking Status: Former smoker Tobacco: How many years used: 37 alcohol intake: former Assessment & Plan Assessment & Plan narrative: #Acute on chronic respiratory failure #acute influenza A infection Hx of COPD however pulmonary status has been excellent since she quit smoking last year. She works at a [employer] with plenty of public contact. Stopping antibiotics given positive flu swab will treat with tamiflu she is within window and obviously stands to benefit from aggressive treatment. continue steroids and prn nebs. #NIDDM Elevated BGs likely 2/2 steroids, cover with lantus and SSI, follow #Hypertension Stable continue home meds #History of cigarette use discontinued in February of last year. Support given Code status full. PCP: Louie DVT prophylaxis will treat with Lovenox Diet: as tolerated Dispo: likely a couple more days - she is not on O2 at baseline Time-Based Coding :: [TOTAL MINUTES] spent with patient and on the chart (including review of chart, obtaining history, exam, reviewing outside data, placing orders, documenting exam and treatment plan, and counseling patient) on [DATE].
[2024-10-05] MEDS: INSULIN GLARGINE 100 UNIT/ML 3ML PEN 10 UNIT SUBCUT (18:02)
[2024-10-05 19:08] VITALS: O2SAT 91
--- NOTE | 2024-10-05 19:27 | RT ---
Spoke with Pt about Tx options to replace CombiVent Rx that is too expensive per Pt. They are open to nebulizer Tx which can be cost effective and possibly covered by insurance/Medicare.
[2024-10-05 20:00] VITALS: BP 143/82; PULSE 102; RESP 19; TEMP 35.7; O2SAT 94
[2024-10-05] MEDS: AMLODIPINE 5 MG TABLET PO (20:52)
[2024-10-05] MEDS: hydrOXYzine HCL 25 MG TABLET 50 MG PO (20:52)
[2024-10-05] MEDS: MONTELUKAST 10 MG TABLET PO (20:53)
[2024-10-06] VITALS (7 sets, daily range): BP systolic 133–140; BP diastolic 66–77; PULSE 89–106; RESP 20–24; TEMP 36.4; O2SAT 90–99
[2024-10-06] MEDS: methylPREDNISolone 125 MG/2 ML VIAL 60 MG IV ×4 (00:58→17:24)
[2024-10-06] MEDS: guaiFENesin Solution 100 MG/5 ML UDC PO ×2 (05:19→17:22)
[2024-10-06] MEDS: BENZONATATE 100 MG CAPSULE 200 MG PO ×3 (05:19→20:31)
[2024-10-06] MEDS: PANTOPRAZOLE DR 20 MG TABLET PO (05:41)
[2024-10-06] MEDS: BUDESONIDE 0.5 MG/2 ML NEB INH ×2 (08:17→20:09)
[2024-10-06] MEDS: ALBUTEROL/IPRATROPIUM 3 ML AMPUL INH ×4 (08:17→20:09)
[2024-10-06] MEDS: LOSARTAN 50 MG TABLET 100 MG PO (08:30)
[2024-10-06] MEDS: ATORVASTATIN 20 MG TABLET 40 MG PO (08:30)
[2024-10-06] MEDS: OSELTAMIVIR 75 MG CAPSULE PO ×2 (08:30→20:31)
[2024-10-06] MEDS: ASPIRIN 81 MG CHEW TAB PO (08:30)
[2024-10-06] MEDS: LORATADINE 10 MG TABLET PO (08:31)
[2024-10-06] MEDS: INSULIN LISPRO 100 UNIT/ML 3ML VIAL SUBCUT ×4 (08:31→20:33)
[2024-10-06] MEDS: INSULIN GLARGINE 100 UNIT/ML 3ML PEN 10 UNIT SUBCUT (08:31)
[2024-10-06] MEDS: hydroCHLOROthiazide 25 MG TABLET PO (08:31)
[2024-10-06] MEDS: ENOXAPARIN 40 MG/0.4 ML SYRINGE SUBCUT (08:31)
--- NOTE | 2024-10-06 18:45 | PM.PN.1 ---
Subjective Subjective Date Patient Seen: 10/06/24 Time Patient Seen: 18:46 Interval history: CC: shortness of breath Pt is feeling a bit better today after starting tamiflu however still needing oxygen support and breathing treatments. appetite is good she is able to sit in the chair for an hour. Continue IS use try to mobilize as tolerated. Exam Vital Signs (past 8 hours): - 10/06/24 12:05 10/06/24 15:54 Pulse Rate 98 H 100 H Respiratory Rate 20 Pulse Oximetry 95 92 Oxygen Delivery Method Nasal Cannula Oxygen Flow Rate 2 Fraction of Inspired Oxygen 36 SaO2/FiO2 Ratio 258 Oxygen Delivery Method Nasal Cannula Oxygen Flow Rate 2 Narrative Exam Narrative: resting comfortably Resp Other: breathing well moving air with 2L via NC Cardio Other: regular rate no pedal edema GI Other: active appetite eating breakfast Neuro Other: alert awake oriented moving all limbs Objective Labs 10/05/24 04:30 10/05/24 04:30 PFSH Medical History DDD (degenerative disc disease) Spinal stenosis Pancreatitis Hyperlipidemia Low back pain with sciatica Smoker Sinusitis Pneumonia Insomnia Surgical History History of eyelid surgery S/P cervical spinal fusion H/O: hysterectomy Social History household members: none Smoking Status: Former smoker Tobacco: How many years used: 37 alcohol intake: former Assessment & Plan Assessment & Plan narrative: #Acute on chronic respiratory failure #acute influenza A infection Hx of COPD however pulmonary status has been excellent since she quit smoking last year. She works at a [employer] with plenty of public contact. Day 2 of tamiflu she is improving but still needs respiratory support #NIDDM Elevated BGs likely 2/2 steroids, increase lantus to 20U and SSI to heavy. #Hypertension Stable continue home meds #History of cigarette use discontinued in February of last year. Support given Code status full. PCP: Louie DVT prophylaxis will treat with Lovenox Diet: as tolerated Dispo: likely one more day - she is not on O2 at baseline Time-Based Coding :: [TOTAL MINUTES] spent with patient and on the chart (including review of chart, obtaining history, exam, reviewing outside data, placing orders, documenting exam and treatment plan, and counseling patient) on [DATE].
[2024-10-06] MEDS: hydrOXYzine HCL 25 MG TABLET 50 MG PO (20:31)
[2024-10-06] MEDS: ACETAMINOPHEN 325 MG TABLET 650 MG PO (20:32)
[2024-10-06] MEDS: AMLODIPINE 5 MG TABLET PO (20:32)
[2024-10-06] MEDS: MONTELUKAST 10 MG TABLET PO (20:32)
[2024-10-07] VITALS (8 sets, daily range): BP systolic 140–155; BP diastolic 56–83; PULSE 89–113; RESP 16–24; TEMP 36.1–36.2; O2SAT 91–94
[2024-10-07] MEDS: methylPREDNISolone 125 MG/2 ML VIAL 60 MG IV ×4 (00:48→17:29)
[2024-10-07] MEDS: PANTOPRAZOLE DR 20 MG TABLET PO (06:27)
[2024-10-07] MEDS: ALBUTEROL/IPRATROPIUM 3 ML AMPUL INH ×4 (08:18→19:32)
[2024-10-07] MEDS: BUDESONIDE 0.5 MG/2 ML NEB INH ×2 (08:18→19:32)
[2024-10-07] MEDS: ENOXAPARIN 40 MG/0.4 ML SYRINGE SUBCUT (08:34)
[2024-10-07] MEDS: LORATADINE 10 MG TABLET PO (08:35)
[2024-10-07] MEDS: BENZONATATE 100 MG CAPSULE 200 MG PO ×2 (08:35→17:29)
[2024-10-07] MEDS: OSELTAMIVIR 75 MG CAPSULE PO ×2 (08:35→20:42)
[2024-10-07] MEDS: ATORVASTATIN 20 MG TABLET 40 MG PO (08:35)
[2024-10-07] MEDS: LOSARTAN 50 MG TABLET 100 MG PO (08:35)
[2024-10-07] MEDS: hydroCHLOROthiazide 25 MG TABLET PO (08:35)
[2024-10-07] MEDS: ASPIRIN 81 MG CHEW TAB PO (08:35)
[2024-10-07] MEDS: INSULIN LISPRO 100 UNIT/ML 3ML VIAL SUBCUT ×4 (08:36→21:45)
[2024-10-07] MEDS: INSULIN GLARGINE 100 UNIT/ML 3ML PEN 20 UNIT SUBCUT (08:38)
[2024-10-07] MEDS: guaiFENesin Solution 100 MG/5 ML UDC PO ×2 (17:36→21:45)
--- NOTE | 2024-10-07 19:36 | P.PN_ITS ---
Subjective Subjective Date Patient Seen: 10/07/24 Time Patient Seen: 09:15 Interval history: CC: shortness of breath Feeling generally awful today still requiring oxygen continuing tamiflu - breathing treatments are really helping. Stable situation for now, appetite not good she is able to get up to the bathroom ok. Exam Vital Signs (past 8 hours): - 10/07/24 11:37 10/07/24 14:22 10/07/24 17:00 Pulse Rate 101 H 113 H 99 H Respiratory Rate 22 16 16 Pulse Oximetry 93 91 94 Oxygen Delivery Method Nasal Cannula Nasal Cannula Oxygen Flow Rate 2 2 1 Fraction of Inspired Oxygen 36 SaO2/FiO2 Ratio 258 Oxygen Delivery Method Nasal Cannula Oxygen Flow Rate 1 Narrative Exam Narrative: tired sick laying in bed Resp Other: moving air ok on 2L via NC, generally ctab with some scattered wheezes Cardio Other: regular rate s1/s2 no pedal edema GI Other: soft nontender nondistended active bowel sounds Neuro Other: aaox3 moving all limbs no pedal edema Objective Labs 10/05/24 04:30 10/05/24 04:30 PFSH Medical History DDD (degenerative disc disease) Spinal stenosis Pancreatitis Hyperlipidemia Low back pain with sciatica Smoker Sinusitis Pneumonia Insomnia Surgical History History of eyelid surgery S/P cervical spinal fusion H/O: hysterectomy Social History household members: none Smoking Status: Former smoker Tobacco: How many years used: 37 alcohol intake: former Assessment & Plan Assessment & Plan narrative: #Acute respiratory failure #acute influenza A infection Hx of COPD however pulmonary status has been excellent since she quit smoking last year. She works at a [employer] with plenty of public contact. Day 3 of tamiflu she is improving but still needs respiratory support Exploring options for maybe home with home O2 tomorrow she does have breathing machine she can use there. #NIDDM continue lantus at 20U and SSI to heavy. #Hypertension Stable continue home meds #History of cigarette use discontinued in February of last year. Support given Code status full. PCP: Louie DVT prophylaxis will treat with Lovenox Diet: as tolerated Dispo: likely one more day - she is not on O2 at baseline might take it home Time-Based Coding :: [TOTAL MINUTES] spent with patient and on the chart (including review of chart, obtaining history, exam, reviewing outside data, placing orders, documenting exam and treatment plan, and counseling patient) on [DATE].
[2024-10-07] MEDS: hydrOXYzine HCL 25 MG TABLET 50 MG PO (20:42)
[2024-10-07] MEDS: MONTELUKAST 10 MG TABLET PO (20:42)
[2024-10-07] MEDS: AMLODIPINE 5 MG TABLET PO (20:42)
[2024-10-07] MEDS: SODIUM CHLORIDE 0.9% FLUSH 10 ML IV (20:43)
[2024-10-07] MEDS: MAGNESIUM HYDROXIDE 30 ML UDC PO (21:45)
[2024-10-08] VITALS (8 sets, daily range): BP systolic 155–173; BP diastolic 83–90; PULSE 89–110; RESP 16–24; TEMP 35.8–36.6; O2SAT 88–94
[2024-10-08] MEDS: methylPREDNISolone 125 MG/2 ML VIAL 60 MG IV ×4 (00:14→17:39)
[2024-10-08] MEDS: ALBUTEROL 2.5 MG/3 ML NEB (ADULT) INH (05:16)
[2024-10-08] MEDS: PANTOPRAZOLE DR 20 MG TABLET PO (06:35)
[2024-10-08] MEDS: ALBUTEROL/IPRATROPIUM 3 ML AMPUL INH ×4 (07:43→17:16)
[2024-10-08] MEDS: BUDESONIDE 0.5 MG/2 ML NEB INH ×2 (07:43→17:16)
[2024-10-08] MEDS: INSULIN LISPRO 100 UNIT/ML 3ML VIAL SUBCUT ×4 (08:05→20:40)
[2024-10-08] MEDS: LOSARTAN 50 MG TABLET 100 MG PO (08:44)
[2024-10-08] MEDS: ASPIRIN 81 MG CHEW TAB PO (08:44)
[2024-10-08] MEDS: OSELTAMIVIR 75 MG CAPSULE PO ×2 (08:45→20:38)
[2024-10-08] MEDS: ATORVASTATIN 20 MG TABLET 40 MG PO (08:46)
[2024-10-08] MEDS: hydroCHLOROthiazide 25 MG TABLET PO (08:46)
[2024-10-08] MEDS: LORATADINE 10 MG TABLET PO (08:46)
[2024-10-08] MEDS: ENOXAPARIN 40 MG/0.4 ML SYRINGE SUBCUT (08:46)
[2024-10-08] MEDS: INSULIN GLARGINE 100 UNIT/ML 3ML PEN 25 UNIT SUBCUT (08:47)
[2024-10-08] MEDS: SODIUM CHLORIDE 0.9% FLUSH 10 ML IV ×2 (08:56→20:53)
--- NOTE | 2024-10-08 11:07 | P.PN_ITS ---
Subjective Subjective Date Patient Seen: 10/08/24 Time Patient Seen: 09:40 Interval history: Chief complaint shortness of breath influenza Patient continues to feel awful today we did do a home O2 eval she is 81% ambulating on room air and able to get up to 88% with 3 L via nasal cannula but still looks weak on her feet. Getting a lot of help still from breathing treatments. Appetite is improving Tamiflu is helping I think. Still not ready to go home. Exam Vital Signs (past 8 hours): - 10/08/24 05:18 10/08/24 07:00 10/08/24 07:51 Temperature Pulse Rate 96 H 99 H Respiratory Rate 20 24 Blood Pressure Pulse Oximetry 90 L 88 L Oxygen Delivery Method Nasal Cannula Nasal Cannula Nasal Cannula Oxygen Flow Rate 2 2 Fraction of Inspired Oxygen 28 10/08/24 08:00 10/08/24 08:44 10/08/24 10:26 Temperature 97.8 F Pulse Rate 104 H 90 110 H Respiratory Rate 21 16 Blood Pressure 164/85 H 155/83 H Pulse Oximetry 94 93 Oxygen Delivery Method Nasal Cannula Oxygen Flow Rate 3 2 Fraction of Inspired Oxygen Fraction of Inspired Oxygen 28 SaO2/FiO2 Ratio 321 Oxygen Delivery Method Nasal Cannula Oxygen Flow Rate 2 Narrative Exam Narrative: Alert ill-looking resting in bed Const Other: Well-developed well-nourished Resp Other: Moving air okay. On 2 L via nasal cannula at rest with sats in mid 90s. No crackles but she does sound globally mildly tight Cardio Other: Regular rate S1-S2 spikes with activity GI Other: Soft nontender nondistended active bowel sounds Neuro Other: Alert awake oriented moving all limbs Objective Labs 10/05/24 04:30 10/05/24 04:30 PFSH Medical History DDD (degenerative disc disease) Spinal stenosis Pancreatitis Hyperlipidemia Low back pain with sciatica Smoker Sinusitis Pneumonia Insomnia Surgical History History of eyelid surgery S/P cervical spinal fusion H/O: hysterectomy Social History household members: none Smoking Status: Former smoker Tobacco: How many years used: 37 alcohol intake: former Assessment & Plan Assessment & Plan narrative: #Acute respiratory failure #acute influenza A infection Hx of COPD however pulmonary status has been excellent since she quit smoking last year. She works at a [employer] with plenty of public contact. Day 4 of tamiflu she is improving but still needs respiratory support. Not ready for home yet but maybe tomorrow with home O2 she does have breathing machine she can use there. #NIDDM continue lantus at 20U and SSI to heavy. I think this is largely secondary to steroids course she is not on insulin at home #Hypertension Stable continue home meds #History of cigarette use discontinued in February of last year. Support given. Code status full. PCP: Louie DVT prophylaxis will treat with Lovenox Diet: as tolerated Dispo: likely one more day - she is not on O2 at baseline and is desatting with activity very easily. She does live at home. Time-Based Coding :: [TOTAL MINUTES] spent with patient and on the chart (including review of chart, obtaining history, exam, reviewing outside data, placing orders, documenting exam and treatment plan, and counseling patient) on [DATE].
[2024-10-08] MEDS: guaiFENesin Solution 100 MG/5 ML UDC PO ×2 (15:30→20:50)
[2024-10-08] MEDS: AMLODIPINE 5 MG TABLET PO (20:38)
[2024-10-08] MEDS: MONTELUKAST 10 MG TABLET PO (20:38)
[2024-10-08] MEDS: hydrOXYzine HCL 25 MG TABLET 50 MG PO (20:39)
[2024-10-08] MEDS: INSULIN GLARGINE 100 UNIT/ML 3ML PEN 15 UNIT SUBCUT (20:39)
[2024-10-09] VITALS (7 sets, daily range): BP systolic 144–171; BP diastolic 84–100; PULSE 79–98; RESP 12–20; TEMP 36.1–36.4; O2SAT 91–95
[2024-10-09] MEDS: PANTOPRAZOLE DR 20 MG TABLET PO (06:26)
[2024-10-09] MEDS: methylPREDNISolone 125 MG/2 ML VIAL 60 MG IV (06:26)
[2024-10-09] MEDS: ALBUTEROL/IPRATROPIUM 3 ML AMPUL INH ×4 (07:46→19:34)
[2024-10-09] MEDS: BUDESONIDE 0.5 MG/2 ML NEB INH ×2 (07:46→19:34)
[2024-10-09] MEDS: OSELTAMIVIR 75 MG CAPSULE PO ×2 (08:27→20:31)
[2024-10-09] MEDS: ATORVASTATIN 20 MG TABLET 40 MG PO (08:27)
[2024-10-09] MEDS: ASPIRIN 81 MG CHEW TAB PO (08:27)
[2024-10-09] MEDS: hydroCHLOROthiazide 25 MG TABLET PO (08:28)
[2024-10-09] MEDS: LOSARTAN 50 MG TABLET 100 MG PO (08:28)
[2024-10-09] MEDS: LORATADINE 10 MG TABLET PO (08:29)
[2024-10-09] MEDS: SODIUM CHLORIDE 0.9% FLUSH 10 ML IV ×2 (09:20→20:40)
--- NOTE | 2024-10-09 09:27 | P.PN_ITS ---
Subjective Subjective Date Patient Seen: 10/09/24 Time Patient Seen: 08:30 Interval history: Chief complaint acute respiratory failure with influenza infection Patient is actually requiring more oxygen today than yesterday still getting breathing treatments regularly today is day 5 of Tamiflu. 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 Exam Vital Signs (past 8 hours): - 10/09/24 07:00 10/09/24 07:46 10/09/24 08:28 Pulse Rate 89 88 Respiratory Rate 20 Blood Pressure 170/100 H Pulse Oximetry 92 Oxygen Delivery Method Nasal Cannula Nasal Cannula Oxygen Flow Rate 3 Fraction of Inspired Oxygen 32 Fraction of Inspired Oxygen 32 SaO2/FiO2 Ratio 287 Oxygen Delivery Method Nasal Cannula Oxygen Flow Rate 3 Narrative Exam Narrative: Sitting up in bed Const Other: Well-developed well-nourished Eyes Other: Extraocular movements intact bilateral allergic shiners Resp Other: Moving air okay only able to put up 1000 mL on the incentive spirometer she is grossly clear to auscultation but sounds tight albeit not wheezy did get last breathing treatment 2 hours ago Cardio Other: Rate okay S1-S2 no pedal edema GI Other: Soft nontender active bowel sounds Neuro Other: Alert active oriented x3 moving all limbs equally Objective Labs 10/05/24 04:30 10/05/24 04:30 PFSH Medical History DDD (degenerative disc disease) Spinal stenosis Pancreatitis Hyperlipidemia Low back pain with sciatica Smoker Sinusitis Pneumonia Insomnia Surgical History History of eyelid surgery S/P cervical spinal fusion H/O: hysterectomy Social History household members: none Smoking Status: Former smoker Tobacco: How many years used: 37 alcohol intake: former Assessment & Plan Assessment & Plan narrative: #Acute respiratory failure #acute influenza A infection Hx of COPD however pulmonary status has been excellent since she quit smoking last year. She works at a [employer] with plenty of public contact. Day 4 of tamiflu she is improving but still needs respiratory support. Respiratory status has worsened today we will re-evaluate this afternoon maybe 1 more day #NIDDM She has been on lantus at 20U and SSI heavy- sugar this morning in the 80s. I think this is largely secondary to steroids course she is not on insulin at home we will start trending down both doses. #Hypertension Stable continue home meds #History of cigarette use discontinued in February of last year. Support given. Code status full. PCP: Louie DVT: Lovenox Diet: as tolerated Dispo: likely one more day - she is not on O2 at baseline and is desatting with activity very easily. She does live at home. Time-Based Coding :: [TOTAL MINUTES] spent with patient and on the chart (including review of chart, obtaining history, exam, reviewing outside data, placing orders, documenting exam and treatment plan, and counseling patient) on [DATE].
[2024-10-09] MEDS: INSULIN LISPRO 100 UNIT/ML 3ML VIAL SUBCUT ×3 (12:00→20:31)
[2024-10-09] MEDS: ACETAMINOPHEN 325 MG TABLET 650 MG PO (12:04)
--- NOTE | 2024-10-09 15:30 | CM.DPC ---
DCP Cont: Per MD, was hopeful pt stable for d/c home today but had increased O2 needs today and regular breathing treatments and on day 4 of Tamiflu and not yet stable for discharge. RT to assess for home O2 orders placed yesterday and eval completed, unclear if pt met criteria for new Home O2. 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 STEVE Black
[2024-10-09] MEDS: guaiFENesin Solution 100 MG/5 ML UDC PO ×2 (15:40→20:31)
--- NOTE | 2024-10-09 17:33 | PC.NURSE ---
shift note: Pt up out of bed most of today, showered, walked the barrett with supplimental O2. Tolerated well, SPO2 increased to 98% on 3L, turned down to 2L @ 1700. Pt denies shortness of breath and expresses readiness to discharge tomorrow.
[2024-10-09] MEDS: MONTELUKAST 10 MG TABLET PO (20:31)
[2024-10-09] MEDS: AMLODIPINE 5 MG TABLET PO (20:31)
[2024-10-09] MEDS: INSULIN GLARGINE 100 UNIT/ML 3ML PEN SUBCUT (20:32)
[2024-10-09] MEDS: hydrOXYzine HCL 25 MG TABLET 50 MG PO (20:40)
[2024-10-10] MEDS: PANTOPRAZOLE DR 20 MG TABLET PO (05:58)
--- NOTE | 2024-10-10 06:18 | PC.NURSE ---
pt has slept well this shift; she verbalized readiness for discharge this morning; at bedtime, her fingerstick was 330 and she received glargine 5units and lispro 7 units SQ; she was medicated once w/ robitussin for cough; pt remains on o2/2l/nc
[2024-10-10 06:30] VITALS: PULSE 95; RESP 16; O2SAT 89
[2024-10-10] MEDS: ALBUTEROL/IPRATROPIUM 3 ML AMPUL INH ×2 (06:30→10:54)
[2024-10-10] MEDS: BUDESONIDE 0.5 MG/2 ML NEB INH (06:30)
[2024-10-10 07:00] VITALS: BP 171/90; PULSE 92; RESP 12; TEMP 36.4; O2SAT 99
[2024-10-10] MEDS: ENOXAPARIN 40 MG/0.4 ML SYRINGE SUBCUT (08:30)
[2024-10-10] MEDS: LOSARTAN 50 MG TABLET 100 MG PO (08:30)
[2024-10-10] MEDS: ASPIRIN 81 MG CHEW TAB PO (08:30)
[2024-10-10] MEDS: hydroCHLOROthiazide 25 MG TABLET PO (08:30)
[2024-10-10] MEDS: OSELTAMIVIR 75 MG CAPSULE PO (08:30)
[2024-10-10] MEDS: predniSONE 20 MG TABLET 40 MG PO (08:31)
[2024-10-10] MEDS: LORATADINE 10 MG TABLET PO (08:31)
[2024-10-10] MEDS: INSULIN GLARGINE 100 UNIT/ML 3ML PEN SUBCUT (08:32)
[2024-10-10] MEDS: ATORVASTATIN 20 MG TABLET 40 MG PO (08:32)
[2024-10-10] MEDS: SODIUM CHLORIDE 0.9% FLUSH 10 ML IV (08:49)
[2024-10-10 10:54] VITALS: PULSE 107; RESP 16; O2SAT 92
--- NOTE | 2024-10-10 11:27 | PM.DS.1 ---
History of Present Illness History of Present Illness Date Patient Seen: 10/10/24 Time Patient Seen: 09:10 Chief complaint: Per Patient, May have COVID, Flu or Stroke Narrative: Feeling a bit better today still needing supplemental oxygen but able to take deeper breaths. will dc home to f/up wt PCP - with prednisone taper and duoneb solution and home O2. She has completed tamiflu course. Discharge Providers Provider Date of admission: 10/04/24 14:34 Discharge Date: 10/10/24 Primary care physician: Tj Palma MD Consults: 10/04/24 17:18 Consult to Cardio/Pulmonary Rehabilitation Routine Comment: Physician Instructions: Evaluate and treat Discharge provider: jT Palma MD Summary Hospital Course Discharge Diagnosis: #Acute respiratory failure #acute influenza A infection #NIDDM #Hypertension #History of cigarette use Hospital Course: Ms. Alford is a pleasant patient of ours with a history of frequent COPD exacerbations which basically stopped last year when she stopped smoking after a particularly bad one. At baseline she lives independently and works at a local [employer]. She presented to the ED last week with acute shortness of breath on exertion and was found to be in respiratory failure with influenza A infection. She was started on tamiflu and supplemental oxygen and has been feeling pretty exhausted and fatigued with decreased appetite. She has certainly been benefiting from duonebs and her ability to take deep breaths has improved by DoD. She does well for short periods of ambulation and was set up for home discharge with home oxygen and close f/up with PCP. She received several days of IV steroids and will continue with a brief taper of oral steroids on discharge. Status at Discharge Cognitive/behavioral status at discharge: at baseline, oriented Functional status at discharge: independent ambulation (with supplemental oxygen) Overall status at discharge: patient is progressing back to baseline Exam Vital Signs (past 8 hours): - 10/10/24 06:30 10/10/24 07:00 10/10/24 07:00 Temperature 97.5 F L Pulse Rate 95 H 92 H Respiratory Rate 16 12 Blood Pressure 171/90 H Pulse Oximetry 89 L 99 Oxygen Delivery Method Nasal Cannula Humidification Nasal Cannula Oxygen Flow Rate 3 3 Fraction of Inspired Oxygen 32 10/10/24 10:54 Temperature Pulse Rate 107 H Respiratory Rate 16 Blood Pressure Pulse Oximetry 92 Oxygen Delivery Method Nasal Cannula Oxygen Flow Rate 3 Fraction of Inspired Oxygen Fraction of Inspired Oxygen 32 SaO2/FiO2 Ratio 278 Oxygen Delivery Method Nasal Cannula Oxygen Flow Rate 3 Narrative Exam Narrative: sitting up in chair gazing wistfully out the window Const Other: well developed well nourished Resp Other: moving air well but still does sound a bit tight - much better than yesterday Cardio Other: regular rate s1/s2 no pedal edema GI Other: soft nontender active bowel sounds Neuro Other: alert active oriented x3 moving all limbs Objective Labs 10/05/24 04:30 10/05/24 04:30 PFSH Medical History DDD (degenerative disc disease) Spinal stenosis Pancreatitis Hyperlipidemia Low back pain with sciatica Smoker Sinusitis Pneumonia Insomnia Surgical History History of eyelid surgery S/P cervical spinal fusion H/O: hysterectomy Social History household members: none Smoking Status: Former smoker Tobacco: How many years used: 37 alcohol intake: former Discharge Assessment & Plan Assessment and Plan Assessment: #Acute respiratory failure #acute influenza A infection Hx of COPD however pulmonary status has been excellent since she quit smoking last year. She works at a [employer] with plenty of public contact. Completed 5 days of tamiflu she is improving but still needs respiratory support. Home O2 arranged with prednisone taper and duoneb cartridges for nebulizing machine. #NIDDM She has been on lantus at 20U and SSI heavy due to elevated BGs largely secondary to steroids course she is not on insulin at home return to home regimen and trend down steroids #Hypertension Stable continue home meds #History of cigarette use discontinued in February of last year. Support given. Code status full. PCP: Louie DVT: Lovenox Diet: as tolerated Dispo: home with home O2 to f/up with PCP Discharge Plan Discharge Plan Patient Disposition: Home Discharge orders & Medications Prescriptions: New ipratropium-albuterol 0.5 mg-3 mg(2.5 mg base)/3 mL Solution For Nebulization 3 ml INH [id number] Qty: 30 0RF prednisone 20 mg Tablet 20 mg PO DAILY Qty: 3 0RF budesonide [Pulmicort] 0.5 mg/2 mL Suspension For Nebulization 0.5 mg INH RTBID Qty: 30 0RF Continued albuterol sulfate 2.5 mg /3 mL (0.083 %) solution for nebulization 2.5 mg inhalation QID PRN (Reason: shortness of breath or wheezing) Qty: 75 0RF albuterol sulfate [Ventolin HFA] 90 mcg/actuation HFA aerosol inhaler 2 puff INHALATION Q6H PRN (Reason: Shortness Of Breath) montelukast 10 mg tablet 10 mg PO BEDTIME hydroxyzine HCl 50 mg tablet 50 mg PO BEDTIME rosuvastatin 20 mg tablet 20 mg PO DAILY Qty: 30 0RF aspirin 81 mg tablet,chewable 81 mg PO DAILY Qty: 30 0RF cetirizine 5 mg Tablet 5 mg PO DAILY amlodipine 5 mg tablet 5 mg PO BEDTIME losartan-hydrochlorothiazide 100-25 mg tablet 1 tab PO DAILY omeprazole 20 mg capsule,delayed release(DR/EC) 20 mg PO DAILY metformin 500 mg tablet extended release 24 hr 1,000 mg PO BID escitalopram oxalate 5 mg tablet 5 mg PO DAILY Patient Comments: Patient has not started yet Combivent Respimat 20-100 mcg/actuation mist 1 puff inhalation 3XD Follow up/Referrals: Tj Palma MD [Primary Care Provider] - Visit Report/Discharge Packet Stand Alone Forms: Patient Portal/API, Stroke Signs & Symptoms Discharge Data Primary Care Provider: Tj Palma
--- NOTE | 2024-10-10 12:45 | CM.DPNOTE ---
DCP note FISH AGENT reviewed EMR per Dr. Palma, cleared to id home today once home O2 is established. likely no other CM needs, pt very indep at baseline. FISH AGENT spoke with RT, working on arranging home O2. Per RN, pt reported needing a ride. FISH AGENT met with pt in room, confirms needing a ride home. denies other CM needs. reports having [facility] for taxi, agreeable to [facility]. asked this FISH AGENT to call for her at id. Per RN, O2 all set up, pt ready to be wheeled out front for taxi home. FISH AGENT spoke with [facility] dispatch ([phone]). transporting someone to [facility], will be at main entrance in 25 mins. FISH AGENT updated RN on timeline for [facility]. P: dc today with new home O2, transport with [facility] PP. no other CM needs at this time, will continue to follow as needed STEVE Loo
--- NOTE | 2024-10-10 13:20 | PC.NURSE ---
Discharge order received. Home O2 order received, RT assisted pt with home o2 plan. All belongings sent home with pt.
== END 2024-10-10 12:45 | disposition home or self-care (01) | DRG 189 ==
LOC: ED 12:37 → AC 14:35
PROVIDERS: Admitting Provider Family Medicine; Emergency Provider Emergency Medicine; PCP Family Medicine; Referring Provider Emergency Medicine; Visit Provider Family Medicine
DX: J96.21 Acute and chronic respiratory failure with hypoxia (principal); J10.1 Influenza due to other identified influenza virus with other respiratory manifestations; R53.1 Weakness; R29.6 Repeated falls; I10 Essential (primary) hypertension; J44.9 Chronic obstructive pulmonary disease, unspecified; E11.65 Type 2 diabetes mellitus with hyperglycemia; T38.0X5A Adverse effect of glucocorticoids and synthetic analogues, initial encounter; R00.0 Tachycardia, unspecified; E78.5 Hyperlipidemia, unspecified; Z79.84 Long term (current) use of oral hypoglycemic drugs; Z87.891 Personal history of nicotine dependence
CPT/HCPCS: 36415; 36600; 71045; 80053; 81003; 82550; 82805; 82962; 83036; 83605; 83690; 83880; 84145; 84484; 85025; 85610; 85730; 87040; 87633; 93005; 94618; 94640; 94762; 96361; 96365; 96367; 96375; 99284; 99285; A9270; J0696; J1650; J1815; J2405; J2919; J7613

== ENCOUNTER 2024-11-15 07:54 | Emergency (ER) | payer OTHER, SELFPAY ==
[2024-10-04 14:36] VITALS: BMI 27.4
[2024-11-15] VITALS (12 sets, daily range): BP systolic 158–195; BP diastolic 74–94; PULSE 91–122; RESP 12–24; TEMP 36.8–37.1; O2SAT 91–93; BMI 24.7
--- NOTE | 2024-11-15 08:21 | ED.ABDPAIN ---
HPI - Abdominal Pain General Chief Complaint: Urogenital-Female Stated Complaint: Kidney or UTI lower left back pain/left leg pain Time Seen by Provider: 11/15/24 08:11 Source: patient Mode of arrival: Ambulatory History of Present Illness HPI narrative: 69-year-old lady with a history of hypertension, dyslipidemia, diabetes, hysterectomy, appendectomy, presents for evaluation of foul smelling urine that has been going on for some time per the patient she also points to her left lower quadrant of her abdomen and that the pain also radiates around to the back she says it has been going on since last February. Patient also reports having a negative colonoscopy 2 years ago denies any weight loss unintentionally fever chills night sweats or on dietary changes or bowel habits. Other than what is stated 14 point review of system is negative Related Data Home Medications Medication Instructions Recorded Confirmed albuterol sulfate 90 mcg/actuation 2 puff inhalation Q6H PRN 03/14/18 10/05/24 aerosol inhaler (Ventolin HFA) Shortness Of Breath hydroxyzine HCl 50 mg tablet 50 mg PO BEDTIME 09/16/22 10/05/24 montelukast 10 mg tablet 10 mg PO BEDTIME 09/16/22 10/05/24 amlodipine 5 mg tablet 5 mg PO BEDTIME 02/09/24 10/05/24 cetirizine 5 mg tablet 5 mg PO DAILY 02/09/24 10/05/24 escitalopram oxalate 5 mg tablet 5 mg PO DAILY 02/09/24 10/05/24 ipratropium 20 mcg-albuterol 100 1 puff inhalation 3XD 02/09/24 10/05/24 mcg/actuation mist for inhalation (Combivent Respimat) losartan 100 1 tab PO DAILY 02/09/24 10/05/24 mg-hydrochlorothiazide 25 mg tablet metformin 500 mg tablet,extended 1,000 mg PO BID 02/09/24 10/05/24 release 24 hr omeprazole 20 mg capsule,delayed 20 mg PO DAILY 02/09/24 10/05/24 release Previous Rx's Medication Instructions Recorded aspirin 81 mg chewable tablet 81 mg PO DAILY #30 tabs 09/17/22 rosuvastatin 20 mg tablet 20 mg PO DAILY #30 tabs 09/17/22 albuterol sulfate 2.5 mg/3 mL 2.5 mg (3 mL) inhalation QID PRN 02/07/24 (0.083 %) solution for nebulization shortness of breath or wheezing #75 mL budesonide 0.5 mg/2 mL suspension 0.5 mg (2 mL) INH RTBID #30 mL 10/10/24 for nebulization (Pulmicort) ipratropium 0.5 mg-albuterol 3 mg 3 ml INH [id number] #30 mL 10/10/24 (2.5 mg base)/3 mL nebulization soln prednisone 20 mg tablet 20 mg PO DAILY #3 tabs 10/10/24 nitrofurantoin 100 mg PO BID #10 caps 11/15/24 monohydrate/macrocrystals 100 mg capsule (Macrobid) polyethylene glycol 3350 17 17 g PO DAILY #238 grams 11/15/24 gram/dose oral powder (Miralax) Allergies Allergy/AdvReac Type Severity Reaction Status Date / Time Sulfa (Sulfonamide AdvReac Unknown UNKNOWN Verified 02/07/24 13:12 Antibiotics) REACTION [SULFA (SULFONAMIDE PER PT ANTIBIOTICS)] Review of Systems Review of Systems ROS Unobtainable: All systems reviewed & are unremarkable except as noted in HPI and below Patient History Medical History DDD (degenerative disc disease) Spinal stenosis Pancreatitis Hyperlipidemia Low back pain with sciatica Smoker Sinusitis Pneumonia Insomnia Surgical History History of eyelid surgery S/P cervical spinal fusion H/O: hysterectomy Social History household members: none Tobacco: How many years used: 37 alcohol intake: former Exam Narrative Exam Narrative: GENERAL: [69] year old patient appears stated age. Well-developed patient, in mild distress. HEAD: Atraumatic. Normocephalic. EYES: Pupils equal round and reactive. Extraocular motions intact. No scleral icterus. No injection or drainage. ENT: Nose without bleeding, purulent drainage. Throat without erythema, tonsillar hypertrophy or exudate. Airway patent. NECK: Trachea midline. Non tender CARDIOVASCULAR: Regular rate and rhythm without murmurs, gallops, or rubs. RESPIRATORY: Clear to auscultation. Breath sounds equal bilaterally. No wheezes, rales, or rhonchi. GASTROINTESTINAL: Abdomen soft, non-tender, nondistended. EXTREMITIES: No edema or joint tenderness. BACK: Nontender without deformity or crepitance. No flank tenderness. NEURO: AOx3. SKIN: No rash or erythema of visible areas Initial Vital Signs Initial Vital Signs: Vital Signs Pulse Rate 122 H 11/15/24 08:04 Blood Pressure 195/91 H 11/15/24 08:04 Pulse Oximetry 91 11/15/24 08:04 Course Orders Ordered: ED Orders 11/15/24 08:03 Ictotest Urine Stat Urinalysis and Microscopic Stat Urine Culture Stat 11/15/24 08:39 EKG-12 Lead Stat 11/15/24 08:46 CT abdomen pelvis w con Stat 11/15/24 08:47 CXR [XR chest 1V] Stat 11/15/24 10:56 Complete Blood Count AUTO DIFF Stat Comprehensive Metabolic Panel Stat Lipase Stat Ondansetron HCl (Ondansetron 4 Mg/2 Ml Inj) 4 mg IV NOW PRN PRN Reason: Nausea And Vomiting Ondansetron HCl (Ondansetron 4 Mg Odt) 4 mg PO NOW PRN PRN Reason: Nausea And Vomiting Discontinued Medications Sodium Chloride (Normal Saline 0.9%) 1,000 mls @ 1,000 mls/hr IV BOLUS ONE Stop: 11/15/24 09:44 Last Admin: 11/15/24 09:07 Dose: 1,000 mls/hr Documented By: BATOOL Ceftriaxone Sodium 1,000 mg/ (Sodium Chloride) 100 mls @ 200 mls/hr IV NOW ONE Stop: 11/15/24 08:47 Last Admin: 11/15/24 09:08 Dose: 200 mls/hr Documented By: BATOOL All lab work and CT scan reviewed as well as previous ER visits, medication list, vital Signs, nurse triage note. Differential diagnosis includes UTI kidney stones kidney infection pancreatitis diverticulitis constipation. DC home on Macrobid and Miralax rx. Return with new or worsening symptoms Vital Signs Vital signs: Vital Signs - 8 hr 11/15/24 08:04 11/15/24 08:04 11/15/24 08:08 Temperature 98.7 F Pulse Rate 122 H 109 H Respiratory Rate 18 Blood Pressure 195/91 H 195/91 H Pulse Oximetry 91 92 Oxygen Delivery Method Room Air 11/15/24 08:30 11/15/24 08:30 11/15/24 08:58 Temperature Pulse Rate 103 H Respiratory Rate Blood Pressure 169/80 H 158/94 H Pulse Oximetry 92 Oxygen Delivery Method 11/15/24 08:58 11/15/24 09:00 11/15/24 09:00 Temperature Pulse Rate 101 H 100 H Respiratory Rate Blood Pressure 159/83 H Pulse Oximetry 92 91 Oxygen Delivery Method 11/15/24 09:26 11/15/24 09:26 11/15/24 09:30 Temperature Pulse Rate 93 H Respiratory Rate 14 Blood Pressure 170/77 H 184/75 H Pulse Oximetry 93 Oxygen Delivery Method 11/15/24 09:30 11/15/24 10:00 11/15/24 10:00 Temperature Pulse Rate 94 H 97 H Respiratory Rate 15 24 Blood Pressure 174/79 H Pulse Oximetry 92 91 Oxygen Delivery Method MDM - Abdominal Pain Lab Data 11/15/24 10:56 11/15/24 10:56 Labs: Lab Results 11/15/24 11/15/24 Range/Units 08:03 10:56 WBC 8.9 (4.5-11.0) X10^3/uL RBC 4.53 (4.0-5.2) X10^6/uL Hgb 12.4 (12.0-16.0) g/dL Hct 37.1 (36-46) % MCV 81.8 (80-100) fL MCH 27.3 (26-34) PG MCHC 33.4 (30-36) % RDW 19.2 H (11.6-14.8) % Plt Count 378 (150-400) X10^3/uL Neut % (Auto) 68.8 (50-75) % Lymph % (Auto) 22.2 L (25-40) % Orange % (Auto) 7.1 (3-14) % Eos % (Auto) 1.0 L (2-4) % Baso % (Auto) 0.9 (0-2) % Neut # (Auto) 6100 (2498-3087) /uL Lymph # (Auto) 2000 (2737-8912) /uL Orange # (Auto) 600 (0-900) /uL Eos # (Auto) 100 (0-450) /uL Baso # (Auto) 100 (0-100) /uL Sodium 136 L (137-145) mmol/L Potassium 3.8 (3.4-5.1) mmol/L Chloride 99 (98-107) mmol/L Carbon Dioxide 26 (22-32) mmol/L BUN 17 (7-17) mg/dL Creatinine 0.61 (0.52-1.04) mg/dL Estimated GFR > 60 (>60) mL/min BUN/Creatinine Ratio 27.9 H (6-22) Glucose 173 H (80-110) mg/dL Calcium 8.7 (8.4-10.2) mg/dL Total Bilirubin 0.4 (0.2-1.3) mg/dL AST 25 (14-36) IU/L ALT 29 (<35) IU/L Alkaline Phosphatase 78 (38-126) U/L Total Protein 6.9 (6.3-8.2) g/dL Albumin 4.2 (3.5-5.0) g/dL Globulin 2.7 (1.7-4.1) g/dL Albumin/Globulin Ratio 1.6 (1.0-2.8) Lipase 27 (23-300) U/L Urine Color Yellow Urine Appearance Cloudy Urine pH 6.0 (4.5-8.0) Ur Specific [place] >=1.030 H (1.000-1.035) Urine Protein 2+ H (Negative) Urine Glucose (UA) Negative (Negative) g/dL Urine Ketones Negative (NEGATIVE) Urine Occult Blood 3+ H (Negative) Urine Nitrate Positive H (Negative) Urine Bilirubin 1+ H (NEGATIVE) Ur Bilirubin Confirm Negative (Negative) Urine Urobilinogen 1.0 (0.2) E.U./dL Ur Leukocyte Esterase 1+ H (NEGATIVE) Urine RBC 30-100/hpf H (0-5/HPF) Urine WBC 30-100/hpf H (0-5/HPF) Ur Squamous Epith Cells 1-5 /hpf (0-5/HPF) Urine Bacteria Moderate (10-30) H (None) Ur Culture Indicated? Specimen cultured Vol Urine Centrifuged Low vol <10ml (spun) A Imaging Data CT scan - abdomen/pelvis: My Impression: [address] [address] [address] Scan Report Signed Patient: Elenita Alford MR#: [id number] : 1955 Acct:[id number] Age/Sex: 69 / F Date of Service: 11/15/24 Loc: ED Accession Number: [id number] Procedure: CT abdomen pelvis w con Ordering Provider: Juan Alberto Ledesma D.O. PROCEDURE: CT ABDOMEN PELVIS W CON INDICATIONS: abd pain radiating to back TECHNIQUE: After the administration of intravenous contrast, axial sections acquired from the lung bases to the pubic symphysis. Coronal and sagittal reformats were performed. For radiation dose reduction, the following was used: automated exposure control, adjustment of mA and/or kV according to patient size. COMPARISON: [facility], CT, CT ABDOMEN PELVIS W CON, 02/23/2023, 8:32. FINDINGS: Image quality: Diagnostic. Lower Chest: Bibasilar dependent atelectasis is seen. Heart size is normal, no pericardial effusion. ABDOMEN: Liver: No solid mass. Gallbladder: No radiopaque gallstones or wall thickening. Biliary ducts: No biliary dilation. Pancreas: No ductal dilation. Spleen: Size is within normal limits. Adrenal Glands: No adrenal nodules. Kidneys and Ureters: No hydronephrosis. No solid mass. No complex renal cystic lesion which requires follow up. Stomach and Bowel: Moderate fecal stasis throughout the colon is seen. There is no bowel obstruction. No abnormal bowel wall thickening or mesenteric fat stranding. No evidence of acute appendicitis or diverticulitis. No abscess collection. Peritoneum: No abnormal intraperitoneal fluid. No free air. Ventral Wall: No significant ventral hernia. Abdominal Nodes: No retroperitoneal or mesenteric adenopathy by size criteria. Vessels: Aorta and inferior vena cava are normal in size. PELVIS: Pelvic Organs: Unremarkable. Bladder: No bladder wall thickening, accounting for underdistention. Pelvic Nodes: No enlarged lymph nodes. Miscellaneous: No inguinal hernias are seen. Bones: No aggressive osseous abnormality. Degenerative disc disease throughout lumbar spine is seen. 2 mm anterolisthesis of L4 on L5 is seen. IMPRESSION: 1. Moderate constipation. No bowel obstruction or abnormal bowel wall thickening. No evidence of acute appendicitis or diverticulitis. No free fluid or free air. 2. No obstructing renal stones or hydronephrosis. 3. Spondylitic changes throughout lumbar spine. No acute vertebral body compression fracture. Dictated by: Doug Carranza M.D. on 11/15/2024 at 9:17 Approved by: Doug Carranza M.D. on 11/15/2024 at 9:[address] [address] XRay Report Signed Patient: Elenita Alford MR#: [id number] : 1955 Acct:[id number] Age/Sex: 69 / F Date of Service: 11/15/24 Loc: ED Accession Number: [id number] Procedure: XR chest 1V Ordering Provider: Juan Alberto Ledesma D.O. PROCEDURE: XR CHEST 1V INDICATIONS: mediastinal lymphadenopathy, sob, chest pain TECHNIQUE: One view of the chest was acquired. COMPARISON: [facility], , XR CHEST 1V, 10/04/2024, 10:19. FINDINGS: Surgical changes and devices: None. Lungs and pleura: Subtle airspace opacity in bilateral infrahilar region is seen concerning for small lower lobe infiltrates versus atelectasis more prominent on the left side. No pleural effusions or pneumothorax. Mediastinum: Mediastinal contours appear normal. Heart size is normal. Bones and chest wall: No suspicious bony lesions. Overlying soft tissues appear unremarkable. IMPRESSION: Finding may represent small bibasilar infiltrate versus atelectasis. No pleural effusion or pneumothorax. Dictated by: Doug Carranza M.D. on 11/15/2024 at 9:18 Approved by: Doug Carranza M.D. on 11/15/2024 at 9:18 ECG Data Attestation: I personally reviewed and interpreted this ECG as follows: Interpretation: NSR No St-t wave changes HR91 DC 136 QRS 62 QT 330 Change from 10/04/24 MDM Narrative Medical decision making narrative: All lab work, vital signs, medication list, previous ER visits, and all imaging studies have all been reviewed as well as nurse triage note. patient was given Rocephin 1 g IV, normal saline, and zofran here. differential diagnosis includes pyelonephritis UTI kidney stone pancreatitis diverticulitis constipation. DC home on Macrobid and MiraLax prescription. Return with new or worsening symptoms Discharge Plan Departure Patient Disposition: Home Clinical Impression: Acute UTI, Acute constipation Instructions: DI for Constipation Activity Restrictions/Additional Instructions: return with new or worsening symptoms take your medicine as directed and follow up with PCP in 1-2 weeks Prescriptions: New nitrofurantoin monohyd/m-cryst [Macrobid] 100 mg capsule 100 mg PO BID Qty: 10 0RF Rx Instructions: must administer with a meal/food polyethylene glycol 3350 [Miralax] 17 gram/dose powder 17 g PO DAILY Qty: 238 0RF No Action albuterol sulfate 2.5 mg /3 mL (0.083 %) solution for nebulization 2.5 mg inhalation QID PRN (Reason: shortness of breath or wheezing) Qty: 75 0RF albuterol sulfate [Ventolin HFA] 90 mcg/actuation HFA aerosol inhaler 2 puff INHALATION Q6H PRN (Reason: Shortness Of Breath) montelukast 10 mg tablet 10 mg PO BEDTIME hydroxyzine HCl 50 mg tablet 50 mg PO BEDTIME rosuvastatin 20 mg tablet 20 mg PO DAILY Qty: 30 0RF aspirin 81 mg tablet,chewable 81 mg PO DAILY Qty: 30 0RF cetirizine 5 mg Tablet 5 mg PO DAILY amlodipine 5 mg tablet 5 mg PO BEDTIME losartan-hydrochlorothiazide 100-25 mg tablet 1 tab PO DAILY omeprazole 20 mg capsule,delayed release(DR/EC) 20 mg PO DAILY metformin 500 mg tablet extended release 24 hr 1,000 mg PO BID escitalopram oxalate 5 mg tablet 5 mg PO DAILY Patient Comments: Patient has not started yet Combivent Respimat 20-100 mcg/actuation mist 1 puff inhalation 3XD ipratropium-albuterol 0.5 mg-3 mg(2.5 mg base)/3 mL Solution For Nebulization 3 ml INH [id number] Qty: 30 0RF prednisone 20 mg Tablet 20 mg PO DAILY Qty: 3 0RF budesonide [Pulmicort] 0.5 mg/2 mL Suspension For Nebulization 0.5 mg INH RTBID Qty: 30 0RF Referrals: Tj Palma MD [Primary Care Provider] - Stand Alone Forms: Patient Portal/API/Survey
[2024-11-15 08:28] LABS: Appearance Urine UA CLOUDY; Bilirubin Urine UA 1+ (NEGATIVE); Color Urine UA YELLOW; Glucose Urine UA NEGATIVE (Negative); Ketones Urine UA NEGATIVE (NEGATIVE); Leukocyte Esterase Urine UA 1+ (NEGATIVE); Nitrite Urine UA POSITIVE (Negative); Occult Blood Urine UA 3+ (Negative); Protein Urine UA 2+ (Negative); Specific Gravity Urine UA >=1.030 (1.000-1.035)
--- NOTE | 2024-11-15 08:39 | EKG_ITS ---
[address] [address] Test Date: 2024-11-15 Pat Name: Elenita Alford Department: [facility] Room: Gender: Female [employer] Equipment [employer]r: MYRIAM : 1955 Requested By: Order Number: [id number] Reading MD: Fritz Jeffrey Measurements Intervals [place] Rate: 91 P: 80 GA: 136 QRS: 38 QRSD: 62 T: 31 QT: 330 QTc: 405 Interpretive Statements Normal sinus rhythm Electronically Signed On 11-16-2024 18:42:33 PDT by Fritz Jeffrey
--- NOTE | 2024-11-15 08:46 | DI.CT.S_ITS ---
PROCEDURE: CT ABDOMEN PELVIS W CON INDICATIONS: abd pain radiating to back TECHNIQUE: After the administration of intravenous contrast, axial sections acquired from the lung bases to the pubic symphysis. Coronal and sagittal reformats were performed. For radiation dose reduction, the following was used: automated exposure control, adjustment of mA and/or kV according to patient size. COMPARISON: [facility], CT, CT ABDOMEN PELVIS W CON, 02/23/2023, 8:32. FINDINGS: Image quality: Diagnostic. Lower Chest: Bibasilar dependent atelectasis is seen. Heart size is normal, no pericardial effusion. ABDOMEN: Liver: No solid mass. Gallbladder: No radiopaque gallstones or wall thickening. Biliary ducts: No biliary dilation. Pancreas: No ductal dilation. Spleen: Size is within normal limits. Adrenal Glands: No adrenal nodules. Kidneys and Ureters: No hydronephrosis. No solid mass. No complex renal cystic lesion which requires follow up. Stomach and Bowel: Moderate fecal stasis throughout the colon is seen. There is no bowel obstruction. No abnormal bowel wall thickening or mesenteric fat stranding. No evidence of acute appendicitis or diverticulitis. No abscess collection. Peritoneum: No abnormal intraperitoneal fluid. No free air. Ventral Wall: No significant ventral hernia. Abdominal Nodes: No retroperitoneal or mesenteric adenopathy by size criteria. Vessels: Aorta and inferior vena cava are normal in size. PELVIS: Pelvic Organs: Unremarkable. Bladder: No bladder wall thickening, accounting for underdistention. Pelvic Nodes: No enlarged lymph nodes. Miscellaneous: No inguinal hernias are seen. Bones: No aggressive osseous abnormality. Degenerative disc disease throughout lumbar spine is seen. 2 mm anterolisthesis of L4 on L5 is seen. IMPRESSION: 1. Moderate constipation. No bowel obstruction or abnormal bowel wall thickening. No evidence of acute appendicitis or diverticulitis. No free fluid or free air. 2. No obstructing renal stones or hydronephrosis. 3. Spondylitic changes throughout lumbar spine. No acute vertebral body compression fracture. Dictated by: Doug Carranza M.D. on 11/15/2024 at 9:17 Approved by: Doug Carranza M.D. on 11/15/2024 at 9:20
--- NOTE | 2024-11-15 08:47 | DI.RAD.S_ITS ---
PROCEDURE: XR CHEST 1V INDICATIONS: mediastinal lymphadenopathy, sob, chest pain TECHNIQUE: One view of the chest was acquired. COMPARISON: [facility], CR, XR CHEST 1V, 10/04/2024, 10:19. FINDINGS: Surgical changes and devices: None. Lungs and pleura: Subtle airspace opacity in bilateral infrahilar region is seen concerning for small lower lobe infiltrates versus atelectasis more prominent on the left side. No pleural effusions or pneumothorax. Mediastinum: Mediastinal contours appear normal. Heart size is normal. Bones and chest wall: No suspicious bony lesions. Overlying soft tissues appear unremarkable. IMPRESSION: Finding may represent small bibasilar infiltrate versus atelectasis. No pleural effusion or pneumothorax. Dictated by: Duog Carranza M.D. on 11/15/2024 at 9:18 Approved by: Doug Carranza M.D. on 11/15/2024 at 9:18
[2024-11-15 08:49] LABS: Ictotest Urine Negative (Negative); Urine Volume Low Vol <10mL (spun)
[2024-11-15 08:50] LABS: Bacteria Urine Moderate (10-30); Culture Indicated Urine Specimen Cultured; RBC Urine 30-100/HPF (0-5/HPF); Squamous Epithelial Cell Urine 1-5 /HPF (0-5/HPF); WBC Urine 30-100/HPF (0-5/HPF)
[2024-11-15] MEDS: SODIUM CHLORIDE 0.9% 1,000 ML 1000 ML IV (09:07)
[2024-11-15] MEDS: cefTRIAXone 1,000 MG in SODIUM CHLORIDE 0.9% 100 ML 200 MG IV (09:08)
[2024-11-15 11:04] LABS: Add Manual Diff / Slide Review NO; Basophils Absolute Auto 100 /uL (0-100); Basophils Percent Auto 0.9 % (0-2); Eosinophils Absolute Auto 100 /uL (0-450); Hematocrit 37.1 % (36-46); Hemoglobin 12.4 g/dL (12.0-16.0); Lymphocytes Absolute Auto 2000 /uL (1100-4500); Lymphocytes Percent Auto 22.2 % (25-40); Mean Corpuscular HGB Conc 33.4 % (30-36); Mean Corpuscular Hemoglobin 27.3 PG (26-34); Mean Corpuscular Volume 81.8 fL (80-100); Monocytes Absolute Auto 600 /uL (0-900); Monocytes Percent Auto 7.1 % (3-14); Neutrophils Absolute Auto 6100 /uL (1500-7000); Neutrophils Percent Auto 68.8 % (50-75); Platelet Count 378 X10^3/uL (150-400); Red Blood Cell Count 4.53 X10^6/uL (4.0-5.2); Red Cell Distribution Width 19.2 % (11.6-14.8); White Blood Cell Count 8.9 X10^3/uL (4.5-11.0)
[2024-11-15 11:15] LABS: Alanine Aminotransferase 29 IU/L (<35); Albumin 4.2 g/dL (3.5-5.0); Albumin Globulin Ratio 1.6 (1.0-2.8); Alkaline Phosphatase 78 U/L (38-126); Aspartate Aminotransferase 25 IU/L (14-36); BUN Creatinine Ratio 27.9 (6-22); Bilirubin Total 0.4 mg/dL (0.2-1.3); Blood Urea Nitrogen 17 mg/dL (7-17); Calcium 8.7 mg/dL (8.4-10.2); Carbon Dioxide 26 mmol/L (22-32); Chloride 99 mmol/L (98-107); Estimated Glomerular Filt Rate > 60 mL/min (>60); Globulin 2.7 g/dL (1.7-4.1); Glucose 173 mg/dL (80-110); HEMOLYSIS < 15 (0-50); Lipase 27 U/L (23-300); Potassium 3.8 mmol/L (3.4-5.1); Sodium 136 mmol/L (137-145); Total Protein 6.9 g/dL (6.3-8.2)
== END 2024-11-15 11:35 | disposition home or self-care (01) ==
PROVIDERS: Emergency Provider Family Medicine; PCP Family Medicine
DX: N39.0 Urinary tract infection, site not specified (principal); K59.00 Constipation, unspecified; B96.4 Proteus (mirabilis) (morganii) as the cause of diseases classified elsewhere; Z16.29 Resistance to other single specified antibiotic; I10 Essential (primary) hypertension; F17.210 Nicotine dependence, cigarettes, uncomplicated
CPT/HCPCS: 36415; 71045; 74177; 80053; 81001; 83690; 85025; 87077; 87086; 87186; 93005; 96365; 96366; 99284; J0696; Q9967

== ENCOUNTER → 2024-11-18 15:56 | Outpatient (CLI) | payer OTHER, SELFPAY ==
[2024-10-04 14:36] VITALS: BMI 27.4
--- NOTE | 2024-11-18 15:57 | DI.MG.S_ITS ---
MM screening mammo BI: 11/18/2024. BI-RADS: 1 CLINICAL: 69-year old female for bilateral screening mammogram. Tyrer-Cuzick lifetime risk of 5.4%. No personal or first-degree family history of breast cancer. PRIOR EXAMS 06/10/2022, 11/30/2017, 11/17/2017. MAMMOGRAPHY TECHNIQUE: 2D and 3D (tomosynthesis) digital mammographic views obtained, with additional images as needed for full coverage. Current study was also evaluated with a Computer Aided Detection (CAD) system. DENSITY C. The breasts are heterogeneously dense, which may obscure small masses. MAMMOGRAPHY FINDINGS Bilateral: No suspicious mass, asymmetry, microcalcification, or other abnormality seen. IMPRESSION: * No evidence of malignancy. RECOMMENDATIONS Bilateral * Annual screening mammography. OVERALL ASSESSMENT CATEGORY BI-RADS-1: Negative. The [employer] recommends annual screening mammography beginning at age 40 for women with average risk of breast cancer. ELECTRONICALLY SIGNED: Prince Schofield M.D. on 11/18/2024 at 10:15:27 PM PT Interpreting Station ID: [id number]
== END ==
PROVIDERS: PCP Family Medicine; Referring Provider Family Medicine; Visit Provider Family Medicine
DX: Z12.31 Encounter for screening mammogram for malignant neoplasm of breast (principal); R92.333 Mammographic heterogeneous density, bilateral breasts
CPT/HCPCS: 77063; 77067

== ENCOUNTER → 2025-02-22 07:06 | Outpatient (CLI) | payer OTHER, SELFPAY ==
[2024-10-04 14:36] VITALS: BMI 27.4
--- NOTE | 2025-02-22 07:08 | DI.US.S_ITS ---
PROCEDURE: US SOFT TISSUE HEAD AND NECK INDICATIONS: SWELLING TECHNIQUE: Real-time scanning was performed of the neck region of interest, with image documentation. COMPARISON: None. FINDINGS AND IMPRESSION: Bilateral submandibular, parotid, and thyroid glands were imaged. No discrete solid salivary gland lesion. No actionable thyroid nodule identified. No enlarged lymph nodes by size criteria in the neck identified by ultrasound. Clinical followup is recommended. If there is new or worsening clinical concern, reimaging could be obtained. Dictated by: Rudi Coffey M.D. on 02/22/2025 at 12:03 Approved by: Rudi Coffey M.D. on 02/22/2025 at 12:04
== END ==
LOC: US 07:07
PROVIDERS: PCP Family Medicine; Referring Provider Family Medicine; Visit Provider Family Medicine
DX: R22.9 Localized swelling, mass and lump, unspecified (principal)
CPT/HCPCS: 76536

== ENCOUNTER 2025-03-06 08:30 | Outpatient (RCR) | payer OTHER, SELFPAY ==
[2024-10-04 14:36] VITALS: BMI 27.4
== END 2025-03-06 10:30 ==
LOC: PUL 08:30
PROVIDERS: PCP Family Medicine; Referring Provider Family Medicine; Visit Provider Family Medicine
DX: J43.1 Panlobular emphysema (principal); J96.01 Acute respiratory failure with hypoxia
CPT/HCPCS: 82962; 94626; G0237; G0238

== ENCOUNTER 2025-07-10 10:15 | Outpatient (RCR) | payer OTHER, SELFPAY ==
[2024-10-04 14:36] VITALS: BMI 27.4
== END 2025-07-10 12:15 ==
LOC: PUL 10:15
PROVIDERS: PCP Family Medicine; Referring Provider Family Medicine; Visit Provider Family Medicine
DX: J43.1 Panlobular emphysema (principal); J96.01 Acute respiratory failure with hypoxia
CPT/HCPCS: 82962; 94626; G0237; G0238